=== PATIENT | male | born 1950 | race Caucasian/White ===

== ENCOUNTER 2016-07-19 10:27 | Emergency (ER) | payer BC, MEDICARE ==
[~2016-07-19] VITALS: Ht 170.2 cm; Wt 113.4 kg
[~2016-07-19 10:27] MED LIST: /AMLO25TA PO; /HYDR10TAB PO; /MESA40TAB PO; /MOXI40TA PO; /TAMS4CA PO; ACET-654 PO; ALB2.5NEB INH; ALBU0.084 IN; ALBU0.084 NEB; ALBUPOW9 INH; ASMA220A IN; ASMA220A INH; ASPI81CH PO; BISAC5TA PO; CARV25TA PO; CEFT500T PO; CIPR500T89 PO; COLA50CA3 PO; COMBAER6 INH; COMBIN INH; COZA100T2 PO; DICY10CA2 PO; DICY20TA11 PO; ERGO4000 PO; ERGO5000 PO; FERR325T3 PO; FISH100049 PO; FLEC100T2 PO; FLEC50TA PO; FLUNPOW INH; FURO40TA2 PO; HYDRPOW75 PO; INSUH10VL SC; INSULANT SC; INSULIN GL SC; IPRA2IN INH; IPRASOL12 NEB; KLOR1TAB73 PO; LASI40TA PO; LISI5TAB PO; LORA5SOL2 PO; MESAPOW PO; METF1000 PO; MOMETASONE FUROATE INH; NIFE15CA PO; OMEP20CA3 PO; POTA10IN2 PO; POTA10TA PO; PRED10TA PO; SIMV10TA2 PO; SIMV80TA PO; SPIR25TA2 PO; TERB1CRE TOP; TYLE325T5 PO; TYLE650T30 PO; VENTAER INH; VICT18IN SC; VITA10002 PO; VITA500C24 PO; VITA500T53 PO; VITAD1000T PO; WARF10TA15 PO; ZITH250T PO; [UNRECOGNIZED DRUG - CODE]; insulin glargine SC; miralax PO; vitamin b12 PO
[2016-07-19] MEDS ORDERED: PROM50TA2 PO (10:44)
[2016-07-19] MEDS ORDERED: BENT10CA PO (10:44)
[2016-07-19] MEDS ORDERED: LOSA50TA20 PO (10:44)
[2016-07-19] MEDS ORDERED: VITA50003 PO (10:44)
[2016-07-19] MEDS ORDERED: INSULADS INJ (10:44)
[2016-07-19] MEDS ORDERED: FUROSEMIDE 40 MG/4 ML VIAL (J1940) IV ONE (11:15)
[2016-07-19] MEDS ORDERED: ASPIRIN 81 MG CHEW TABLET PO ONE (11:15)
[2016-07-19] MEDS: NITROGLYCERIN 0.4 MG SUBL TABLET SL PRN ×3 (11:16→11:29)
[2016-07-19 11:21] VITALS: BP 121/58
[2016-07-19 11:28] LABS: INR 1.04
[2016-07-19 11:31] LABS: BASO % 0.2 % (0.0-1.0); EOS # 0.1 K/mm3 (0.0-0.50); EOS % 1.5 % (0.0-3.0); LARGE UNSTAINED CELL # 0.1 K/mm3 (0.0-0.4); LARGE UNSTAINED CELL % 1.8 % (0.0-4.0); LYMPH # 1.5 K/mm3 (1.5-4.5); LYMPH % 21.8 % (24.0-44.0); MEAN CORPUSCULAR HEMOGLOBIN 31.5 pg (27.0-33.0); MEAN CORPUSCULAR HGB CONC 34.2 g/dl (32.0-36.5); MEAN CORPUSCULAR VOLUME 92.1 fl (80.0-96.0); MONO # 0.4 K/mm3 (0.0-0.8); MONO % 6.1 % (0.0-5.0); NEUTROPHILS # 4.9 K/mm3 (1.8-7.7); NEUTROPHILS % 68.7 % (36.0-66.0); PLATELET COUNT, AUTOMATED 186 k/mm3 (150-450); RED CELL DISTRIBUTION WIDTH 12.1 % (11.5-14.5); WHITE BLOOD COUNT 7.1 K/mm3 (4.0-10.0)
[2016-07-19 11:33] LABS: ANION GAP 5 MEQ/L (8-16); BLOOD UREA NITROGEN 19 MG/DL (7-18); CALCIUM LEVEL 8.6 MG/DL (8.8-10.2); CARBON DIOXIDE LEVEL 34 MEQ/L (21-32); CHLORIDE LEVEL 102 MEQ/L (98-107); CREATININE FOR GFR 1.22 MG/DL (0.70-1.30); GLOMERULAR FILTRATION RATE > 60.0 (>49); GLUCOSE, FASTING 51 MG/DL (80-110); POTASSIUM SERUM 3.2 MEQ/L (3.5-5.1); SODIUM LEVEL 141 MEQ/L (136-145)
--- NOTE | 2016-07-19 11:54 | REP ---
PORTABLE CHEST: AP portable view of the chest is performed and compared to prior study of 09/06/2015. There is cardiomegaly. There is pulmonary venous hypertension. There is no acute infiltrate. There is elevation of the right hemidiaphragm. IMPRESSION: Cardiomegaly. No evidence of acute infiltrate. Signed by Amauri Wadsworth MD 07/19/2016 04:21 P
[2016-07-19] MEDS ORDERED: ACETAMINOPHEN 325 MG TAB PO ONE (12:15)
[2016-07-19] MEDS ORDERED: POTASSIUM CHLORIDE 10 MEQ SR TABLET PO ONE (12:15)
[2016-07-19] MEDS: HEPARIN DRIP 25,000 UNITS in APPROPRIATE DILUENT 1 EA IV SCH ×2 (14:19→14:35)
[2016-07-19] MEDS ORDERED: CLOPIDOGREL 75 MG TAB PO STA (14:21)
[2016-07-19] MEDS ORDERED: HEPARIN SOD (PORCINE) 5000 UNITS/ML VIAL IV ONE (14:30)
[2016-07-19] MEDS ORDERED: DEXTROSE 50% 50 ML VIAL IV STA (15:23)
[2016-07-19 15:58] VITALS: BP 166/80
--- NOTE | 2016-07-20 08:55 | ECGEPIP ---
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
--- NOTE | 2016-07-20 08:56 | ECGEPIP ---
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
--- NOTE | 2016-07-20 09:31 | ECGEPIP ---
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
== END 2016-07-19 16:01 | disposition short-term general hospital (02) ==
LOC: M ED 12:27
DX: I20.0 Unstable angina (principal); R94.31 Abnormal electrocardiogram [ECG] [EKG]; M79.89 Other specified soft tissue disorders; R06.02 Shortness of breath; R51 Headache; I50.9 Heart failure, unspecified; E11.9 Type 2 diabetes mellitus without complications; I11.0 Hypertensive heart disease with heart failure; E78.5 Hyperlipidemia, unspecified; Z82.49 Family history of ischemic heart disease and other diseases of the circulatory system; Z88.0 Allergy status to penicillin; Z79.899 Other long term (current) drug therapy; Z79.82 Long term (current) use of aspirin; Z79.4 Long term (current) use of insulin
CPT/HCPCS: 71010; 80048; 82550; 82553; 83880; 85025; 85610; 85730; 93005; 93041; 94760; 96374; 96375; 99285; J1940

== ENCOUNTER → 2016-07-26 | Outpatient (CLI) | payer BC ==
[~2016-07-26] MED LIST changes: +BENT10CA PO; +INSULADS INJ; +LOSA50TA20 PO; +PROM50TA2 PO; +VITA50003 PO
--- NOTE | 2016-07-26 12:08 | REP ---
Clinical: Trauma. Crush injury. Technique: AP, lateral, bilateral oblique views left hand . Findings: The osseous structures and joint spaces are intact and normal. There is no evidence for acute fracture or dislocation. Surrounding soft tissues are unremarkable. No subcutaneous emphysema or radiodense foreign body. Impression: No acute fracture or dislocation.
== END ==
LOC: M CLY 11:38
PROVIDERS: ATTEND Family Medicine
DX: M65.312 Trigger thumb, left thumb (principal)

== ENCOUNTER 2016-09-24 11:03 | Emergency (ER) | payer BC ==
[~2016-09-24] VITALS: Ht 170.2 cm; Wt 102.3 kg
[~2016-09-24 11:03] MED LIST changes: +METF10004 PO; -PROM50TA2 PO; +PROM50TA4 PO; +VITA1CAP40 PO; -VITA50003 PO
[2016-09-24] MEDS ORDERED: MELO15TA4 PO (11:18)
[2016-09-24] MEDS ORDERED: COMBAER6 INH (11:18)
[2016-09-24] MEDS ORDERED: AMLO10TA2 PO (11:18)
[2016-09-24 11:22] LABS: BASO % 0.5 % (0.0-1.0); EOS # 0.1 K/mm3 (0.0-0.50); EOS % 1.8 % (0.0-3.0); LARGE UNSTAINED CELL # 0.2 K/mm3 (0.0-0.4); LARGE UNSTAINED CELL % 2.6 % (0.0-4.0); LYMPH # 1.8 K/mm3 (1.5-4.5); LYMPH % 27.1 % (24.0-44.0); MEAN CORPUSCULAR HEMOGLOBIN 31.2 pg (27.0-33.0); MEAN CORPUSCULAR HGB CONC 34.7 g/dl (32.0-36.5); MONO # 0.5 K/mm3 (0.0-0.8); PLATELET COUNT, AUTOMATED 152 k/mm3 (150-450); RED CELL DISTRIBUTION WIDTH 12.7 % (11.5-14.5); WHITE BLOOD COUNT 6.6 K/mm3 (4.0-10.0)
[2016-09-24 11:47] LABS: ALBUMIN 3.7 GM/DL (3.2-5.2); ALBUMIN/GLOBULIN RATIO 0.93 (1.00-1.93); ALKALINE PHOSPHATASE 64 U/L (45-117); ALT/SGPT 21 U/L (12-78); ANION GAP 5 MEQ/L (8-16); AST/SGOT 15 U/L (15-37); BILIRUBIN,DIRECT 0.2 MG/DL (0.0-0.2); BILIRUBIN,TOTAL 0.4 MG/DL (0.2-1.0); BLOOD UREA NITROGEN 20 MG/DL (7-18); CALCIUM LEVEL 7.8 MG/DL (8.8-10.2); CARBON DIOXIDE LEVEL 36 MEQ/L (21-32); CHLORIDE LEVEL 100 MEQ/L (98-107); CREATININE FOR GFR 1.62 MG/DL (0.70-1.30); GLOMERULAR FILTRATION RATE 45.3 (>49); GLUCOSE, FASTING 110 MG/DL (80-110); POTASSIUM SERUM 3.5 MEQ/L (3.5-5.1); SODIUM LEVEL 141 MEQ/L (136-145); TOTAL PROTEIN 7.7 GM/DL (6.4-8.2)
--- NOTE | 2016-09-24 12:08 | REP ---
PORTABLE CHEST X-RAY: Single view. HISTORY: Chest pain. Comparison chest x-ray July 19, 2016. FINDINGS: The lungs are symmetrically aerated and free of infiltrate. Pulmonary vasculature is not increased. EKG electrodes are seen. There is slight blunting of the right lateral pleural angle unchanged from the prior study consistent with some pleural scarring. IMPRESSION: No active disease. Signed by Juan Marshall MD 09/24/2016 04:23 P
[2016-09-24] MEDS ORDERED: NITROGLYCERIN 0.4 MG SUBL TABLET SL PRN (12:30)
[2016-09-24] MEDS ORDERED: ASPIRIN 81 MG CHEW TABLET PO ONE (12:30)
[2016-09-24 12:40] VITALS: BP 134/59
[2016-09-24] MEDS ORDERED: ISOVUE-370 76% 100ML VIAL (Q9967) As Ordered ONE (13:45)
--- NOTE | 2016-09-24 14:45 | REP ---
CT PULMONARY ANGIOGRAM: With IV contrast. HISTORY: Chest pain shortness of breath. COMPARISON STUDIES: August 13, 2015. CONTRAST DOSE: 75 mL of Isovue [address] TECHNIQUE: Helical scanning is acquired and overlapping 1.5 mm and contiguous 3 mm axial images are reformatted. In addition, a 3D work station is deployed to generate thick slab maximum intensity projection images in sagittal and coronal imaging projections. CT PULMONARY ANGIOGRAPHIC FINDINGS: There is good opacification of the pulmonary arterial tree. There is no CT evidence of pulmonary embolism. Maximal intensity projection images show no vessel cutoff or filling defect to suggest a pulmonary thrombus. The thoracic aorta enhances homogeneously and is normal in caliber and course. No aneurysm or dissection seen. There is mild vascular calcification including left coronary artery calcification. There is calcific pleural plaquing on the right diaphragm. The patient is status post right lower lobectomy. No pleural or pericardial effusion is seen. The right hemidiaphragm is somewhat elevated. No infiltrate is seen in the lung jaime. No hilar or mediastinal mass or adenopathy is observed. The adrenal glands are normal. The left hepatic lobe is hypertrophied in the right lobe has been surgically resected. Spleen is unremarkable. There is mild bilateral gynecomastia. No bony destructive lesion is seen. IMPRESSION: 1. No CT evidence of pulmonary embolism. 2. Status post right lower lobectomy and right hepatic resection. No active cardiopulmonary disease seen. Signed by Juan Marshall MD 09/24/2016 04:24 P
[2016-09-24 18:17] VITALS: BP 146/72
--- NOTE | 2016-09-24 19:04 | ECGEPIP ---
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
--- NOTE | 2016-09-24 19:07 | ECGEPIP ---
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
== END 2016-09-24 18:28 | disposition home or self-care (01) ==
LOC: M ED 11:03
DX: R07.9 Chest pain, unspecified (principal); I48.91 Unspecified atrial fibrillation; I11.0 Hypertensive heart disease with heart failure; E78.5 Hyperlipidemia, unspecified; J44.9 Chronic obstructive pulmonary disease, unspecified; L65.9 Nonscarring hair loss, unspecified; K51.90 Ulcerative colitis, unspecified, without complications; K52.9 Noninfective gastroenteritis and colitis, unspecified; Z90.49 Acquired absence of other specified parts of digestive tract; Z90.89 Acquired absence of other organs; Z90.2 Acquired absence of lung [part of]; Z77.098 Contact with and (suspected) exposure to other hazardous, chiefly nonmedicinal, chemicals; Z87.891 Personal history of nicotine dependence; Z82.49 Family history of ischemic heart disease and other diseases of the circulatory system; Z79.82 Long term (current) use of aspirin; Z79.899 Other long term (current) drug therapy; Z88.0 Allergy status to penicillin; Z88.8 Allergy status to other drugs, medicaments and biological substances
CPT/HCPCS: 36415; 71010; 71275; 80048; 80076; 82550; 82553; 83690; 83880; 84443; 85025; 85730; 93005; 93041; 94760; 99285; Q9967

== ENCOUNTER → 2016-10-09 | Outpatient (REF) | payer BC ==
[~2016-10-09] MED LIST changes: +AMLO10TA2 PO; +MELO15TA4 PO
[2016-10-09 17:44] LABS: ANION GAP 9 MEQ/L (8-16); BLOOD UREA NITROGEN 12 MG/DL (7-18); CALCIUM LEVEL 7.8 MG/DL (8.8-10.2); CARBON DIOXIDE LEVEL 31 MEQ/L (21-32); CHLORIDE LEVEL 103 MEQ/L (98-107); CREATININE FOR GFR 1.01 MG/DL (0.70-1.30); GLOMERULAR FILTRATION RATE > 60.0 (>49); GLUCOSE, FASTING 67 MG/DL (80-110); POTASSIUM SERUM 3.8 MEQ/L (3.5-5.1); SODIUM LEVEL 143 MEQ/L (136-145)
== END ==
LOC: M SFHCCLAY 12:08
PROVIDERS: ATTEND Family Medicine
DX: I50.30 Unspecified diastolic (congestive) heart failure (principal)

== ENCOUNTER 2016-10-22 15:23 | Emergency (ER) | payer BC ==
[~2016-10-22] VITALS: Ht 170.2 cm; Wt 107.1 kg
--- NOTE | 2016-10-22 15:56 | REP ---
Portable chest x-ray: Single view. History: Chest pain. Comparison: Chest x-ray September 24, 2016. Findings: The lungs are symmetrically aerated and clear. Right hemidiaphragm remains slightly elevated. Mild cardiomegaly is observed, unchanged from the prior study. Pulmonary vasculature is not increased. There is no evidence of pleural effusion, infiltrate, or edema. Impression: Mild cardiomegaly, unchanged from comparison study September 24, 2016. Otherwise no acute disease. Signed by Juan Marshall MD 10/22/2016 04:09 P
[2016-10-22 16:44] LABS: INR 1.08
[2016-10-22 16:45] LABS: BASO % 0.3 % (0.0-1.0); EOS # 0.1 K/mm3 (0.0-0.50); EOS % 1.3 % (0.0-3.0); LARGE UNSTAINED CELL # 0.2 K/mm3 (0.0-0.4); LARGE UNSTAINED CELL % 1.8 % (0.0-4.0); LYMPH # 1.8 K/mm3 (1.5-4.5); LYMPH % 18.3 % (24.0-44.0); MEAN CORPUSCULAR HEMOGLOBIN 31.1 pg (27.0-33.0); MEAN CORPUSCULAR HGB CONC 34.9 g/dl (32.0-36.5); MEAN CORPUSCULAR VOLUME 89.1 fl (80.0-96.0); MONO # 0.7 K/mm3 (0.0-0.8); MONO % 7.7 % (0.0-5.0); NEUTROPHILS # 6.2 K/mm3 (1.8-7.7); NEUTROPHILS % 70.7 % (36.0-66.0); PLATELET COUNT, AUTOMATED 178 k/mm3 (150-450); RED CELL DISTRIBUTION WIDTH 13.2 % (11.5-14.5); WHITE BLOOD COUNT 8.8 K/mm3 (4.0-10.0)
[2016-10-22 17:00] LABS: ALBUMIN 3.5 GM/DL (3.2-5.2); ALBUMIN/GLOBULIN RATIO 0.97 (1.00-1.93); ALKALINE PHOSPHATASE 64 U/L (45-117); ALT/SGPT 18 U/L (12-78); ANION GAP 7 MEQ/L (8-16); AST/SGOT 19 U/L (15-37); BILIRUBIN,DIRECT 0.2 MG/DL (0.0-0.2); BILIRUBIN,TOTAL 0.6 MG/DL (0.2-1.0); BLOOD UREA NITROGEN 27 MG/DL (7-18); CALCIUM LEVEL 7.3 MG/DL (8.8-10.2); CARBON DIOXIDE LEVEL 34 MEQ/L (21-32); CHLORIDE LEVEL 99 MEQ/L (98-107); CREATININE FOR GFR 1.84 MG/DL (0.70-1.30); FREE T4 1.19 NG/DL (0.76-1.46); GLOMERULAR FILTRATION RATE 39.1 (>49); GLUCOSE, FASTING 50 MG/DL (80-110); POTASSIUM SERUM 3.2 MEQ/L (3.5-5.1); SODIUM LEVEL 140 MEQ/L (136-145); TOTAL PROTEIN 7.1 GM/DL (6.4-8.2)
[2016-10-22] MEDS ORDERED: POTASSIUM CHLORIDE 10 MEQ SR TABLET PO ONE (18:00)
[2016-10-22] MEDS ORDERED: NS 500 ML IV ONE (18:00)
--- NOTE | 2016-10-22 20:35 | ECGEPIP ---
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
[2016-10-22 21:06] VITALS: BP 122/65
== END 2016-10-22 21:33 | disposition home or self-care (01) ==
LOC: M ED 15:23
DX: E86.9 Volume depletion, unspecified (principal); E87.6 Hypokalemia; E11.649 Type 2 diabetes mellitus with hypoglycemia without coma; I25.10 Atherosclerotic heart disease of native coronary artery without angina pectoris; I11.0 Hypertensive heart disease with heart failure; I48.91 Unspecified atrial fibrillation; G47.33 Obstructive sleep apnea (adult) (pediatric); Z88.0 Allergy status to penicillin; Z79.82 Long term (current) use of aspirin; Z79.4 Long term (current) use of insulin; Z79.899 Other long term (current) drug therapy; Z79.84 Long term (current) use of oral hypoglycemic drugs

== ENCOUNTER → 2016-10-26 | Outpatient (REF) | payer BC ==
[2016-10-26 11:52] LABS: CALCIUM LEVEL 6.8 MG/DL (8.8-10.2); CREATININE FOR GFR 1.55 MG/DL (0.70-1.30); GLOMERULAR FILTRATION RATE 47.7 (>49); POTASSIUM SERUM 2.8 MEQ/L (3.5-5.1)
== END ==
LOC: M SFHCCLAY 08:40
PROVIDERS: ATTEND Family Medicine
DX: I50.30 Unspecified diastolic (congestive) heart failure (principal)

== ENCOUNTER → 2016-10-29 | Outpatient (REF) | payer BC ==
[2016-10-29 11:25] LABS: ALBUMIN 3.6 GM/DL (3.2-5.2); BILIRUBIN,TOTAL 0.5 MG/DL (0.2-1.0); CALCIUM LEVEL 7.1 MG/DL (8.8-10.2); CREATININE FOR GFR 1.8 MG/DL (0.70-1.30); GLOMERULAR FILTRATION RATE 40.1 (>49); POTASSIUM SERUM 3.1 MEQ/L (3.5-5.1); TOTAL PROTEIN 7.2 GM/DL (6.4-8.2)
== END ==
LOC: M SFHCCLAY 07:26
PROVIDERS: ATTEND Family Medicine
DX: E11.8 Type 2 diabetes mellitus with unspecified complications (principal); E87.6 Hypokalemia

== ENCOUNTER 2016-11-13 10:15 | Emergency (ER) | payer BC, MEDICARE ==
[~2016-11-13] VITALS: Ht 167.6 cm; Wt 104.6 kg
[2016-11-13 11:19] LABS: BASO % 0.2 % (0.0-1.0); EOS # 0.1 K/mm3 (0.0-0.50); LARGE UNSTAINED CELL # 0.1 K/mm3 (0.0-0.4); LARGE UNSTAINED CELL % 1.8 % (0.0-4.0); LYMPH # 1.5 K/mm3 (1.5-4.5); LYMPH % 21.2 % (24.0-44.0); MEAN CORPUSCULAR HEMOGLOBIN 32.1 pg (27.0-33.0); MEAN CORPUSCULAR VOLUME 87.3 fl (80.0-96.0); MONO # 0.4 K/mm3 (0.0-0.8); MONO % 6.2 % (0.0-5.0); NEUTROPHILS # 4.8 K/mm3 (1.8-7.7); NEUTROPHILS % 69.6 % (36.0-66.0); PLATELET COUNT, AUTOMATED 175 k/mm3 (150-450); RED CELL DISTRIBUTION WIDTH 12.7 % (11.5-14.5); WHITE BLOOD COUNT 6.9 K/mm3 (4.0-10.0)
[2016-11-13 11:31] LABS: MEAN CORPUSCULAR HGB CONC 36.2 g/dl (32.0-36.5)
[2016-11-13 11:40] LABS: INR 1.05
--- NOTE | 2016-11-13 11:41 | REP ---
Chest one-view HISTORY: Chest pain Comparison: 10/22/2016 There is elevation of the right hemidiaphragm. The lungs are clear. The cardiac silhouette is enlarged. Left The pulmonary vasculature is normal in appearance. Impression: No acute disease. Signed by Benjamin Fitch MD 11/13/2016 11:32 A
[2016-11-13 11:43] LABS: ALBUMIN 3.6 GM/DL (3.2-5.2); ALBUMIN/GLOBULIN RATIO 0.97 (1.00-1.93); ALKALINE PHOSPHATASE 65 U/L (45-117); ALT/SGPT 21 U/L (12-78); ANION GAP 10 MEQ/L (8-16); AST/SGOT 10 U/L (15-37); BILIRUBIN,DIRECT 0.2 MG/DL (0.0-0.2); BILIRUBIN,TOTAL 0.5 MG/DL (0.2-1.0); BLOOD UREA NITROGEN 18 MG/DL (7-18); CARBON DIOXIDE LEVEL 36 MEQ/L (21-32); CHLORIDE LEVEL 97 MEQ/L (98-107); CREATININE FOR GFR 1.68 MG/DL (0.70-1.30); GLOMERULAR FILTRATION RATE 43.5 (>49); GLUCOSE, FASTING 139 MG/DL (80-110); POTASSIUM SERUM 3.2 MEQ/L (3.5-5.1); SODIUM LEVEL 143 MEQ/L (136-145); TOTAL PROTEIN 7.3 GM/DL (6.4-8.2)
--- NOTE | 2016-11-13 12:42 | REP ---
CT Head without contrast HISTORY: Altered mental status COMPARISON: 09/06/2015 Areas of decreased attenuation are present in the periventricular and subcortical white matter. This represents small-vessel ischemic disease. There is no intraparenchymal hemorrhage, acute infarct, mass or midline shift. The ventricular system and cortical sulci are dilated consistent with mild volume loss. There is no extra cerebral collection. There is no fracture. The visualized sinuses are clear. IMPRESSION: 1. Small vessel ischemic disease. 2. Mild volume loss. Signed by Benjamin Fitch MD 11/13/2016 12:33 P
[2016-11-13] MEDS ORDERED: NS 500 ML IV ONE (13:45)
--- NOTE | 2016-11-13 13:53 | REP ---
Duplex extremity venous ultrasound: Bilateral lower extremity narinder History: The lower extremity swelling. Chest pain. Findings: The deep veins are anechoic and fully compressible from the groin to the popliteal fossa in the right and left lower extremity. Color flow imaging is homogeneous. Spectral Doppler interrogation demonstrates intact respiratory variation in flow and normal manual augmentation of flow. There is no evidence of deep vein thrombosis. Impression: Negative bilateral lower extremity duplex venous ultrasound. No evidence of deep vein thrombosis. Signed by Juan Marshall MD 11/13/2016 01:44 P
[2016-11-13 15:08] LABS: PHOSPHORUS LEVEL 4.5 MG/DL (2.5-4.9)
[2016-11-13] MEDS ORDERED: MAG SULF 1GM/100ML (MAG RUN) 1 GM in APPROPRIATE DILUENT 1 EA IV ONE (16:30)
--- NOTE | 2016-11-13 19:50 | REPUSA ---
MRI of the brain. Clinical history: dizziness, headaches. Technique: Multiecho multiplanar MRI images of the brain were obtained without administration of cont rast. Diffusion weighted images with ADC mapping was also obtained. Findings: The ventricles and sulci are symmetric but prominent in size bilaterally. The brain parenchyma demons trates T2 hyperintensity in the subcortical and periventricular white matter bilaterally. There is no midline shift, mass effect, or extra-axial fluid collection. The midline intracranial structures do not demonstrate any gross abnormalities. The cervical cranial junction is intact. The orbits are unre markable. The visualized paranasal sinuses and mastoid air cells are clear. The osseous structures an d superficial soft tissues are unremarkable. The vascular structures demonstrate appropriate flow voi ds. Impression: No evidence of acute hemorrhage or infarct. Moderate age-related atrophy and chronic smal l vessel ischemic changes.
--- NOTE | 2016-11-13 19:50 | REPUSA ---
MRI of the brain clinical history: headaches. Technique: [id number] MRA images of the brain were obtained without administration of contrast. 3 -D MIP images were also obtained. Findings: The vascular structures extending from the distal carotid and vertebrobasilar arterial syst ems, through the ewiiaapaayp of [place], demonstrate normal caliber and contour. There is no evidence of an eurysm, stenosis, or thrombosis. Impression: Unremarkable MRA examination of the brain.
[2016-11-13 20:52] VITALS: BP 155/73
--- NOTE | 2016-11-13 21:17 | ECGEPIP ---
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
== END 2016-11-13 20:53 | disposition home or self-care (01) ==
LOC: M ED 10:15
DX: E83.51 Hypocalcemia (principal); E83.42 Hypomagnesemia; E87.6 Hypokalemia; N18.9 Chronic kidney disease, unspecified; R94.31 Abnormal electrocardiogram [ECG] [EKG]; E11.21 Type 2 diabetes mellitus with diabetic nephropathy; E11.22 Type 2 diabetes mellitus with diabetic chronic kidney disease; I11.9 Hypertensive heart disease without heart failure; E78.5 Hyperlipidemia, unspecified; G47.30 Sleep apnea, unspecified; H54.41 Blindness, right eye, normal vision left eye; Z87.891 Personal history of nicotine dependence
CPT/HCPCS: 36415; 70450; 70544; 70551; 71010; 80048; 80076; 82306; 82330; 82550; 82553; 83690; 83735; 83880; 83970; 84100; 84443; 85025; 85610; 93005; 93041; 93970; 94760; 96365; 99285; J3475

== ENCOUNTER → 2016-11-25 | Outpatient (CLI) | payer BC, MEDICARE ==
--- NOTE | 2016-11-27 17:01 | SLEEPCENT ---
DATE OF PROCEDURE: 11/25/2016 ORDERED BY: Lorraine Garrido Nocturnal polysomnography was performed for re-titration of pressure therapy in this patient with a history of obstructive sleep apnea syndrome. For testing, a ResMed Quattro full face mask of small size was used, 8 cm of water pressure was initially applied to the circuit and the lights were extinguished. 7 hours and 13 minutes of data were reviewed. There were 307 minutes of sleep identified. Sleep latency was normal at 7 minutes. Rapid eye movement (REM) latency was mildly delayed at 115 minutes. Sleep architecture showed some fragmentation and some poor progression. Overall sleep efficiency was fairly good at 72%. There were 3 REM periods appreciated. The patient's EKG showed a sinus rhythm with an average heart rate of 50 beats per minute. EEG showed reasonably normal waveforms for awake and sleep. Persistent respiratory events prompted an increase in continuous positive airway pressure (CPAP) pressure. Best sleep was seen on a CPAP pressure of +9 with which the patient slept through REM without respiratory event or oxygen desaturation. There was some scattered limb activity but no trains of events. Limb movement arousal index was at the upper limits of normal at 5.7. IMPRESSION: Obstructive sleep apnea syndrome (G47.33). RECOMMENDATION: Nightly use of pressure therapy 9 cm of water. Copy To: Dr. Davis
== END ==
LOC: M SLEEP 19:45
PROVIDERS: ATTEND Nurse Practitioner Adult Health
DX: G47.33 Obstructive sleep apnea (adult) (pediatric) (principal)

== ENCOUNTER 2017-07-01 23:05 | Emergency (ER) | payer BC ==
[2017-07-02] MEDS: SIMETHICONE 80 MG CHEW TAB PO (00:15)
[2017-07-02] MEDS: NS 500 ML IV (00:25)
[2017-07-02 00:48] LABS: BASO % 0.2 % (0.0-1.0); EOS # 0.2 10^3/uL (0.0-0.50); EOS % 1.6 % (0.0-3.0); HEMATOCRIT 36.5 % (42.0-52.0); HEMOGLOBIN 13.2 g/dl (13.5-17.5); IMMATURE GRANULOCYTE % 0.3 % (0-3.0); LYMPH # 2.7 10^3/uL (1.5-4.5); LYMPH % 27.6 % (24.0-44.0); MEAN CORPUSCULAR HEMOGLOBIN 32.2 pg (27.0-33.0); MEAN CORPUSCULAR HGB CONC 36.2 g/dl (32.0-36.5); MONO # 0.9 10^3/uL (0.0-0.8); MONO % 9.4 % (0.0-5.0); NEUTROPHILS % 60.9 % (36.0-66.0); PLATELET COUNT, AUTOMATED 218 10^3/uL (150-450); WHITE BLOOD COUNT 9.9 10^3/uL (4.0-10.0)
[2017-07-02 01:17] LABS: ALBUMIN 3.8 GM/DL (3.2-5.2); ALBUMIN/GLOBULIN RATIO 1.03 (1.00-1.93); ALKALINE PHOSPHATASE 82 U/L (45-117); ALT/SGPT 29 U/L (12-78); ANION GAP 4 MEQ/L (8-16); AST/SGOT 22 U/L (7-37); BILIRUBIN,DIRECT 0.1 MG/DL (0.0-0.2); BILIRUBIN,TOTAL 0.5 MG/DL (0.2-1.0); BLOOD UREA NITROGEN 28 MG/DL (7-18); CALCIUM LEVEL 8.6 MG/DL (8.8-10.2); CARBON DIOXIDE LEVEL 33 MEQ/L (21-32); CHLORIDE LEVEL 102 MEQ/L (98-107); CREATININE FOR GFR 2.02 MG/DL (0.70-1.30); GLOMERULAR FILTRATION RATE 35.1 (>49); GLUCOSE, FASTING 154 MG/DL (70-100); POTASSIUM SERUM 3.8 MEQ/L (3.5-5.1); SODIUM LEVEL 139 MEQ/L (136-145); TOTAL PROTEIN 7.5 GM/DL (6.4-8.2)
== END 2017-07-02 03:20 | disposition home or self-care (01) ==
LOC: M ED 23:05
DX: K52.9 Noninfective gastroenteritis and colitis, unspecified (principal); E11.9 Type 2 diabetes mellitus without complications; I11.0 Hypertensive heart disease with heart failure; I50.9 Heart failure, unspecified; I48.91 Unspecified atrial fibrillation; J44.9 Chronic obstructive pulmonary disease, unspecified; N28.9 Disorder of kidney and ureter, unspecified; Z88.0 Allergy status to penicillin; Z88.8 Allergy status to other drugs, medicaments and biological substances; Z79.82 Long term (current) use of aspirin; Z79.899 Other long term (current) drug therapy; Z79.4 Long term (current) use of insulin
CPT/HCPCS: 93005

== ENCOUNTER 2017-07-12 11:44 | Inpatient (IN) | payer MEDICARE, BC ==
[2017-07-12 11:30] LABS: BEDSIDE GLUCOSE 104 MG/DL (80-115)
[2017-07-12 11:34] LABS: BASO % 0.3 % (0.0-1.0); EOS # 0.1 10^3/uL (0.0-0.50); EOS % 1.5 % (0.0-3.0); HEMATOCRIT 38.7 % (42.0-52.0); IMMATURE GRANULOCYTE % 0.3 % (0-3.0); LYMPH # 1.8 10^3/uL (1.5-4.5); MEAN CORPUSCULAR HEMOGLOBIN 32.5 pg (27.0-33.0); MEAN CORPUSCULAR HGB CONC 36.2 g/dl (32.0-36.5); MEAN CORPUSCULAR VOLUME 89.8 fl (80.0-96.0); MONO # 0.8 10^3/uL (0.0-0.8); MONO % 10.5 % (0.0-5.0); NEUTROPHILS # 4.8 10^3/uL (1.8-7.7); NEUTROPHILS % 63.4 % (36.0-66.0); PLATELET COUNT, AUTOMATED 180 10^3/uL (150-450); RED BLOOD COUNT 4.31 10^6/uL (4.30-6.10); RED CELL DISTRIBUTION WIDTH 12.8 % (11.5-14.5); WHITE BLOOD COUNT 7.5 10^3/uL (4.0-10.0)
[2017-07-12 11:44] LABS: INR 1.05; PROTHROMBIN TIME 13.8 SECONDS (12.4-14.5)
[2017-07-12 11:45] LABS: PARTIAL THROMBOPLASTIN TIME 38.7 SECONDS (26.8-37.9)
[2017-07-12] MEDS: NS 1,000 ML IV ×2 (11:47→13:34)
[2017-07-12 11:56] LABS: ANION GAP 3 MEQ/L (8-16); BLOOD UREA NITROGEN 23 MG/DL (7-18); CALCIUM LEVEL 9.2 MG/DL (8.8-10.2); CARBON DIOXIDE LEVEL 35 MEQ/L (21-32); CHLORIDE LEVEL 105 MEQ/L (98-107); CK-MB VALUE MASS 1.1 NG/ML (<3.6); CPK CREATINE PHOSPHOKINASE 94 U/L (39-308); CREATININE FOR GFR 1.82 MG/DL (0.70-1.30); GLOMERULAR FILTRATION RATE 39.6 (>49); GLUCOSE, FASTING 88 MG/DL (70-100); MAGNESIUM LEVEL 2.2 MG/DL (1.8-2.4); MB/CK RELATIVE INDEX 1.17 (< OR =4); POTASSIUM SERUM 3.8 MEQ/L (3.5-5.1); SODIUM LEVEL 143 MEQ/L (136-145); TROPONIN I < 0.02 NG/ML (< 0.10)
[2017-07-12 12:08] LABS: LACTIC ACID SEPSIS PROTOCOL 1.2 MMOL/L (0.4-2.0)
[2017-07-12] MEDS ORDERED: GLUCAGON FOR INJ 1 MG VIAL (J1610) SC (15:00)
[2017-07-12] MEDS ORDERED: GLUCOSE 4 GM CHEW TABLET PO (15:00)
[2017-07-12] MEDS ORDERED: DEXTROSE 50% 50 ML SYRINGE IV (15:00)
[2017-07-12] MEDS: HumaLOG INSULIN (NovoLOG) PER UNIT SC ×2 (17:30→20:47)
[2017-07-12 17:44] LABS: BEDSIDE GLUCOSE 70 MG/DL (80-115)
[2017-07-12 19:42] LABS: CK-MB VALUE MASS 1.5 NG/ML (<3.6); CPK CREATINE PHOSPHOKINASE 91 U/L (39-308); MB/CK RELATIVE INDEX 1.64 (< OR =4); TROPONIN I < 0.02 NG/ML (< 0.10)
[2017-07-12 20:53] LABS: BEDSIDE GLUCOSE 144 MG/DL (80-115)
[2017-07-12] MEDS: CARVedilol 12.5 MG TAB PO (21:38)
[2017-07-12] MEDS: METAMUCIL (PSYLLIUM) PACKET PO (21:38)
[2017-07-12] MEDS: DICYCLOMINE 10 MG CAP PO (21:38)
[2017-07-12] MEDS: OMEPRAZOLE 20 MG CAP PO (21:38)
[2017-07-12] MEDS: HEPARIN SOD (PORCINE) 5000 UNITS/ML VIAL SQ (21:38)
[2017-07-12] MEDS: LEVEMIR (INSULIN DETEMIR) 1 UNITS/0.01ML SC (21:39)
[2017-07-13 04:03] LABS: HEMATOCRIT 33.4 % (42.0-52.0); MEAN CORPUSCULAR HEMOGLOBIN 32.1 pg (27.0-33.0); MEAN CORPUSCULAR HGB CONC 35.9 g/dl (32.0-36.5); MEAN CORPUSCULAR VOLUME 89.3 fl (80.0-96.0); PLATELET COUNT, AUTOMATED 157 10^3/uL (150-450); RED BLOOD COUNT 3.74 10^6/uL (4.30-6.10); RED CELL DISTRIBUTION WIDTH 12.5 % (11.5-14.5); WHITE BLOOD COUNT 8.5 10^3/uL (4.0-10.0)
[2017-07-13 04:22] LABS: ANION GAP 6 MEQ/L (8-16); BLOOD UREA NITROGEN 19 MG/DL (7-18); CALCIUM LEVEL 8.1 MG/DL (8.8-10.2); CARBON DIOXIDE LEVEL 29 MEQ/L (21-32); CHLORIDE LEVEL 108 MEQ/L (98-107); CHOLESTEROL LEVEL 122 MG/DL (<200); CHOLESTEROL RISK RATIO 4.518 (<5); CK-MB VALUE MASS < 1.0 NG/ML (<3.6); CPK CREATINE PHOSPHOKINASE 76 U/L (39-308); GLOMERULAR FILTRATION RATE 58.4 (>49); GLUCOSE, FASTING 131 MG/DL (70-100); HDL CHOLESTEROL 27 MG/DL (>40); LDL CHOLESTEROL 35.2 MG/DL (<100); MAGNESIUM LEVEL 1.8 MG/DL (1.8-2.4); MB/CK RELATIVE INDEX 1.31 (< OR =4); NON-HDL-C 95 MG/DL; POTASSIUM SERUM 3.3 MEQ/L (3.5-5.1); SODIUM LEVEL 143 MEQ/L (136-145); TRIGLYCERIDES LEVEL 299 MG/DL (<150); TROPONIN I < 0.02 NG/ML (< 0.10)
[2017-07-13] MEDS: NS 1,000 ML IV (05:40)
[2017-07-13 06:04] LABS: KETONE, URINE AUTO RFX NEGATIVE (NEGATIVE); LEUKOCYTE ESTERASE UR AUTO RFX NEGATIVE (NEGATIVE); MUCUS, URINE RFX SMALL (NEGATIVE); NITRITE, URINE AUTO RFX NEGATIVE (NEGATIVE); RBC, URINE AUTO RFX 1 /HPF (0-3); SPECIFIC GRAVITY UR AUTO RFX 1.016 (1.002-1.035); SQUAM EPITHELIAL CELL UR AURFX 0 /HPF (0-6); WBC, URINE AUTO RFX 0 /HPF (0-3)
[2017-07-13] MEDS: METAMUCIL (PSYLLIUM) PACKET PO ×2 (08:02→20:36)
[2017-07-13] MEDS: HEPARIN SOD (PORCINE) 5000 UNITS/ML VIAL SQ ×2 (08:03→20:37)
[2017-07-13] MEDS: HumaLOG INSULIN (NovoLOG) PER UNIT SC ×4 (08:03→20:38)
[2017-07-13] MEDS: DICYCLOMINE 10 MG CAP PO ×2 (08:04→20:37)
[2017-07-13] MEDS: CARVedilol 12.5 MG TAB PO ×2 (08:04→20:37)
[2017-07-13] MEDS: amLODIPine 5 MG TAB PO (08:04)
[2017-07-13] MEDS: LOSARTAN 50 MG TAB PO (08:04)
[2017-07-13] MEDS: ATORVASTATIN 20 MG TAB PO (08:05)
[2017-07-13] MEDS: ASPIRIN 81 MG ENTERIC TAB PO (08:05)
[2017-07-13] MEDS: OMEPRAZOLE 20 MG CAP PO ×2 (08:05→20:37)
[2017-07-13] MEDS: MULTIVITAMINS/MINERALS THERAP 1 TAB PO (08:05)
[2017-07-13 10:25] LABS: CPK CREATINE PHOSPHOKINASE 89 U/L (39-308); TROPONIN I < 0.02 NG/ML (< 0.10)
[2017-07-13 10:26] LABS: CK-MB VALUE MASS < 1.0 NG/ML (<3.6); MB/CK RELATIVE INDEX 1.12 (< OR =4)
[2017-07-13 11:33] LABS: BEDSIDE GLUCOSE 262 MG/DL (80-115)
[2017-07-13] MEDS: POTASSIUM CHLORIDE 10 MEQ SR TABLET PO (12:08)
[2017-07-13] MEDS ORDERED: SLF 3 ML SYR IV (15:45)
[2017-07-13 16:56] LABS: BEDSIDE GLUCOSE 212 MG/DL (80-115)
[2017-07-13 20:31] LABS: BEDSIDE GLUCOSE 293 MG/DL (80-115)
[2017-07-13] MEDS: SLF 3 ML SYR IV (20:38)
[2017-07-13] MEDS: LEVEMIR (INSULIN DETEMIR) 1 UNITS/0.01ML SC (20:38)
[2017-07-14 04:49] LABS: HEMATOCRIT 32.2 % (42.0-52.0); HEMOGLOBIN 11.8 g/dl (13.5-17.5); MEAN CORPUSCULAR HEMOGLOBIN 32.4 pg (27.0-33.0); MEAN CORPUSCULAR HGB CONC 36.6 g/dl (32.0-36.5); MEAN CORPUSCULAR VOLUME 88.5 fl (80.0-96.0); PLATELET COUNT, AUTOMATED 138 10^3/uL (150-450); RED BLOOD COUNT 3.64 10^6/uL (4.30-6.10); RED CELL DISTRIBUTION WIDTH 12.3 % (11.5-14.5); WHITE BLOOD COUNT 6.2 10^3/uL (4.0-10.0)
[2017-07-14 05:05] LABS: ANION GAP 6 MEQ/L (8-16); BLOOD UREA NITROGEN 15 MG/DL (7-18); CALCIUM LEVEL 8.2 MG/DL (8.8-10.2); CARBON DIOXIDE LEVEL 28 MEQ/L (21-32); CHLORIDE LEVEL 109 MEQ/L (98-107); GLOMERULAR FILTRATION RATE > 60.0 (>49); GLUCOSE, FASTING 176 MG/DL (70-100); POTASSIUM SERUM 3.9 MEQ/L (3.5-5.1); SODIUM LEVEL 143 MEQ/L (136-145)
[2017-07-14] MEDS: SLF 3 ML SYR IV (06:00)
[2017-07-14] MEDS: METAMUCIL (PSYLLIUM) PACKET PO (07:54)
[2017-07-14] MEDS: HumaLOG INSULIN (NovoLOG) PER UNIT SC ×2 (07:55→11:37)
[2017-07-14] MEDS: LOSARTAN 50 MG TAB PO (07:55)
[2017-07-14] MEDS: ASPIRIN 81 MG ENTERIC TAB PO (07:56)
[2017-07-14] MEDS: ATORVASTATIN 20 MG TAB PO (07:56)
[2017-07-14] MEDS: DICYCLOMINE 10 MG CAP PO (07:56)
[2017-07-14] MEDS: CARVedilol 12.5 MG TAB PO (07:56)
[2017-07-14] MEDS: OMEPRAZOLE 20 MG CAP PO (07:57)
[2017-07-14] MEDS: MULTIVITAMINS/MINERALS THERAP 1 TAB PO (07:57)
[2017-07-14] MEDS: HEPARIN SOD (PORCINE) 5000 UNITS/ML VIAL SQ (07:57)
[2017-07-14 11:52] LABS: BEDSIDE GLUCOSE 239 MG/DL (80-115)
== END 2017-07-14 13:41 | disposition home or self-care (01) | DRG 312 ==
LOC: M ED 11:44 → M ED INP 14:58 → M PCU 16:43
PROVIDERS: Hospitalist
DX: I95.1 Orthostatic hypotension (principal); I13.0 Hypertensive heart and chronic kidney disease with heart failure and stage 1 through stage 4 chronic kidney disease, or unspecified chronic kidney disease; K51.90 Ulcerative colitis, unspecified, without complications; N17.9 Acute kidney failure, unspecified; I50.32 Chronic diastolic (congestive) heart failure; N52.9 Male erectile dysfunction, unspecified; E11.22 Type 2 diabetes mellitus with diabetic chronic kidney disease; J44.9 Chronic obstructive pulmonary disease, unspecified; E78.5 Hyperlipidemia, unspecified; K21.9 Gastro-esophageal reflux disease without esophagitis; E87.6 Hypokalemia; N18.3 Chronic kidney disease, stage 3 (moderate); G47.33 Obstructive sleep apnea (adult) (pediatric); E11.43 Type 2 diabetes mellitus with diabetic autonomic (poly)neuropathy; Z87.891 Personal history of nicotine dependence; I48.0 Paroxysmal atrial fibrillation; Z79.82 Long term (current) use of aspirin; Z79.4 Long term (current) use of insulin; Z79.899 Other long term (current) drug therapy; Z88.0 Allergy status to penicillin; Z88.8 Allergy status to other drugs, medicaments and biological substances

== ENCOUNTER → 2017-07-24 | Outpatient (REF) | payer BC ==
[2017-07-24 16:53] LABS: HEMATOCRIT 37.2 % (42.0-52.0); HEMOGLOBIN 13.4 g/dl (13.5-17.5); MEAN CORPUSCULAR HEMOGLOBIN 32.4 pg (27.0-33.0); MEAN CORPUSCULAR VOLUME 90.1 fl (80.0-96.0); PLATELET COUNT, AUTOMATED 179 10^3/uL (150-450); RED BLOOD COUNT 4.13 10^6/uL (4.30-6.10); RED CELL DISTRIBUTION WIDTH 12.8 % (11.5-14.5); WHITE BLOOD COUNT 7.9 10^3/uL (4.0-10.0)
[2017-07-24 17:18] LABS: ANION GAP 7 MEQ/L (8-16); BLOOD UREA NITROGEN 13 MG/DL (7-18); CALCIUM LEVEL 8.2 MG/DL (8.8-10.2); CARBON DIOXIDE LEVEL 31 MEQ/L (21-32); CHLORIDE LEVEL 106 MEQ/L (98-107); CREATININE FOR GFR 1.31 MG/DL (0.70-1.30); GLOMERULAR FILTRATION RATE 57.8 (>49); GLUCOSE, FASTING 153 MG/DL (70-100); NT-PRO BNP 127 PG/ML (<125); POTASSIUM SERUM 3.5 MEQ/L (3.5-5.1); SODIUM LEVEL 144 MEQ/L (136-145)
[2017-07-24 17:43] LABS: ESTIMATED AVERAGE GLUCOSE 194 MG/DL (60-110); HEMOGLOBIN A1c 8.4 %
== END ==
LOC: M SFHCCLAY 11:20
DX: I50.30 Unspecified diastolic (congestive) heart failure (principal); I11.0 Hypertensive heart disease with heart failure
CPT/HCPCS: 83036

== ENCOUNTER 2018-05-27 20:44 | Inpatient (IN) | payer OTHER, MEDICARE, BC ==
[~2018-05-27] VITALS: Ht 170.2 cm; Wt 106.0 kg
[~2018-05-27 20:44] MED LIST changes: -AMLO10TA2 PO; +AMLO10TA5 PO; +AMLO5TAB6 PO; +ASPI81TA85 PO; +ATOR80TA59 PO; +CALC600T60 PO; +CALCTAB60 PO; +CARV12.5 PO; -INSULADS INJ; +INSULADS SC; +LOSA100T50 PO; -LOSA50TA20 PO; +LOSA50TA88 PO; +MELO15TA28 PO; -MELO15TA4 PO; +META1POW PO; +METF-839 PO; +MULTLIQ7 PO; -SIMV80TA PO; +SIMV80TA13 PO; +SPIR-10 PO; -VITA1CAP40 PO; +VITA50005 PO; +VITMTA PO
[2018-05-27] MEDS ORDERED: predniSONE 10 MG TAB PO SCH (21:00)
[2018-05-27] MEDS ORDERED: HumuLIN R (REGULAR) INSULIN (NovoLIN R) **100U/ML** PER UNIT IV STA (21:05)
[2018-05-27] MEDS ORDERED: APAP325T4 PO (21:24)
[2018-05-27] MEDS ORDERED: VENTAER INH (21:26)
[2018-05-27] MEDS ORDERED: PRED10PA2 PO (21:26)
[2018-05-27] MEDS ORDERED: ZITHTAB PO (21:26)
[2018-05-27] MEDS ORDERED: FLUTISP NARES (21:26)
[2018-05-27] MEDS ORDERED: BENZ200C70 PO (21:26)
[2018-05-27] MEDS ORDERED: NS 1,000 ML IV ONE (21:30)
[2018-05-27] MEDS: IPRATROPIUM 0.5MG/ALBUTEROL 2.5MG INH SOL UD 3ML (DUONEB)(J7620) NEB PRN ×2 (21:32→22:02)
[2018-05-27 21:38] LABS: HEMOGLOBIN A1c 8.2 %
[2018-05-27 21:55] LABS: ABG BASE EXCESS -6.6 (-2.0-2.0); ABG HCO3 19.1 MEQ/L (22.0-26.0); ABG O2 SATURATION 96.2 % (95.0-99.0); ABG PARTIAL PRESSURE CO2 38.6 mmHg (35.0-45.0); ABG PARTIAL PRESSURE O2 88.6 mmHg (75.0-100.0); ABG STANDARD HCO3 19.1 MEQ/L (22.0-26.0); ABG TOTAL CO2 20.3 MEQ/L (23.0-31.0); ABG pH (ARTERIAL) 7.312 UNITS (7.350-7.450)
[2018-05-27 22:13] LABS: ALBUMIN 3.4 GM/DL (3.2-5.2); BILIRUBIN,DIRECT 0.1 MG/DL (0.0-0.2); BILIRUBIN,TOTAL 0.4 MG/DL (0.2-1.0); CALCIUM LEVEL 7.8 MG/DL (8.8-10.2); CREATININE FOR GFR 2.83 MG/DL (0.70-1.30); GLOMERULAR FILTRATION RATE 23.7 (>49); POTASSIUM SERUM 4.4 MEQ/L (3.5-5.1)
[2018-05-27 22:31] LABS: BASO % 0.1 % (0.0-1.0); HEMATOCRIT 36.8 % (42.0-52.0); HEMOGLOBIN 12.6 g/dl (13.5-17.5); LYMPH % 13.9 % (24.0-44.0); MEAN CORPUSCULAR HEMOGLOBIN 31.9 pg (27.0-33.0); MEAN CORPUSCULAR HGB CONC 34.2 g/dl (32.0-36.5); MEAN CORPUSCULAR VOLUME 93.2 fl (80.0-96.0); MONO # 0.7 10^3/uL (0.0-0.8); MONO % 10.7 % (0.0-5.0); NEUTROPHILS # 5.1 10^3/uL (1.8-7.7); NEUTROPHILS % 74.9 % (36.0-66.0); PLATELET COUNT, AUTOMATED 174 10^3/uL (150-450); RED BLOOD COUNT 3.95 10^6/uL (4.30-6.10); WHITE BLOOD COUNT 6.8 10^3/uL (4.0-10.0)
[2018-05-27] MEDS ORDERED: HumaLOG INSULIN (NovoLOG) PER UNIT SC STA (23:59)
[2018-05-28] MEDS ORDERED: CALCTAB6 PO (00:43)
[2018-05-28] MEDS ORDERED: VENTAER INH (00:43)
[2018-05-28] MEDS ORDERED: AZIT-10 PO (00:43)
[2018-05-28] MEDS ORDERED: OMEP40CA2 PO (00:43)
[2018-05-28] MEDS ORDERED: FURO40TA2 PO (00:43)
[2018-05-28] MEDS ORDERED: TYLE325T5 PO (00:43)
[2018-05-28] MEDS ORDERED: MAXZTA PO (00:43)
[2018-05-28] MEDS ORDERED: BENZ200C70 PO (00:43)
[2018-05-28] MEDS ORDERED: PRED10TA2 PO (00:43)
[2018-05-28] MEDS ORDERED: META28.32 PO (00:43)
[2018-05-28] MEDS ORDERED: CARV12.5 PO (00:43)
[2018-05-28] MEDS ORDERED: NS 1,000 ML IV SCH (01:03)
[2018-05-28] MEDS ORDERED: ACETAMINOPHEN TAB 650MG DOSE (2X325MG) PO PRN (01:15)
[2018-05-28] MEDS ORDERED: MORPHINE 4 MG/ML 1ML VIAL/SYRINGE (J2270) IV PRN (01:15)
[2018-05-28] MEDS ORDERED: ONDANSETRON 4 MG TAB (S0181) PO PRN (01:15)
[2018-05-28 06:18] LABS: BASO % 0.2 % (0.0-1.0); HEMATOCRIT 33.6 % (42.0-52.0); HEMOGLOBIN 11.5 g/dl (13.5-17.5); LYMPH # 1.8 10^3/uL (1.5-4.5); LYMPH % 27.6 % (24.0-44.0); MEAN CORPUSCULAR HEMOGLOBIN 31.7 pg (27.0-33.0); MEAN CORPUSCULAR HGB CONC 34.2 g/dl (32.0-36.5); MEAN CORPUSCULAR VOLUME 92.6 fl (80.0-96.0); MONO % 16.4 % (0.0-5.0); NEUTROPHILS # 3.5 10^3/uL (1.8-7.7); NEUTROPHILS % 55.5 % (36.0-66.0); PLATELET COUNT, AUTOMATED 135 10^3/uL (150-450); RED BLOOD COUNT 3.63 10^6/uL (4.30-6.10); WHITE BLOOD COUNT 6.3 10^3/uL (4.0-10.0)
[2018-05-28] MEDS: BENZONATATE 100 MG CAP PO SCH ×4 (06:29→22:34)
[2018-05-28] MEDS ORDERED: GLUCOSE 4 GM CHEW TABLET PO PRN (06:30)
[2018-05-28] MEDS ORDERED: GLUCAGON FOR INJ 1 MG VIAL (J1610) SC PRN (06:30)
[2018-05-28] MEDS ORDERED: DEXTROSE 50% 50 ML SYRINGE IV PRN (06:30)
[2018-05-28] MEDS: CARVedilol 12.5 MG TAB PO SCH ×3 (06:33→22:35)
[2018-05-28] MEDS: OMEPRAZOLE 20 MG CAP PO SCH ×3 (06:33→22:34)
--- NOTE | 2018-05-28 06:33 | HPEPDOC ---
[facility] Medical History & Physical Date of Admission May 28, 2018 History and Physical CHIEF COMPLAINT: dyspnea and hyperglyemia >600 at home HPI: 67yoM who reports dyspnea for the past 3 days. He went to the [place] yesterday and was given zpack and steroid, but hasn't felt much better and noticed that his f/s was >600 so he came to the ed. Associated symptoms include chest tightness, wheezes and cough. He denied fever, chills, headache, di zziness, weakness , dysuria , hematuria , nausea or vomiting ROS - all 14 points ROS negative except for what's stated in HPI PAST MEDICAL HISTORY ALOPECIA E.D. IDDM H/O AGENT ORANGE EXPOSURE COPD HYPERTENSION/HHD/H/O CHF. No prior Echo on chart. HLD ULCERATIVE COLITIS GERD H/O A-FIB HISTORY OF OCCULT GI BLOOD LOSS, RESULTING IN STOPPING ANTICOAGULATION FOR AFIB RELATED STROKE PROPHYLAXIS CKD 3 Baseline appears to be 1.5-1.8. LUISITO. 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 Kids:2 Tobacco use: quit 1996 ETOH: denies Advanced directives: none FAMHX: Mother: CAD Father: CAD/DM Siblings: 5Alive, well. 3 CAD/DM/Breast CA Children: 2 Dtr Alive, well Physical Exam GEN: NAD , obese HEENT: normocephalic, atraumatic, PERRLA, EOMI, externbal ears appears normal, neck supple, no pharyngeal erythema CVS : normal S1, S2 no murmur, rubs or gallops , PMI nondisplaced RESP: no rals, rhonchi, crackles. wheezes- b/l mild scattered, some restriction in air movement ABD - +BS, soft, NT, ND , no cva tenderness MSK no joint swelling, FROM, no muscle tenderness Neuro no focal deficit, AOAX3 Lymphatics- no lymphedema, no lymphadenopathy in cervical and supraclavicular chains Psych- normal mood and affect, good judgement and insight LABORATORY DATA: See below. IMAGING: reviewed MICROBIOLOGY: Please see below. ASSESSMENT and Plan COPD exacerbation -duoneb q4h prn -methylprednisolone 40mg q8h -Patient may need inhaled steroid Hyperglycemia - exacerbated by steroid use - hold home 70/30 - start levemir 15 units qhs and lispro 5 units TIDAC - ISS -hypoglycemic protocol -f/u hba1c c/w other home meds for his chronic conditions dvt ppx full code, from home no svc Vital Signs Vital Signs Date Time Temp Pulse Resp B/P (MAP) Pulse Ox O2 Delivery O2 Flow Rate FiO2 05/28/18 02:44 85 18 96 Room Air 05/28/18 02:01 146/67 (93) 05/27/18 22:59 99.2 Laboratory Data Labs 24H Laboratory Tests 2 05/27/18 21:10: Blood Gas Bicarbonate Standard 19.1L, Arterial Blood pH 7.312L, Arterial Blood Partial Pressure CO2 38.6, Arterial Blood Partial Pressure O2 88.6, Arterial Blood Total CO2 20.3L, Arterial Blood HCO3 19.1L, Arterial Blood Base Excess - 6.6L, Arterial Blood Oxygen Saturation 96.2 05/27/18 21:11: Immature Granulocyte % (Auto) 0.4, White Blood Count 6.8, Red Blood Count 3.95L, Hemoglobin 12.6L, Hematocrit 36.8L, Mean Corpuscular Volume 93.2, Mean Corpuscular Hemoglobin 31.9, Mean Corpuscular Hemoglobin Concent 34.2, Red Cell Distribution Width 12.2, Platelet Count 174, Neutrophils (%) (Auto) 74.9H, Lymphocytes (%) (Auto) 13.9L, Monocytes (%) (Auto) 10.7H, Eosinophils (%) (Auto) 0.0, Basophils (%) (Auto) 0.1, Neutrophils # (Auto) 5.1, Lymphocytes # (Auto) 1.0L, Monocytes # (Auto) 0.7, Eosinophils # (Auto) 0.0, Basophils # (Auto) 0.0, Nucleated Red Blood Cells % (auto) 0.0, Urine Color STRAW, Urine Appearance CLEAR, Urine pH 5.0, Urine Specific [place] 1.022, Urine Protein NEGATIVE, Urine Glucose (UA) 3+H, Urine Ketones NEGATIVE, Urine Blood 1+H, Urine Nitrite NEGATIVE, Urine Bilirubin NEGATIVE, Urine Urobilinogen 0.2, Urine Leukocyte Esterase NEGATIVE, Urine WBC (Auto) 0, Urine RBC (Auto) 0, Urine Hyaline Casts (Auto) 0, Urine Bacteria (Auto) NEGATIVE, Urine Squamous Epithelial Cells 0, Urine Sperm (Auto) , Anion Gap 8, Glomerular Filtration Rate 23.7L, Estimated Mean Plasma Glucose 189H, Hemoglobin A1c 8.2, Calcium Level 7.8L, Aspartate Amino Transf (AST/SGOT) 29, Alanine Aminotransferase (ALT/SGPT) 32, Alkaline Phosphatase 103, Total Bilirubin 0.4, Direct Bilirubin 0.1, Total Protein 7.0, Albumin 3.4, Albumin/Globulin Ratio 0.94L 05/27/18 22:35: Bedside Glucose (Misc Panel) 514*H 05/27/18 23:46: Bedside Glucose (Misc Panel) 487H 05/28/18 01:31: Bedside Glucose (Misc Panel) 372H CBC/BMP Laboratory Tests 05/27/18 21:11 Red Blood Count 3.95 L, Mean Corpuscular Volume 93.2, Mean Corpuscular Hem oglobin 31.9, Mean Corpuscular Hemoglobin Concent 34.2, Red Cell Distribution Width 12.2, Neutrophils (%) (Auto) 74.9 H, Lymphocytes (%) (Auto) 13.9 L, Monocytes (%) (Auto) 10.7 H, Eosinophils (%) (Auto) 0.0, Basophils (%) (Auto) 0.1, Neutrophils # (Auto) 5.1, Lymphocytes # (Auto) 1.0 L, Monocytes # (Auto) 0.7, Eosinophils # (Auto) 0.0, Basophils # (Auto) 0.0 Microbiology Microbiology 05/27/18 Respiratory Virus Panel (PCR) (FELY) - Final, Complete Influenza A H1-2009 Home Medications Scheduled Aspirin (Aspir-81) 81 Mg Tab, 81 MG PO DAILY Atorvastatin Calcium (Atorvastatin Calcium) 80 Mg Tab, 40 MG PO DAILY Azithromycin (Azithromycin) 250 Mg Tab, 250 MG PO ASDIRECTED LAST DOSE WAS DAY 2 Benzonatate (Benzonatate) 200 Mg Cap, 200 MG PO TID Calcium/Vitamin D (Calcium 600-D 600-400 mg-Unit) 1 Tab Tab, 1 TAB PO BID Carvedilol (Carvedilol) 12.5 Mg Tab, 12.5 MG PO BID Furosemide (Furosemide) 40 Mg Tab, 40 MG PO DAILY Insulin Aspart (Novolog) 100 U/Ml Inj, 6 UNITS SC DAILY WITH BREAKFAST Insulin Glargine (Lantus) 100 Unit/Ml Inj, 70 UNIT SC QHS Losartan Potassium (Losartan Potassium) 100 Mg Tab, 100 MG PO DAILY Metformin Hydrochloride (Metformin Hydrochloride) 500 Mg Tab, 500 MG PO TID BREAKFAST, DINNER AND BEDTIME Multivitamins *[facility] STOCKED* (Thera M Plus *[facility] STOCKED*) 1 Tab Tab, 1 TAB PO DAILY Omeprazole (Omeprazole) 40 Mg Cap, 40 MG PO BID Prednisone (Prednisone) 10 Mg Tab, 10 MG PO TAPER 40MG FOR 2 DAYS, 30MG FOR 2 DAYS, 20MG FOR 2 DAYS AND 10MG FOR 2 DAYS: LAST DOSE WAS FIRST DAY OF 40MG Psyllium (Metamucil Smooth Texture) 28.3 % Pow, 1 PKT PO BID Triamterene/Hctz (Triamterene/Hydrochloroth 75-50 mg) 1 Ea Tab, 1 EA PO DAILY Scheduled PRN Acetaminophen (Tylenol) 325 Mg Tab, 650 MG PO Q4H PRN for PAIN / FEVER Albuterol Sulfate (Ventolin Hfa) 108 Mcg/Act Aer, 2 PUFFS INH Q4H PRN for SHORTNESS OF BREATH Allergies Coded Allergies: Clavulanic Acid (Verified Adverse Reaction, Mild, LOOSE STOOLS, 07/12/17) Penicillins (Verified Adverse Reaction, Mild, LOOSE STOOLS, 07/12/17) Penicillins Cross Reactors (Verified Adverse Reaction, Mild, LOOSE STOOLS, 07/12/17) JAGRUTI LEYVA MD May 28, 2018 04:29
[2018-05-28] MEDS: methylPREDNISolone INJ 40 MG/1 ML VIAL (J2920) IV SCH ×3 (06:42→22:33)
[2018-05-28] MEDS: HEPARIN SOD (PORCINE) 5000 UNITS/ML VIAL SC SCH ×3 (06:42→22:33)
[2018-05-28 06:43] LABS: CALCIUM LEVEL 7.8 MG/DL (8.8-10.2); CREATININE FOR GFR 2.06 MG/DL (0.70-1.30); GLOMERULAR FILTRATION RATE 34.3 (>49); MAGNESIUM LEVEL 1.6 MG/DL (1.8-2.4); POTASSIUM SERUM 4.2 MEQ/L (3.5-5.1)
[2018-05-28] MEDS ORDERED: HumaLOG INSULIN (NovoLOG) PER UNIT SC SCH (07:30)
[2018-05-28] MEDS: IPRATROPIUM 0.5MG/ALBUTEROL 2.5MG INH SOL UD 3ML (DUONEB)(J7620) NEB SCH ×5 (07:55→23:22)
[2018-05-28] MEDS: HumaLOG INSULIN (NovoLOG) PER UNIT SC SCH ×7 (08:30→21:00)
[2018-05-28] MEDS: LOSARTAN 50 MG TAB PO SCH (08:32)
[2018-05-28] MEDS: ASPIRIN 81 MG ENTERIC TAB PO SCH (08:32)
[2018-05-28] MEDS: SENOKOT S TAB PO SCH ×2 (08:33→22:34)
[2018-05-28] MEDS: FUROSEMIDE 40 MG TAB PO SCH (08:33)
[2018-05-28] MEDS: ATORVASTATIN 20 MG TAB PO SCH (08:33)
[2018-05-28] MEDS: AZITHROMYCIN 250 MG TAB PO SCH (08:34)
[2018-05-28] MEDS: MULTIVITAMINS/MINERALS THERAP 1 TAB PO SCH (08:34)
--- NOTE | 2018-05-28 09:00 | REP ---
Chest one-view HISTORY: Diabetic ketoacidosis Comparison: 07/12/2017 There is elevation of the right hemidiaphragm. The lungs are clear. There is blunting of the right costophrenic angle due to pleural thickening. The heart is normal in size. The pulmonary vasculature is normal in appearance. Impression: No acute disease. Electronically Signed by Benjamin Fitch MD 05/28/2018 08:51 A
[2018-05-28] MEDS: MAXZIDE 75/50 TABLET PO SCH (09:09)
[2018-05-28 10:04] LABS: HEMOGLOBIN A1c 8.7 %
[2018-05-28 15:58] VITALS: BP 148/71
[2018-05-28] MEDS: OSELTAMIVIR PHOSPHATE 30MG CAPSULE PO SCH ×2 (16:15→22:34)
[2018-05-28 17:50] VITALS: BP 141/86
[2018-05-28] MEDS ORDERED: OSELTAMIVIR PHOSPHATE 75 MG CAP (TAMIFLU) PO ONE (18:00)
[2018-05-28] MEDS ORDERED: LEVEMIR (INSULIN DETEMIR) 1 UNITS/0.01ML SC SCH ×2 (21:00)
--- NOTE | 2018-05-28 21:20 | ECGEPIP ---
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
[2018-05-28 22:00] VITALS: BP 173/79
--- NOTE | 2018-05-29 01:07 | IPNPDOC ---
Subjective Date Seen The patient was seen on 05/28/18. Subjective Chief Complaint/HPI Patient seen in the ED. Complains that his bed is uncomfortable and he wants to go home. He is maintaining his O2 sats on room air. He admits a cough, which he states is tolerable as long as he is upright and at rest. He remains hyperglycemic. He tested positive for influenza A. Constitutional: Reports: Malaise, Weakness; Denies: Fever Skin: Denies: Rash Pulmonary: Reports: Cough; Denies: Dyspnea Cardiovascular: Denies: Chest Pain Gastrointestinal: Denies: Nausea, Vomiting, Diarrhea, Constipation Musculoskeletal: Reports: Joint Pain Neurological: Denies: Confusion Psych: Reports: Mood Normal Objective Physical Examination General Exam: Positive: Alert, Cooperative Eye Exam: Positive: Conjunctiva & lids normal ENT Exam: Positive: Mucous membr. moist/pink, Tympanic Membranes Normal Chest Exam: Positive: Wheezing Heart Exam: Positive: Rate Normal Abdomen Exam: Positive: Normal bowel sounds, Soft; Negative: Tenderness Extremity Exam: Negative: Edema Skin Exam: Positive: Nl turgor and temperature; Negative: Rash Neuro Exam: Positive: Normal Speech, Normal Tone Psych Exam: Positive: Mental status NL, Mood NL Assessment /Plan Problems (1) Influenza A Status: Acute Problem Text: Started on Tamiflu. (2) COPD exacerbation Problem Text: Exacerbation appears mild, patient is oxygenating well on room air. Started on azithromycin at [place] ED; azithromycin, Solumedrol, and Duonebs for acute exacerbation. Likely can taper steroids tomorrow. (3) Diabetes mellitus with hyperglycemia Problem Text: Likely steroids contribute. Now on Levemir and sliding scale insulin. Will need to adjust insulin as acute illness and steroid dosing improve. (4) Acute kidney injury superimposed on chronic kidney disease Status: Acute Problem Text: Improving. Plan/VTE VTE Prophylaxis Ordered?: Yes VS, I&O, 24H, Fishbone Vital Signs/I&O Vital Signs Date Time Temp Pulse Resp B/P (MAP) Pulse Ox O2 Delivery O2 Flow Rate FiO2 05/28/18 22:35 81 173/79 05/28/18 22:00 98.1 20 94 05/28/18 15:01 Room Air I&O- Last 24 Hours up to 6 AM 05/29/18 06:00 Intake Total 400 ml Output Total 0 ml Balance 400 ml Laboratory Data 24H LABS Laboratory Tests 2 05/28/18 01:31: Bedside Glucose (Misc Panel) 372H 05/28/18 06:01: Estimated Mean Plasma Glucose 203H, Hemoglobin A1c 8.7 05/28/18 06:05: Immature Granulocyte % (Auto) 0.3, White Blood Count 6.3, Red Blood Count 3.63L, Hemoglobin 11.5L, Hematocrit 33.6L, Mean Corpuscular Volume 92.6, Mean Corpuscular Hemoglobin 31.7, Mean Corpuscular Hemoglobin Concent 34.2, Red Cell Distribution Width 12.1, Platelet Count 135L, Neutrophils (%) (Auto) 55.5, Lymphocytes (%) (Auto) 27.6, Monocytes (%) (Auto) 16.4H, Eosinophils (%) (Auto) 0.0, Basophils (%) (Auto) 0.2, Neutrophils # (Auto) 3.5, Lymphocytes # (Auto) 1.8, Monocytes # (Auto) 1.0H, Eosinophils # (Auto) 0.0, Basophils # (Auto) 0.0, Nucleated Red Blood Cells % (auto) 0.0, Anion Gap 5L, Glomerular Filtration Rate 34.3L, Blood Urea Nitrogen 30H, Creatinine 2.06H, Sodium Level 139, Potassium Level 4.2, Chloride Level 107, Carbon Dioxide Level 27, Calcium Level 7.8L, Magnesium Level 1.6L 05/28/18 08:01: Bedside Glucose (Misc Panel) 234H 05/28/18 11:55: Bedside Glucose (Misc Panel) 342H CBC/BMP Laboratory Tests 05/28/18 06:05 Red Blood Count 3.63 L, Mean Corpuscular Volume 92.6, Mean Corpuscular Hemoglobin 31.7, Mean Corpuscular Hemoglobin Concent 34.2, Red Cell Distribution Width 12.1, Neutrophils (%) (Auto) 55.5, Lymphocytes (%) (Auto) 27.6, Monocytes (%) (Auto) 16.4 H, Eosinophils (%) (Auto) 0.0, Basophils (%) (Auto) 0.2, Neutrophils # (Auto) 3.5, Lymphocytes # (Auto) 1.8, Monocytes # (Auto) 1.0 H, Eosinophils # (Auto) 0.0, Basophils # (Auto) 0.0, Calcium Level 7.8 L Microbiology Microbiology 05/27/18 Respiratory Virus Panel (PCR) ([facility]) - Final, Complete Influenza A H1-2009 RUFINO BELTRE DO May 29, 2018 01:07
[2018-05-29] MEDS: IPRATROPIUM 0.5MG/ALBUTEROL 2.5MG INH SOL UD 3ML (DUONEB)(J7620) NEB SCH ×5 (03:14→20:32)
[2018-05-29] MEDS: HEPARIN SOD (PORCINE) 5000 UNITS/ML VIAL SC SCH ×3 (05:19→21:16)
[2018-05-29] MEDS: methylPREDNISolone INJ 40 MG/1 ML VIAL (J2920) IV SCH (05:19)
[2018-05-29 06:00] VITALS: BP 139/71
[2018-05-29 06:23] LABS: BASO % 0.1 % (0.0-1.0); HEMATOCRIT 37.1 % (42.0-52.0); HEMOGLOBIN 13.4 g/dl (13.5-17.5); LYMPH # 1.3 10^3/uL (1.5-4.5); LYMPH % 12.5 % (24.0-44.0); MEAN CORPUSCULAR HEMOGLOBIN 31.8 pg (27.0-33.0); MEAN CORPUSCULAR HGB CONC 36.1 g/dl (32.0-36.5); MEAN CORPUSCULAR VOLUME 88.1 fl (80.0-96.0); MONO # 0.5 10^3/uL (0.0-0.8); MONO % 4.3 % (0.0-5.0); NEUTROPHILS # 8.8 10^3/uL (1.8-7.7); NEUTROPHILS % 82.7 % (36.0-66.0); PLATELET COUNT, AUTOMATED 201 10^3/uL (150-450); RED BLOOD COUNT 4.21 10^6/uL (4.30-6.10); WHITE BLOOD COUNT 10.6 10^3/uL (4.0-10.0)
[2018-05-29 06:48] LABS: CALCIUM LEVEL 8.8 MG/DL (8.8-10.2); CREATININE FOR GFR 2.16 MG/DL (0.70-1.30); GLOMERULAR FILTRATION RATE 32.4 (>49); MAGNESIUM LEVEL 1.6 MG/DL (1.8-2.4); POTASSIUM SERUM 4.5 MEQ/L (3.5-5.1)
[2018-05-29] MEDS: HumaLOG INSULIN (NovoLOG) PER UNIT SC SCH ×5 (07:30→21:18)
[2018-05-29] MEDS: SENOKOT S TAB PO SCH ×2 (08:16→21:17)
[2018-05-29] MEDS: LOSARTAN 50 MG TAB PO SCH (08:17)
[2018-05-29] MEDS: OSELTAMIVIR PHOSPHATE 30MG CAPSULE PO SCH ×2 (08:17→21:16)
[2018-05-29] MEDS: MULTIVITAMINS/MINERALS THERAP 1 TAB PO SCH (08:17)
[2018-05-29] MEDS: BENZONATATE 100 MG CAP PO SCH ×3 (08:17→21:17)
[2018-05-29] MEDS: ATORVASTATIN 20 MG TAB PO SCH (08:18)
[2018-05-29] MEDS: FUROSEMIDE 40 MG TAB PO SCH (08:18)
[2018-05-29] MEDS: CARVedilol 12.5 MG TAB PO SCH ×2 (08:18→21:17)
[2018-05-29] MEDS: ASPIRIN 81 MG ENTERIC TAB PO SCH (08:23)
[2018-05-29] MEDS: AZITHROMYCIN 250 MG TAB PO SCH (08:23)
[2018-05-29] MEDS: OMEPRAZOLE 20 MG CAP PO SCH ×2 (08:23→21:17)
[2018-05-29] MEDS ORDERED: OSELTAMIVIR PHOSPHATE 75 MG CAP (TAMIFLU) PO SCH (09:00)
[2018-05-29] MEDS: MAXZIDE 75/50 TABLET PO SCH (10:06)
--- NOTE | 2018-05-29 10:11 | IPNPDOC ---
Subjective Date Seen The patient was seen on 05/29/18. Subjective Chief Complaint/HPI Patient is a 67 year old male with a history of COPD, IDDM, CHF, HTN [facility] and was found to have a COPD ex acerbation caused by influenza A. He was given azithromycin and steroids and sent home. He came to [facility] ED because his blood glucose was >600. He was found to have an GAURI thought to be superimposed on CKD. Events since last encounter Patient states that he feels well and is ready to go home as long as his "kidneys are ok". He states that his breathing, shortness of breath, and coughing are all improving. He is saturating well on room air. He admits to some coughing fits overnight, but overall feels much better. General: Denies: Chills Constitutional: Denies: Chills, Fever, Night Sweats Pulmonary: Reports: Dyspnea (States his breathing is 80% back to baseline), Cough (Coughing more than usual, some fits over night) Cardiovascular: Reports: Orthopnea (has at baseline, possibly worse over past few days), Edema (No more than at baseline); Denies: Chest Pain Gastrointestinal: Reports: Abdominal Pain (With coughing); Denies: Nausea, Vomiting Musculoskeletal: Reports: Back Pain (With coughing) Psych: Reports: Mood Normal Objective Physical Examination General Exam: Positive: Alert, Cooperative, No Acute Distress Eye Exam: Positive: Conjunctiva & lids normal ENT Exam: Positive: Mucous membr. moist/pink Chest Exam: Positive: Clear to auscultation Heart Exam: Positive: Rate Normal, Normal S1, Normal S2; Negative: Murmurs Abdomen Exam: Positive: Normal bowel sounds, Soft; Negative: Tenderness Extremity Exam: Positive: Edema (Mild pitting edema in lower extremities; no more than at baseline) Skin Exam: Positive: Nl turgor and temperature; Negative: Rash Neuro Exam: Positive: Normal Speech, Normal Tone Psych Exam: Positive: Mental status NL, Mood NL Assessment /Plan Problems (1) Acute kidney injury superimposed on chronic kidney disease Status: Acute Response to Treatment: Improving Problem Text: 05/29- Patient's creatinine did not improve since yesterday (2.06 to 2.16). Since his kidney injury is likely prerenal with a BUN/Creatinine ratio of 19, dehydration seems a likely cause considering his blood glucose was >600 and patient was taking lasix, losartan and triamterene/HCTZ. Plan to hold diuretics today with gentle hydration 1L LR at 10ml/hr to help kidneys recover. Will monitor for worsening of CHF. Will get renal ultrasound to rule out other etiologies of renal failure. (2) Influenza A Status: Acute Response to Treatment: Improving Problem Text: Started on Tamiflu on 05/28; day 2/ (3) COPD exacerbation Status: Acute Response to Treatment: Improving Problem Text: Exacerbation appears mild, patient is oxygenating well on room air; lungs are clear; states he feels 80% back to baseline. Started on azithromycin at [place] ED, Solumedrol, and Duonebs for acute exacerbation. Will begin to taper steroids today from 40 mg methylprednisolone q8hrs to 20 mg prednisone PO BID. (4) Diabetes mellitus with hyperglycemia Problem Text: Steroids decreased to 20mg prednisone PO BID. Increasing basal levemir to 40 units. Will need to adjust insulin as acute illness and steroid dosing improve. Plan/VTE VTE Prophylaxis Ordered?: Yes VS, I&O, 24H, [facility] Vital Signs/I&O Vital Signs Date Time Temp Pulse Resp B/P (MAP) Pulse Ox O2 Delivery O2 Flow Rate FiO2 05/29/18 08:18 78 151/77 05/29/18 06:00 98.3 18 95 05/28/18 15:01 Room Air I&O- Last 24 Hours up to 6 AM 05/29/18 06:00 Intake Total 700 ml Output Total 1800 ml Balance -1100 ml Laboratory Data 24H LABS Laboratory Tests 2 05/28/18 11:55: Bedside Glucose (Misc Panel) 342H 05/28/18 17:44: Bedside Glucose (Misc Panel) 414H 05/28/18 20:36: Bedside Glucose (Misc Panel) 449H 05/29/18 05:29: Bedside Glucose (Misc Panel) 373H 05/29/18 05:58: Immature Granulocyte % (Auto) 0.4, White Blood Count 10.6H, Red Blood Count 4.21L, Hemoglobin 13.4L, Hematocrit 37.1L, Mean Corpuscular Volume 88.1, Mean Corpuscular Hemoglobin 31.8, Mean Corpuscular Hemoglobin Concent 36.1, Red Cell Distribution Width 11.8, Platelet Count 201, Neutrophils (%) (Auto) 82.7H, Lymph ocytes (%) (Auto) 12.5L, Monocytes (%) (Auto) 4.3, Eosinophils (%) (Auto) 0.0, Basophils (%) (Auto) 0.1, Neutrophils # (Auto) 8.8H, Lymphocytes # (Auto) 1.3L, Monocytes # (Auto) 0.5, Eosinophils # (Auto) 0.0, Basophils # (Auto) 0.0, Nucleated Red Blood Cells % (auto) 0.0, Anion Gap 11, Glomerular Filtration Rate 32.4L, Blood Urea Nitrogen 43H, Creatinine 2.16H, Sodium Level 135L, Potassium Level 4.5, Chloride Level 100, Carbon Dioxide Level 24, Calcium Level 8.8, Magnesium Level 1.6L CBC/BMP Laboratory Tests 05/29/18 05:58 Red Blood Count 4.21 L, Mean Corpuscular Volume 88.1, Mean Corpuscular Hemoglobin 31.8, Mean Corpuscular Hemoglobin Concent 36.1, Red Cell Distribution Width 11.8, Neutrophils (%) (Auto) 82.7 H, Lymphocytes (%) (Auto) 12.5 L, Monocytes (%) (Auto) 4.3, Eosinophils (%) (Auto) 0.0, Basophils (%) (Auto) 0.1, Neutrophils # (Auto) 8.8 H, Lymphocytes # (Auto) 1.3 L, Monocytes # (Auto) 0.5, Eosinophils # (Auto) 0.0, Basophils # (Auto) 0.0, Calcium Level 8.8 Microbiology Microbiology 05/27/18 Respiratory Virus Panel (PCR) ([facility]) - Final, Complete Influenza A H1-2008,[facility] May 29, 2018 10:11
[2018-05-29 14:00] VITALS: BP 146/81
[2018-05-29] MEDS: LR 1,000 ML IV SCH (16:44)
[2018-05-29] MEDS ORDERED: LEVEMIR (INSULIN DETEMIR) 1 UNITS/0.01ML SC ONE (17:30)
--- NOTE | 2018-05-29 19:29 | ECHO ---
DATE OF PROCEDURE: 05/29/2018 REFERRING PHYSICIAN: Kylie Wang NP INDICATION: Dyspnea. Height: 170 cm Weight: 106 kg DIMENSIONS: IVS 1.3 LV 4.6 LVPW 1.3 LA 4.1 Aorta 3.5 IVC 1.7 mitral E wave velocity 76, A-wave 101 E prime septal 5.7, E prime lateral 4.7. FINDINGS: Study is of difficult technical quality corresponding to patient's body habitus. The patient is in sinus rhythm. Left ventricle is of normal size. Mild left ventricular hypertrophy is present. Overall probably normal LV systolic function based on limited visualization. I certainly cannot rule out subtle wall motion abnormalities. Right ventricle appears grossly normal but it was poorly seen. Left atrium is at least mildly enlarged. Right atrium was poorly visualized but appears relatively small. Aortic valve was poorly seen. It is sclerotic but mobility of leaflet seems preserved. There are also degenerative abnormalities of mitral valve with mitral annular calcifications. Tricuspid valve appears normal. Pulmonic valve was not visualized. Pericardial fat pad but no effusion is noted. Inferior vena cava is normal size. Aortic root is normal. Aortic arch and abdominal aorta was poorly seen. Doppler interrogation of aortic valve reveals no stenosis or insufficiency. There are also functionally competent mitral valve and tricuspid valve. Mitral inflow pattern and tissue Doppler imaging of mitral annulus reveal grade 1 diastolic dysfunction. CONCLUSIONS: 1. Study is of limited technical quality. 2. Normal LV size with mild LVH and grossly preserved LV systolic function, grade 1 diastolic dysfunction. 3. No hemodynamically significant valvular disease. 4. Likely normal central venous pressure. 5. Unable to estimate pulmonary artery pressure but no signs to suggest pulmonary hypertension. COMMENT: Subacute bacterial endocarditis (SBE) prophylaxis is not recommended. Overall study most consistent with hypertensive heart disease. MTDD
[2018-05-29] MEDS ORDERED: methylPREDNISolone INJ 40 MG/1 ML VIAL (J2920) IV SCH (21:00)
[2018-05-29] MEDS ORDERED: LEVEMIR (INSULIN DETEMIR) 1 UNITS/0.01ML SC SCH (21:00)
[2018-05-29] MEDS: predniSONE 20 MG TAB PO SCH (21:16)
[2018-05-29 22:00] VITALS: BP 135/64
[2018-05-30] MEDS: IPRATROPIUM 0.5MG/ALBUTEROL 2.5MG INH SOL UD 3ML (DUONEB)(J7620) NEB SCH ×7 (04:00→23:34)
[2018-05-30] MEDS: HEPARIN SOD (PORCINE) 5000 UNITS/ML VIAL SC SCH ×3 (05:07→20:50)
[2018-05-30 06:00] VITALS: BP 146/80
[2018-05-30 06:12] LABS: BASO % 0.1 % (0.0-1.0); HEMATOCRIT 35.7 % (42.0-52.0); HEMOGLOBIN 12.4 g/dl (13.5-17.5); LYMPH # 1.4 10^3/uL (1.5-4.5); MEAN CORPUSCULAR HEMOGLOBIN 30.9 pg (27.0-33.0); MEAN CORPUSCULAR HGB CONC 34.7 g/dl (32.0-36.5); MONO # 0.7 10^3/uL (0.0-0.8); MONO % 5.2 % (0.0-5.0); NEUTROPHILS # 10.8 10^3/uL (1.8-7.7); NEUTROPHILS % 83.2 % (36.0-66.0); PLATELET COUNT, AUTOMATED 197 10^3/uL (150-450); RED BLOOD COUNT 4.01 10^6/uL (4.30-6.10); WHITE BLOOD COUNT 12.9 10^3/uL (4.0-10.0)
[2018-05-30 06:29] LABS: CALCIUM LEVEL 8.5 MG/DL (8.8-10.2); CREATININE FOR GFR 2.3 MG/DL (0.70-1.30); GLOMERULAR FILTRATION RATE 30.2 (>49); MAGNESIUM LEVEL 1.7 MG/DL (1.8-2.4); POTASSIUM SERUM 4.6 MEQ/L (3.5-5.1)
--- NOTE | 2018-05-30 08:15 | IPNPDOC ---
Subjective Date Seen The patient was seen on 05/30/18. Subjective Chief Complaint/HPI Patient is a 67 year old male with a history of COPD, IDDM, CHF, HTN [facility] and was found to have a COPD ex acerbation caused by influenza A. He was given azithromycin and steroids and sent home. He came to [facility] ED because his blood glucose was >600. He was found to have an GAURI thought to be superimposed on CKD. Events since last encounter Patient evaluated this morning sitting up in a chair. He states that he feels well. He gets out of breath when he walks the halls, but this is similar to his baseline level of functioning. His kidney function increased slightly from yesterday, but the changes made yesterday are likely to be reflected in tomorrow's labs. Currently on day for 4 azithromycin and day 3 of tamiflu General: Denies: Chills Constitutional: Denies: Chills, Fever Pulmonary: Reports: Dyspnea (About the same as yesterday) Cardiovascular: Reports: Orthopnea (has orthopnea at baseline), Edema (No more than at baseline); Denies: Chest Pain Psych: Reports: Mood Normal Objective Physical Examination General Exam: Positive: Alert, Cooperative, No Acute Distress Eye Exam: Positive: Conjunctiva & lids normal ENT Exam: Positive: Mucous membr. moist/pink Chest Exam: Positive: Clear to auscultation Heart Exam: Positive: Rate Normal, Normal S1, Normal S2; Negative: Murmurs Abdomen Exam: Positive: Normal bowel sounds, Soft; Negative: Tenderness Extremity Exam: Positive: Edema (Mild pitting edema in lower extremities; no more than at baseline) Skin Exam: Positive: Nl turgor and temperature; Negative: Rash Neuro Exam: Positive: Normal Speech, Normal Tone Psych Exam: Positive: Mental status NL, Mood NL Assessment /Plan Problems (1) Acute kidney injury superimposed on chronic kidney disease Status: Acute Response to Treatment: Improving Problem Text: 05/30 - Patient's creatinine increased from yesterday 2.16 to 2.30. This likely reflects the fact that he was still receiving diuretics yester day. Continue to hold diuretics today and continue with gentle hydration (increasing his rate from 50 to 75ml/hr as he seems to still be running net negatives). Will continue to monitor kidney function and monitor for signs of CHF. Results of renal ultrasound non-contributory. (2) Influenza A Status: Acute Response to Treatment: Improving Problem Text: 05/30 - Started on Tamiflu on 05/28; day 05/13. On azithromycin day 4 for possible bacterial superimposed infection. (3) COPD exacerbation Status: Acute Response to Treatment: Improving Problem Text: 05/30 - Exacerbation appears mild, patient is oxygenating well on room air; lungs are clear; states he feels 80% back to baseline. Currently on Duonebs for acute exacerbation. Will likely taper steroids to 30 mg prednisone PO daily sometime over the weekend. (4) Diabetes mellitus with hyperglycemia Problem Text: 05/30 - He remains on steroids for his COPD exacerbation. Increasing basal Levemir to 63 units from 40 units (required 46 units if SSI in the last 24h). Will need to adjust insulin as acute illness and steroid dosing improve. Plan/VTE VTE Prophylaxis Ordered?: Yes VS, I&O, 24H, Fishbone Vital Signs/I&O Vital Signs Date Time Temp Pulse Resp B/P (MAP) Pulse Ox O2 Delivery O2 Flow Rate FiO2 05/30/18 06:00 98.5 63 18 146/80 (102) 93 05/28/18 15:01 Room Air I&O- Last 24 Hours up to 6 AM 05/30/18 06:00 Intake Total 760 ml Output Total 2925 ml Balance -2165 ml Laboratory Data 24H LABS Laboratory Tests 2 05/29/18 11:49: Bedside Glucose (Misc Panel) 515*H 05/29/18 12:01: Bedside Glucose Confirm (Misc) 530*H 05/29/18 16:45: Bedside Glucose (Misc Panel) 509*H 05/29/18 17:14: Bedside Glucose Confirm (Misc) 481*H 05/30/18 05:43: Immature Granulocyte % (Auto) 0.5, White Blood Count 12.9H, Red Blood Count 4.01L, Hemoglobin 12.4L, Hematocrit 35.7L, Mean Corpuscular Volume 89.0, Mean Corpuscular Hemoglobin 30.9, Mean Corpuscular Hemoglobin Concent 34.7, Red Cell Distribution Width 11.9, Platelet Count 197, Neutrophils (%) (Auto) 83.2H, Lymphocytes (%) (Auto) 11.0L, Monocytes (%) (Auto) 5.2H, Eosinophils (%) (Auto) 0.0, Basophils (%) (Auto) 0.1, Neutrophils # (Auto) 10.8H, Lymphocytes # (Auto) 1.4L, Monocytes # (Auto) 0.7, Eosinophils # (Auto) 0.0, Basophils # (Auto) 0.0, Nucleated Red Blood Cells % (auto) 0.0, Anion Gap 9, Glomerular Filtration Rate 30.2L, Blood Urea Nitrogen 53H, Creatinine 2.30H, Sodium Level 134L, Potassium Level 4.6, Chloride Level 99, Carbon Dioxide Level 26, Calcium Level 8.5L, Magnesium Level 1.7L CBC/BMP Laboratory Tests 05/30/18 05:43 Red Blood Count 4.01 L, Mean Corpuscular Volume 89.0, Mean Corpuscular Hemoglobin 30.9, Mean Corpuscular Hemoglobin Concent 34.7, Red Cell Distribution Width 11.9, Neutrophils (%) (Auto) 83.2 H, Lymphocytes (%) (Auto) 11.0 L, Monocytes (%) (Auto) 5.2 H, Eosinophils (%) (Auto) 0.0, Basophils (%) (Auto) 0.1, Neutrophils # (Auto) 10.8 H, Lymphocytes # (Auto) 1.4 L, Monocytes # (Auto) 0.7, Eosinophils # (Auto) 0.0, Basophils # (Auto) 0.0, Calcium Level 8.5 L Microbiology Microbiology 05/27/18 Respiratory Virus Panel (PCR) ([facility]) - Final, Complete Influenza A H1-2009 GME ATTESTATION ATTENDING NOTE Family Medicine Attending Note: I was present on site to supervise SINDI Nur III. We discussed the history and exam. I confirmed the lui elements during my [id number] encounter with the patient. We conferred on the assessment and p hawa; I agree with the note as documented. Mr. Gibbons seems to be making slow improvement with his respiratory function. He is not making a lot of improvement yet with his steroid-induced hyperglycemia. We've again increase his basal insulin. We have also increased his fluid rate slightly to try to get his renal function going the right way. I assume once he no longer has significant diuretic effect from hyperglycemia this will improve as well. (pediatric allergist) HOMA POWER-III May 30, 2018 7:39 am Brannon Mena MD May 30, 2018 7:01 pm
[2018-05-30] MEDS: ATORVASTATIN 20 MG TAB PO SCH (08:31)
[2018-05-30] MEDS: predniSONE 20 MG TAB PO SCH ×2 (08:31→20:51)
[2018-05-30] MEDS: BENZONATATE 100 MG CAP PO SCH ×3 (08:32→20:50)
[2018-05-30] MEDS: ASPIRIN 81 MG ENTERIC TAB PO SCH (08:32)
[2018-05-30] MEDS: OSELTAMIVIR PHOSPHATE 30MG CAPSULE PO SCH ×2 (08:32→20:51)
[2018-05-30] MEDS: MULTIVITAMINS/MINERALS THERAP 1 TAB PO SCH (08:32)
[2018-05-30] MEDS: AZITHROMYCIN 250 MG TAB PO SCH (08:32)
[2018-05-30] MEDS: OMEPRAZOLE 20 MG CAP PO SCH ×2 (08:32→20:50)
[2018-05-30] MEDS: SENOKOT S TAB PO SCH ×2 (08:32→20:51)
[2018-05-30] MEDS: CARVedilol 12.5 MG TAB PO SCH ×2 (08:34→20:51)
[2018-05-30] MEDS: HumaLOG INSULIN (NovoLOG) PER UNIT SC SCH ×4 (08:35→20:52)
--- NOTE | 2018-05-30 09:55 | REP ---
RENAL AND BLADDER ULTRASOUND: Real-time sonographic evaluation of the kidneys performed. The kidneys are normal in size and echotexture, right kidney measuring 10.1 x 4.8 x 5.9 cm and left kidney 11.8 x 4.3 x 5.3 cm. There is no hydronephrosis. There is a cyst in the mid right kidney 1 cm in diameter. No definite renal stones are seen with vascular calcifications noted in both kidneys. Prostate measures 4.1 x 4.1 x 3.8 cm. Total volume 33.4 mL. Urinary bladder is mildly distended with no definite mass or calculus. IMPRESSION: No hydronephrosis. Small right renal cyst. Urinary bladder unremarkable. Mildly enlarged prostate. Electronically Signed by Amauri Wadsworth MD 05/30/2018 07:50 P
[2018-05-30] MEDS: LR 1,000 ML IV SCH (12:24)
[2018-05-30 14:00] VITALS: BP 138/82
[2018-05-30] MEDS ORDERED: MAG SULF 1GM/100ML (MAG RUN) 1 GM in APPROPRIATE DILUENT 1 EA IV ONE ×2 (15:00→20:00)
[2018-05-30] MEDS ORDERED: LEVEMIR (INSULIN DETEMIR) 1 UNITS/0.01ML SC SCH (21:00)
[2018-05-30 22:00] VITALS: BP 153/65
[2018-05-31] MEDS: LR 1,000 ML IV SCH ×2 (02:43→17:34)
[2018-05-31] MEDS: IPRATROPIUM 0.5MG/ALBUTEROL 2.5MG INH SOL UD 3ML (DUONEB)(J7620) NEB SCH ×5 (02:47→20:00)
[2018-05-31] MEDS: HEPARIN SOD (PORCINE) 5000 UNITS/ML VIAL SC SCH ×3 (05:53→21:42)
[2018-05-31 06:00] VITALS: BP 142/70
[2018-05-31 06:09] LABS: BASO % 0.1 % (0.0-1.0); HEMATOCRIT 36.5 % (42.0-52.0); HEMOGLOBIN 12.7 g/dl (13.5-17.5); LYMPH # 1.5 10^3/uL (1.5-4.5); MEAN CORPUSCULAR HEMOGLOBIN 31.1 pg (27.0-33.0); MEAN CORPUSCULAR HGB CONC 34.8 g/dl (32.0-36.5); MEAN CORPUSCULAR VOLUME 89.5 fl (80.0-96.0); MONO # 0.6 10^3/uL (0.0-0.8); MONO % 6.6 % (0.0-5.0); NEUTROPHILS # 7.6 10^3/uL (1.8-7.7); NEUTROPHILS % 77.7 % (36.0-66.0); PLATELET COUNT, AUTOMATED 199 10^3/uL (150-450); RED BLOOD COUNT 4.08 10^6/uL (4.30-6.10); WHITE BLOOD COUNT 9.7 10^3/uL (4.0-10.0)
[2018-05-31 06:32] LABS: CALCIUM LEVEL 8.7 MG/DL (8.8-10.2); CREATININE FOR GFR 1.97 MG/DL (0.70-1.30); GLOMERULAR FILTRATION RATE 36.1 (>49); MAGNESIUM LEVEL 2.2 MG/DL (1.8-2.4); POTASSIUM SERUM 4.4 MEQ/L (3.5-5.1)
[2018-05-31] MEDS: MULTIVITAMINS/MINERALS THERAP 1 TAB PO SCH (07:45)
[2018-05-31] MEDS: SENOKOT S TAB PO SCH ×2 (07:46→21:41)
[2018-05-31] MEDS: OMEPRAZOLE 20 MG CAP PO SCH ×2 (07:46→21:41)
[2018-05-31] MEDS: OSELTAMIVIR PHOSPHATE 30MG CAPSULE PO SCH ×2 (07:46→21:41)
[2018-05-31] MEDS: AZITHROMYCIN 250 MG TAB PO SCH (07:46)
[2018-05-31] MEDS: BENZONATATE 100 MG CAP PO SCH ×3 (07:46→21:41)
[2018-05-31] MEDS: predniSONE 20 MG TAB PO SCH (07:47)
[2018-05-31] MEDS: ATORVASTATIN 20 MG TAB PO SCH (07:47)
[2018-05-31] MEDS: ASPIRIN 81 MG ENTERIC TAB PO SCH (07:47)
[2018-05-31] MEDS: CARVedilol 12.5 MG TAB PO SCH ×2 (07:49→21:43)
[2018-05-31] MEDS: HumaLOG INSULIN (NovoLOG) PER UNIT SC SCH ×4 (07:50→21:42)
[2018-05-31 14:00] VITALS: BP 174/79
--- NOTE | 2018-05-31 14:39 | IPNPDOC ---
Subjective Date Seen The patient was seen on 05/31/18. Subjective Chief Complaint/HPI No acute events overnight. Patient states he is feeling well and denies any chest pain, dyspnea, swelling in his legs, cough. Objective Physical Examination General Exam: Positive: Alert, Cooperative, No Acute Distress Eye Exam: Positive: Conjunctiva & lids normal ENT Exam: Positive: Mucous membr. moist/pink Chest Exam: Positive: Clear to auscultation Heart Exam: Positive: Rate Normal, Normal S1, Normal S2; Negative: Murmurs Abdomen Exam: Positive: Normal bowel sounds, Soft; Negative: Tenderness Extremity Exam: Positive: Edema (Mild pitting edema in lower extremities; no more than at baseline) Skin Exam: Positive: Nl turgor and temperature; Negative: Rash Neuro Exam: Positive: Normal Speech, Normal Tone Psych Exam: Positive: Mental status NL, Mood NL Assessment /Plan Problems (1) Acute kidney injury superimposed on chronic kidney disease Status: Acute Response to Treatment: Improving Problem Text: 05/30patient's creatinine finally starting to improve and trend back towards baseline. Creatinine today of 1.97. We will continue his lactated Ringer's for now at the current rate, if he begins to show signs of volume overload okay to discontinue. 05/30 - Patient's creatinine increased from yesterday 2.16 to 2.30. This likely reflects the fact that he was still receiving diuretics yesterday. Continue to hold diuretics today and continue with gentle hydration (increasing his rate from 50 to 75ml/hr as he seems to still be running net negatives). Will continue to monitor kidney function and monitor for signs of CHF. Results of renal ultrasound non-contributory. (2) Influenza A Status: Acute Response to Treatment: Improving Problem Text: 05/31Tamiflu day 4/5. On azithromycin day 5 for possible superimposed bacterial section. 05/30 - Started on Tamiflu on 05/28; day 3/. On azithromycin day 4 for possible bacterial superimposed infection. (3) COPD exacerbation Status: Acute Response to Treatment: Improving Problem Text: 05/31patient has Arty had 20 mg of steroids today. We will not g chip him more. Will likely take him off steroids tomorrow. 05/30 - Exacerbation appears mild, patient is oxygenating well on room air; lungs are clear; states he feels 80% back to baseline. Currently on Duonebs for acute exacerbation. Will likely taper steroids to 30 mg prednisone PO daily sometime over the weekend. (4) Diabetes mellitus with hyperglycemia Problem Text: 05/31tapering steroids. His glucose remains elevated, increasing Levemir to 70 units 05/30 - He remains on steroids for his COPD exacerbation. Increasing basal Levemir to 63 units from 40 units (required 46 units if SSI in the last 24h). Will need to adjust insulin as acute illness and steroid dosing improve. Plan/VTE VTE Prophylaxis Ordered?: Yes VS, I&O, 24H, Fishbone Vital Signs/I&O Vital Signs Date Time Temp Pulse Resp B/P (MAP) Pulse Ox O2 Delivery O2 Flow Rate FiO2 05/31/18 07:49 81 144/70 05/31/18 06:00 97.3 17 93 05/28/18 15:01 Room Air I&O- Last 24 Hours up to 6 AM 05/31/18 06:00 Intake Total 2265 ml Output Total 1875 ml Balance 390 ml Laboratory Data 24H LABS Laboratory Tests 2 05/30/18 16:47: Bedside Glucose (Misc Panel) 376H 05/30/18 20:09: Bedside Glucose (Misc Panel) 440H 05/31/18 05:45: Immature Granulocyte % (Auto) 0.6, White Blood Count 9.7, Red Blood Count 4.08L, Hemoglobin 12.7L, Hematocrit 36.5L, Mean Corpuscular Volume 89.5, Mean Corpuscular Hemoglobin 31.1, Mean Corpuscular Hemoglobin Concent 34.8, Red Cell Distribution Width 11.8, Platelet Count 199, Neutrophils (%) (Auto) 77.7H, Lymphocytes (%) (Auto) 15.0L, Monocytes (%) (Auto) 6.6H, Eosinophils (%) (Auto) 0.0, Basophils (%) (Auto) 0.1, Neutrophils # (Auto) 7.6, Lymphocytes # (Auto) 1.5, Monocytes # (Auto) 0.6, Eosinophils # (Auto) 0.0, Basophils # (Auto) 0.0, Nucleated Red Blood Cells % (auto) 0.0, Anion Gap 8, Glomerular Filtration Rate 36.1L, Blood Urea Nitrogen 51H, Creatinine 1.97H, Sodium Level 136, Potassium Le audi 4.4, Chloride Level 100, Carbon Dioxide Level 28, Calcium Level 8.7L, Magnesium Level 2.2 CBC/BMP Laboratory Tests 05/31/18 05:45 Red Blood Count 4.08 L, Mean Corpuscular Volume 89.5, Mean Corpuscular Hemoglobin 31.1, Mean Corpuscular Hemoglobin Concent 34.8, Red Cell Distribution Width 11.8, Neutrophils (%) (Auto) 77.7 H, Lymphocytes (%) (Auto) 15.0 L, Monocytes (%) (Auto) 6.6 H, Eosinophils (%) (Auto) 0.0, Basophils (%) (Auto) 0.1, Neutrophils # (Auto) 7.6, Lymphocytes # (Auto) 1.5, Monocytes # (Auto) 0.6, Eosinophils # (Auto) 0.0, Basophils # (Auto) 0.0, Calcium Level 8.7 L Microbiology Microbiology 05/27/18 Respiratory Virus Panel (PCR) ([facility]) - Final, Complete Influenza A H1-2009 GME ATTESTATION GME ATTESTATION My faculty preceptor for this patient encounter was physically present during the encounter and was fully available. All aspects of the patient interview, examination, medical decision making process, and medical care plan development were reviewed and approved by the faculty preceptor. The faculty preceptor is aware and concurs with the plan as stated in the body of this note and will attest to such by his/her cosignature. DARWIN HARDIN DO May 31, 2018 14:39
[2018-05-31] MEDS ORDERED: LEVEMIR (INSULIN DETEMIR) 1 UNITS/0.01ML SC SCH (21:00)
[2018-05-31 22:00] VITALS: BP 140/66
[2018-06-01] MEDS: IPRATROPIUM 0.5MG/ALBUTEROL 2.5MG INH SOL UD 3ML (DUONEB)(J7620) NEB SCH ×3 (02:40→07:17)
[2018-06-01] MEDS: LR 1,000 ML IV SCH (05:06)
[2018-06-01] MEDS: HEPARIN SOD (PORCINE) 5000 UNITS/ML VIAL SC SCH (05:07)
[2018-06-01 06:00] VITALS: BP 156/81
[2018-06-01 06:14] LABS: BASO % 0.1 % (0.0-1.0); EOS % 0.2 % (0.0-3.0); HEMATOCRIT 32.9 % (42.0-52.0); HEMOGLOBIN 11.7 g/dl (13.5-17.5); LYMPH # 2.6 10^3/uL (1.5-4.5); LYMPH % 29.7 % (24.0-44.0); MEAN CORPUSCULAR HEMOGLOBIN 31.3 pg (27.0-33.0); MEAN CORPUSCULAR HGB CONC 35.6 g/dl (32.0-36.5); MONO # 0.7 10^3/uL (0.0-0.8); MONO % 8.3 % (0.0-5.0); NEUTROPHILS # 5.4 10^3/uL (1.8-7.7); NEUTROPHILS % 60.9 % (36.0-66.0); PLATELET COUNT, AUTOMATED 165 10^3/uL (150-450); RED BLOOD COUNT 3.74 10^6/uL (4.30-6.10); WHITE BLOOD COUNT 8.8 10^3/uL (4.0-10.0)
[2018-06-01 06:45] LABS: CALCIUM LEVEL 8.3 MG/DL (8.8-10.2); CREATININE FOR GFR 1.69 MG/DL (0.70-1.30); MAGNESIUM LEVEL 1.9 MG/DL (1.8-2.4); POTASSIUM SERUM 3.5 MEQ/L (3.5-5.1)
[2018-06-01] MEDS: ATORVASTATIN 20 MG TAB PO SCH (07:33)
[2018-06-01] MEDS: OSELTAMIVIR PHOSPHATE 30MG CAPSULE PO SCH (07:33)
[2018-06-01] MEDS: BENZONATATE 100 MG CAP PO SCH (07:33)
[2018-06-01] MEDS: SENOKOT S TAB PO SCH (07:33)
[2018-06-01] MEDS: OMEPRAZOLE 20 MG CAP PO SCH (07:33)
[2018-06-01 07:34] VITALS: BP 160/82
[2018-06-01] MEDS: CARVedilol 12.5 MG TAB PO SCH (07:34)
[2018-06-01] MEDS: MULTIVITAMINS/MINERALS THERAP 1 TAB PO SCH (07:34)
[2018-06-01] MEDS: ASPIRIN 81 MG ENTERIC TAB PO SCH (07:35)
[2018-06-01] MEDS: HumaLOG INSULIN (NovoLOG) PER UNIT SC SCH (07:35)
[2018-06-01] MEDS ORDERED: predniSONE 20 MG TAB PO SCH (09:00)
[2018-06-01] MEDS ORDERED: OSEL30CA PO (09:40)
--- NOTE | 2018-06-02 10:17 | DSES ---
DATE OF ADMISSION: 05/28/2018 DATE OF DISCHARGE: 06/01/2018 REASON FOR ADMISSION: The patient admitted from emergency department after presenting with dyspnea and hyperglycemia. He had been seen [facility] before presentation and given a Z-[place]coe and steroids. His blood sugar was over 600 at home. He was thirsty. He had chest wheezing and tightness and cough. He was found to be positive for influenza A started on renal function adjusted dose of Tamiflu 30 mg twice a day his initial creatinine was 2.83 representing acute kidney injury. He was felt to have COPD exacerbation complicating at the new diagnosis of asthma. On admission steroid doses were continued but Levemir dose that he uses routinely for diabetes control was reduced which resulted in prolonged hyperglycemia and gradually the insulin dose was titrated to improve control. Echocardiogram was performed during his hospital stay because of wheezing I think to rule out new valve dysfunction or new low EF congestive failure. It showed normal LV size and mild LVH with grossly preserved left ventricular systolic function and grade 1 diastolic dysfunction some degenerative abnormalities of mitral valve was seen with mitral annular calcifications aortic valve was poorly seen. The pulmonary valve was not seen. Aortic root and arch of the aorta appear to be normal. Gradually the patient's symptoms improved. Blood sugar became under gradually improving control from 440-349 and on the morning of discharge still not perfect but getting closer with a fasting of 255. Renal function gradually improved progressively from 2.83 to 2.06 after some hydration and then bounced up to 2.3 and how three days in a row shows steady improvement from 1.97 to 1.69. Anticipate that his kidney function will improve to his baseline which is 1.2-1.3. At the time of discharge meds that may limit renal function or compromise it acutely have been held and drugs contraindicated the setting of renal dysfunction have also been held specifically metformin has been held losartan has been held, hydrochlorothiazide triamterene and Lasix are being held at the time of discharge. He will be instructed that it he develops interval pedal edema between the discharge date and his followup appointment that he may resume his furosemide only. He will resume his usual insulin doses, which include insulin glargine 70 units subcu daily, insulin aspart NovoLog 6 units in the morning at breakfast time. He will continue omeprazole 40 mg twice a day Metamucil twice a day as needed, carvedilol 12.5 mg twice a day for hypertension, calcium and vitamin D 600 - 400 one by mouth twice a day, benzonatate for cough control 200 mg three times a day as needed, atorvastatin 40 mg daily at bedtime, aspirin 81 mg daily, acetaminophen 650 every 4 hours as needed pain and fever and albuterol 2 puffs every 4 hours as needed wheezing or cough. Stopped at discharge are prednisone and he has completed sufficient dosing with the azithromycin at this point it will not be continued further Lasix being held losartan and metformin also held and along with triamterene hydrochlorothiazide until seen for followup appointment activity will be as tolerated. Continue 2 liters fluid restriction at this point think it is reasonable to reinstate some restriction as I suspect that his hyperglycemia induced diuresis that created the acute kidney injury should be largely resolved at this point. DISCHARGE DIAGNOSIS: 1. Influenza. 2. Acute kidney injury secondary to osmotic diuresis in conjunction with chronic congestive heart failure treatment. 3. Chronic diastolic failure. 4. Diabetes mellitus type 2. 5. Obesity.
== END 2018-06-01 11:31 | disposition home or self-care (01) | DRG 191 ==
LOC: M ED 20:44 → M ED INP 05-28 01:03 → M MSPAV 05-28 15:44
PROVIDERS: ADMIT Internal Medicine; ATTEND Family Medicine
DX: J44.1 Chronic obstructive pulmonary disease with (acute) exacerbation (principal); I13.0 Hypertensive heart and chronic kidney disease with heart failure and stage 1 through stage 4 chronic kidney disease, or unspecified chronic kidney disease; N17.9 Acute kidney failure, unspecified; I50.32 Chronic diastolic (congestive) heart failure; E11.65 Type 2 diabetes mellitus with hyperglycemia; L65.9 Nonscarring hair loss, unspecified; N52.9 Male erectile dysfunction, unspecified; E78.5 Hyperlipidemia, unspecified; J10.1 Influenza due to other identified influenza virus with other respiratory manifestations; K21.9 Gastro-esophageal reflux disease without esophagitis; N18.3 Chronic kidney disease, stage 3 (moderate); E66.9 Obesity, unspecified; E11.42 Type 2 diabetes mellitus with diabetic polyneuropathy; G47.33 Obstructive sleep apnea (adult) (pediatric); Z79.82 Long term (current) use of aspirin; Z79.4 Long term (current) use of insulin; Z79.899 Other long term (current) drug therapy; Z79.52 Long term (current) use of systemic steroids; Z88.0 Allergy status to penicillin; Z88.8 Allergy status to other drugs, medicaments and biological substances; Z68.36 Body mass index [BMI] 36.0-36.9, adult

== ENCOUNTER 2018-06-02 11:23 | Emergency (ER) | payer OTHER, BC ==
[~2018-06-02] VITALS: Ht 170.2 cm; Wt 104.5 kg
[~2018-06-02 11:23] MED LIST changes: -/AMLO25TA PO; -/HYDR10TAB PO; -/MOXI40TA PO; -/TAMS4CA PO; +APAP325T4 PO; +AVEL1TAB2 PO; +AZIT-10 PO; +BENZ200C70 PO; +CALCTAB6 PO; +FLEC50HA PO; -FLEC50TA PO; +FLOM0.4C39 PO; +FLUTISP NARES; +HYDR-3677 PO; +MAXZTA PO; +META28.32 PO; +NORV2TAB PO; +OMEP40CA2 PO; +OSEL30CA PO; +PRED-351 PO; +PRED10PA2 PO; -PRED10TA PO; +PRED10TA2 PO; +ZITHTAB PO
[2018-06-02] MEDS ORDERED: NS 1,000 ML IV ONE (12:15)
[2018-06-02] MEDS ORDERED: CARVedilol 12.5 MG TAB PO ONE (12:15)
[2018-06-02] MEDS ORDERED: ASPIRIN 81 MG CHEW TABLET PO ONE (12:15)
[2018-06-02] MEDS ORDERED: ONDANSETRON 4MG/2ML VIAL (J2405) IV ONE (12:30)
[2018-06-02] MEDS: METOPROLOL 5 MG/5 ML VIAL IV SCH ×3 (12:31→12:48)
[2018-06-02 12:35] LABS: BASO % 0.2 % (0.0-1.0); EOS # 0.1 10^3/uL (0.0-0.50); EOS % 0.7 % (0.0-3.0); HEMATOCRIT 37.1 % (42.0-52.0); HEMOGLOBIN 13.1 g/dl (13.5-17.5); LYMPH # 2.6 10^3/uL (1.5-4.5); LYMPH % 22.9 % (24.0-44.0); MEAN CORPUSCULAR HEMOGLOBIN 31.9 pg (27.0-33.0); MEAN CORPUSCULAR HGB CONC 35.3 g/dl (32.0-36.5); MEAN CORPUSCULAR VOLUME 90.3 fl (80.0-96.0); MONO # 0.8 10^3/uL (0.0-0.8); MONO % 7.2 % (0.0-5.0); NEUTROPHILS # 7.6 10^3/uL (1.8-7.7); NEUTROPHILS % 68.1 % (36.0-66.0); PLATELET COUNT, AUTOMATED 199 10^3/uL (150-450); RED BLOOD COUNT 4.11 10^6/uL (4.30-6.10); WHITE BLOOD COUNT 11.2 10^3/uL (4.0-10.0)
[2018-06-02 12:39] LABS: PROTHROMBIN TIME 13.3 SECONDS (12.1-14.4)
--- NOTE | 2018-06-02 12:39 | REP ---
L CHEST X-RAY: Single view. HISTORY: Chest pain. COMPARISON STUDY: May 27, 2018. FINDINGS: EKG monitoring electrodes overlie the chest. Right hemidiaphragm is somewhat elevated. Pulmonary vasculature is not increased. Heart is not enlarged. No infiltrate is seen. IMPRESSION: Somewhat elevated right hemidiaphragm again noted. Otherwise no acute disease. Electronically Signed by Juan Marshall MD 06/02/2018 02:26 P
[2018-06-02 12:45] LABS: BLOOD UREA NITROGEN 32 MG/DL (7-18); CALCIUM LEVEL 8.7 MG/DL (8.8-10.2); CARBON DIOXIDE LEVEL 32 MEQ/L (21-32); CHLORIDE LEVEL 104 MEQ/L (98-107); CPK CREATINE PHOSPHOKINASE 89 U/L (39-308); CREATININE FOR GFR 1.75 MG/DL (0.70-1.30); GLOMERULAR FILTRATION RATE 41.3 (>49); GLUCOSE, FASTING 162 MG/DL (70-100); MB/CK RELATIVE INDEX 2.02 (< OR =4); POTASSIUM SERUM 3.2 MEQ/L (3.5-5.1); SODIUM LEVEL 140 MEQ/L (136-145); TROPONIN I < 0.02 NG/ML (< 0.10)
[2018-06-02] MEDS ORDERED: METOPROLOL 5 MG/5 ML VIAL IV STA (13:34)
[2018-06-02 13:46] VITALS: BP 112/65
[2018-06-02 15:15] VITALS: BP 130/71
--- NOTE | 2018-06-02 21:13 | ECGEPIP ---
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
== END 2018-06-02 15:27 | disposition home or self-care (01) ==
LOC: M ED 11:23
DX: I48.91 Unspecified atrial fibrillation (principal); J09.X2 Influenza due to identified novel influenza A virus with other respiratory manifestations; R11.2 Nausea with vomiting, unspecified; R06.02 Shortness of breath; I10 Essential (primary) hypertension; E78.5 Hyperlipidemia, unspecified; E11.9 Type 2 diabetes mellitus without complications; J44.9 Chronic obstructive pulmonary disease, unspecified; Z86.73 Personal history of transient ischemic attack (TIA), and cerebral infarction without residual deficits; G47.30 Sleep apnea, unspecified; Z87.891 Personal history of nicotine dependence; Z88.0 Allergy status to penicillin; Z79.899 Other long term (current) drug therapy; Z79.4 Long term (current) use of insulin; Z79.82 Long term (current) use of aspirin
CPT/HCPCS: 71045; 80048; 82550; 82553; 84484; 85025; 85610; 93005; 93041; 94760; 96361; 96374; 96375; 96376; 99285; J2405

== ENCOUNTER → 2018-06-06 | Outpatient (CLI) | payer BC, MEDICARE, OTHER ==
[~2018-06-06] MED LIST changes: +/AMLO25TA PO; +/HYDR10TAB PO; +/MOXI40TA PO; +/TAMS4CA PO; -AVEL1TAB2 PO; -FLEC50HA PO; +FLEC50TA PO; -FLOM0.4C39 PO; -HYDR-3677 PO; -NORV2TAB PO; -PRED-351 PO; +PRED10TA PO
[2018-06-06 16:49] LABS: CALCIUM LEVEL 8.1 MG/DL (8.8-10.2); CREATININE FOR GFR 1.62 MG/DL (0.70-1.30); GLOMERULAR FILTRATION RATE 45.2 (>49); POTASSIUM SERUM 4.6 MEQ/L (3.5-5.1)
== END ==
LOC: M LAB 15:59
PROVIDERS: ATTEND Family Medicine
DX: I10 Essential (primary) hypertension (principal); E11.8 Type 2 diabetes mellitus with unspecified complications

== ENCOUNTER 2018-09-18 02:26 | Emergency (ER) | payer BC ==
[~2018-09-18] VITALS: Ht 167.6 cm; Wt 109.1 kg
[~2018-09-18 02:26] MED LIST changes: -/AMLO25TA PO; -/HYDR10TAB PO; -/MOXI40TA PO; -/TAMS4CA PO; +AVEL1TAB2 PO; +FLEC50HA PO; -FLEC50TA PO; +FLOM0.4C39 PO; +HYDR-3677 PO; +NORV2TAB PO; +PRED-351 PO; -PRED10TA PO
[2018-09-18] MEDS ORDERED: METOPROLOL TART 25 MG TABLET PO ONE (03:00)
[2018-09-18 03:02] LABS: BASO # 0.1 10^3/uL (0.0-0.2); BASO % 0.3 % (0.0-1.0); EOS # 0.2 10^3/uL (0.0-0.50); EOS % 0.9 % (0.0-3.0); HEMATOCRIT 40.5 % (42.0-52.0); HEMOGLOBIN 14.2 g/dl (13.5-17.5); LYMPH # 3.7 10^3/uL (1.5-4.5); LYMPH % 23.5 % (24.0-44.0); MEAN CORPUSCULAR HEMOGLOBIN 31.7 pg (27.0-33.0); MEAN CORPUSCULAR HGB CONC 35.1 g/dl (32.0-36.5); MEAN CORPUSCULAR VOLUME 90.4 fl (80.0-96.0); MONO # 1.3 10^3/uL (0.0-0.8); MONO % 8.2 % (0.0-5.0); NEUTROPHILS # 10.5 10^3/uL (1.8-7.7); NEUTROPHILS % 66.2 % (36.0-66.0); PLATELET COUNT, AUTOMATED 244 10^3/uL (150-450); RED BLOOD COUNT 4.48 10^6/uL (4.30-6.10); WHITE BLOOD COUNT 15.9 10^3/uL (4.0-10.0)
[2018-09-18 03:06] LABS: INR 1.16; PROTHROMBIN TIME 14.5 SECONDS (11.8-14.0)
[2018-09-18] MEDS: METOPROLOL 5 MG/5 ML VIAL IV SCH ×2 (03:08→03:25)
[2018-09-18 03:25] VITALS: BP 108/72
[2018-09-18 03:29] LABS: ALBUMIN 3.5 GM/DL (3.2-5.2); ALT/SGPT 32 U/L (12-78); BILIRUBIN,TOTAL 0.4 MG/DL (0.2-1.0); BLOOD UREA NITROGEN 37 MG/DL (7-18); CALCIUM LEVEL 9.2 MG/DL (8.8-10.2); CARBON DIOXIDE LEVEL 25 MEQ/L (21-32); CHLORIDE LEVEL 103 MEQ/L (98-107); CK-MB VALUE MASS 2.5 NG/ML (<3.6); CPK CREATINE PHOSPHOKINASE 89 U/L (39-308); CREATININE FOR GFR 1.96 MG/DL (0.70-1.30); GLOMERULAR FILTRATION RATE 36.2 (>42); GLUCOSE, FASTING 199 MG/DL (70-100); LIPASE 401 U/L (73-393); MB/CK RELATIVE INDEX 2.81 (< OR =4); POTASSIUM SERUM 3.5 MEQ/L (3.5-5.1); SODIUM LEVEL 138 MEQ/L (136-145); TOTAL PROTEIN 7.4 GM/DL (6.4-8.2); TROPONIN I < 0.02 NG/ML (< 0.10)
[2018-09-18] MEDS ORDERED: WARF-23 PO (03:37)
[2018-09-18] MEDS ORDERED: PRED10PA2 PO (03:37)
[2018-09-18] MEDS ORDERED: TRIA75TA PO (03:37)
[2018-09-18] MEDS ORDERED: DIGOXIN INJ 0.5 MG/2 ML AMP (J1160) IV ONE (04:00)
[2018-09-18] MEDS ORDERED: DIGO0.12 PO (05:53)
[2018-09-18 06:15] VITALS: BP 133/68
--- NOTE | 2018-09-18 07:49 | ECGEPIP ---
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
== END 2018-09-18 06:30 | disposition home or self-care (01) ==
LOC: M ED 02:26
DX: I48.0 Paroxysmal atrial fibrillation (principal); I45.4 Nonspecific intraventricular block; R94.31 Abnormal electrocardiogram [ECG] [EKG]; I35.9 Nonrheumatic aortic valve disorder, unspecified; E78.5 Hyperlipidemia, unspecified; I10 Essential (primary) hypertension; J44.9 Chronic obstructive pulmonary disease, unspecified; Z86.73 Personal history of transient ischemic attack (TIA), and cerebral infarction without residual deficits; K21.9 Gastro-esophageal reflux disease without esophagitis; G47.30 Sleep apnea, unspecified; K51.90 Ulcerative colitis, unspecified, without complications; Z79.82 Long term (current) use of aspirin; Z79.4 Long term (current) use of insulin; Z79.01 Long term (current) use of anticoagulants; Z79.899 Other long term (current) drug therapy
CPT/HCPCS: 71045; 80053; 82550; 82553; 83690; 84484; 85025; 85610; 93005; 93041; 94760; 96374; 96375; 99285; J1160

== ENCOUNTER 2019-03-31 21:42 | Emergency (ER) | payer OTHER, BC ==
[~2019-03-31] VITALS: Ht 167.6 cm; Wt 107.8 kg
[~2019-03-31 21:42] MED LIST changes: +DIGO0.123 PO; -OMEP40CA2 PO; +OMEP40CA97 PO; +TRIA75TA PO; +WARF-23 PO
[2019-03-31 22:38] LABS: BASO % 0.2 % (0.0-1.0); EOS # 0.1 10^3/uL (0.0-0.5); EOS % 1.3 % (0.0-3.0); HEMATOCRIT 33.2 % (42.0-52.0); HEMOGLOBIN 10.8 g/dl (13.5-17.5); LYMPH # 1.7 10^3/uL (1.5-5.0); LYMPH % 19.7 % (24.0-44.0); MEAN CORPUSCULAR HEMOGLOBIN 30.4 pg (27.0-33.0); MEAN CORPUSCULAR HGB CONC 32.5 g/dl (32.0-36.5); MEAN CORPUSCULAR VOLUME 93.5 fl (80.0-96.0); MONO # 0.7 10^3/uL (0.0-0.8); MONO % 8.3 % (0.0-5.0); PLATELET COUNT, AUTOMATED 172 10^3/uL (150-450); RED BLOOD COUNT 3.55 10^6/uL (4.30-6.10); WHITE BLOOD COUNT 8.6 10^3/uL (4.0-10.0)
[2019-03-31 22:51] LABS: INR 2.08; PROTHROMBIN TIME 23.2 SECONDS (11.8-14.0)
[2019-03-31 22:52] LABS: PARTIAL THROMBOPLASTIN TIME 50.2 SECONDS (25.0-38.4)
[2019-03-31 22:56] LABS: ALBUMIN 3.6 GM/DL (3.2-5.2); BILIRUBIN,DIRECT 0.2 MG/DL (0.0-0.2); BILIRUBIN,TOTAL 0.5 MG/DL (0.2-1.0); CALCIUM LEVEL 8.5 MG/DL (8.8-10.2); CREATININE FOR GFR 1.68 MG/DL (0.70-1.30); GLOMERULAR FILTRATION RATE 43.2 (>42); POTASSIUM SERUM 3.3 MEQ/L (3.5-5.1); TOTAL PROTEIN 7.1 GM/DL (6.4-8.2)
[2019-03-31] MEDS ORDERED: DEXTROSE 50% 50 ML SYRINGE IV STA (23:00)
[2019-04-01 00:56] VITALS: BP 158/71
== END 2019-04-01 01:00 | disposition home or self-care (01) ==
LOC: M ED 21:42
DX: E11.649 Type 2 diabetes mellitus with hypoglycemia without coma (principal); I10 Essential (primary) hypertension; N28.9 Disorder of kidney and ureter, unspecified; I48.91 Unspecified atrial fibrillation; E78.5 Hyperlipidemia, unspecified; G62.9 Polyneuropathy, unspecified; Z79.899 Other long term (current) drug therapy; Z79.82 Long term (current) use of aspirin; Z79.4 Long term (current) use of insulin; Z79.01 Long term (current) use of anticoagulants

== ENCOUNTER 2019-06-07 10:16 | Emergency (ER) | payer OTHER, BC ==
[~2019-06-07] VITALS: Ht 167.6 cm; Wt 101.9 kg
[2019-06-07] MEDS ORDERED: ELIQ5TAB PO (10:58)
[2019-06-07 11:47] LABS: BASO % 0.2 % (0.0-1.0); EOS # 0.1 10^3/uL (0.0-0.5); EOS % 1.5 % (0.0-3.0); HEMATOCRIT 37.1 % (42.0-52.0); HEMOGLOBIN 12.9 g/dl (13.5-17.5); LYMPH # 1.8 10^3/uL (1.5-5.0); LYMPH % 19.1 % (24.0-44.0); MEAN CORPUSCULAR HEMOGLOBIN 32.4 pg (27.0-33.0); MEAN CORPUSCULAR HGB CONC 34.8 g/dl (32.0-36.5); MEAN CORPUSCULAR VOLUME 93.2 fl (80.0-96.0); MONO # 0.9 10^3/uL (0.0-0.8); MONO % 9.3 % (0.0-5.0); NEUTROPHILS # 6.7 10^3/uL (1.5-8.5); NEUTROPHILS % 69.6 % (36.0-66.0); PLATELET COUNT, AUTOMATED 215 10^3/uL (150-450); RED BLOOD COUNT 3.98 10^6/uL (4.30-6.10); WHITE BLOOD COUNT 9.7 10^3/uL (4.0-10.0)
[2019-06-07] MEDS ORDERED: NS 500 ML IV ONE (12:00)
[2019-06-07] MEDS ORDERED: ISOVUE-370 76% 100ML VIAL (Q9967) As Ordered ONE (12:02)
[2019-06-07 12:03] LABS: INR 1.58; PROTHROMBIN TIME 18.6 SECONDS (11.8-14.0)
[2019-06-07 12:04] LABS: PARTIAL THROMBOPLASTIN TIME 47.1 SECONDS (25.0-38.4)
[2019-06-07 12:13] LABS: ALBUMIN 3.6 GM/DL (3.2-5.2); ALT/SGPT 18 U/L (12-78); BILIRUBIN,DIRECT 0.2 MG/DL (0.0-0.2); BILIRUBIN,TOTAL 0.8 MG/DL (0.2-1.0); CK-MB VALUE MASS 1.8 NG/ML (<3.6); CPK CREATINE PHOSPHOKINASE 104 U/L (39-308); LIPASE 127 U/L (73-393); MB/CK RELATIVE INDEX 1.73 (< OR =4); TROPONIN I < 0.02 NG/ML (< 0.10)
--- NOTE | 2019-06-07 12:33 | REP ---
Clinical: Acute abdominal pain with nausea, vomiting and diarrhea. Technique: Axial contrast enhanced images from the lung bases to the pubic symphysis using 100 ml Isovue 370 intravenous contrast material with coronal and sagittal re-formations. Comparison: Findings: Mildly prominent fluid filled small and large bowel suggests infectious/inflammatory enterocolitis. Normal appendix identified in the right lower quadrant. No bowel obstruction or perforation. No free air or ascites/drainable collection. Liver, spleen, pancreas, bilateral adrenal glands and kidneys are normal. Evidence of prior cholecystectomy. Pelvis demonstrates normal bladder and age appropriate prostate/seminal vesicles. No ascites. No free air. No significant adenopathy. Abdominal aorta without aneurysm or dissection. Musculoskeletal structures intact without acute osseous abnormality. Lung bases demonstrate chronic interstitial changes. Impression: 1. Mildly prominent fluid filled small and large bowel consistent with infectious/inflammatory enterocolitis. No bowel obstruction or perforation. No free fluid or drainable collection. Electronically Signed by Abe Gurrola MD 06/07/2019 12:23 P
[2019-06-07] MEDS ORDERED: ONDA4TAB6 PO (13:41)
[2019-06-07] MEDS ORDERED: AUGM875T28 PO (13:41)
[2019-06-07 14:09] VITALS: BP 143/71
--- NOTE | 2019-06-07 16:14 | ECGEPIP ---
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
== END 2019-06-07 14:56 | disposition home or self-care (01) ==
LOC: M ED 10:16
DX: K52.9 Noninfective gastroenteritis and colitis, unspecified (principal); E11.9 Type 2 diabetes mellitus without complications; I10 Essential (primary) hypertension; J44.9 Chronic obstructive pulmonary disease, unspecified; I48.91 Unspecified atrial fibrillation; Z79.899 Other long term (current) drug therapy; Z79.4 Long term (current) use of insulin; Z79.01 Long term (current) use of anticoagulants
CPT/HCPCS: 36415; 74177; 80047; 80076; 82550; 82553; 83690; 84484; 85025; 85610; 85730; 87507; 93005; 99284; Q9967

== ENCOUNTER 2020-02-16 10:43 | Emergency (ER) | payer MEDICARE, OTHER ==
[~2020-02-16] VITALS: Ht 167.6 cm; Wt 101.9 kg
[~2020-02-16 10:43] MED LIST changes: -AMLO10TA5 PO; +AMLO1TAB24 PO; +AMLO1TAB25 PO; -AMLO5TAB6 PO; -ASPI81TA85 PO; +ASPI81TA86 PO; +AUGM875T28 PO; +CALC600T63 PO; -CALCTAB6 PO; +ELIQ5TAB PO; +ONDA4TAB6 PO
[2020-02-16] MEDS ORDERED: dexameTHASONE 20MG/5ML VIAL (J1100 PER 1MG) IV ONE (11:30)
[2020-02-16 11:36] LABS: VENOUS BASE EXCESS -2.8 (-2.0-2.0); VENOUS HCO3 25.1 MEQ/L (23.0-27.0); VENOUS O2 SATURATION 63.6 % (60.0-80.0); VENOUS PARTIAL PRESSURE CO2 56.2 mmHg (38.0-50.0); VENOUS PARTIAL PRESSURE O2 35.4 mmHg (30.0-50.0); VENOUS PH 7.267 UNITS (7.330-7.430); VENOUS STANDARD HCO3 21.3 MEQ/L; VENOUS TOTAL CO2 26.8 MEQ/L (24.0-28.0)
[2020-02-16 11:40] LABS: EOS % 0.2 % (0.0-3.0); HEMATOCRIT 40.1 % (42.0-52.0); LYMPH # 1.2 10^3/uL (1.5-5.0); LYMPH % 13.3 % (24.0-44.0); MEAN CORPUSCULAR HEMOGLOBIN 34.1 pg (27.0-33.0); MEAN CORPUSCULAR HGB CONC 34.9 g/dl (32.0-36.5); MEAN CORPUSCULAR VOLUME 97.8 fl (80.0-96.0); MONO # 0.5 10^3/uL (0.0-0.8); MONO % 5.2 % (0.0-5.0); NEUTROPHILS # 7.2 10^3/uL (1.5-8.5); PLATELET COUNT, AUTOMATED 156 10^3/uL (150-450); WHITE BLOOD COUNT 8.9 10^3/uL (4.0-10.0)
--- NOTE | 2020-02-16 11:49 | REP ---
INDICATION: DYSPNEA/COUGH. COMPARISON: Portable chest dated 06/02/2018. TECHNIQUE: Single AP view performed portably with the patient upright. FINDINGS: The lung jaime are clear. Cardiac size is normal. The frankie, mediastinum and skeletal structures are unremarkable. There is chronic mild elevation of the right hemidiaphragm, unchanged. IMPRESSION: Essentially negative portable chest <Electronically signed by Amauri Bro > 02/16/20 114
[2020-02-16 11:51] LABS: INR 1.36; PROTHROMBIN TIME 17.1 SECONDS (12.5-14.3)
[2020-02-16 12:18] LABS: ALBUMIN 3.8 GM/DL (3.2-5.2); ALT/SGPT 32 U/L (12-78); BILIRUBIN,DIRECT 0.3 MG/DL (0.0-0.2); BILIRUBIN,TOTAL 1.1 MG/DL (0.2-1.0); BLOOD UREA NITROGEN 11 MG/DL (7-18); CALCIUM LEVEL 8.1 MG/DL (8.8-10.2); CARBON DIOXIDE LEVEL 28 MEQ/L (21-32); CHLORIDE LEVEL 107 MEQ/L (98-107); CK-MB VALUE MASS 1.6 NG/ML (<3.6); CPK CREATINE PHOSPHOKINASE 98 U/L (39-308); CREATININE FOR GFR 1.46 MG/DL (0.70-1.30); ETHYL ALCOHOL (ETHANOL) 0.004 % (0.000-0.010); GLOMERULAR FILTRATION RATE 50.7 (>42); GLUCOSE, FASTING 162 MG/DL (70-100); MB/CK RELATIVE INDEX 1.63 (< OR =4); NT-PRO BNP 437 PG/ML (<125); POTASSIUM SERUM 3.4 MEQ/L (3.5-5.1); SODIUM LEVEL 142 MEQ/L (136-145); THYROID STIMULATING HORMONE 0.893 uIU/ML (0.358-3.740); THYROXINE (T4) 6.3 UG/DL (4.5-12.0); TOTAL PROTEIN 6.5 GM/DL (6.4-8.2); TROPONIN I < 0.02 NG/ML (< 0.10)
--- NOTE | 2020-02-16 13:48 | REP ---
INDICATION: shortness of breath. COMPARISON: Chest CT with IV contrast dated 09/24/2016. Plain film portable chest earlier today. TECHNIQUE: Chest CT without IV contrast FINDINGS: There are no acute infiltrates or pleural effusions. There is chronic pleuroparenchymal scarring in the right lower lobe, unchanged from the comparison CT. There are no masses or nodules. There is no mediastinal or axillary a half lymph node enlargement. In the absence of IV contrast study is insensitive for hilar lymph node enlargement. Thoracic aorta is unremarkable. Cardiac size is normal. There is no pericardial effusion. The visualized upper abdomen is unremarkable except for focal calcific pleural plaque along the dome of the right hemidiaphragm posteriorly. This is unchanged from the prior study. IMPRESSION: There are no acute cardiopulmonary findings. There is chronic pleuroparenchymal scarring in the right lower lobe, unchanged. Chronic calcific pleural plaque of the right hemidiaphragm posteriorly, unchanged. <Electronically signed by Amauri Bro > 02/16/20 0002
[2020-02-16 15:29] LABS: AMPHETAMINES LEVEL URINE NEGATIVE (NEGATIVE); BARBITURATES URINE NEGATIVE (NEGATIVE); BENZODIAZEPINES URINE NEGATIVE (NEGATIVE); CANNABINOIDS URINE NEGATIVE (NEGATIVE); COCAINE METABOLITE URINE NEGATIVE (NEGATIVE); METHADONE URINE NEGATIVE (NEGATIVE); OPIATES URINE NEGATIVE (NEGATIVE); PHENCYCLIDINE URINE NEGATIVE (NEGATIVE)
[2020-02-16 16:47] LABS: ABG pH (ARTERIAL) 7.384 UNITS (7.350-7.450)
[2020-02-16 16:48] LABS: ABG BASE EXCESS 0.4 (-2.0-2.0); ABG HCO3 25.8 MEQ/L (22.0-26.0); ABG O2 SATURATION 94.9 % (95.0-99.0); ABG PARTIAL PRESSURE CO2 44.2 mmHg (35.0-45.0); ABG PARTIAL PRESSURE O2 73.8 mmHg (75.0-100.0); ABG STANDARD HCO3 24.8 MEQ/L (22.0-26.0); ABG TOTAL CO2 27.2 MEQ/L (23.0-31.0)
[2020-02-16] MEDS ORDERED: GLUCOSE 4GM CHEW TABLET PO PRN (17:30)
[2020-02-16] MEDS ORDERED: DEXTROSE 50% 50 ML SYRINGE IV PRN (17:30)
[2020-02-16] MEDS ORDERED: GLUCAGON INJ 1MG VIAL SC PRN (17:30)
[2020-02-16] MEDS ORDERED: HumaLOG INSULIN (NovoLOG) PER UNIT SC SCH ×2 (17:30→21:00)
[2020-02-16] MEDS ORDERED: TRUL0.5I SC (17:31)
[2020-02-16] MEDS ORDERED: INSUHUMDS SC (17:31)
[2020-02-16] MEDS ORDERED: FURO40TA2 PO (17:31)
[2020-02-16] MEDS ORDERED: GABA-1171 PO (17:31)
[2020-02-16] MEDS ORDERED: FERR324T2 PO (17:31)
[2020-02-16] MEDS ORDERED: REFR0.5D8 OD (17:31)
[2020-02-16] MEDS ORDERED: LANTINJ4 SC (17:31)
[2020-02-16] MEDS ORDERED: COMBAER6 INH (17:31)
[2020-02-16] MEDS ORDERED: CARV25TA PO (17:31)
[2020-02-16] MEDS ORDERED: TEMO0.0517 TOP (17:31)
[2020-02-16] MEDS ORDERED: ETAN50PE SC (17:31)
[2020-02-16] MEDS ORDERED: ALLO10TA PO (17:31)
[2020-02-16] MEDS ORDERED: VOLT1GEL15 TOP (17:31)
[2020-02-16] MEDS ORDERED: FOLI1TAB11 PO (17:31)
[2020-02-16] MEDS ORDERED: OMEP-221 PO (17:32)
[2020-02-16] MEDS ORDERED: LOSA100T50 PO (17:32)
[2020-02-16] MEDS ORDERED: POTA10TA16 PO (17:32)
[2020-02-16] MEDS ORDERED: METH2.5T48 PO (17:32)
[2020-02-16] MEDS ORDERED: POLYVINYL ALCOHOL OPHTH SOLN 15 ML(LIQUITEARS) OU PRN (18:00)
[2020-02-16] MEDS ORDERED: ALBUTEROL SULFATE 2.5 MG/0.5 ML INH NEB SOLN NEB PRN (18:00)
[2020-02-16] MEDS ORDERED: ONDANSETRON 4MG/2ML VIAL IV PRN (18:00)
[2020-02-16] MEDS ORDERED: methylPREDNISolone 125MG 2ML VIAL IV SCH (18:00)
[2020-02-16] MEDS ORDERED: ACETAMINOPHEN TAB 650MG DOSE (2X325MG) PO PRN (18:00)
[2020-02-16] MEDS ORDERED: hydrALAZINE 20MG/ML 1ML VIAL (J0360 PER 20MG) IV ONE (18:15)
--- NOTE | 2020-02-16 18:36 | HPEPDOC ---
[facility] Medical History & Physical Date of Admission Feb 16, 2020 Date of Service: Feb 16, 2020 Attending Physician: YURY ROSS MD History and Physical CHIEF COMPLAINT: congestion, cough, post tussive emesis HISTORY OF PRESENT ILLNESS: 69 yo M with a history of HFpEF, chronic AFib on eliquis, HTN, HLD, COPD, prior smoker, LUISITO, morbid obesity, IDDM, CKD3 who presented to the ED reporting ongoing nasal congestion, cough with numerous episodes of post tussive emesis and YOUNGER without jeremie fevers, chills, chest pain, palpitations, sick contacts, hematemesis, recent travel, noted weight loss. In the ED, he was hypertensive to SBPs 190s, otherwise noted to not be moving air well with no jeremie wheezing or crackles. He was given 10mg of dexamethasone and albuterol mdi with some improvement. Most notable was foggy mentation with inability to name the correct president, in a gentleman who is usually completely independent at baseline, with an otherwise nonfocal initial neuro exam per ED. Initial workup was notable VBG that was 7.26/56, and ABG after dexamethasone and albuterol that was 7.38/44. WBC was 8.9, Hgb 14, platelets 156, Na 142, K 3.4, bicarb 28, Cr 1.46 (at recent baseline), LFTs wnl, lactate 1.5, TSH and free T4 wnl, proBNP 437 while UA showed 3+ proteinuria and 2+ glucosuria and was otherwise bland. He had a respiratory panel that was negative, including for covid-19, a CXR that showed no cardiopulmonary pathology and CT chest without contrast that showed no acute cardiopulmonary findings, chronic pleuroparenchymal scarring in the right lower lobe that was unchanged from prior and chronic calcific pleural plaque of the right hemidiaphragm posteriorly was also unchanged. He is now being admitted to medicine for a COPD exacerbation as well as encephalopathy of unclear etiology likely metabolic, with ongoing investigation. ROS - all 14 points ROS negative except for what's stated in HPI PAST MEDICAL HISTORY ALOPECIA IDDM H/O AGENT ORANGE EXPOSURE COPD HYPERTENSION HFpEF HLD ULCERATIVE COLITIS GERD CHRONIC A-FIB CKD 3, baseline Cr 1.5-1.8. 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 Kids:2 Tobacco use: quit 1996 ETOH: denies FAMILY HISTORY: Mother: , had CAD Father: , had CAD and DM Physical Exam GEN: NAD , obese HEENT: normocephalic, atraumatic, PERRLA, EOMI, MMM, neck supple, clear posterior oropharynx without erythema or exudates CVS : Currently RRR, normal S1, S2 no murmur, rubs or gallops RESP: Poor air movement, no crackles, wheezing or rhonchi ABD: Normoactive bowel sounds in all 4 quadrants, soft, NT, ND , no CVA tenderness bilaterally MSK: no joint swelling, FROM Neuro: CN2-12 grossly intact, 5/5 strength throughout, Psych: LABORATORY DATA: as summarized above IMAGING: reviewed, summarized above ASSESSMENT: 69 yo M with a history of HFpEF, chronic AFib on eliquis, HTN, HLD, COPD, prior smoker, LUISITO, morbid obesity, IDDM, CKD3 who presented to the ED reporting ongoing nasal congestion, cough with numerous episodes of post tussive emesis and YOUNGER now admitted for COPD exacerbation without evidence of ongoing PNA or typical viral infections. COPD exacerbation -duoneb q6h scheduled -methylprednisolone 80mg q8h -albuterol q4h prn for SOB -tessalon perls -zofran PRN for nausea Encephalopathy: -bland UA -Nonfocal exam otherwise -mild hypercarbia at presentation -monitor for now -CT head IDDM - continue home long acting 40u daily - SSI AC/HS -hypoglycemia protocol -FSBG AC/HS HTN with ongoing hypertensive urgency i/s/o not having taken his meds today: -continue home coreg and losartan -will give IV hydral once for hypertensive urgency Chronic Afib: -continue home coreg and eliquis HLD: -continue home lipitor Ulcerative colitis: -hold home meds, took them today and taken weekly, both the methotrexate and etanercept dvt ppx: eliquis dispo: PCU for hypertensive urgency, likely to de-escalate to med/surg in the morning. Expect to be hospitalized for greater than 48hrs, so inpatient status. Code status: full code Vital Signs Vital Signs Date Time Temp Pulse Resp B/P (MAP) Pulse Ox O2 Delivery O2 Flow Rate FiO2 02/16/20 17:15 182/84 (116) 02/16/20 17:02 72 02/16/20 13:16 98 02/16/20 11:56 Room Air 02/16/20 11:13 98.7 02/16/20 10:44 18 Laboratory Data Labs 24H Laboratory Tests 2 02/16/20 11:03: Bedside Glucose (Misc Panel) 151H 02/16/20 11:05: Lactic Acid Level 1.5 02/16/20 11:22: Immature Granulocyte % (Auto) 0.3, Neutrophils (%) (Auto) 81.0H, Lymphocytes (%) (Auto) 13.3L, Monocytes (%) (Auto) 5.2H, Eosinophils (%) (Auto) 0.2, Basophils (%) (Auto) 0.0, Neutrophils # (Auto) 7.2, Lymphocytes # (Auto) 1.2L, Monocytes # (Auto) 0.5, Eosinophils # (Auto) 0.0, Basophils # (Auto) 0.0, Nucleated Red Blood Cells % (auto) 0.0, Prothrombin Time 17.1H, Prothromb Time International Ratio 1.36, Blood Gas Bicarbonate Standard 21.3, Venous Blood pH 7.267L, Venous Blood Partial Pressure CO2 56.2H, Venous Blood Partial Pressure O2 35.4, Venous Blood Total Carbon Dioxide 26.8, Venous Blood HCO3 25.1, Venous Blood Oxygen Saturation 63.6, Venous Blood Base Excess -2.8L, Anion Gap 7L, Glomerular Filtration Rate 50.7, Calcium Level 8.1L, Total Bilirubin 1.1H, Direct Bilirubin 0.3H, Aspartate Amino Transf (AST/SGOT) 19, Alanine Aminotransferase (ALT/SGPT) 32, Alkaline Phosphatase 82, Total Creatine Kinase 98, Creatine Kinase MB 1.6, Creatine Kinase MB Relative Index 1.63, Troponin I < 0.02, IM-Lwz-V-Type Natriuretic Peptide 437H, Total Protein 6.5, Albumin 3.8, Albumin/Globulin Ratio 1.4, Thyroid Stimulating Hormone (TSH) 0.893, Thyroxine (T4) 6.3, Ethyl Alcohol Level 0.004 02/16/20 14:52: Urine Color YELLOW, Urine Appearance CLEAR, Urine pH 6.0, Urine Specific [place] 1.023, Urine Protein 3+H, Urine Glucose (UA) 2+H, Urine Ketones TRACEH, Urine Blood 1+H, Urine Nitrite NEGATIVE, Urine Bilirubin NEGATIVE, Urine Urobilinogen 2.0H, Urine Leukocyte Esterase NEGATIVE, Urine WBC (Auto) 1, Urine RBC (Auto) 10H, Urine Hyaline Casts (Auto) 0, Urine Bacteria (Auto) NEGATIVE, Urine Squamous Epithelial Cells 0, Urine Mucus (Auto) SMALL, Urine Sperm (Auto) , Urine Opiates Screen NEGATIVE, Urine Methadone Screen NEGATIVE, Urine Barbiturates Screen NEGATIVE, Urine Phencyclidine Screen NEGATIVE, Urine Amphetamines Screen NEGATIVE, Urine Benzodiazepines Screen NEGATIVE, Urine Cocaine Metabolite Screen NEGATIVE, Urine Cannabinoids Screen NEGATIVE 02/16/20 16:36: Blood Gas Bicarbonate Standard 24.8, Arterial Blood pH 7.384, Arterial Blood Partial Pressure CO2 44.2, Arterial Blood Partial Pressure O2 73.8L, Arterial Blood Total CO2 27.2, Arterial Blood HCO3 25.8, Arterial Blood Base Excess 0.4, Arterial Blood Oxygen Saturation 94.9L CBC/BMP Laboratory Tests 02/16/20 11:22 Microbiology Microbiology 02/16/20 Blood Culture, Received Pending 02/16/20 Blood Culture, Received Pending 02/16/20 Respiratory Virus Panel (PCR) (FELY) - Final, Complete Home Medications Scheduled Allopurinol (Allopurinol) 100 Mg Tablet, 100 MG PO DAILY Apixaban (Eliquis) 5 Mg Tablet, 5 MG PO BID Atorvastatin Calcium (Atorvastatin Calcium) 80 Mg Tab, 80 MG PO DAILY Calcium Carbonate/Vitamin D3 (Calcium 600-Vit D3 400 Tablet) 1 Tab Tab, 1 TAB PO Q2D Carvedilol (Carvedilol) 25 Mg Tablet, 25 MG PO BID Dulaglutide (Trulicity) 1.5 Mg/0.5 Ml Pen.injctr, 1.5 MG SC QWEEK TUESDAYS Etanercept (Enbrel Sureclick) 50 Mg/1 Ml Pen.injctr, 50 MG SC QWEEK TUESDAYS Ferrous Sulfate (Ferrous Sulfate) 324 Mg Tablet.dr, 324 MG PO BID Folic Acid (Folic Acid) 1 Mg Tablet, 1 MG PO DAILY Furosemide (Furosemide) 40 Mg Tablet, 40 MG PO DAILY Gabapentin (Gabapentin) 100 Mg Capsule, 100 MG PO BID Insulin Glargine,Hum.rec.anlog (Lantus Solostar) 100 Unit/1 Ml Insuln.pen, 40 UNITS SC DAILY Insulin Human Lispro (Humalog) 100 Unit/1 Ml Vial, 1 DOSE SC AC PER SLIDING SCALE Ipratropium/Albuterol Sulfate (Combivent Respimat 20-100 Mcg) 4 Gm Mist.inhal, 1 PUFF INH BID Losartan Potassium (Losartan Potassium) 100 Mg Tablet, 100 MG PO DAILY Methotrexate Sodium (Methotrexate) 2.5 Mg Tablet, 12.5 MG PO QWEEK TU Omeprazole (Omeprazole) 40 Mg Capsule.dr, 40 MG PO BID Potassium Chloride (Potassium Chloride) 10 Meq Tab.er.prt, 20 MEQ PO BID Scheduled PRN Carboxymethylcellulose Sodium (Refresh Tears) 15 Ml Drops, 1 DROP OD QID PRN for DRY EYES Allergies Coded Allergies: No Known Allergies (Unverified , 03/31/19) A-FIB/CHADSVASC A-FIB History Current/History of A-Fib/PAF?: Yes Current PO Anticoag Therapy: Yes Age/Risk Factor Scoring CHADSVASC: CHADSVASC Response (Comments) Value Age Risk Factor Age 65-74 years old 1 Gender Risk Factor Male 0 Hx of CHF Yes 1 Hx of HTN Yes 1 Hx of Stroke/TIA/or VTE No 0 Hx of Diabetes Yes 1 Hx of Vascular Disease Yes 1 Total 5 Treatment Treatment ordered: Apixaban YURY ROSS MD Feb 16, 2020 17:53
--- NOTE | 2020-02-16 19:43 | REPVR ---
PROCEDURE INFORMATION: Exam: CT Head Without Contrast Exam date and time: 02/16/2020 7:30 PM Age: 69 years old Clinical indication: Altered mental status/memory loss; Additional info: AMS TECHNIQUE: Imaging protocol: Computed tomography of the head without contrast. Radiation optimization: All CT scans at this facility use at least one of these dose optimization techniques: automated exposure control; mA and/or kV adjustment per patient size (includes targeted exams where dose is matched to clinical indication); or iterative reconstruction. Other technique: STROKE PROTOCOL was implemented. COMPARISON: CT Head without contrast 07/12/2017 10:59 AM FINDINGS: Large left frontal intra-axial hemorrhage is present measuring 5.5 by 4.0 by 5.5 cm with adjacent edema. There is effacement of the frontal horn left lateral ventricle and there is extension into the ventricle with intraventricular hemorrhage in both lateral ventricles. Minimal anterior left falx component measuring 3 mm No midline shift at this point. Basilar cisterns are patent. Focal mass effect from the hemorrhage is seen in the left frontal lobe, with remainder of sulci being of normal size. No evidence of an infarct. No calvarial fracture or destructive process. Imaged paranasal sinuses, mastoid air cells, globes and orbits are unremarkable. IMPRESSION: Large left frontal intra-axial hemorrhage roughly 63 cc volume with extension into the lateral ventricles but no ventricular obstruction or midline shift. This is probably a hypertensive hemorrhage, with an associated 3 mm anterior left parafalcine subdural component. ASSESSMENT: ASPECTS ([place] Stroke Program Early CT Score) is 10 Electronically signed by: Shyam Ellis On 02/16/2020 19:43:36 PM
[2020-02-16] MEDS ORDERED: COMBIVENT RESPIMAT 100-20MCG INHALER 4GM INH SCH (20:00)
[2020-02-16] MEDS ORDERED: IPRATROPIUM 0.5MG/ALBUTEROL 2.5MG INH SOL UD 3ML (DUONEB) NEB SCH (20:00)
[2020-02-16] MEDS ORDERED: CARVedilol 12.5 MG TAB PO SCH (21:00)
[2020-02-16] MEDS ORDERED: OMEPRAZOLE 20 MG CAP PO SCH (21:00)
[2020-02-16] MEDS ORDERED: BENZONATATE 100 MG CAP PO SCH (21:00)
[2020-02-16] MEDS ORDERED: LABETALOL 100MG/20ML VIAL IV SCH (21:00)
[2020-02-16] MEDS ORDERED: APIXABAN 5 MG TAB (ELIQUIS) PO SCH (21:00)
[2020-02-16] MEDS ORDERED: GABAPENTIN 100 MG CAP PO SCH (21:00)
[2020-02-16] MEDS ORDERED: POTASSIUM CHLORIDE 10 MEQ SR TABLET PO SCH (21:00)
[2020-02-16] MEDS ORDERED: FERROUS SULFATE 325MG TAB PO SCH (21:00)
[2020-02-16] MEDS ORDERED: PROTHROMBIN COMPLEX CONCEN IV ONE ×5 (21:15→21:30)
[2020-02-16 22:10] VITALS: BP 192/81
[2020-02-16 22:38] VITALS: BP 185/81
--- NOTE | 2020-02-17 05:16 | DS.PDOC ---
Discharge Summary General Date of Admission 02/16/20 Date of Discharge 02/16/20 Attending Physician: YURY ROSS MD Discharge Summary PROCEDURES PERFORMED DURING STAY: [None]. ADMITTING DIAGNOSES: 1. COPD exacerbation 2. Metabolic encephalopathy 3. IDDM 4. Hypertensive urgency 5. Chronic AF 6. HLD 7. Ulcerative colitis DISCHARGE DIAGNOSES: 1. Acute hemorrhagic stroke COMPLICATIONS/CHIEF COMPLAINT: Copd Exacerbation/Metabolic Encephalppathy. HISTORY OF PRESENT ILLNESS: 69 yo M with a history of HFpEF, chronic AFib on eliquis, HTN, HLD, COPD, prior smoker, LUISITO, morbid obesity, IDDM, CKD3 who presented to the ED reporting ongoing nasal congestion, cough with numerous episodes of post tussive emesis and YOUNGER without jeremie fevers, chills, chest pain, palpitations, sick contacts, hematemesis, recent travel, noted weight loss. In the ED, he was hypertensive to SBPs 190s, otherwise noted to not be moving air well with no jeremie wheezing or crackles. He was given 10mg of dexamethasone and albuterol mdi with some improvement. Most notable was foggy mentation with inability to name the correct president, in a gentleman who is usually completely independent at baseline, with an otherwise nonfocal initial neuro exam per ED. Initial workup was notable VBG that was 7.26/56, and ABG after dexamethasone and albuterol that was 7.38/44. WBC was 8.9, Hgb 14, platelets 156, Na 142, K 3.4, bicarb 28, Cr 1.46 (at recent baseline), LFTs wnl, lactate 1.5, TSH and free T4 wnl, proBNP 437 while UA showed 3+ proteinuria and 2+ glucosuria and was otherwise bland. He had a respiratory panel that was negative, including for covid-19, a CXR that showed no cardiopulmonary pathology and CT chest without contrast that showed no acute cardiopulmonary findings, chronic pleuroparenchymal scarring in the right lower lobe that was unchanged from prior and chronic calcific pleural plaque of the right hemidiaphragm posteriorly was also unchanged. He is now being admitted to medicine for a COPD exacerbation as well as encephalopathy of unclear etiology likely metabolic, wit h ongoing investigation. HOSPITAL COURSE: The patient underwent CT head as part of his workup for m etabolic encephalopathy which found a large left frontal intra-axial hemorrhage roughly 63 mL in volume with extension into the lateral ventricles but no ventricular obstruction or midline shift, most likely a hypertensive hemorrhage with an associated 3 mm anterior left parafalcine subdural component. The patient was subsequently given Kcentra for reversal of his Eliquis and accepted for transfer at [facility]. He was transported in stable condition. DISCHARGE MEDICATIONS: Please see below. ALLERGIES: Please see below. PHYSICAL EXAMINATION ON DISCHARGE: VITAL SIGNS: see below GENERAL: alert and oriented, in no apparent distress, actively vomiting HEENT: PERRL, EOMI, Oral mucous membranes are moist without lesions. NECK: The patient has no noted JVD. No adenopathy is appreciated. No thyromegaly CHEST/LUNGS: Lungs are clear bilaterally without rhonchi, rales, or wheezes. There is no subcutaneous air appreciated. There is no tenderness to the chest wall. HEART: Regular rate and rhythm. No murmurs, rubs, or gallops are appreciated. Distal pulses are 2+. No carotid bruits appreciated. ABDOMEN: Soft, nontender, and nondistended. Bowel sounds are positive. No organomegaly is appreciated. No masses are appreciated. There are no peritoneal signs. There is no [place] sign. EXTREMITIES: No peripheral edema. There is no focal long bone tenderness or deformity. SKIN: The patients skin is warm and dry, without rashes or lesions. PSYCHIATRIC: AAO x 3, normal mood/affect NEUROLOGIC: The patient was aphasic, and had right upper and right lower extremity weakness, strength 3/5 in both extremities. No other obvious focal deficits. LABORATORY DATA: Please see below. IMAGING: CXR: FINDINGS: The lung jaime are clear. Cardiac size is normal. The frankie, mediastinum and skeletal structures are unremarkable. There is chronic mild elevation of the right hemidiaphragm, unchanged. IMPRESSION: Essentially negative portable chest CHEST CT: FINDINGS: There are no acute infiltrates or pleural effusions. There is chronic pleuroparenchymal scarring in the right lower lobe, unchanged from the comparison CT. There are no masses or nodules. There is no mediastinal or axillary a half ly mph node enlargement. In the absence of IV contrast study is insensitive for hilar lymph node enlargement. Thoracic aorta is unremarkable. Cardiac size is normal. There is no pericardial effusion. The visualized upper abdomen is unremarkable except for focal calcific pleural plaque along the dome of the right hemidiaphragm posteriorly. This is unchanged from the prior study. IMPRESSION: There are no acute cardiopulmonary findings. There is chronic pleuroparenchymal scarring in the right lower lobe, unchanged. Chronic calcific pleural plaque of the right hemidiaphragm posteriorly, unchanged. CT HEAD: FINDINGS: Large left frontal intra-axial hemorrhage is present measuring 5.5 by 4.0 by 5.5 cm with adjacent edema. There is effacement of the frontal horn left lateral ventricle and there is extension into the ventricle with intraventricular hemorrhage in both lateral ventricles. Minimal anterior left falx component measuring 3 mm No midline shift at this point. Basilar cisterns are patent. Focal mass effect from the hemorrhage is seen in the left frontal lobe, with remainder of sulci being of normal size. No evidence of an infarct. No calvarial fracture or destructive process. Imaged paranasal sinuses, mastoid air cells, globes and orbits are unremarkable. IMPRESSION: Large left frontal intra-axial hemorrhage roughly 63 cc volume with extension into the lateral ventricles but no ventricular obstruction or midline shift. This is probably a hypertensive hemorrhage, with an associated 3 mm anterior left parafalcine subdural component. PROGNOSIS: fair ACTIVITY: [As tolerated]. DIET: regular DISCHARGE PLAN: transfer to [facility] DISPOSITION: . DISCHARGE INSTRUCTIONS: none ITEMS TO FOLLOWUP ON ON OUTPATIENT: none DISCHARGE CONDITION: [Stable]. TIME SPENT ON DISCHARGE: Greater than 45 minutes. Vital Signs/I&Os Vital Signs Date Time Temp Pulse Resp B/P (MAP) Pulse Ox O2 Delivery O2 Flow Rate FiO2 02/16/20 22:38 185/81 (115) 02/16/20 22:35 97.7 02/16/20 22:32 88 97 02/16/20 22:31 20 Room Air I&O- Last 24 Hours up to 6 AM 02/17/20 06:00 Intake Total 100 ml Balance 100 ml Laboratory Data Labs 24H Laboratory Tests 2 02/16/20 11:03: Bedside Glucose (Misc Panel) 151H 02/16/20 11:05: Lactic Acid Level 1.5 02/16/20 11:22: Immature Granulocyte % (Auto) 0.3, Neutrophils (%) (Auto) 81.0H, Lymphocytes (%) (Auto) 13.3L, Monocytes (%) (Auto) 5.2H, Eosinophils (%) (Auto) 0.2, Basophils (%) (Auto) 0.0, Neutrophils # (Auto) 7.2, Lymphocytes # (Auto) 1.2L, Monocytes # (Auto) 0.5, Eosinophils # (Auto) 0.0, Basophils # (Auto) 0.0, Nucleated Red Blood Cells % (auto) 0.0, Prothrombin Time 17.1H, Prothromb Time International Ratio 1.36, Blood Gas Bicarbonate Standard 21.3, Venous Blood pH 7.267L, Venous Blood Partial Pressure CO2 56.2H, Venous Blood Partial Pressure O2 35.4, Venous Blood Total Carbon Dioxide 26.8, Venous Blood HCO3 25.1, Venous Blood Oxygen Saturation 63.6, Venous Blood Base Excess -2.8L, Anion Gap 7L, Glomerular Filtration Rate 50.7, Calcium Level 8.1L, Total Bilirubin 1.1H, Direct Bilirubin 0.3H, Aspartate Amino Transf (AST/SGOT) 19, Alanine Aminotransferase (ALT/SGPT) 32, Alkaline Phosphatase 82, Total Creatine Kinase 98, Creatine Kinase MB 1.6, Creatine Kinase MB Relative Index 1.63, Troponin I < 0.02, LH-Hzs-J-Type Natriuretic Peptide 437H, Total Protein 6.5, Albumin 3.8, Albumin/Globulin Ratio 1.4, Thyroid Stimulating Hormone (TSH) 0.893, Thyroxine (T4) 6.3, Ethyl Alcohol Level 0.004 02/16/20 14:52: Urine Color YELLOW, Urine Appearance CLEAR, Urine pH 6.0, Urine Specific [place] 1.023, Urine Protein 3+H, Urine Glucose (UA) 2+H, Urine Ketones TRACEH, Urine Blood 1+H, Urine Nitrite NEGATIVE, Urine Bilirubin NEGATIVE, Urine Urobilinogen 2.0H, Urine Leukocyte Esterase NEGATIVE, Urine WBC (Auto) 1, Urine RBC (Auto) 10H, Urine Hyaline Casts (Auto) 0, Urine Bacteria (Auto) NEGATIVE, Urine Squamous Epithelial Cells 0, Urine Mucus (Auto) SMALL, Urine Sperm (Auto) , Urine Opiates Screen NEGATIVE, Urine Methadone Screen NEGATIVE, Urine Barbiturates Screen NEGATIVE, Urine Phencyclidine Screen NEGATIVE, Urine Amphetamines Screen NEGATIVE, Urine Benzodiazepines Screen NEGATIVE, Urine Cocaine Metabolite Screen NEGATIVE, Urine Cannabinoids Screen NEGATIVE 02/16/20 16:36: Blood Gas Bicarbonate Standard 24.8, Arterial Blood pH 7.384, Arterial Blood Partial Pressure CO2 44.2, Arterial Blood Partial Pressure O2 73.8L, Arterial Blood Total CO2 27.2, Arterial Blood HCO3 25.8, Arterial Blood Base Excess 0.4, Arterial Blood Oxygen Saturation 94.9L 02/16/20 18:12: Bedside Glucose (Misc Panel) 188H 02/16/20 19:27: Ammonia 16 CBC/BMP Laboratory Tests 02/16/20 11:22 FSBS Laboratory Tests Test 02/16/20 11:03 02/16/20 18:12 Range/Units Bedside Glucose (Misc Panel) 151 188 83-110 MG/DL Microbiology Microbiology 02/16/20 Blood Culture, Received Pending 02/16/20 Blood Culture, Received Pending 02/16/20 Respiratory Virus Panel (PCR) (FELY) - Final, Complete Discharge Medications Scheduled Allopurinol (Allopurinol) 100 Mg Tablet, 100 MG PO DAILY, (Reported) Apixaban (Eliquis) 5 Mg Tablet, 5 MG PO BID, (Reported) Atorvastatin Calcium (Atorvastatin Calcium) 80 Mg Tab, 80 MG PO DAILY, (Reported) Calcium Carbonate/Vitamin D3 (Calcium 600-Vit D3 400 Tablet) 1 Tab Tab, 1 TAB PO Q2D, (Reported) Carvedilol (Carvedilol) 25 Mg Tablet, 25 MG PO BID, (Reported) Dulaglutide (Trulicity) 1.5 Mg/0.5 Ml Pen.injctr, 1.5 MG SC QWEEK, (Reported) TUESDAYS Etanercept (Enbrel Sureclick) 50 Mg/1 Ml Pen.injctr, 50 MG SC QWEEK, (Reported) TUESDAYS Ferrous Sulfate (Ferrous Sulfate) 324 Mg Tablet.dr, 324 MG PO BID, (Reported) Folic Acid (Folic Acid) 1 Mg Tablet, 1 MG PO DAILY, (Reported) Furosemide (Furosemide) 40 Mg Tablet, 40 MG PO DAILY, (Reported) Gabapentin (Gabapentin) 100 Mg Capsule, 100 MG PO BID, (Reported) Insulin Glargine,Hum.rec.anlog (Lantus Solostar) 100 Unit/1 Ml Insuln.pen, 40 UNITS SC DAILY, (Reported) Insulin Human Lispro (Humalog) 100 Unit/1 Ml Vial, 1 DOSE SC AC, (Reported) PER SLIDING SCALE Ipratropium/Albuterol Sulfate (Combivent Respimat 20-100 Mcg) 4 Gm Mist.inhal, 1 PUFF INH BID, (Reported) Losartan Potassium (Losartan Potassium) 100 Mg Tablet, 100 MG PO DAILY, (Reported) Methotrexate Sodium (Methotrexate) 2.5 Mg Tablet, 12.5 MG PO QWEEK, (Reported) TUESDAYS Omeprazole (Omeprazole) 40 Mg Capsule.dr, 40 MG PO BID, (Reported) Potassium Chloride (Potassium Chloride) 10 Meq Tab.er.prt, 20 MEQ PO BID, (Reported) Scheduled PRN Carboxymethylcellulose Sodium (Refresh Tears) 15 Ml Drops, 1 DROP OD QID PRN for DRY EYES, (Reported) Allergies Coded Allergies: No Known Allergies (Unverified , 03/31/19) GME ATTESTATION ATTENDING NOTE Family Medicine Attending Note: I was present on site to supervise Yuki Underwood DO (PGY-3). We discussed the history and exam. I confirmed the lui elements during my [id number] encounter with the patient. We conferred on the assessment and plan; I agree with the note as documented. The discovery of the area hemorrhage within Mr. Gibbons brain was somewhat unexpected, however, it did necessitate rapid transfer to tertiary care center for definitive care. (e marketing specialist) YUKI UNDERWOOD MD Feb 17, 2020 05:16 Brannon Mena MD Feb 18, 2020 04:24
--- NOTE | 2020-02-17 08:27 | ECGEPIP ---
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
[2020-02-17] MEDS ORDERED: allopurinoL 100 MG TAB PO SCH (09:00)
[2020-02-17] MEDS ORDERED: ATORVASTATIN 20 MG TAB PO SCH (09:00)
[2020-02-17] MEDS ORDERED: LEVEMIR (INSULIN DETEMIR) 1 UNITS/0.01ML SC SCH (09:00)
[2020-02-17] MEDS ORDERED: FOLIC ACID 1 MG TAB PO SCH (09:00)
[2020-02-17] MEDS ORDERED: LOSARTAN 50MG TABLET PO SCH (09:00)
[2020-02-17] MEDS ORDERED: FUROSEMIDE 40 MG TAB PO SCH (09:00)
[2020-02-18] MEDS ORDERED: CALCIUM/VITAMIN D 500 MG TAB PO SCH (09:00)
== END 2020-02-16 22:58 | disposition short-term general hospital (02) ==
LOC: M ED 10:43 → M ED INP 17:19 → UNDOADMIN 17:19 → M ED 22:58
DX: I61.9 Nontraumatic intracerebral hemorrhage, unspecified (principal); G93.41 Metabolic encephalopathy; I12.9 Hypertensive chronic kidney disease with stage 1 through stage 4 chronic kidney disease, or unspecified chronic kidney disease; I50.9 Heart failure, unspecified; J44.9 Chronic obstructive pulmonary disease, unspecified; N18.30 Chronic kidney disease, stage 3 unspecified; G47.33 Obstructive sleep apnea (adult) (pediatric); G62.9 Polyneuropathy, unspecified; I48.91 Unspecified atrial fibrillation; E78.5 Hyperlipidemia, unspecified; K51.919 Ulcerative colitis, unspecified with unspecified complications; E66.8 Other obesity; Z99.89 Dependence on other enabling machines and devices; Z79.899 Other long term (current) drug therapy; Z79.4 Long term (current) use of insulin; Z79.01 Long term (current) use of anticoagulants; Z87.891 Personal history of nicotine dependence
CPT/HCPCS: 36415; 36600; 70450; 71045; 71250; 80048; 80076; 80307; 81001; 82140; 82550; 82553; 82803; 83605; 83880; 84436; 84443; 84484; 85025; 85610; 87040; 87486; 87581; 87633; 87798; 93005; 93041; 96374; 96375; 99285; C9132; G0480; J0360; J1100; J2930

== ENCOUNTER → 2020-05-10 | Outpatient (CLI) | payer BC, MEDICARE ==
[~2020-05-10] MED LIST changes: +ALLO10TA PO; +ETAN50PE SC; +FERR324T2 PO; +FOLI1TAB11 PO; +GABA-1171 PO; +INSUHUMDS SC; +LANTINJ4 SC; +METH2.5T48 PO; +OMEP-221 PO; +POTA10TA16 PO; +REFR0.5D8 OD; +TEMO0.0517 TOP; +TRUL0.5I SC; +VOLT1GEL15 TOP
--- NOTE | 2020-05-10 09:28 | REP ---
INDICATION: LEFT SIDED INTRACEREBRAL HEMMORHAGE COMPARISON: 02/16/2020 TECHNIQUE: Axial noncontrast images from the skull base to the thoracic inlet with coronal reformations. This CT examination was performed using the following dose reduction techniques: Automated exposure control, adjustment of mA and/or kv according to the patient's size, and use of iterative reconstruction technique. FINDINGS: Atrophy with periventricular leukomalacia and microvascular ischemic changes are appreciated. Previous left frontal lobe hemorrhagic infarction has resolved leaving behind moderate area of chronic encephalomalacia. The ventricles and sulci are relatively symmetric. Wadsworth-white differentiation is maintained. There is no evidence for acute intracranial hemorrhage, mass/mass effect, pathology or infarction. No extra-axial fluid collection. Calvarium is intact. Paranasal sinuses and mastoid air cells are clear. IMPRESSION: 1. Previous left frontal lobe hemorrhagic infarction has resolved. 2. Chronic atrophy and microvascular ischemic changes. 3. No evidence for acute intracranial hemorrhage, infarction or mass/mass effect noted. <Electronically signed by Abe Gurrola > 05/10/20 [id number]
== END ==
LOC: M RAD 08:41
DX: I61.2 Nontraumatic intracerebral hemorrhage in hemisphere, unspecified (principal)

== ENCOUNTER 2020-05-17 13:38 | Emergency (ER) | payer BC ==
[~2020-05-17] VITALS: Ht 167.6 cm; Wt 101.9 kg
[2020-05-17] MEDS ORDERED: NS 1,000 ML IV SCH (13:48)
[2020-05-17] MEDS ORDERED: LIDOCAINE 2% 5ML JELLY UROJET TOP ONE (13:50)
[2020-05-17 14:26] LABS: ABG BASE EXCESS 1.9 (-2.0-2.0); ABG HCO3 26.6 MEQ/L (22.0-26.0); ABG O2 SATURATION 96.7 % (95.0-99.0); ABG PARTIAL PRESSURE CO2 41.8 mmHg (35.0-45.0); ABG PARTIAL PRESSURE O2 87.4 mmHg (75.0-100.0); ABG STANDARD HCO3 26.2 MEQ/L (22.0-26.0); ABG TOTAL CO2 27.8 MEQ/L (23.0-31.0); ABG pH (ARTERIAL) 7.421 UNITS (7.350-7.450)
[2020-05-17 14:52] LABS: BASO % 0.2 % (0.0-1.0); EOS # 0.1 10^3/uL (0.0-0.5); EOS % 1.1 % (0.0-3.0); HEMATOCRIT 35.9 % (42.0-52.0); HEMOGLOBIN 11.9 g/dl (13.5-17.5); LYMPH % 36.4 % (24.0-44.0); MEAN CORPUSCULAR HEMOGLOBIN 32.2 pg (27.0-33.0); MEAN CORPUSCULAR HGB CONC 33.1 g/dl (32.0-36.5); MONO # 0.8 10^3/uL (0.0-0.8); MONO % 13.9 % (2.0-8.0); NEUTROPHILS # 2.6 10^3/uL (1.5-8.5); PLATELET COUNT, AUTOMATED 113 10^3/uL (150-450); WHITE BLOOD COUNT 5.5 10^3/uL (4.0-10.0)
--- NOTE | 2020-05-17 14:56 | REP ---
INDICATION: Altered Mental Status COMPARISON: 02/16/2020 TECHNIQUE: Portable AP view of the chest FINDINGS: The mediastinum and cardiac silhouette are stable and within normal limits for portable technique. The lung jaime are clear without acute consolidation, effusion, or pneumothorax. Skeletal structures are intact. IMPRESSION: No acute cardiopulmonary process appreciated. <Electronically signed by Abe Gurrola > 05/17/20 [id number]
[2020-05-17 15:20] LABS: ACETAMINOPHEN LEVEL < 2.0 UG/ML (10.0-30.0); ALBUMIN 2.9 GM/DL (3.2-5.2); ALT/SGPT 10 U/L (12-78); BILIRUBIN,DIRECT 0.1 MG/DL (0.0-0.2); BILIRUBIN,TOTAL 0.3 MG/DL (0.2-1.0); BLOOD UREA NITROGEN 10 MG/DL (7-18); CALCIUM LEVEL 8.5 MG/DL (8.8-10.2); CARBON DIOXIDE LEVEL 32 MEQ/L (21-32); CHLORIDE LEVEL 105 MEQ/L (98-107); CK-MB VALUE MASS 1.4 NG/ML (<3.6); CPK CREATINE PHOSPHOKINASE 43 U/L (39-308); CREATININE FOR GFR 1.11 MG/DL (0.70-1.30); ETHYL ALCOHOL (ETHANOL) < 0.003 % (0.000-0.010); GLOMERULAR FILTRATION RATE > 60.0 (>42); GLUCOSE, FASTING 174 MG/DL (70-100); MB/CK RELATIVE INDEX 3.26 (< OR =4); POTASSIUM SERUM 3.8 MEQ/L (3.5-5.1); SALICYLATE LEVEL < 1.7 MG/DL (5.0-30.0); SODIUM LEVEL 141 MEQ/L (136-145); TOTAL PROTEIN 6.3 GM/DL (6.4-8.2); TROPONIN I < 0.02 NG/ML (< 0.10)
[2020-05-17 15:39] LABS: RSV AMPLIFICATION NEGATIVE (NEGATIVE)
[2020-05-17] MEDS ORDERED: CIPROFLOXACIN 500MG TABLET PO ONE (15:45)
--- NOTE | 2020-05-17 16:10 | REP ---
INDICATION: Altered Mental Status COMPARISON: 05/10/2020 TECHNIQUE: Axial noncontrast images from the skull base to the thoracic inlet with coronal reformations. This CT examination was performed using the following dose reduction techniques: Automated exposure control, adjustment of mA and/or kv according to the patient's size, and use of iterative reconstruction technique. FINDINGS: Age-related atrophy and microvascular ischemic changes are appreciated along with encephalomalacia in the left frontal lobe consistent with prior infarction. The ventricles and sulci are symmetric. Wadsworth-white differentiation is maintained. There is no evidence for acute intracranial hemorrhage, mass/mass effect, pathology or infarction. No extra-axial fluid collection. Calvarium is intact. Paranasal sinuses and mastoid air cells are clear. IMPRESSION: Age related atrophy and microvascular ischemic changes. Old left frontal lobe infarction. No acute intracranial hemorrhage, infarction, or mass/mass effect. <Electronically signed by Abe Gurrola > 05/17/20 [id number]
[2020-05-17] MEDS ORDERED: CEFD300CAP PO (16:25)
[2020-05-17 17:00] VITALS: BP 155/69
--- NOTE | 2020-05-18 00:31 | ECGEPIP ---
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
== END 2020-05-17 17:43 | disposition home or self-care (01) ==
LOC: EDBD 13:38 → M ED 13:38
DX: R41.82 Altered mental status, unspecified (principal); N39.0 Urinary tract infection, site not specified; E11.9 Type 2 diabetes mellitus without complications; I10 Essential (primary) hypertension; B19.20 Unspecified viral hepatitis C without hepatic coma; Z99.89 Dependence on other enabling machines and devices; Z79.899 Other long term (current) drug therapy; Z79.82 Long term (current) use of aspirin; Z79.4 Long term (current) use of insulin; Z79.01 Long term (current) use of anticoagulants; Z87.891 Personal history of nicotine dependence

== ENCOUNTER 2020-06-08 09:14 | Observation (INO) | payer BC, OTHER ==
[~2020-06-08] VITALS: Ht 167.6 cm; Wt 127.3 kg
[~2020-06-08 09:14] MED LIST changes: +CEFD300CAP PO
--- NOTE | 2020-06-08 10:00 | REP ---
INDICATION: fall on eliquis COMPARISON: 05/17/2020 TECHNIQUE: Axial noncontrast images from the skull base to the thoracic inlet with coronal reformations. This CT examination was performed using the following dose reduction techniques: Automated exposure control, adjustment of mA and/or kv according to the patient's size, and use of iterative reconstruction technique. FINDINGS: Age-related atrophy with periventricular leukomalacia and microvascular ischemic changes are appreciated. Old left frontal lobe infarction noted. The ventricles and sulci are symmetric. Wadsworth-white differentiation is maintained. There is no evidence for acute intracranial hemorrhage, mass/mass effect, pathology or infarction. No extra-axial fluid collection. Calvarium is intact. Paranasal sinuses and mastoid air cells are clear. IMPRESSION: Age related atrophy and microvascular ischemic changes. Old left frontal lobe infarction. No acute intracranial hemorrhage, infarction, or mass/mass effect. <Electronically signed by Abe Gurrola > 06/08/20 [id number]
--- NOTE | 2020-06-08 10:02 | REP ---
INDICATION: fall on eliquis COMPARISON: None. TECHNIQUE: Axial noncontrast images from the skull base to the thoracic inlet with coronal and sagittal re-formations This CT examination was performed using the following dose reduction techniques: Automated exposure control, adjustment of mA and/or kv according to the patient's size, and use of iterative reconstruction technique. FINDINGS: Normal alignment is maintained. Generalized age-related degenerative changes noted including endplate sclerosis/heterogeneity, disc space narrowing, osteophytosis and facet hypertrophy. No obvious acute fracture/compression injury or subluxation noted. Paravertebral soft tissues are normal. IMPRESSION: Moderate to advanced multilevel degenerative spondylosis. No acute fracture/compression injury or subluxation. <Electronically signed by Abe Gurrola > 06/08/20 [id number]
[2020-06-08 10:08] LABS: BASO % 0.1 % (0.0-1.0); EOS # 0.1 10^3/uL (0.0-0.5); EOS % 1.4 % (0.0-3.0); HEMATOCRIT 36.7 % (42.0-52.0); HEMOGLOBIN 12.5 g/dl (13.5-17.5); LYMPH # 1.8 10^3/uL (1.5-5.0); LYMPH % 25.4 % (24.0-44.0); MEAN CORPUSCULAR HEMOGLOBIN 33.2 pg (27.0-33.0); MEAN CORPUSCULAR HGB CONC 34.1 g/dl (32.0-36.5); MEAN CORPUSCULAR VOLUME 97.3 fl (80.0-96.0); MONO # 0.6 10^3/uL (0.0-0.8); MONO % 8.6 % (2.0-8.0); NEUTROPHILS # 4.6 10^3/uL (1.5-8.5); NEUTROPHILS % 64.2 % (36.0-66.0); PLATELET COUNT, AUTOMATED 124 10^3/uL (150-450); RED BLOOD COUNT 3.77 10^6/uL (4.30-6.10); WHITE BLOOD COUNT 7.2 10^3/uL (4.0-10.0)
[2020-06-08 10:18] LABS: INR 1.34; PROTHROMBIN TIME 16.8 SECONDS (12.5-14.3)
[2020-06-08 10:19] LABS: PARTIAL THROMBOPLASTIN TIME 50.8 SECONDS (24.2-38.5)
--- NOTE | 2020-06-08 10:38 | REP ---
INDICATION: fall. COMPARISON: None. TECHNIQUE: AP view pelvis, AP and frogleg views right hip. FINDINGS: There is no evidence of acute fracture, dislocation or intrinsic bone disease. There are mild vascular calcifications in the pelvis. The hip joints are unremarkable. IMPRESSION: No evidence of acute fracture or dislocation. <Electronically signed by Amauri Wadsworth > 06/08/20 [id number]
[2020-06-08 11:43] LABS: ALBUMIN 3.1 GM/DL (3.2-5.2); ALT/SGPT 10 U/L (12-78); BILIRUBIN,DIRECT 0.3 MG/DL (0.0-0.2); BILIRUBIN,TOTAL 0.7 MG/DL (0.2-1.0); CK-MB VALUE MASS 1.1 NG/ML (<3.6); CPK CREATINE PHOSPHOKINASE 46 U/L (39-308); MB/CK RELATIVE INDEX 2.39 (< OR =4); TOTAL PROTEIN 6.5 GM/DL (6.4-8.2); TROPONIN I < 0.02 NG/ML (< 0.10)
[2020-06-08] MEDS ORDERED: SEMA1PEN2 SQ (13:05)
[2020-06-08] MEDS ORDERED: FLUO20CA22 PO (13:05)
[2020-06-08] MEDS ORDERED: PANT40TA29 PO (13:05)
[2020-06-08] MEDS ORDERED: MELA5CAP2 PO (13:05)
[2020-06-08] MEDS ORDERED: VALP250S PO (13:05)
[2020-06-08] MEDS ORDERED: MIRA3350 PO (13:05)
[2020-06-08] MEDS ORDERED: TOUJ1.2I SC (13:05)
[2020-06-08] MEDS ORDERED: AMLO1TAB24 PO (13:05)
[2020-06-08] MEDS ORDERED: SENN-122 PO (13:05)
[2020-06-08 13:33] LABS: VALPROIC ACID (DEPAKOTE) 83.4 UG/ML (50.0-100.0)
[2020-06-08 13:58] LABS: AMPHETAMINES LEVEL URINE NEGATIVE (NEGATIVE); BARBITURATES URINE NEGATIVE (NEGATIVE); BENZODIAZEPINES URINE NEGATIVE (NEGATIVE); CANNABINOIDS URINE NEGATIVE (NEGATIVE); COCAINE METABOLITE URINE NEGATIVE (NEGATIVE); METHADONE URINE NEGATIVE (NEGATIVE); OPIATES URINE NEGATIVE (NEGATIVE); PHENCYCLIDINE URINE NEGATIVE (NEGATIVE)
[2020-06-08] MEDS ORDERED: OMEP-221 PO (14:46)
[2020-06-08] MEDS ORDERED: POTA20PW PO (14:46)
[2020-06-08] MEDS ORDERED: CARV12.5 PO (14:46)
[2020-06-08] MEDS ORDERED: METF500T13 PO (14:46)
[2020-06-08] MEDS ORDERED: CALC600T18 PO (14:46)
[2020-06-08] MEDS ORDERED: OZEM2INJ2 SC (14:46)
[2020-06-08] MEDS ORDERED: POTA20TA6 PO (14:56)
[2020-06-08] MEDS ORDERED: NOVOINJ3 SC (14:58)
[2020-06-08 15:18] LABS: ERYTHROCYTE SEDIMENTATION RATE 16 mm/hr (0-20)
--- NOTE | 2020-06-08 15:37 | REP ---
INDICATION: ams r/o pneumonia. COMPARISON: PA and lateral chest dated 08/24/2015, portable chest dated 05/17/[address] dated 09/24/2016. TECHNIQUE: Upright PA and lateral chest. FINDINGS: There is chronic elevation of the right hemidiaphragm accompanied by chronic effacement of the right costophrenic angle. This may represent chronic right pleural adhesion or small right pleural effusion, however, it is unchanged in appearance. The lung jaime are clear. Cardiac size normal. The frankie, mediastinum, and skeletal structures are unremarkable. IMPRESSION: Chronic elevation of the right hemidiaphragm with chronic effacement of the right costophrenic angle as discussed above. Otherwise, negative PA and lateral chest. <Electronically signed by Amauri Bro > 06/08/20 1536
--- NOTE | 2020-06-08 16:35 | HPE ---
HISTORY AND PHYSICAL DATE OF ADMISSION: 06/08/2020 CHIEF COMPLAINT: Fall, altered mental status. HISTORY OF PRESENTING ILLNESS: This is a 69-year-old male with a history of chronic atrial fibrillation on Eliquis, heart failure with preserved systolic function, hypertension, COPD, LUISITO noncompliant with CPAP, hyperlipidemia, prior smoker, chronic kidney disease stage 3, obesity, diabetes. He presented to the emergency room with a fall two days ago at 2:00 a.m. while he was at home walking from the bedroom to the bathroom without a walker. According to the , the patient slipped and fell in the bathroom, hit his head. She heard the noise and went into the bathroom and found him on his back and said that he hit his head. The patient had no tonic-clonic or post-ictal confusion and had been doing well the past few days, working with physical therapy at home. He has had no fever, chills, nausea, vomiting, shortness of breath, diarrhea, abdominal pain, bright red blood per rectum, melena, black tarry stools, nasal congestion, sore throat, dysuria, urgency, frequency, flank pain, polyphagia, or polydipsia. The noted some weight loss, although she cannot weigh because he is unable to stand up on a scale. The said that last Saturday for about 24 hours, he could not keep anything down, but on , he was able to eat and drink without any difficulty. He otherwise is not compliant with his CPAP, cannot tolerate it. This morning, the was much more concerned because he appeared to be more confused than normal. He has baseline expressive and receptive aphasia and some times will make sense and other times, it is worse than normal. According to the , while he was sitting on a chair yesterday, he got up and she asked him where he was going, and he said I am going to go to the store across the road. The said that this was not appropriate and she was concerned, along with generalized weakness, thereby prompting her to have him come to the emergency room for further evaluation. In the emergency room, the patient's vital signs were stable. Blood pressure was 149 systolic. Temperature was normal at 97. Respiratory rate and pulse were okay, 97% on room air. The patient's CBC, metabolic panel, liver function test, and coronavirus 19 were negative. Glucose was normal at 166. Creatinine was normal at 1.1. CT of the head was unchanged with old left frontal lobe infarct; no acute intracranial hemorrhage or infarct or mass or mass effect; age related atrophy; microvascular ischemic changes. The Hospitalist was called to admit the patient for observation regarding weakness and altered mental status. PAST MEDICAL HISTORY: 1. Chronic atrial fibrillation. 2. Congestive heart failure with preserved ejection fraction. 3. Hypertension. 4. Hyperlipidemia. 5. Chronic obstructive pulmonary disease. 6. Prior smoker. 7. Obstructive sleep apnea, noncompliant with CPAP. 8. Morbid obesity. 9. Insulin-dependent diabetes mellitus. 10. Chronic kidney disease. 11. Stage 3 chronic obstructive pulmonary disease. 12. Agent [place] exposure. 13. Ulcerative colitis. 14. Hyperlipidemia. 15. Reflux. 16. Right eye blindness. 17. Peripheral neuropathy. 18. Left frontal lobe hemorrhagic infarct. PAST SURGICAL HISTORY: 1. Cholecystectomy. 2. Abdominal trauma, 1968. 3. Resection of the lung. 4. Partial excision of the liver. 5. Splenectomy. 6. Hernia repair. 7. Left ankle repair. 8. Left heart catheterization 2001, no stents. ALLERGIES: No known drug allergies. SOCIAL HISTORY: Prior smoker, smoked a pack a day from age 14, quit in 1996. He has two children. 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. The patient is . He is a full code with trial of intubation. The patient's health care proxy is his . No alcohol use. No recreational drug use. Lives in [facility]. FAMILY HISTORY: Mother and father are . Both had coronary artery disease. Father had type 2 diabetes. REVIEW OF SYSTEMS: Could not be fully obtained since the patient has expressive and receptive aphasia. History and review of systems have been obtained from the patient's . PHYSICAL EXAMINATION: VITAL SIGNS: Temperature 97.4, pulse 66, respiratory rate 18, blood pressure 149/66, 97% on room air. GENERAL: The patient is awake, alert, oriented to his name. He is able to state his name, Nacho Gibbons, and state Gnosticist. He is unable to say what the date is and thinks it is fall. HEENT: The patient's face is symmetric. The tongue is midline with no uvular deviation. Pupils are equally round and reactive to light and accommodation. He was able to perform extraocular muscle testing and was appropriate. No nystagmus, horizontal, or vertical. NECK: No JVD, no thyromegaly. No cervical lymphadenopathy. LUNGS: Clear to auscultation. No wheezing, rales, or rhonchi. Air entry is equal bilaterally. HEART: S1, S2. Regular rate and rhythm. ABDOMEN: Soft, nontender, nondistended. Positive bowel sounds. No CVA tenderness. EXTREMITIES: No pitting edema. The patient has multiple excoriations on the bilateral upper and lower extremities. NEUROLOGICAL: Neurologically, the patient has expressive and receptive aphasia, difficult to fully examine, as the patient can follow some commands. The face is symmetric. Tongue is midline. He is able to do extraocular muscles, unable to complete the full neurologic exam due to a history of expressive and receptive aphasia. DATA: 1. Laboratory data: White count 7.2, hemoglobin 12, hematocrit 36, platelet count 124, previous platelet count was 113. Sodium 141, potassium 3.4, chloride 101, bicarb 29, BUN 11, creatinine 1.1, glucose 166. Arterial blood gas: PH 7.4, CO2 44, bicarbonate 28, O2 80, 96% O2. Respiratory panel is negative. Urine toxicology screen is also negative. Urinalysis is also negative. 2. Imaging study: CT of the head shows age-related atrophy and microvascular ischemic changes, old left frontal lobe infarct, no acute intracranial hemorrhage, infarct, or mass effect. CT of the cervical spine shows [id number] multilevel degenerative spondylosis; no acute fracture, compression injury, or subluxation. Hip x-ray shows no evidence of acute fracture or dislocation. Chest x-ray is pending. ASSESSMENT AND PLAN: This is a 69-year-old with old left hemorrhagic CVA, chronic A-fib, heart failure with preserved systolic function, hypertension, hyperlipidemia, COPD, and prior smoker. IMPRESSION: 1. Generalized weakness status post fall. The patient has no overt acute medical issues causing the severe weakness. CT of the head was negative for any acute infarct, edema, mass effect, or bleeding. CBC, metabolic panel, liver function test, and arterial blood gas are all within normal limits. No signs of infection on the urinalysis. Awaiting chest x-ray, but no complaints of fever, chills, or cough at home, or shortness of breath. ARU will be consulted. Repeat MRI of the brain. 2. Acute encephalopathy. Due to prior history of hemorrhagic CVA and recent fall, will obtain a MRI of the brain, as well as an electroencephalogram to rule out all possible etiologies. No infection on the UA. Chest x-ray is still pending. No empiric antibiotics. Liver function tests, renal function, CBC are all within normal limits. 3. Chronic atrial fibrillation. Resume on all home medications including anticoagulants. 4. History of COPD. The patient has clear lungs and has no acute exacerbation. Resume as needed inhalers. 5. Chronic kidney disease, stage 3, at baseline creatinine. 6. Insulin-dependent diabetes mellitus. Continue on consistent carbohydrate diet. The patient's glucose was 166 on arrival and unlikely to have been a cause for the patient's altered mental status. 7. Hyperlipidemia. Continue home medications. 8. Ulcerative colitis. No acute issues. 9. Gastroesophageal reflux disease. Continue on PPI. 10. LUISITO, not compliant with CPAP. Nocturnal pulse oximetry. If he desaturates, supplemental oxygen while sleeping. 11. Hypertension. Continue on home medications, currently controlled. 12. History of Agent [place] exposure, follows at the [facility], usually outpatient followup. 13. Congestive heart failure with preserved ejection fraction, currently compensated. 14. H/o hemorrhagic cva. ARU consult. repeat CT head unchanged. DVT prophylaxis. The patient is on anticoagulation currently. Code status. Full code. MTDD
[2020-06-08] MEDS ORDERED: SENOKOT S TAB PO PRN (17:50)
[2020-06-08] MEDS ORDERED: MIRALAX *UNIT DOSE* 17GM PACKET PO PRN (17:50)
[2020-06-08 19:15] VITALS: BP 163/84
--- NOTE | 2020-06-08 19:52 | REPVR ---
PROCEDURE INFORMATION: Exam: MR Head Without Contrast Exam date and time: 06/08/2020 6:56 PM Age: 69 years old Clinical indication: Altered mental status/memory loss; Confusion or disorientation; Patient HX: HX hemorrhage, recent fall; Additional info: AMS TECHNIQUE: Imaging protocol: MR of the head without contrast. COMPARISON: CT Head without contrast 06/08/2020 9:46 AM FINDINGS: Limitations: Motion artifact significantly degrades anatomic detail on this study. Brain: Images sets are limited to DWI, ADC map, and sagittal T1. Restricted diffusion is noted in the left frontal lobe, corresponding to hypodensity on the concurrent head CT. This is not have the typical appearance for encephalomalacia. Characterization of the lesion is limited on the current study, which does not include a full complement of diagnostic sequences. Cerebral ventricles: No ventriculomegaly. IMPRESSION: Restricted diffusion noted in the left frontal lobe, which is not the typical appearance for post infarctive or posttraumatic encephalomalacia. Recommend full MRI characterization with a and without gadolinium. Current study consists of limited sequences. An underlying mass is not excluded. Electronically signed by: rTina Do On 06/08/2020 19:52:24 PM
[2020-06-08] MEDS ORDERED: RAMELTEON 8 MG TAB (ROZEREM) PO PRN (20:10)
[2020-06-08] MEDS ORDERED: GLUCOSE 4GM CHEW TABLET PO PRN (20:15)
[2020-06-08] MEDS ORDERED: GLUCAGON INJ 1MG VIAL SC PRN (20:15)
[2020-06-08] MEDS ORDERED: DEXTROSE 50% 50 ML SYRINGE IV PRN (20:15)
[2020-06-08] MEDS: CARVedilol 12.5 MG TAB PO SCH (20:34)
[2020-06-08] MEDS: APIXABAN 5 MG TAB (ELIQUIS) PO SCH (20:34)
--- NOTE | 2020-06-08 20:34 | ECGEPIP ---
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
[2020-06-08] MEDS: VALPROIC ACID 250MG CAP PO SCH (20:41)
[2020-06-08] MEDS ORDERED: HumaLOG INSULIN (NovoLOG) PER UNIT SC SCH (21:00)
[2020-06-08] MEDS ORDERED: ATORVASTATIN 20 MG TAB PO SCH (21:00)
[2020-06-09 06:00] VITALS: BP 163/82
[2020-06-09] MEDS: HumaLOG INSULIN (NovoLOG) PER UNIT SC SCH ×2 (07:30→12:04)
[2020-06-09 08:34] LABS: BASO % 0.3 % (0.0-1.0); EOS # 0.1 10^3/uL (0.0-0.5); EOS % 1.4 % (0.0-3.0); HEMATOCRIT 32.6 % (42.0-52.0); HEMOGLOBIN 11.1 g/dl (13.5-17.5); LYMPH # 2.4 10^3/uL (1.5-5.0); LYMPH % 37.7 % (24.0-44.0); MEAN CORPUSCULAR HEMOGLOBIN 32.6 pg (27.0-33.0); MEAN CORPUSCULAR VOLUME 95.9 fl (80.0-96.0); MONO # 0.6 10^3/uL (0.0-0.8); MONO % 8.7 % (2.0-8.0); NEUTROPHILS # 3.3 10^3/uL (1.5-8.5); NEUTROPHILS % 51.6 % (36.0-66.0); PLATELET COUNT, AUTOMATED 113 10^3/uL (150-450); WHITE BLOOD COUNT 6.4 10^3/uL (4.0-10.0)
[2020-06-09] MEDS ORDERED: amLODIPine 5 MG TAB PO SCH (09:00)
[2020-06-09] MEDS ORDERED: POTASSIUM CHLORIDE 10 MEQ SR TABLET PO SCH (09:00)
[2020-06-09] MEDS ORDERED: allopurinoL 100 MG TAB PO SCH (09:00)
[2020-06-09] MEDS ORDERED: PANTOPRAZOLE 40MG TAB (PROTONIX) PO SCH (09:00)
[2020-06-09] MEDS ORDERED: FLUoxetine 20 MG CAP PO SCH (09:00)
[2020-06-09 09:09] LABS: ALBUMIN 2.8 GM/DL (3.2-5.2); ALT/SGPT 9 U/L (12-78); BILIRUBIN,TOTAL 0.9 MG/DL (0.2-1.0); BLOOD UREA NITROGEN 12 MG/DL (7-18); CALCIUM LEVEL 8.3 MG/DL (8.8-10.2); CARBON DIOXIDE LEVEL 33 MEQ/L (21-32); CHLORIDE LEVEL 107 MEQ/L (98-107); GLOMERULAR FILTRATION RATE > 60.0 (>42); GLUCOSE, FASTING 113 MG/DL (70-100); POTASSIUM SERUM 2.8 MEQ/L (3.5-5.1); SODIUM LEVEL 143 MEQ/L (136-145); TOTAL PROTEIN 5.8 GM/DL (6.4-8.2)
--- NOTE | 2020-06-09 10:24 | IPN ---
PROGRESS NOTE DATE: 06/09/2020 Overnight, per nursing, patient has been increasingly confused, no focal neurological deficits, however CT of the head was negative, MRI of the brain was inconclusive with recommendations for MRI with contrast but patient could not tolerate due to altered mental status. PHYSICAL EXAMINATION: Temperature 98.6, pulse 68, respiratory rate 18, blood pressure 163/82, 98% on room air. Generally: Patient is awake, alert, oriented to himself and place, able to state his full name, Nacho Gibbons, where he is, [facility], he is confused and disoriented with date. Patient is following commands. He is able to do extraocular muscle testing which is normal. He has no pallor, icterus, jaundice, or respiratory distress. Face is symmetric. The tongue is midline. No uvular deviation. HEENT: Pupils equally round and reactive. No jugular venous distension (JVD), thyromegaly, or stridor. No use of respiratory accessory muscles. Moist mucous membranes. Lungs are clear to auscultation. No wheezing, rales, or rhonchi. Heart: S1, S2, sinus rhythm. Abdomen is obese, soft, nontender, nondistended. Extremities: No cyanosis or clubbing. Skin is warm, dry, well-perfused. Neurologically: Awake, alert, oriented to person and place only. He has mild receptive and expressive aphasia. He has resting tremor on the right hand. Uvula and tongue are midline. Extraocular muscles are intact. Unable to perform [id number]-yg-[id number] testing. No pronator drift. Motor function is 5/5 times four extremities. No sensory disturbance. Gait was not tested. LABORATORY DATA: White count 6.4, hemoglobin 11, hematocrit 32, platelet count 113, previous platelet count 124, sodium is 143, potassium 2.8, chloride 107, bicarbonate 33, BUN 12, creatinine 0.9, glucose of 113, ammonia of 20, prolactin is 3.5. Respiratory panel is negative. MRI of the brain 06/08/2020: Restricted diffusion in the left frontal lobe. Not typical appearance. Supposed infarct and posttraumatic encephalomalacia. Study consists of limited sequences. Recommend MRI with and without gadolinium. ASSESSMENT AND PLAN: This is a 69-year-old male with history of hemorrhagic CVA, chronic atrial fibrillation on anticoagulation, chronic obstructive pulmonary disease (COPD), obstructive sleep apnea (LUISITO) not compliant with continuous positive airway pressure (CPAP) which he does not tolerate, congestive heart failure (CHF) with preserved systolic function, hypertension, hyperlipidemia, prior smoker, chronic kidney disease (CKD) stage III, diabetes, obesity, Agent [place] exposure, ulcerative colitis, hyperlipidemia, reflux, right eye blindness, peripheral neuropathy with left frontal lobe hemorrhagic infarct, presented after a fall 2 days prior to hospital presentation, now with significant weakness and debility. IMPRESSION: 1. Weakness status post fall. CT head was negative for acute infarct, mass, edema, or bleeding. Lab work is normal. No acute infectious process to explain sudden decompensation. Arterial blood gas (ABG) was satisfactory with no hypercarbia. 2. Acute encephalopathy in the setting of chronic CVA. Obtaining an EEG today. No acute infectious process. No empiric antibiotics. Prolactin level was normal. Neurology followup as outpatient. 3. Chronic atrial fibrillation. Resumed on all home medications including anticoagulants. 4. History of chronic obstructive pulmonary disease (COPD), compensated. 5. Chronic kidney disease (CKD) stage III at baseline. 6. Type 2 diabetes. On consistent carbohydrate diet. Glucose was 166 on arrival and unlikely to be the reason for patient's altered mental status. 7. Hyperlipidemia. Continue on home medications. 8. Obstructive sleep apnea (LUISITO). Not compliant with continuous positive airway pressure (CPAP). Oxygen if needed. 9. Ulcerative colitis. No acute complaints. 10. Reflux, on proton pump inhibitor (PPI). 11. History of Agent [place] exposure complicating care. 12. Congestive heart failure with preserved systolic function. Appears to be compensated and euvolemic. 13. Obesity, body mass index (BMI) of 45.3, complicating care. DISPOSITION: Patient has no acute medical issues to explain his worsening confusion. This may be a sequelae of multiinfarct dementia, however no findings on the MRI but it was not completely done. Acute rehabilitation unit (ARU) will evaluate the patient. He is currently unable to be discharged due to three person assistance needed with all ambulation. [facility]
[2020-06-09] MEDS: VALPROIC ACID 250MG CAP PO SCH (10:33)
[2020-06-09 10:35] VITALS: BP 163/82
[2020-06-09] MEDS: CARVedilol 12.5 MG TAB PO SCH (10:36)
[2020-06-09] MEDS: APIXABAN 5 MG TAB (ELIQUIS) PO SCH (10:36)
[2020-06-09] MEDS: POTASSIUM CHLORIDE 10 MEQ SR TABLET PO SCH ×2 (12:04→13:43)
--- NOTE | 2020-06-09 14:02 | DS.PDOC ---
Discharge Summary General Date of Admission Jun 08, 2020 at 09:15 Date of Discharge 06/09/20 DISCHARGED TO ARU Discharge Summary DISCHARGE DIAGNOSES: MULTI-INFARCT DEMENTIA H/O CVA CHRONIC ATRIAL FIBRILLATION MECHANICAL FALL AT HOME COPD LUISITO NOT COMPLIANT W CPAP CKD3 HTN DM DYSLIPIDEMIA HOSPITAL COURSE: This is a 69-year-old male with history of hemorrhagic CVA, chronic atrial fibrillation on anticoagulation, chronic obstructive pulmonary disease (COPD), obstructive sleep apnea (LUISITO) not compliant with continuous positive airway pressure (CPAP) which he does not tolerate, congestive heart failure (CHF) with preserved systolic function, hypertension, hyperlipidemia, prior smoker, chronic kidney disease (CKD) stage III, diabetes, obesity, Agent [place] exposure, ulcerative colitis, hyperlipidemia, reflux, right eye blindness, peripheral neuropathy with left frontal lobe hemorrhagic infarct, presented after a fall 2 days prior to hospital presentation, now with significant weakness and debility. 1. Gait instability s/p mechanical fall at home. CT head was negative for acute infarct, mass, edema, or bleeding. Lab work is normal. No acute infectious process to explain sudden decompensation. Arterial blood gas (ABG) was satisfactory with no hypercarbia. 2. Multiinfarct dementia with worsening memory, concentration, and gait instabilty. MRI brain indeterminate . ct head unchanged. ARU rehab. EEG report pending. No acute infectious process. No empiric antibiotics. Prolactin level was normal. Neurology followup as outpatient. 3. Chronic atrial fibrillation. Resumed on all home medications including anticoagulants. 4. History of chronic obstructive pulmonary disease (COPD), compensated. 5. Chronic kidney disease (CKD) stage III at baseline. 6. Type 2 diabetes. On consistent carbohydrate diet. Glucose was 166 on arrival and unlikely to be the reason for patient's altered mental status. 7. Hyperlipidemia. Continue on home medications. 8. Obstructive sleep apnea (LUISITO). Not compliant with continuous positive airway pressure (CPAP). Oxygen if needed. 9. Ulcerative colitis. No acute complaints. 10. Reflux, on proton pump inhibitor (PPI). 11. History of Agent [place] exposure complicating care. 12. Congestive heart failure with preserved systolic function. Appears to be compensated and euvolemic. 13. Obesity, body mass index (BMI) of 45.3, complicating care. DISCHARGE MEDICATIONS: Please see below. ALLERGIES: Please see below. PHYSICAL EXAMINATION ON DISCHARGE: Temperature 98.6, pulse 68, respiratory rate 18, blood pressure 163/82, 98% on room air. Generally: Patient is awake, alert, oriented to himself and place, able to state his full name, Nacho Gibbons, where he is, [facility], he is confused and disoriented with date. Patient is following commands. He is able to do extraocular muscle testing which is normal. He has no pallor, icterus, jaundice, or respiratory distress. Face is symmetric. The tongue is midline. No uvular deviation. HEENT: Pupils equally round and reactive. No jugular venous distension (JVD), thyromegaly, or stridor. No use of respiratory accessory muscles. Moist mucous membranes. Lungs are clear to auscultation. No wheezing, rales, or rhonchi. Heart: S1, S2, sinus rhythm. Abdomen is obese, soft, nontender, nondistended. Extremities: No cyanosis or clubbing. Skin is warm, dry, well-perfused. Neurologically: Awake, alert, oriented to person and place only. He has mild receptive and expressive aphasia. He has resting tremor on the right hand. Uvula and tongue are midline. Extraocular muscles are intact. Unable to perform [id number]-[id number] testing. No pronator drift. Motor function is 5/5 times four extremities. No sensory disturbance. Gait was not tested. LABORATORY DATA: White count 6.4, hemoglobin 11, hematocrit 32, platelet count 113, previous platelet count 124, sodium is 143, potassium 2.8, chloride 107, bicarbonate 33, BUN 12, creatinine 0.9, glucose of 113, ammonia of 20, prolactin is 3.5. Respiratory panel is negative. MRI of the brain 06/08/2020: Restricted diffusion in the left frontal lobe. Not typical appearance. Supposed infarct and posttraumatic encephalomalacia. Study consists of limited sequences. Recommend MRI with and without gadolinium. ACTIVITY: ASSISTED AMBULATION ONLY, WALKER DIET:2 GRAM SODIUM DISCHARGE CONDITION: Stable TIME SPENT ON DISCHARGE: 30 minutes. Vital Signs/I&Os Vital Signs Date Time Temp Pulse Resp B/P (MAP) Pulse Ox O2 Delivery O2 Flow Rate FiO2 06/09/20 10:35 68 163/82 06/09/20 06:00 98.6 18 98 Room Air I&O- Last 24 Hours up to 6 AM 06/09/20 06:00 Intake Total 300 ml Output Total 0 ml Balance 300 ml Laboratory Data Labs 24H Laboratory Tests 2 06/08/20 14:58: C-Reactive Protein, Quantitative 0.88H 06/08/20 14:59: Ammonia 19 06/08/20 15:00: Procalcitonin 0.08, Prolactin 3.5 06/08/20 21:06: Bedside Glucose (Misc Panel) 147H 06/09/20 06:49: Bedside Glucose (Misc Panel) 103 06/09/20 08:05: Immature Granulocyte % (Auto) 0.3, Neutrophils (%) (Auto) 51.6, Lymphocytes (%) (Auto) 37.7, Monocytes (%) (Auto) 8.7H, Eosinophils (%) (Auto) 1.4, Basophils (%) (Auto) 0.3, Neutrophils # (Auto) 3.3, Lymphocytes # (Auto) 2.4, Monocytes # (Auto) 0.6, Eosinophils # (Auto) 0.1, Basophils # (Auto) 0.0, Nucleated Red Blood Cells % (auto) 0.0, Anion Gap 3L, Glomerular Filtration Rate > 60.0, Calcium Level 8.3L, Total Bilirubin 0.9, Aspartate Amino Transf (AST/SGOT) 7, Alanine Aminotransferase (ALT/SGPT) 9L, Alkaline Phosphatase 75, Ammonia 20, Total Protein 5.8L, Albumin 2.8L, Albumin/Globulin Ratio 0.9, Procalcitonin 0.07 06/09/20 11:51: Bedside Glucose (Misc Panel) 216H CBC/BMP Laboratory Tests 06/09/20 08:05 FSBS Laboratory Tests Test 06/08/20 21:06 06/09/20 06:49 06/09/20 11:51 Range/Units Bedside Glucose (Misc Panel) 147 103 216 83-110 MG/DL Microbiology Microbiology 06/08/20 Respiratory Virus Panel (PCR) (FELY) - Final, Complete Discharge Medications Scheduled Allopurinol (Allopurinol) 100 Mg Tablet, 100 MG PO DAILY, (Reported) Amlodipine Besylate (Amlodipine Besylate) 5 Mg Tablet, 5 MG PO DAILY, (Reported) Apixaban (Eliquis) 5 Mg Tablet, 5 MG PO BID, (Reported) Atorvastatin Calcium (Atorvastatin Calcium) 80 Mg Tab, 80 MG PO QHS, (Reported) Carvedilol (Carvedilol) 12.5 Mg Tablet, 12.5 MG PO BID, (Reported) Fluoxetine Hcl (Fluoxetine HCl) 20 Mg Capsule, 20 MG PO DAILY, (Reported) Insulin Aspart (Novolog Flexpen) 100 Unit/1 Ml Insuln.pen, 1 DOSE SC AC, (Re ported) PER SLIDING SCALE Insulin Glargine,Hum.rec.anlog (Toujeo Solostar) 300 Unit/1 Ml Insuln.pen, 20 UNIT SC QPM, (Reported) Pantoprazole Sodium (Pantoprazole Sodium) 40 Mg Tablet.dr, 40 MG PO DAILY, (Reported) Potassium Chloride (Potassium Chloride) 20 Meq Tab.er.prt, 20 MEQ PO DAILY, (Reported) Semaglutide (Ozempic) 1 Mg/0.75 Ml Pen.injctr, 0.5 MG SC 1XWK, (Reported) Valproic Acid (As Sodium Salt) (Valproic Acid) 250 Mg/5 Ml Solution, 15 ML PO BID, (Reported) Scheduled PRN Melatonin (Melatonin) 5 Mg Capsule, 5 MG PO QPM PRN for SLEEP, (Reported) Polyethylene Glycol 3350 (Miralax) 119 Gm Powder, 17 GRAM PO DAILY PRN for CONSTIPATION, (Reported) MIX IN 8 OUNCES OF WATER OR JUICE Sennosides/Docusate Sodium (Senna-S 8.6-50 mg Tablet) 8.6 Mg-50 Mg Tablet, 1 EACH PO BIDP PRN for CONSTIPATION, (Reported) Allergies Coded Allergies: No Known Allergies (Unverified , 03/31/19) AUSTIN WILLS MD Jun 09, 2020 14:02
== END 2020-06-09 14:48 ==
LOC: EDBD 09:14 → M ED 09:14 → M ED INP 09:15 → ENRESERV 16:11 → M MS5PR 19:10
PROVIDERS: ADMIT General Practice; ATTEND General Practice
DX: I69.320 Aphasia following cerebral infarction (principal); F01.50 Vascular dementia, unspecified severity, without behavioral disturbance, psychotic disturbance, mood disturbance, and anxiety; I48.20 Chronic atrial fibrillation, unspecified; R29.6 Repeated falls; J44.9 Chronic obstructive pulmonary disease, unspecified; G47.33 Obstructive sleep apnea (adult) (pediatric); Z91.19 Patient's noncompliance with other medical treatment and regimen; N18.30 Chronic kidney disease, stage 3 unspecified; I13.10 Hypertensive heart and chronic kidney disease without heart failure, with stage 1 through stage 4 chronic kidney disease, or unspecified chronic kidney disease; E11.22 Type 2 diabetes mellitus with diabetic chronic kidney disease; E78.5 Hyperlipidemia, unspecified; I50.9 Heart failure, unspecified; K21.9 Gastro-esophageal reflux disease without esophagitis; K51.90 Ulcerative colitis, unspecified, without complications; E11.40 Type 2 diabetes mellitus with diabetic neuropathy, unspecified; R26.81 Unsteadiness on feet; Z77.29 Contact with and (suspected) exposure to other hazardous substances; E66.9 Obesity, unspecified; Z68.42 Body mass index [BMI] 45.0-49.9, adult; G93.40 Encephalopathy, unspecified; Z99.89 Dependence on other enabling machines and devices; Z79.899 Other long term (current) drug therapy; Z79.01 Long term (current) use of anticoagulants; Z79.4 Long term (current) use of insulin; Z87.891 Personal history of nicotine dependence

== ENCOUNTER 2020-06-09 13:31 | Inpatient (IN) | payer BC, OTHER, MEDICARE ==
[~2020-06-09] VITALS: Ht 167.6 cm; Wt 82.2 kg
[~2020-06-09 13:31] MED LIST changes: +CALC600T18 PO; +FLUO20CA22 PO; +MELA5CAP2 PO; +METF500T13 PO; +MIRA3350 PO; +NOVOINJ3 SC; +OZEM2INJ2 SC; +PANT40TA29 PO; +POTA20PW PO; +POTA20TA6 PO; +SEMA1PEN2 SQ; +SENN-122 PO; +TOUJ1.2I SC; +VALP250S PO
[2020-06-09 15:15] VITALS: BP 115/61
[2020-06-09] MEDS ORDERED: BISACODYL 10 MG SUPP PR PRN (16:40)
[2020-06-09] MEDS ORDERED: MIRALAX *UNIT DOSE* 17GM PACKET PO PRN (16:40)
[2020-06-09] MEDS ORDERED: GLUCAGON INJ 1MG VIAL SC PRN (16:40)
[2020-06-09] MEDS ORDERED: DEXTROSE 50% 50 ML SYRINGE IV PRN (16:40)
[2020-06-09] MEDS ORDERED: GLUCOSE 4GM CHEW TABLET PO PRN (16:40)
[2020-06-09] MEDS ORDERED: QUEtiapine FUMARATE 12.5 MG HALF-TAB PO PRN (16:40)
[2020-06-09] MEDS: HumaLOG INSULIN (NovoLOG) PER UNIT SC SCH ×2 (18:13→21:00)
[2020-06-09] MEDS: IPRATROPIUM 0.5MG/ALBUTEROL 2.5MG INH SOL UD 3ML (DUONEB) NEB SCH (20:03)
[2020-06-09] MEDS: DOCUSATE SODIUM 100MG CAPSULE PO SCH (21:00)
[2020-06-09] MEDS: SENNA 8.6 MG TAB (SENOKOT) PO SCH (21:00)
[2020-06-09] MEDS: VALPROIC ACID 250MG CAP PO SCH (21:14)
[2020-06-09] MEDS: ATORVASTATIN 20 MG TAB PO SCH (21:15)
[2020-06-09] MEDS: APIXABAN 5 MG TAB (ELIQUIS) PO SCH (21:15)
[2020-06-09 21:17] VITALS: BP 122/70
[2020-06-09] MEDS: REMEDY PHYTOPLEX Z-GUARD PASTE 113GM TUBE (FROM STOREROOM PRODUCT) TOP SCH (21:20)
[2020-06-09] MEDS: CARVedilol 12.5 MG TAB PO SCH (21:20)
[2020-06-10 05:25] VITALS: BP 132/68
[2020-06-10] MEDS: IPRATROPIUM 0.5MG/ALBUTEROL 2.5MG INH SOL UD 3ML (DUONEB) NEB SCH ×3 (07:25→20:13)
[2020-06-10 07:36] LABS: BASO % 0.3 % (0.0-1.0); EOS # 0.1 10^3/uL (0.0-0.5); EOS % 1.6 % (0.0-3.0); HEMATOCRIT 36.4 % (42.0-52.0); HEMOGLOBIN 12.1 g/dl (13.5-17.5); LYMPH # 2.3 10^3/uL (1.5-5.0); LYMPH % 36.5 % (24.0-44.0); MEAN CORPUSCULAR HEMOGLOBIN 32.5 pg (27.0-33.0); MEAN CORPUSCULAR HGB CONC 33.2 g/dl (32.0-36.5); MEAN CORPUSCULAR VOLUME 97.8 fl (80.0-96.0); MONO # 0.5 10^3/uL (0.0-0.8); MONO % 7.4 % (2.0-8.0); NEUTROPHILS # 3.4 10^3/uL (1.5-8.5); NEUTROPHILS % 53.9 % (36.0-66.0); PLATELET COUNT, AUTOMATED 114 10^3/uL (150-450); RED BLOOD COUNT 3.72 10^6/uL (4.30-6.10); WHITE BLOOD COUNT 6.3 10^3/uL (4.0-10.0)
[2020-06-10 08:05] LABS: ALBUMIN 2.8 GM/DL (3.2-5.2); ALT/SGPT 9 U/L (12-78); BILIRUBIN,TOTAL 0.7 MG/DL (0.2-1.0); BLOOD UREA NITROGEN 13 MG/DL (7-18); CALCIUM LEVEL 8.4 MG/DL (8.8-10.2); CARBON DIOXIDE LEVEL 30 MEQ/L (21-32); CHLORIDE LEVEL 107 MEQ/L (98-107); CREATININE FOR GFR 0.99 MG/DL (0.70-1.30); GLOMERULAR FILTRATION RATE > 60.0 (>42); GLUCOSE, FASTING 148 MG/DL (70-100); POTASSIUM SERUM 3.5 MEQ/L (3.5-5.1); SODIUM LEVEL 142 MEQ/L (136-145); TOTAL PROTEIN 5.9 GM/DL (6.4-8.2)
--- NOTE | 2020-06-10 08:47 | HPEPDOC ---
General Dentist Note DATE OF ADMISSION: 06-09-20 DATE OF SERVICE: 06-10-20 TIME OF ADMISSION: Please refer to physician's admission order. 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 MRI brain was done, showing, Restricted diffusion noted in the left frontal lobe, which is not the typical appearance for post infarctive or posttraumatic encephalomalacia. Recommend full MRI characterization with a and without gadolinium. Current study consists of limited sequences. An underlying mass is not excluded. His potassium was 2.8 which may have contributed to his weakness and altered mental status for which he received supplementation. In addition he was found to be anemic with significant mobility impairments and difficulty with ADLs, deemed medically appropriate for discharge to ARU. REVIEW OF SYSTEMS: The following is a completed review of systems and has been reviewed. Review of systems otherwise unremarkable. PAIN: Patient self reports no pain EYES: No recent vision changes EARS, NOSE, & THROAT: No throat pain, or dysphagia, or rhinorrhea CARDIOVASCULAR: Denies chest pain or palpitations PULMONARY: Denies shortness of breath GASTROINTESTINAL: Denies constipation/diarrhea GENITOURINARY: denies dysuria MUSCULOSKELETAL: denies pain NEUROLOGICAL: +aphasia and apraxia HEMATOLOGICAL: denies easy bruising SKIN: denies rash PSYCHIATRIC: +confused All other review of systems found to be negative. PAST MEDICAL HISTORY: as per HPI PAST SURGICAL HISTORY: Cholecystectomy, lung resection, partial liver excision, splenectomy, hernia repair, left ankle repair, cardiac cath ALLERGIES: Please see below. MEDICATIONS: Please see below. FAMILY HISTORY: Cardiac, DM SOCIAL HISTORY: Former smoker, no etoh/illicit drugs DIET: consistent carb PHYSICAL EXAMINATION: VITAL SIGNS: Please see below. GENERAL: Pleasant and cooperative. No acute distress. HEENT: PERRL. Extraocular movements intact. Clear conjunctiva CARDIOVASCULAR: Regular rate and rhythm. No murmurs, rubs, or gallops LUNGS: Clear to auscultation bilaterally. No wheezes. No rhonchi ABDOMEN: Soft, nontender, nondistended. Positive bowel sounds. Normal active bowel sounds NEUROLOGICAL: Alert and oriented to self Cranial nerves II through XII grossly intact. Sensation grossly intact +apraxic, +aphasic EXTREMITIES: 5\5 strength bilateral upper extremities. 5\5 strength right lower extremity. 5/5 strength in left lower extremity. SKIN: no sacral ulcers LABORATORY DATA: Please see below. IMAGING: Imaging documentation personally reviewed by record. FUNCTIONAL STATUS: Premorbid: Modified Independent with all activities of daily life as well as mobility On Admission:Min-Max assist for functional transfers, ambulation, dressing, Total assist toileting. GOALS: Contact guard-supervision for ambulation household distances, dressing, toileting, bathing ASSESSMENT:69-year-old M with past medical history of CKD, afib who presents status post fall, found to have old left frontal stroke with dementia PLAN: 1. Rehab- PT/OT advance gait and mobility, strengthen/stretch/maintain ROM all 4limbs -FRIED CAKE MAKER for cog and swallow eval 2. Neuro- hx of old left frontal infarct with worsening cognition and weakness, possible dx multi-infarct dementia- c/u ASA statin for secondary stroke prevention, also on eliquis -dementia- patient presenting with apraxia likely due to old frontal infarct, will monitor for Parkinson's features as had episode of freezing during therapy session - c/u on antidepressant for possible pseudodementia -seizure disorder vs ppx in setting of old hemorrhagic stroke-c/u Depakote -seroquel ordered prn agitation 3. CArdiac- Afib c/u coreg and eliquis -chronic diastolic CHF- daily weights, fluid restrict -HTN- c/u amlodipine 4. Resp- monitor for infection, Duonebs, hx of COPD and LUISITO not compliant with CPAP 5. Endo- hx of DM c/u insulin coverage 6. renal- hx of CKD monitor for GAURI 7. GI ppx- protonix 8. DVT ppx- on eliquis 9. Pain- tylenol prn 10. Dispo- tbd POST ADMISSION PHYSICIAN EVALUATION: Medical and functional status: Description of medical status, medical assessment: As above. Rehabilitation diagnosis and current and prior cold morbid medical conditions as above. Risk of complications and plans to mitigate them as above. Description of functional status current status is as above. Prior status as above. Status compared to preadmission: There are no clinically significant differences between the patient's current status and the information described on the preadmission screening document. Treatment plan anticipated: Treatment plan is as described above. Required disciplines including physical therapy, occupational therapy, others as noted above. Intensity of services: 3 hours a day, 6 days a week. Special considerations: There are no specific special or safety considerations that would likely preclude immediate implementation of an intensive rehabilitation program or subsequently influence the plan of care. ATTESTATION: Considering all the information above, it is my best judgment that this patient requires intensive rehabilitation therapy as described above and an inpatient hospital environment due to the complexity of nursing, medical, and rehabilitation needs required by the patient. Furthermore, this patient can reasonably be expected to participate in an benefit from an inpatient rehabilitation stay with an interdisciplinary team approach to the delivery of rehabilitation care under the direction and supervision of rehabilitation physician. PROGNOSIS: good. ESTIMATED LENGTH OF STAY:18-21 days. PROJECTED DISCHARGE DESTINATION: Home with family support and any durable medical equipment required to increase functional safety and mobility. TIME SPENT COUNSELING AND COORDINATING INITIAL CARE: Greater than 70 minutes. Vital Signs Vital Sign - Last 24 Hours 06/09/20 06/09/20 06/09/20 06/10/20 15:15 21:17 21:20 05:25 Temp 96.6 97.5 97.7 Pulse 69 75 75 78 Resp 18 18 17 B/P (MAP) 115/61 (79) 122/70 (87) 122/70 132/68 (89) Pulse Ox 98 96 96 O2 Delivery Room Air Room Air Room Air Laboratory Data CBC/BMP Laboratory Tests 06/10/20 07:13 Labs 24H Laboratory Tests 2 06/09/20 16:48: Bedside Glucose (Misc Panel) 153H 06/09/20 21:26: Bedside Glucose (Misc Panel) 180H 06/10/20 07:00: Bedside Glucose (Misc Panel) 138H 06/10/20 07:13: Immature Granulocyte % (Auto) 0.3, Neutrophils (%) (Auto) 53.9, Lymphocytes (%) (Auto) 36.5, Monocytes (%) (Auto) 7.4, Eosinophils (%) (Auto) 1.6, Basophils (%) (Auto) 0.3, Neutrophils # (Auto) 3.4, Lymphocytes # (Auto) 2.3, Monocytes # (Auto) 0.5, Eosinophils # (Auto) 0.1, Basophils # (Auto) 0.0, Nucleated Red Blood Cells % (auto) 0.0, Anion Gap 5L, Glomerular Filtration Rate > 60.0, Calcium Level 8.4L, Total Bilirubin 0.7, Aspartate Amino Transf (AST/SGOT) 5L, Alanine Aminotransferase (ALT/SGPT) 9L, Alkaline Phosphatase 81, Total Protein 5.9L, Albumin 2.8L, Albumin/Globulin Ratio 0.9 FSBS Laboratory Tests Test 06/09/20 16:48 06/09/20 21:26 06/10/20 07:00 Range/Units Bedside Glucose (Misc Panel) 153 180 138 83-110 MG/DL Home Medications Scheduled Allopurinol (Allopurinol) 100 Mg Tablet, 100 MG PO DAILY, (Reported) Amlodipine Besylate (Amlodipine Besylate) 5 Mg Tablet, 5 MG PO DAILY, (Reported) Apixaban (Eliquis) 5 Mg Tablet, 5 MG PO BID, (Reported) Atorvastatin Calcium (Atorvastatin Calcium) 80 Mg Tab, 80 MG PO QHS, (Reported) Carvedilol (Carvedilol) 12.5 Mg Tablet, 12.5 MG PO BID, (Reported) Fluoxetine Hcl (Fluoxetine HCl) 20 Mg Capsule, 20 MG PO DAILY, (Reported) Insulin Aspart (Novolog Flexpen) 100 Unit/1 Ml Insuln.pen, 1 DOSE SC AC, (Repor homar) PER SLIDING SCALE Insulin Glargine,Hum.rec.anlog (Toujeo Solostar) 300 Unit/1 Ml Insuln.pen, 20 UNIT SC QPM, (Reported) Pantoprazole Sodium (Pantoprazole Sodium) 40 Mg Tablet.dr, 40 MG PO DAILY, (Reported) Potassium Chloride (Potassium Chloride) 20 Meq Tab.er.prt, 20 MEQ PO DAILY, (Reported) Semaglutide (Ozempic) 1 Mg/0.75 Ml Pen.injctr, 0.5 MG SC 1XWK, (Reported) Valproic Acid (As Sodium Salt) (Valproic Acid) 250 Mg/5 Ml Solution, 15 ML PO BID, (Reported) Scheduled PRN Melatonin (Melatonin) 5 Mg Capsule, 5 MG PO QPM PRN for SLEEP, (Reported) Polyethylene Glycol 3350 (Miralax) 119 Gm Powder, 17 GRAM PO DAILY PRN for CONSTIPATION, (Reported) MIX IN 8 OUNCES OF WATER OR JUICE Sennosides/Docusate Sodium (Senna-S 8.6-50 mg Tablet) 8.6 Mg-50 Mg Tablet, 1 EACH PO BIDP PRN for CONSTIPATION, (Reported) Allergies Coded Allergies: No Known Allergies (Unverified , 03/31/19) A-FIB/CHADSVASC A-FIB History Current/History of A-Fib/PAF?: Yes Current PO Anticoag Therapy: Yes LINDA FORD MD Jun 10, 2020 08:47
[2020-06-10] MEDS: DOCUSATE SODIUM 100MG CAPSULE PO SCH ×2 (09:00→20:40)
[2020-06-10] MEDS: HumaLOG INSULIN (NovoLOG) PER UNIT SC SCH ×4 (09:07→20:34)
[2020-06-10] MEDS: PANTOPRAZOLE 40MG TAB (PROTONIX) PO SCH (09:08)
[2020-06-10] MEDS: allopurinoL 100 MG TAB PO SCH (09:08)
[2020-06-10] MEDS: FLUoxetine 20 MG CAP PO SCH (09:08)
[2020-06-10] MEDS: POTASSIUM CHLORIDE 10 MEQ SR TABLET PO SCH (09:08)
[2020-06-10] MEDS: APIXABAN 5 MG TAB (ELIQUIS) PO SCH ×2 (09:09→20:33)
[2020-06-10] MEDS: VALPROIC ACID 250MG CAP PO SCH ×2 (09:09→20:32)
[2020-06-10] MEDS: amLODIPine 5 MG TAB PO SCH (09:10)
[2020-06-10] MEDS: CARVedilol 12.5 MG TAB PO SCH ×2 (09:10→20:40)
[2020-06-10] MEDS: REMEDY PHYTOPLEX Z-GUARD PASTE 113GM TUBE (FROM STOREROOM PRODUCT) TOP SCH ×3 (09:11→20:34)
--- NOTE | 2020-06-10 10:48 | CR.PDOC ---
General Date of Consultation: Jun 10, 2020 Referring Provider: LINDA FORD MD Consultation Hospitalist consultation note has been dictated, and if needed urgently, Please call [employer] at [phone] for stat supervisor [employer]. Job number [id number] Vital Signs/I&O Vital Signs Date Time Temp Pulse Resp B/P (MAP) Pulse Ox O2 Delivery O2 Flow Rate FiO2 06/10/20 09:10 87 113/65 06/10/20 05:25 97.7 17 96 Room Air I&O- Last 24 Hours up to 6 AM 06/10/20 06:00 Intake Total 540 ml Output Total 450 ml Balance 90 ml Laboratory Data Labs 24H Laboratory Tests 2 06/09/20 16:48: Bedside Glucose (Misc Panel) 153H 06/09/20 21:26: Bedside Glucose (Misc Panel) 180H 06/10/20 07:00: Bedside Glucose (Misc Panel) 138H 06/10/20 07:13: Immature Granulocyte % (Auto) 0.3, Neutrophils (%) (Auto) 53.9, Lymphocytes (%) (Auto) 36.5, Monocytes (%) (Auto) 7.4, Eosinophils (%) (Auto) 1.6, Basophils (%) (Auto) 0.3, Neutrophils # (Auto) 3.4, Lymphocytes # (Auto) 2.3, Monocytes # (Auto) 0.5, Eosinophils # (Auto) 0.1, Basophils # (Auto) 0.0, Nucleated Red Blood Cells % (auto) 0.0, Anion Gap 5L, Glomerular Filtration Rate > 60.0, Calcium Level 8.4L, Total Bilirubin 0.7, Aspartate Amino Transf (AST/SGOT) 5L, Alanine Aminotransferase (ALT/SGPT) 9L, Alkaline Phosphatase 81, Total Protein 5.9L, Albumin 2.8L, Albumin/Globulin Ratio 0.9 CBC/BMP Laboratory Tests 06/10/20 07:13 Allergies Coded Allergies: No Known Allergies (Unverified , 03/31/19) Home Medications Scheduled Allopurinol (Allopurinol) 100 Mg Tablet, 100 MG PO DAILY, (Reported) Amlodipine Besylate (Amlodipine Besylate) 5 Mg Tablet, 5 MG PO DAILY, (Reported) Apixaban (Eliquis) 5 Mg Tablet, 5 MG PO BID, (Reported) Atorvastatin Calcium (Atorvastatin Calcium) 80 Mg Tab, 80 MG PO QHS, (Reported) Carvedilol (Carvedilol) 12.5 Mg Tablet, 12.5 MG PO BID, (Reported) Fluoxetine Hcl (Fluoxetine HCl) 20 Mg Capsule, 20 MG PO DAILY, (Reported) Insulin Aspart (Novolog Flexpen) 100 Unit/1 Ml Insuln.pen, 1 DOSE SC AC, (Reported) PER SLIDING SCALE Insulin Glargine,Hum.rec.anlog (Toujeo Solostar) 300 Unit/1 Ml Insuln.pen, 20 UNIT SC QPM, (Reported) Pantoprazole Sodium (Pantoprazole Sodium) 40 Mg Tablet.dr, 40 MG PO DAILY, (Reported) Potassium Chloride (Potassium Chloride) 20 Meq Tab.er.prt, 20 MEQ PO DAILY, (Reported) Semaglutide (Ozempic) 1 Mg/0.75 Ml Pen.injctr, 0.5 MG SC 1XWK, (Reported) Valproic Acid (As Sodium Salt) (Valproic Acid) 250 Mg/5 Ml Solution, 15 ML PO BID, (Reported) Scheduled PRN Melatonin (Melatonin) 5 Mg Capsule, 5 MG PO QPM PRN for SLEEP, (Reported) Polyethylene Glycol 3350 (Miralax) 119 Gm Powder, 17 GRAM PO DAILY PRN for CONSTIPATION, (Reported) MIX IN 8 OUNCES OF WATER OR JUICE Sennosides/Docusate Sodium (Senna-S 8.6-50 mg Tablet) 8.6 Mg-50 Mg Tablet, 1 EACH PO BIDP PRN for CONSTIPATION, (Reported) AUSTIN WILLS MD Jun 10, 2020 10:38
--- NOTE | 2020-06-10 11:49 | CR ---
CONSULTATION DATE: 06/10/2020 REASON FOR CONSULTATION: Management of chronic medical problems. REFERRING PHYSICIAN: Colette Berry M.D. HISTORY OF PRESENT ILLNESS: This is a 69-year-old male with history chronic atrial fibrillation on Eliquis, congestive heart failure with preserved systolic function, hypertension, COPD, LUISITO noncompliant with CPAP, hyperlipidemia, prior smoker, chronic kidney disease stage 3, obesity, diabetes, left frontal intracranial hemorrhage with ventricular extension secondary to amyloid angiopathy admitted to [facility] neurosurgical services and has chronic apraxia and aphasia. Presented to the emergency room on 06/08/2020 with a fall at home while going to the bathroom with gait instability and altered mental status according to the patient's . In the ER, CT of the head was unremarkable with no acute intracranial hemorrhage, mass effect, or edema. MRI of the brain was inconclusive. CBC, metabolic panel, liver function tests, ammonia, and arterial blood gas were all unremarkable. The patient had no infectious etiology for the new mental status changes. His glucose on arrival was 166. Prolactin level was normal with no signs of tonic-clonic activity per the patient's at home when she saw him after the fall. The patient was diagnosed with multi-infarct dementia with gait instability, recurrent falls at home, usually needs one person assistance, but required three person assist while on the medical surgical floor. He was then discharged to the acute rehab unit for rehab services. No other acute symptoms since hospital discharge from the medical floor. He currently denies any chest pain, pressure, tightness, lightheadedness, shortness of breath, palpitations. He denies any fever, chills, changes in weight, appetite, vision, nausea, vomiting, diarrhea, abdominal pain, bright red blood per rectum, melena, black tarry stools, dysuria, urgency, frequency, polyphagia, or polydipsia. He has chronic weakness, gait instability, and has chronic aphasia unchanged from baseline, and apraxia. PAST MEDICAL HISTORY: 1. Chronic AFib. 2. Congestive heart failure with preserved systolic function. 3. Hypertension. 4. COPD. 5. LUISITO noncompliant with CPAP. 6. Hyperlipidemia. 7. Prior smoker. 8. Chronic kidney disease stage 3. 9. Obesity. 10. Diabetes. 11. Amyloid angiopathy with left frontal intracranial hemorrhage with ventricular extension. PAST SURGICAL HISTORY: 1. Cholecystectomy. 2. Abdominal trauma. 3. Resection of the lung. 4. Partial excision of the liver. 5. Splenectomy. 6. Hernia repair. 7. Left ankle repair. 8. Left heart cath. ALLERGIES: No known drug allergies. SOCIAL HISTORY: Prior smoker pack a day since the age of 14 and quit in 1996. Has three children. 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 . Full code with trial of intubation. Health care proxy is his . Lives in [place]. No recreational drug use. At baseline now, he requires at least one person assistance and a walker. Lives at home with his . FAMILY HISTORY: Mother and father are . Both had coronary artery disease. Father also had diabetes. REVIEW OF SYSTEMS: Per HPI; 12-point system otherwise negative. PHYSICAL EXAMINATION: Temperature 97.7, pulse 87, respiratory rate 17, blood pressure 113/65, 96% on room air. The patient is awake, alert, and oriented to himself and place. He is able to state his full name, [facility] and [facility], but he is disoriented to date unable to provide a day. He is in no respiratory distress. Face is symmetric. Tongue is midline. Uvula is midline. He has a resting tremor on the right hand. Extraocular muscles are intact. He is unable to perform [id number] testing. No pronator drift. Motor function is currently 4/5 with gait not being tested due to instability. LABORATORY/IMAGING DATA: Microbiology and imaging studies reviewed from previous admission. HOSPITAL MEDICATIONS: 1. Protonix. 2. Allopurinol. 3. Norvasc. 4. Prozac. 5. Potassium. 6. Colace. 7. Senna. 8. Eliquis. 9. Lipitor. 10. Coreg. 11. Insulin sliding scale. 12. Depakote. 13. DuoNeb. 14. Bisacodyl. 15. MiraLAX. 16. Tylenol. 17. Seroquel. 18. Hypoglycemic protocol. 19. Rozerem as needed. ASSESSMENT AND PLAN: This is a 69-year-old male admitted to the medical service from 06/08 to 06/09 due to fall and altered mental status diagnosed with chronic multi-infarct dementia with gait abnormality with negative findings on MRI and CT of the brain, as well as normal liver function tests, CBC, metabolic panel, and no infectious etiology. He was subsequently transferred to the acute rehab unit for rehab services. Current issues: 1. History of left frontal intracranial hemorrhage with ventricular extension. Blood pressure is well maintained. This was thought to be due to amyloid angiopathy. The patient continues to have worsening cognition, as well as gait instability currently being managed in the acute rehab unit. He did get evaluated for aspiration while on the medical floor. Speech therapist recommended thin liquids and solid diet with 2 gram sodium. The patient's blood pressure is well maintained and not to exceed more than 160 mmHg. The patient is on prophylactic Depakote. 2. Hypertension, controlled. 3. Congestive heart failure, compensated. The patient has preserved systolic function. May resume on home medications with holding parameters for systolic pressure less than 120. 4. Chronic obstructive pulmonary disease (COPD). No acute exacerbation. Resumed on as needed nebulizers. 5. Obstructive sleep apnea not compliant with CPAP. No signs of nocturnal desaturations. 6. Hyperlipidemia, chronic. Resumed on home medications. 7. Chronic kidney disease stage 3. Avoid nephrotoxins. Renally dose all medications. 8. Type 2 diabetes. Insulin sliding scale and hypoglycemic protocol. 9. Deep vein thrombosis (DVT) prophylaxis with compression stockings. MTDD
[2020-06-10 14:00] VITALS: BP 142/73
[2020-06-10 20:10] VITALS: BP 159/88
[2020-06-10] MEDS: QUEtiapine FUMARATE 12.5 MG HALF-TAB PO SCH (20:32)
[2020-06-10] MEDS: SENNA 8.6 MG TAB (SENOKOT) PO SCH (20:33)
[2020-06-10] MEDS: ATORVASTATIN 20 MG TAB PO SCH (20:33)
[2020-06-11 06:06] VITALS: BP 130/69
[2020-06-11] MEDS: IPRATROPIUM 0.5MG/ALBUTEROL 2.5MG INH SOL UD 3ML (DUONEB) NEB SCH ×3 (07:31→20:03)
[2020-06-11] MEDS: DOCUSATE SODIUM 100MG CAPSULE PO SCH ×2 (09:00→21:00)
[2020-06-11] MEDS: PANTOPRAZOLE 40MG TAB (PROTONIX) PO SCH (09:14)
[2020-06-11] MEDS: HumaLOG INSULIN (NovoLOG) PER UNIT SC SCH ×4 (09:14→21:00)
[2020-06-11] MEDS: APIXABAN 5 MG TAB (ELIQUIS) PO SCH ×2 (09:15→21:26)
[2020-06-11] MEDS: QUEtiapine FUMARATE 12.5 MG HALF-TAB PO SCH ×2 (09:15→21:25)
[2020-06-11] MEDS: FLUoxetine 20 MG CAP PO SCH (09:15)
[2020-06-11] MEDS: amLODIPine 5 MG TAB PO SCH (09:15)
[2020-06-11] MEDS: allopurinoL 100 MG TAB PO SCH (09:15)
[2020-06-11] MEDS: POTASSIUM CHLORIDE 10 MEQ SR TABLET PO SCH (09:15)
[2020-06-11] MEDS: VALPROIC ACID 250MG CAP PO SCH ×2 (09:16→21:26)
[2020-06-11] MEDS: CARVedilol 12.5 MG TAB PO SCH ×2 (09:16→21:25)
[2020-06-11] MEDS: REMEDY PHYTOPLEX Z-GUARD PASTE 113GM TUBE (FROM STOREROOM PRODUCT) TOP SCH ×3 (09:16→21:33)
[2020-06-11 14:00] VITALS: BP 130/65
[2020-06-11 20:06] VITALS: BP 138/76
[2020-06-11] MEDS: SENNA 8.6 MG TAB (SENOKOT) PO SCH (21:00)
[2020-06-11] MEDS: ATORVASTATIN 20 MG TAB PO SCH (21:25)
[2020-06-11] MEDS: RAMELTEON 8 MG TAB (ROZEREM) PO PRN (21:26)
[2020-06-11] MEDS: ACETAMINOPHEN TAB 650MG DOSE (2X325MG) PO PRN (21:28)
[2020-06-12 04:27] VITALS: BP 142/78
[2020-06-12] MEDS: IPRATROPIUM 0.5MG/ALBUTEROL 2.5MG INH SOL UD 3ML (DUONEB) NEB SCH ×3 (07:26→19:45)
[2020-06-12] MEDS: DOCUSATE SODIUM 100MG CAPSULE PO SCH ×2 (09:00→20:35)
[2020-06-12] MEDS: CARVedilol 12.5 MG TAB PO SCH ×2 (09:17→20:36)
[2020-06-12] MEDS: allopurinoL 100 MG TAB PO SCH (09:17)
[2020-06-12] MEDS: amLODIPine 5 MG TAB PO SCH (09:17)
[2020-06-12] MEDS: PANTOPRAZOLE 40MG TAB (PROTONIX) PO SCH (09:17)
[2020-06-12] MEDS: VALPROIC ACID 250MG CAP PO SCH ×2 (09:17→20:37)
[2020-06-12] MEDS: APIXABAN 5 MG TAB (ELIQUIS) PO SCH ×2 (09:17→20:36)
[2020-06-12] MEDS: QUEtiapine FUMARATE 12.5 MG HALF-TAB PO SCH ×2 (09:17→20:35)
[2020-06-12] MEDS: FLUoxetine 20 MG CAP PO SCH (09:17)
[2020-06-12] MEDS: REMEDY PHYTOPLEX Z-GUARD PASTE 113GM TUBE (FROM STOREROOM PRODUCT) TOP SCH ×3 (09:18→20:37)
[2020-06-12] MEDS: POTASSIUM CHLORIDE 10 MEQ SR TABLET PO SCH (09:18)
[2020-06-12] MEDS: HumaLOG INSULIN (NovoLOG) PER UNIT SC SCH ×4 (09:18→20:37)
[2020-06-12 14:00] VITALS: BP 177/95
[2020-06-12 20:00] VITALS: BP 137/65
[2020-06-12] MEDS: SENNA 8.6 MG TAB (SENOKOT) PO SCH (20:35)
[2020-06-12] MEDS: ATORVASTATIN 20 MG TAB PO SCH (20:36)
[2020-06-13 05:50] VITALS: BP 152/78
[2020-06-13] MEDS: IPRATROPIUM 0.5MG/ALBUTEROL 2.5MG INH SOL UD 3ML (DUONEB) NEB SCH ×3 (07:04→19:47)
[2020-06-13] MEDS: HumaLOG INSULIN (NovoLOG) PER UNIT SC SCH ×4 (07:34→20:11)
[2020-06-13] MEDS: APIXABAN 5 MG TAB (ELIQUIS) PO SCH ×2 (07:34→20:05)
[2020-06-13] MEDS: PANTOPRAZOLE 40MG TAB (PROTONIX) PO SCH (07:34)
[2020-06-13] MEDS: allopurinoL 100 MG TAB PO SCH (07:35)
[2020-06-13] MEDS: POTASSIUM CHLORIDE 10 MEQ SR TABLET PO SCH (07:35)
[2020-06-13] MEDS: VALPROIC ACID 250MG CAP PO SCH ×2 (07:35→20:07)
[2020-06-13] MEDS: FLUoxetine 20 MG CAP PO SCH (07:35)
[2020-06-13] MEDS: QUEtiapine FUMARATE 12.5 MG HALF-TAB PO SCH ×2 (07:36→20:05)
[2020-06-13] MEDS: CARVedilol 12.5 MG TAB PO SCH ×2 (07:36→20:06)
[2020-06-13] MEDS: DOCUSATE SODIUM 100MG CAPSULE PO SCH ×2 (07:36→20:08)
[2020-06-13] MEDS: amLODIPine 5 MG TAB PO SCH (07:36)
[2020-06-13] MEDS: REMEDY PHYTOPLEX Z-GUARD PASTE 113GM TUBE (FROM STOREROOM PRODUCT) TOP SCH ×3 (07:37→20:05)
[2020-06-13 07:52] LABS: BASO % 0.2 % (0.0-1.0); EOS # 0.1 10^3/uL (0.0-0.5); EOS % 2.6 % (0.0-3.0); HEMATOCRIT 34.2 % (42.0-52.0); HEMOGLOBIN 11.4 g/dl (13.5-17.5); LYMPH # 2.4 10^3/uL (1.5-5.0); LYMPH % 48.3 % (24.0-44.0); MEAN CORPUSCULAR HEMOGLOBIN 32.4 pg (27.0-33.0); MEAN CORPUSCULAR HGB CONC 33.3 g/dl (32.0-36.5); MEAN CORPUSCULAR VOLUME 97.2 fl (80.0-96.0); MONO # 0.4 10^3/uL (0.0-0.8); MONO % 8.5 % (2.0-8.0); NEUTROPHILS % 40.2 % (36.0-66.0); PLATELET COUNT, AUTOMATED 103 10^3/uL (150-450); RED BLOOD COUNT 3.52 10^6/uL (4.30-6.10); WHITE BLOOD COUNT 5.1 10^3/uL (4.0-10.0)
[2020-06-13 08:11] LABS: BLOOD UREA NITROGEN 22 MG/DL (7-18); CALCIUM LEVEL 8.2 MG/DL (8.8-10.2); CARBON DIOXIDE LEVEL 29 MEQ/L (21-32); CHLORIDE LEVEL 107 MEQ/L (98-107); CREATININE FOR GFR 1.01 MG/DL (0.70-1.30); GLOMERULAR FILTRATION RATE > 60.0 (>42); GLUCOSE, FASTING 118 MG/DL (70-100); POTASSIUM SERUM 3.6 MEQ/L (3.5-5.1); SODIUM LEVEL 143 MEQ/L (136-145)
[2020-06-13 14:00] VITALS: BP 109/64
[2020-06-13 20:00] VITALS: BP 148/90
[2020-06-13] MEDS: RAMELTEON 8 MG TAB (ROZEREM) PO PRN (20:05)
[2020-06-13] MEDS: ATORVASTATIN 20 MG TAB PO SCH (20:07)
[2020-06-13] MEDS: ACETAMINOPHEN TAB 650MG DOSE (2X325MG) PO PRN (20:07)
[2020-06-13] MEDS: SENNA 8.6 MG TAB (SENOKOT) PO SCH (20:08)
[2020-06-14 05:26] VITALS: BP 162/86
[2020-06-14] MEDS: PANTOPRAZOLE 40MG TAB (PROTONIX) PO SCH (07:34)
[2020-06-14] MEDS: HumaLOG INSULIN (NovoLOG) PER UNIT SC SCH ×2 (07:34→12:00)
[2020-06-14 07:35] VITALS: BP 162/86
[2020-06-14] MEDS: VALPROIC ACID 250MG CAP PO SCH (07:35)
[2020-06-14] MEDS: FLUoxetine 20 MG CAP PO SCH (07:35)
[2020-06-14] MEDS: QUEtiapine FUMARATE 12.5 MG HALF-TAB PO SCH (07:35)
[2020-06-14] MEDS: allopurinoL 100 MG TAB PO SCH (07:35)
[2020-06-14] MEDS: DOCUSATE SODIUM 100MG CAPSULE PO SCH (07:35)
[2020-06-14] MEDS: CARVedilol 12.5 MG TAB PO SCH (07:35)
[2020-06-14] MEDS: APIXABAN 5 MG TAB (ELIQUIS) PO SCH (07:36)
[2020-06-14] MEDS: amLODIPine 5 MG TAB PO SCH (07:36)
[2020-06-14] MEDS: REMEDY PHYTOPLEX Z-GUARD PASTE 113GM TUBE (FROM STOREROOM PRODUCT) TOP SCH (07:36)
[2020-06-14] MEDS: POTASSIUM CHLORIDE 10 MEQ SR TABLET PO SCH (07:36)
[2020-06-14] MEDS: IPRATROPIUM 0.5MG/ALBUTEROL 2.5MG INH SOL UD 3ML (DUONEB) NEB SCH ×2 (08:00→14:00)
--- NOTE | 2020-06-14 08:12 | IPNPDOC ---
PM&R Progress Note DATE OF SERVICE: Jun 14, 2020 Architectural Drafting Instructor Progress Note Subjective: Patient reporting he feels tired and is agreeable to go down to get an MRI today. REVIEW OF SYSTEMS: The following is a completed review of systems and has been reviewed. Review of systems otherwise unremarkable. PAIN: Patient self reports no pain EYES: No recent vision changes EARS, NOSE, & THROAT: No throat pain, or dysphagia, or rhinorrhea CARDIOVASCULAR: Denies chest pain or palpitations PULMONARY: Denies shortness of breath GASTROINTESTINAL: Denies constipation/diarrhea GENITOURINARY: denies dysuria MUSCULOSKELETAL: denies pain NEUROLOGICAL: +aphasia and apraxia HEMATOLOGICAL: denies easy bruising SKIN: denies rash PSYCHIATRIC: +confused All other review of systems found to be negative. PHYSICAL EXAMINATION: VITAL SIGNS: Please see below. GENERAL: Pleasant and cooperative. No acute distress. HEENT: PERRL. Extraocular movements intact. Clear conjunctiva CARDIOVASCULAR: Regular rate and rhythm. No murmurs, rubs, or gallops LUNGS: Clear to auscultation bilaterally. No wheezes. No rhonchi ABDOMEN: Soft, nontender, nondistended. Positive bowel sounds. Normal active bowel sounds NEUROLOGICAL: Alert and oriented to self Cranial nerves II through XII grossly intact. Sensation grossly intact +apraxic, +aphasic EXTREMITIES: 5\5 strength bilateral upper extremities. 5\5 strength right lower extremity. 5/5 strength in left lower extremity. SKIN: no sacral ulcers ASSESSMENT:69-year-old M with past medical history of CKD, afib who presents status post fall, found to have old left frontal stroke with dementia PLAN: 1. Rehab- PT/OT advance gait and mobility, strengthen/stretch/maintain ROM all 4limbs- per therapy patient much more lethargic today and having difficulty initiating any movement -VETERINARY MEDICINE SCIENTIST for cog and swallow eval 2. Neuro- hx of old left frontal infarct with worsening cognition and weakness, possible dx multi-infarct dementia- c/u ASA statin for secondary stroke prevention, also on eliquis -dementia- patient presenting with apraxia likely due to old frontal infarct- MRI with and without gadolinium ordered today to better evaluate left frontal lesion seen on MRI 3-31 - c/u on antidepressant for possible pseudodementia -seizure disorder vs ppx in setting of old hemorrhagic stroke-c/u Depakote -seroquel changing to standing BID for agitation 3. CArdiac- Afib c/u coreg and eliquis -chronic diastolic CHF- daily weights, fluid restrict -HTN- c/u amlodipine 4. Resp- monitor for infection, Duonebs, hx of COPD and LUISITO not compliant with CPAP 5. Endo- hx of DM c/u insulin coverage 6. renal- hx of CKD monitor for GAURI 7. GI ppx- protonix 8. DVT ppx- on eliquis 9. Pain- tylenol prn 10. Dispo- tbd Allergies Coded Allergies: No Known Allergies (Unverified , 03/31/19) Vital Signs Vital Signs Date Time Temp Pulse Resp B/P (MAP) Pulse Ox O2 Delivery O2 Flow Rate FiO2 06/14/20 07:35 79 162/86 06/14/20 05:26 97.2 19 96 Room Air Laboratory Data Labs 24H Laboratory Tests 2 06/13/20 11:43: Bedside Glucose (Misc Panel) 189H 06/13/20 16:47: Bedside Glucose (Misc Panel) 146H 06/13/20 20:01: Bedside Glucose (Misc Panel) 142H 06/14/20 05:06: Bedside Glucose (Misc Panel) 107 Current Medications Current Medications Current Medications Medications (Trade) Dose Ordered Sig/Cinthia Route PRN Reason Start Time Stop Time Status Last Admin Dose Admin Acetaminophen (Tylenol Tab) 650 mg Q4HP PRN PO fever/MILD PAIN (PS 1-4) 06/09/20 16:40 06/13/20 20:07 Albuterol/ Ipratropium (Duoneb (Ipr 0.5mg/Alb 2.5mg)) 3 ml RTID NEB 06/09/20 20:00 06/13/20 19:47 Allopurinol (Zyloprim) 100 mg DAILY PO 06/10/20 09:00 06/14/20 07:35 Amlodipine Besylate (Norvasc) 5 mg DAILY PO 06/10/20 09:00 06/14/20 07:36 Apixaban (Eliquis) 5 mg BID PO 06/09/20 21:00 06/14/20 07:36 Atorvastatin Calcium (Lipitor) 80 mg QHS PO 06/09/20 21:00 06/13/20 20:07 Bisacodyl (Dulcolax Suppository) 10 mg DAILYPRN PRN [place] CONSTIPATION 06/09/20 16:40 Carvedilol (COReg) 12.5 mg BID PO 06/09/20 21:00 06/14/20 07:35 Dextrose (Dextrose 50%) 25 ml ASDIRECTED PRN IV SEE LABEL COMMENTS 06/09/20 16:40 Docusate Sodium (Colace) 100 mg BID PO 06/09/20 21:00 06/14/20 07:35 Fluoxetine HCl (PROzac) 20 mg DAILY PO 06/10/20 09:00 06/14/20 07:35 Glucagon (Glucagon) 1 mg ASDIRECTED PRN SC SEE LABEL COMMENTS 06/09/20 16:40 Glucose (Glucose) 16 GM ASDIRECTED PRN PO SEE LABEL COMMENTS 06/09/20 16:40 Insulin Human Lispro (HumaLOG INSULIN) SEE PROTOCOL TABLE AC SC 06/09/20 17:30 06/14/20 07:34 Insulin Human Lispro (HumaLOG INSULIN) SEE PROTOCOL TABLE QHS SC 06/09/20 21:00 Pantoprazole Sodium (Protonix) 40 mg DAILY PO 06/10/20 09:00 06/14/20 07:34 Polyethylene Glycol (Miralax) 1 pkt DAILY PRN PO CONSTIPATION 06/09/20 16:40 06/13/20 07:38 Potassium Chloride (Micro-K Extencaps) 20 meq DAILY PO 06/10/20 09:00 06/14/20 07:36 Quetiapine Fumarate (SEROquel) 12.5 mg BID PO 06/10/20 21:00 06/14/20 07:35 Quetiapine Fumarate (SEROquel) 12.5 mg BID PRN PO agitation 06/09/20 16:40 06/10/20 15:21 DC 06/10/20 13:42 Ramelteon (Rozerem) 8 mg QHS PRN PO INSOMNIA 06/09/20 16:40 06/13/20 20:05 Senna (Senokot) 1 tab QHS PO 06/09/20 21:00 06/12/20 20:35 Valproic Acid (Depakene) 750 mg BID PO 06/09/20 21:00 06/14/20 07:35 LINDA FORD MD Jun 14, 2020 08:12
[2020-06-14] MEDS ORDERED: diazePAM 2 MG TAB PO ONE (10:25)
--- NOTE | 2020-06-14 13:47 | REP ---
INDICATION: r/o mass. COMPARISON: MR brain 06/08/2020 12:[address] 06/08/2020 9:46 a.m.. MRI brain 07/12/2017. TECHNIQUE: Axial T1-T2 and diffusion-weighted images obtained. Pre and postcontrast multiplanar T1 weighted images obtained. FINDINGS: As noted previously, there is a focus of highly restricted diffusion in the left frontal lobe appears to extend to the anterior horn of the left lateral ventricle. The size and appearance is not significantly changed from the comparison study of 06/08/2020. Following contrast, no abnormal enhancement. The size of this abnormal restricted diffusion is approximately 37 mm AP by 17 mm transverse and 24 mm craniocaudad. The ventricular system appears dilated relative to the comparison study of 07/12/2017. Transverse 3rd ventricle measures approximately 14 mm, had measured approximately 10.5 mm. IMPRESSION: Mass lesion with restricted diffusion in the left frontal lobe is most consistent with a hematoma that developed on 06/08/2020 as a consequence of a fall while the patient was on Eliquis. The initial head CT of 06/08/2020 is without evidence of a hematoma, but with evidence of a prior left frontal infarct. The MR brain which followed about 3 hours later demonstrates a mass lesion in the vicinity of the previously documented infarct. Hematoma is known to restrict diffusion as it evolves. The hematoma appears to extend to the anterior horn of the left lateral ventricle. There appears to be developing hydrocephalus. A follow-up head CT would be expected to show evolving hematoma in the left frontal lobe. <Electronically signed by Kal Hammer > 06/14/20 [id number]
[2020-06-14 14:00] VITALS: BP 125/80
[2020-06-14] MEDS ORDERED: PROTHROMBIN COMPLEX CONCEN IV ONE (15:00)
[2020-06-14] MEDS ORDERED: FLUID PLACE HOLDER IV ONE (15:00)
[2020-06-14] MEDS ORDERED: VALP1CAP2 PO (15:54)
[2020-06-14] MEDS ORDERED: RAME8TAB2 PO (15:54)
[2020-06-14] MEDS ORDERED: ATOR1TAB21 PO (15:54)
[2020-06-14] MEDS ORDERED: FLUO20CA22 PO (15:54)
[2020-06-14] MEDS ORDERED: AMLO1TAB24 PO (15:54)
[2020-06-14] MEDS ORDERED: IPRA0.00 NEB (15:54)
[2020-06-14] MEDS ORDERED: KLOR10TA76 PO (15:54)
[2020-06-14] MEDS ORDERED: CARV12.5 PO (15:54)
[2020-06-14] MEDS ORDERED: ALLO10TA PO (15:54)
[2020-06-14] MEDS ORDERED: INSUHUMDS SC ×2 (15:54)
[2020-06-14] MEDS ORDERED: PANT40TA29 PO (15:54)
[2020-06-14] MEDS ORDERED: QUET25TA3 PO (15:54)
[2020-06-14 16:25] VITALS: BP 130/66
--- NOTE | 2020-06-15 09:35 | EEG ---
ELECTROENCEPHALOGRAM DATE: 06/09/2020 DIAGNOSIS: Altered mental status. EEG# [id number] REFERRING PHYSICIAN: Maren Barlow MD HISTORY: Patient is a 69-year-old man with history of stroke who fell. He hit his head. This EEG was done to rule out epileptic potential. He is currently taking Eliquis, atorvastatin, carvedilol. Prozac, Depakote, etc. TECHNICAL DESCRIPTION: This digital EEG was recorded by 21-scalp, ear, and two EKG electrodes and was reviewed in bipolar and referential montages following reformatting in 10-20 international electrode placement system. INTERPRETATION: Patient was noted to be in awake and drowsy states during this EEG. Resting and awake background rhythm consisted of 6-7 Hz alpha activity measuring 15-40 microvolts in amplitude, which was symmetric bilaterally. Stage 1 and 2 sleep were reviewed and were symmetric bilaterally. Hyperventilation and photic stimulation were not performed. The patient had altered mental status and hard to follow commands. No focal, lateralizing, or epileptiform abnormalities were seen. No relevant clinical activity was noted. EKG revealed irregular heartbeat. CONCLUSION: This EEG in awake, drowsy states, stage 1 and 2 sleep is abnormal due to presence of generalized snoring and disorganization of background such as consistent with nonspecific diffuse cerebral dysfunction, such as seen in encephalopathy due to multiple potential causes. No epileptiform abnormalities were seen. Clinical correlation is recommended.
[2020-06-17 23:08] VITALS: BP 170/72
--- NOTE | 2020-07-06 08:28 | PMRDS ---
NAME: ROSA PORTILLO [facility] WT ID#: [id number] JOB: [id number] PAULO: 06/14/2020 ACCT: [id number] DOCTOR: LINDA FORD MD PMR DISCHARGE SUMMARY DATE OF ADMISSION: 06/09/2020 DATE OF DISCHARGE: 06/14/2020 CHIEF COMPLAINT/DISCHARGE DIAGNOSIS: Left frontal lobe hematoma. HISTORY OF PRESENT ILLNESS: This is a 69-year-old male with a past medical history of atrial fibrillation on Eliquis, chronic diastolic CHF, COPD, ulcerative colitis, right eye blindness, agent orange exposure, LUISITO, not on CPAP, hyperlipidemia, CKD Stage III, diabetes, who fell at home with worsening confusion and presented to [facility] where CT of head did not show acute intracranial pathology but did show "old left frontal lobe infarction." MRI of brain was done showing "restricted diffusion noted in the left frontal lobe, not typical appearance of post infarct or posttraumatic encephalomalacia. Recommend full MRI characterization with and without Gadolinium, current study is limited, ___. An underlying mass is not excluded. His potassium was 2.8 which may have contributed to his weakness and altered mental status for which he received supplementation. In addition, he was found to be anemic with significant mobility and ADL impairments with difficulty with ADLs nd deemed medically appropriate for discharge to ARU. PAST MEDICAL HISTORY: As per HPI. HOSPITAL COURSE: Patient was admitted for a comprehensive PT/OT, speech language and pathology program. He received 24 hour nursing supervision and weekly team meetings were held to discuss his progress. Patient after a few days of therapy was noted to have a dramatic functional decline. MRI was ordered with and without Gadolinium which did show new hematoma in addition to the possible hydrocephalus. His Eliquis was discontinued and he was emergently transferred to [facility] for neuro ICU monitoring. DISCHARGE MEDICATIONS: As per instructions. FUNCTIONAL HISTORY: On discharge the patient was dependent for all mobility and ADLs. Thank you for this referral.
== END 2020-06-14 16:35 | disposition short-term general hospital (02) | DRG 58 ==
LOC: M PM&R 14:50
PROVIDERS: ADMIT Physical Medicine & Rehabilitation; ATTEND Physical Medicine & Rehabilitation
DX: I69.320 Aphasia following cerebral infarction (principal); G91.9 Hydrocephalus, unspecified; K51.90 Ulcerative colitis, unspecified, without complications; I13.0 Hypertensive heart and chronic kidney disease with heart failure and stage 1 through stage 4 chronic kidney disease, or unspecified chronic kidney disease; I50.32 Chronic diastolic (congestive) heart failure; I48.91 Unspecified atrial fibrillation; J44.9 Chronic obstructive pulmonary disease, unspecified; I48.20 Chronic atrial fibrillation, unspecified; E11.22 Type 2 diabetes mellitus with diabetic chronic kidney disease; S06.350A Traumatic hemorrhage of left cerebrum without loss of consciousness, initial encounter; I69.390 Apraxia following cerebral infarction; N18.30 Chronic kidney disease, stage 3 unspecified; F01.50 Vascular dementia, unspecified severity, without behavioral disturbance, psychotic disturbance, mood disturbance, and anxiety; G47.33 Obstructive sleep apnea (adult) (pediatric); E66.9 Obesity, unspecified; E78.5 Hyperlipidemia, unspecified; R29.6 Repeated falls; H54.61 Unqualified visual loss, right eye, normal vision left eye; Z74.09 Other reduced mobility; Z66 Do not resuscitate; Z74.1 Need for assistance with personal care; Z79.01 Long term (current) use of anticoagulants; Z79.899 Other long term (current) drug therapy; Z79.4 Long term (current) use of insulin; Z90.49 Acquired absence of other specified parts of digestive tract; Z90.2 Acquired absence of lung [part of]; Z91.19 Patient's noncompliance with other medical treatment and regimen; W18.30XA Fall on same level, unspecified, initial encounter; Y92.009 Unspecified place in unspecified non-institutional (private) residence as the place of occurrence of the external cause; Y99.8 Other external cause status; Y93.89 Activity, other specified; Z68.29 Body mass index [BMI] 29.0-29.9, adult

== ENCOUNTER 2020-06-17 10:29 | Inpatient (IN) | payer MEDICARE, BC, OTHER ==
[~2020-06-17] VITALS: Ht 167.6 cm; Wt 85.5 kg
[~2020-06-17 10:29] MED LIST changes: +ATOR1TAB21 PO; +IPRA0.00 NEB; +KLOR10TA76 PO; +QUET25TA3 PO; +RAME8TAB2 PO; +VALP1CAP2 PO
[2020-06-17] MEDS ORDERED: GLUCAGON INJ 1MG VIAL SC PRN (12:50)
[2020-06-17] MEDS ORDERED: GLUCOSE 4GM CHEW TABLET PO PRN (12:50)
[2020-06-17] MEDS ORDERED: LORazepam 0.5 MG TAB PO PRN (12:50)
[2020-06-17] MEDS ORDERED: ACETAMINOPHEN TAB 650MG DOSE (2X325MG) PO PRN (12:50)
[2020-06-17] MEDS ORDERED: DEXTROSE 50% 50 ML SYRINGE IV PRN (12:50)
[2020-06-17] MEDS ORDERED: BISACODYL 10 MG SUPP PR PRN (12:50)
[2020-06-17] MEDS ORDERED: LORazepam 2 MG/ML VIAL IM PRN (13:30)
--- NOTE | 2020-06-17 13:33 | HPEPDOC ---
Retail Branch Manager Note DATE OF ADMISSION: 06-17-20 DATE OF SERVICE: 06-17-20 TIME OF ADMISSION: Please refer to physician's admission order. SOURCE OF ADMISSION INFORMATION: [facility] record and patient CHIEF COMPLAINT: left frontal intracranial hemorrhage HISTORY OF PRESENT ILLNESS: 69M pmh afib on eliquis, chronic diastolic CHF, COPD, ulcerative colitis, right eye blindness, agent orange exposure, LUISITO not on CPAP, HLD, CKD3, DM who fell at home with worsening confusion and presented to [facility] where CTH did not show acute intracranial pathology, but did show, Old left frontal lobe infarction. MRI brain was done, showing, Restricted diffusion noted in the left frontal lobe, which is not the typical appearance for post infarctive or posttraumatic encephalomalacia. Recommend full MRI characterization with a and without gadolinium. Current study consists of limited sequences. An underlying mass is not excluded. He was continued on his home Eliquis dosing and on 06-14-20 had worsening confusion and decline in function, MRI with contrast was ordered showing new left frontal hematoma with hydrocephalus for which he was urgently transferred to [facility] neuro-ICU where his Eliquis was held, EEG did not show seizure activity, and follow-up MRI on 06-15-20 showed, "There is a resolving left frontal subacute hemorrhage with surrounding edema and encephalomalacia and mass effect on the anterior body of the left lateral ventricle. The ventricles are disproportionately enlarged. The sulci are within normal limits. There is no midline shift." He was diagnosed with cerebral amyloid angiopathy, had no further decline in his function, and was deemed medically appropriate for discharge back to ARU on 06-17-20. REVIEW OF SYSTEMS: The following is a completed review of systems and has been reviewed. Review of systems otherwise unremarkable. PAIN: Patient self reports no pain EYES: No recent vision changes EARS, NOSE, & THROAT: No throat pain, or dysphagia, or rhinorrhea CARDIOVASCULAR: Denies chest pain or palpitations PULMONARY: Denies shortness of breath GASTROINTESTINAL: Denies constipation/diarrhea GENITOURINARY: denies dysuria MUSCULOSKELETAL: generalized weakness NEUROLOGICAL: +aphasia and apraxia HEMATOLOGICAL: denies easy bruising SKIN: denies rash PSYCHIATRIC: +confused All other review of systems found to be negative. PAST MEDICAL HISTORY: as per HPI PAST SURGICAL HISTORY: Cholecystectomy, lung resection, partial liver excision, splenectomy, hernia repair, left ankle repair, cardiac cath ALLERGIES: Please see below. MEDICATIONS: Please see below. FAMILY HISTORY: Cardiac, DM SOCIAL HISTORY: Former smoker, no etoh/illicit drugs DIET: mechanical soft PHYSICAL EXAMINATION: VITAL SIGNS: Please see below. GENERAL: No acute distress. HEENT: PERRL. Extraocular movements intact. Clear conjunctiva CARDIOVASCULAR: Regular rate and rhythm. No murmurs, rubs, or gallops LUNGS: Clear to auscultation bilaterally. No wheezes. No rhonchi ABDOMEN: Soft, nontender, nondistended. Positive bowel sounds. Normal active bowel sounds NEUROLOGICAL: Alert and oriented to self Cranial nerves II through XII grossly intact. Sensation grossly intact +apraxic, +aphasic EXTREMITIES: 5\\5 strength bilateral upper extremities. 5\\5 strength right lower extremity. 5/5 strength in left lower extremity. SKIN: no sacral ulcers LABORATORY DATA: Please see below. IMAGING: Imaging documentation personally reviewed by record. FUNCTIONAL STATUS: Premorbid: Modified Independent with all activities of daily life as well as mobility On Admission: Mod-Max assist for functional transfers, ambulation, dressing, Total assist toileting. GOALS: Contact guard-supervision for ambulation household distances, dressing, toileting, bathing ASSESSMENT:69-year-old M with past medical history of CKD, afib, left frontal stroke admitted to ARU and discharged to [facility]ICU for left frontal hemat hailey on 06-14-20 admitted back to ARU for continued management PLAN: 1. 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 Neuro- cerebral amyloid angiopathy with hemorrhagic left frontal lobe- c/u statin -dementia- patient presenting with apraxia likely due to frontal infarct - c/u on antidepressant for possible pseudodementia -seizure prophylaxis c/u Depakote -seroquel 12.5 mg BID -Ativan prn agitation/seizure 3. CArdiac- Afib c/u coreg and eliquis -chronic diastolic CHF- daily weights, fluid restrict -HTN- c/u amlodipine 4. Resp- monitor for infection, Duonebs, hx of COPD and LUISITO not compliant with CPAP 5. Endo- hx of DM c/u insulin coverage 6. renal- hx of CKD monitor for GAURI 7. GI ppx- protonix 8. DVT ppx- teds 9. Pain- tylenol prn 10. Hypokalemia- c/u potassium supplements and monitor 11. Dispo- tbd POST ADMISSION PHYSICIAN EVALUATION: Medical and functional status: Description of medical status, medical assessm ent: As above. Rehabilitation diagnosis and current and prior cold morbid medical conditions as above. Risk of complications and plans to mitigate them as above. Description of functional status current status is as above. Prior status as above. Status compared to preadmission: There are no clinically significant differences between the patient's current status and the information described on the preadmission screening document. Treatment plan anticipated: Treatment plan is as described above. Required disciplines including physical therapy, occupational therapy, others as noted above. Intensity of services: 3 hours a day, 6 days a week. Special considerations: There are no specific special or safety considerations that would likely preclude immediate implementation of an intensive r ehabilitation program or subsequently influence the plan of care. ATTESTATION: Considering all the information above, it is my best judgment that this patient requires intensive rehabilitation therapy as described above and an inpatient hospital environment due to the complexity of nursing, medical, and rehabilitation needs required by the patient. Furthermore, this patient can re asonably be expected to participate in an benefit from an inpatient rehabilitation stay with an interdisciplinary team approach to the delivery of rehabilitation care under the direction and supervision of rehabilitation physician. PROGNOSIS: fait ESTIMATED LENGTH OF STAY: 18-21 days. PROJECTED DISCHARGE DESTINATION: Home with family support and any durable medical equipment required to increase functional safety and mobility. TIME SPENT COUNSELING AND COORDINATING INITIAL CARE: Greater than 70 minutes. Vital Signs Vital Signs Date Time Temp Pulse Resp B/P (MAP) Pulse Ox O2 Delivery O2 Flow Rate FiO2 06/17/20 14:00 96.5 62 18 185/95 (125) 93 Room Air Home Medications Scheduled Allopurinol (Allopurinol) 100 Mg Tablet, 100 MG PO DAILY, (Reported) Amlodipine Besylate (Amlodipine Besylate) 5 Mg Tablet, 5 MG PO DAILY, (Reported) Atorvastatin Calcium (Atorvastatin Calcium) 80 Mg Tab, 80 MG PO QHS, (Reported) Carvedilol (Carvedilol) 12.5 Mg Tablet, 12.5 MG PO BID, (Reported) Docusate Sodium (Colace) 100 Mg Capsule, 100 MG PO BID, (Reported) STARTED AT [facility] Fluoxetine Hcl (Fluoxetine HCl) 20 Mg Capsule, 20 MG PO DAILY, (Reported) Insulin Aspart (Novolog Flexpen) 100 Unit/1 Ml Insuln.pen, 1 DOSE SC AC, (Reported) PER SLIDING SCALE Ipratropium/Albuterol Sulfate (Iprat-Albut 0.5-3(2.5) mg/3 ml) 3 Ml Ampul.neb, 3 ML INH TID, (Reported) Pantoprazole Sodium (Pantoprazole Sodium) 40 Mg Tablet.dr, 40 MG PO DAILY, (Reported) Potassium Chloride (Potassium Chloride) 20 Meq Tab.er.prt, 20 MEQ PO DAILY, (Reported) Valproic Acid (As Sodium Salt) (Valproic Acid) 250 Mg/5 Ml Solution, 15 ML PO BID, (Reported) Scheduled PRN Polyethylene Glycol 3350 (Miralax) 119 Gm Powder, 17 GRAM PO DAILY PRN for CONSTIPATION, (Reported) MIX IN 8 OUNCES OF WATER OR JUICE Quetiapine Fumarate (Seroquel) 25 Mg Tablet, 12.5 MG PO BID PRN for AGITATION, (Reported) Ramelteon (Rozerem) 8 Mg Tablet, 8 MG PO QHS PRN for SLEEP, (Reported) Allergies Coded Allergies: No Known Allergies (Unverified , 03/31/19) A-FIB/CHADSVASC A-FIB History Current/History of A-Fib/PAF?: Yes Current PO Anticoag Therapy: No LINDA FORD MD Jun 17, 2020 13:33
[2020-06-17] MEDS ORDERED: COLA100C5 PO (13:42)
[2020-06-17] MEDS ORDERED: ROZE8TAB16 PO (13:42)
[2020-06-17] MEDS ORDERED: IPRA0.00 INH (13:42)
[2020-06-17] MEDS ORDERED: SERO1TAB3 PO (13:42)
[2020-06-17 14:00] VITALS: BP 185/95
[2020-06-17] MEDS: IPRATROPIUM 0.5MG/ALBUTEROL 2.5MG INH SOL UD 3ML (DUONEB) NEB SCH ×2 (15:15→20:29)
[2020-06-17] MEDS: REMEDY PHYTOPLEX Z-GUARD PASTE 113GM TUBE (FROM STOREROOM PRODUCT) TOP SCH ×2 (16:00→23:04)
[2020-06-17] MEDS: HumaLOG INSULIN (NovoLOG) PER UNIT SC SCH ×2 (17:30→23:02)
[2020-06-17 20:00] VITALS: BP 180/80
[2020-06-17] MEDS: QUEtiapine FUMARATE 12.5 MG HALF-TAB PO SCH (23:01)
[2020-06-17] MEDS: VALPROIC ACID 250MG CAP PO SCH ×2 (23:01→23:44)
[2020-06-17] MEDS: ATORVASTATIN 20 MG TAB PO SCH (23:01)
[2020-06-17] MEDS: DOCUSATE SODIUM 100MG CAPSULE PO SCH (23:02)
[2020-06-17] MEDS: SENNA 8.6 MG TAB (SENOKOT) PO SCH (23:03)
[2020-06-17] MEDS: CARVedilol 12.5 MG TAB PO SCH (23:04)
[2020-06-17 23:17] VITALS: BP 170/72
[2020-06-18 01:26] VITALS: BP 162/80
--- NOTE | 2020-06-18 03:25 | REPVR ---
PROCEDURE INFORMATION: Exam: CT Head Without Contrast Exam date and time: 06/18/2020 1:49 AM Age: 69 years old Clinical indication: Injury or trauma; Fall; Concussion/head injury; Additional info: Unwitnessed fall in PT w/ recent hematoma TECHNIQUE: Imaging protocol: Computed tomography of the head without contrast. Radiation optimization: All CT scans at this facility use at least one of these dose optimization techniques: automated exposure control; mA and/or kV adjustment per patient size (includes targeted exams where dose is matched to clinical indication); or iterative reconstruction. COMPARISON: 1. CT Head without contrast 06/08/2020 9:46 AM 2. WI MRI-Brain W/O FOLL BY WITH 06/14/2020 12:26:55 PM 3. MRI-Brain without Contrast 06/08/2020 6:53:[address] Head without contrast 05/17/2020 3:58:[address] Head without contrast 02/16/2020 7:20:32 PM FINDINGS: Brain: The size of the intra-axial hemorrhage in the left frontal lobe seen in the CT head on 02/16/2020 has significantly decreased in size, and there is encephalomalacia in the region of the previously noted hemorrhage in the left frontal lobe lined by few residual blood products, and this appearance is stable compared to the prior CT head on 06/08/2020. No new hemorrhage is noted. There is no mass effect, midline shift, or herniation. Cerebral ventricles: The ventricles are moderately to severely dilated in proportion to the sulci, which is compatible with moderate to severe generalized cerebral volume loss that is similar in appearance compared to the prior CT heads on 06/08/2020 and 05/17/2020. Bones/joints: The skull is intact. No suspicious osteolytic or osteoblastic lesion. Paranasal sinuses: There is mild mucosal thickening in the right maxillary sinus. No air-fluid levels are noted in the sinuses. Mastoid air cells: Clear. Auditory system: There are soft tissues opacities in the external auditory canals, which likely represent cerumen. The middle ear spaces are clear. Orbital cavity: The globes and orbits are intact and normal in appearance. Vasculature: There are atherosclerotic calcifications of the intracranial portion of the internal carotid arteries. Soft tissues: Unremarkable. No soft tissue fluid collection. IMPRESSION: Significant decrease in the size of the intra-axial hemorrhage in the left frontal lobe seen in the CT head on 02/16/2020, and there is encephalomalacia in the region of the previously noted hemorrhage in the left frontal lobe lined by few residual blood products, and this appearance is stable compared to the prior CT head on 06/08/2020. No new hemorrhage, mass effect, midline shift, or herniation. Electronically signed by: Dereck Carcamo On 06/18/2020 03:25:48 AM
[2020-06-18 05:15] VITALS: BP 178/76
[2020-06-18 06:38] LABS: BASO % 0.2 % (0.0-1.0); EOS # 0.1 10^3/uL (0.0-0.5); EOS % 1.9 % (0.0-3.0); HEMATOCRIT 33.3 % (42.0-52.0); HEMOGLOBIN 11.2 g/dl (13.5-17.5); LYMPH # 2.2 10^3/uL (1.5-5.0); LYMPH % 38.1 % (24.0-44.0); MEAN CORPUSCULAR HEMOGLOBIN 32.6 pg (27.0-33.0); MEAN CORPUSCULAR HGB CONC 33.6 g/dl (32.0-36.5); MEAN CORPUSCULAR VOLUME 96.8 fl (80.0-96.0); MONO # 0.9 10^3/uL (0.0-0.8); MONO % 14.5 % (2.0-8.0); NEUTROPHILS # 2.7 10^3/uL (1.5-8.5); PLATELET COUNT, AUTOMATED 100 10^3/uL (150-450); RED BLOOD COUNT 3.44 10^6/uL (4.30-6.10); WHITE BLOOD COUNT 5.9 10^3/uL (4.0-10.0)
[2020-06-18 07:03] LABS: ALBUMIN 2.4 GM/DL (3.2-5.2); ALT/SGPT 7 U/L (12-78); BILIRUBIN,TOTAL 0.5 MG/DL (0.2-1.0); BLOOD UREA NITROGEN 15 MG/DL (7-18); CALCIUM LEVEL 8.4 MG/DL (8.8-10.2); CARBON DIOXIDE LEVEL 31 MEQ/L (21-32); CHLORIDE LEVEL 109 MEQ/L (98-107); CREATININE FOR GFR 0.96 MG/DL (0.70-1.30); GLOMERULAR FILTRATION RATE > 60.0 (>42); GLUCOSE, FASTING 161 MG/DL (70-100); POTASSIUM SERUM 3.2 MEQ/L (3.5-5.1); SODIUM LEVEL 142 MEQ/L (136-145); TOTAL PROTEIN 5.8 GM/DL (6.4-8.2)
[2020-06-18] MEDS: IPRATROPIUM 0.5MG/ALBUTEROL 2.5MG INH SOL UD 3ML (DUONEB) NEB SCH ×3 (07:21→19:52)
[2020-06-18] MEDS: HumaLOG INSULIN (NovoLOG) PER UNIT SC SCH ×4 (07:30→22:11)
[2020-06-18] MEDS ORDERED: SPIRONOLACTONE 25 MG TAB PO SCH (09:00)
[2020-06-18] MEDS ORDERED: POTASSIUM CHLORIDE 10 MEQ SR TABLET PO SCH (09:00)
[2020-06-18] MEDS ORDERED: ATORVASTATIN 20 MG TAB PO SCH (09:00)
[2020-06-18 09:44] VITALS: BP 123/64
[2020-06-18] MEDS: FLUoxetine 20 MG CAP PO SCH (09:45)
[2020-06-18] MEDS: DOCUSATE SODIUM 100MG CAPSULE PO SCH ×2 (09:45→22:11)
[2020-06-18] MEDS: allopurinoL 100 MG TAB PO SCH (09:46)
[2020-06-18] MEDS: PANTOPRAZOLE 40MG TAB (PROTONIX) PO SCH (09:46)
[2020-06-18] MEDS: amLODIPine 5 MG TAB PO SCH (09:46)
[2020-06-18] MEDS: QUEtiapine FUMARATE 12.5 MG HALF-TAB PO SCH ×2 (09:46→22:10)
[2020-06-18] MEDS: CARVedilol 12.5 MG TAB PO SCH ×2 (09:46→22:10)
[2020-06-18] MEDS: DIVALPROEX SPRINKLE 125 MG CAP PO SCH ×2 (09:46→22:13)
[2020-06-18] MEDS: REMEDY PHYTOPLEX Z-GUARD PASTE 113GM TUBE (FROM STOREROOM PRODUCT) TOP SCH ×3 (09:47→22:12)
[2020-06-18 14:00] VITALS: BP 152/73
[2020-06-18] MEDS ORDERED: POTASSIUM CHLORIDE 10 MEQ SR TABLET PO ONE (14:45)
[2020-06-18 20:00] VITALS: BP 153/72
[2020-06-18] MEDS: ATORVASTATIN 20 MG TAB PO SCH (22:11)
[2020-06-18] MEDS: SENNA 8.6 MG TAB (SENOKOT) PO SCH (22:11)
[2020-06-19 05:15] VITALS: BP 140/60
[2020-06-19] MEDS: IPRATROPIUM 0.5MG/ALBUTEROL 2.5MG INH SOL UD 3ML (DUONEB) NEB SCH ×3 (07:35→20:00)
[2020-06-19 07:52] LABS: BLOOD UREA NITROGEN 18 MG/DL (7-18); CALCIUM LEVEL 8.7 MG/DL (8.8-10.2); CARBON DIOXIDE LEVEL 31 MEQ/L (21-32); CHLORIDE LEVEL 108 MEQ/L (98-107); CREATININE FOR GFR 0.95 MG/DL (0.70-1.30); GLOMERULAR FILTRATION RATE > 60.0 (>42); GLUCOSE, FASTING 143 MG/DL (70-100); POTASSIUM SERUM 3.6 MEQ/L (3.5-5.1); SODIUM LEVEL 144 MEQ/L (136-145)
[2020-06-19] MEDS: QUEtiapine FUMARATE 12.5 MG HALF-TAB PO SCH ×2 (09:29→21:22)
[2020-06-19] MEDS: PANTOPRAZOLE 40MG TAB (PROTONIX) PO SCH (09:30)
[2020-06-19] MEDS: FLUoxetine 20 MG CAP PO SCH (09:30)
[2020-06-19] MEDS: POTASSIUM CHLORIDE 10 MEQ SR TABLET PO SCH (09:30)
[2020-06-19] MEDS: DIVALPROEX SPRINKLE 125 MG CAP PO SCH ×2 (09:30→21:24)
[2020-06-19] MEDS: allopurinoL 100 MG TAB PO SCH (09:30)
[2020-06-19] MEDS: amLODIPine 5 MG TAB PO SCH (09:30)
[2020-06-19] MEDS: CARVedilol 12.5 MG TAB PO SCH ×2 (09:30→21:22)
[2020-06-19] MEDS: DOCUSATE SODIUM 100MG CAPSULE PO SCH ×2 (09:30→21:00)
[2020-06-19] MEDS: HumaLOG INSULIN (NovoLOG) PER UNIT SC SCH ×4 (09:31→21:00)
[2020-06-19] MEDS: REMEDY PHYTOPLEX Z-GUARD PASTE 113GM TUBE (FROM STOREROOM PRODUCT) TOP SCH ×3 (09:31→21:21)
[2020-06-19 14:00] VITALS: BP 130/68
[2020-06-19 20:10] VITALS: BP 142/63
[2020-06-19] MEDS ORDERED: RAMELTEON 8 MG TAB (ROZEREM) PO PRN (20:15)
[2020-06-19] MEDS: SENNA 8.6 MG TAB (SENOKOT) PO SCH (21:00)
[2020-06-19] MEDS: ATORVASTATIN 20 MG TAB PO SCH (21:23)
[2020-06-20 05:58] VITALS: BP 143/75
[2020-06-20] MEDS: IPRATROPIUM 0.5MG/ALBUTEROL 2.5MG INH SOL UD 3ML (DUONEB) NEB SCH ×3 (07:22→20:37)
[2020-06-20] MEDS ORDERED: QUEtiapine FUMARATE 12.5 MG HALF-TAB PO PRN ×2 (09:00→13:45)
[2020-06-20] MEDS: PANTOPRAZOLE 40MG TAB (PROTONIX) PO SCH (09:03)
[2020-06-20] MEDS: CARVedilol 12.5 MG TAB PO SCH ×2 (09:03→20:41)
[2020-06-20] MEDS: FLUoxetine 20 MG CAP PO SCH (09:03)
[2020-06-20] MEDS: amLODIPine 5 MG TAB PO SCH (09:03)
[2020-06-20] MEDS: DIVALPROEX SPRINKLE 125 MG CAP PO SCH ×2 (09:04→20:39)
[2020-06-20] MEDS: DOCUSATE SODIUM 100MG CAPSULE PO SCH ×2 (09:04→20:40)
[2020-06-20] MEDS: allopurinoL 100 MG TAB PO SCH (09:04)
[2020-06-20] MEDS: POTASSIUM CHLORIDE 10 MEQ SR TABLET PO SCH (09:04)
[2020-06-20] MEDS: REMEDY PHYTOPLEX Z-GUARD PASTE 113GM TUBE (FROM STOREROOM PRODUCT) TOP SCH ×3 (09:05→20:45)
[2020-06-20] MEDS: HumaLOG INSULIN (NovoLOG) PER UNIT SC SCH ×4 (09:05→21:00)
[2020-06-20 12:53] LABS: BASO % 0.2 % (0.0-1.0); EOS # 0.1 10^3/uL (0.0-0.5); EOS % 2.6 % (0.0-3.0); HEMATOCRIT 36.3 % (42.0-52.0); HEMOGLOBIN 11.9 g/dl (13.5-17.5); LYMPH # 2.2 10^3/uL (1.5-5.0); LYMPH % 39.3 % (24.0-44.0); MEAN CORPUSCULAR HEMOGLOBIN 32.7 pg (27.0-33.0); MEAN CORPUSCULAR HGB CONC 32.8 g/dl (32.0-36.5); MEAN CORPUSCULAR VOLUME 99.7 fl (80.0-96.0); MONO # 0.6 10^3/uL (0.0-0.8); MONO % 10.9 % (2.0-8.0); NEUTROPHILS # 2.6 10^3/uL (1.5-8.5); NEUTROPHILS % 46.6 % (36.0-66.0); PLATELET COUNT, AUTOMATED 128 10^3/uL (150-450); RED BLOOD COUNT 3.64 10^6/uL (4.30-6.10); WHITE BLOOD COUNT 5.5 10^3/uL (4.0-10.0)
[2020-06-20 13:11] LABS: BLOOD UREA NITROGEN 20 MG/DL (7-18); CALCIUM LEVEL 8.9 MG/DL (8.8-10.2); CARBON DIOXIDE LEVEL 31 MEQ/L (21-32); CHLORIDE LEVEL 107 MEQ/L (98-107); CREATININE FOR GFR 1.13 MG/DL (0.70-1.30); GLOMERULAR FILTRATION RATE > 60.0 (>42); GLUCOSE, FASTING 208 MG/DL (70-100); POTASSIUM SERUM 4.1 MEQ/L (3.5-5.1); SODIUM LEVEL 142 MEQ/L (136-145)
--- NOTE | 2020-06-20 13:45 | IPNPDOC ---
PM&R Progress Note DATE OF SERVICE: Jun 20, 2020 Brake Tester Progress Note Subjective: Patient seen in his room, stating he did not want to be transferred from chair to bed, appeared agitated and was assisted back to bed for safety. REVIEW OF SYSTEMS: The following is a completed review of systems and has been reviewed. Review of systems otherwise unremarkable. PAIN: Patient self reports no pain EYES: No recent vision changes EARS, NOSE, & THROAT: No throat pain, or dysphagia, or rhinorrhea CARDIOVASCULAR: Denies chest pain or palpitations PULMONARY: Denies shortness of breath GASTROINTESTINAL: Denies constipation/diarrhea GENITOURINARY: denies dysuria MUSCULOSKELETAL: generalized weakness NEUROLOGICAL: +aphasia and apraxia HEMATOLOGICAL: denies easy bruising SKIN: denies rash PSYCHIATRIC: +confused All other review of systems found to be negative. PHYSICAL EXAMINATION: VITAL SIGNS: Please see below. GENERAL: No acute distress. HEENT: PERRL. Extraocular movements intact. Clear conjunctiva CARDIOVASCULAR: Regular rate and rhythm. No murmurs, rubs, or gallops LUNGS: Clear to auscultation bilaterally. No wheezes. No rhonchi ABDOMEN: Soft, nontender, nondistended. Positive bowel sounds. Normal active bowel sounds NEUROLOGICAL: Alert and oriented to self Cranial nerves II through XII grossly intact. Sensation grossly intact +apraxic, +aphasic EXTREMITIES: 5\5 strength bilateral upper extremities. 5\5 strength right lower extremity. 5/5 strength in left lower extremity. SKIN: no sacral ulcers ASSESSMENT:69-year-old M with past medical history of CKD, afib, left frontal stroke admitted to ARU and discharged to [facility] Neuro[facility]ICU for left frontal hematoma on 06-14-20 admitted back to ARU for continued management PLAN: 1. Rehab- PT/OT advance gait and mobility, strengthen/stretch/maintain ROM all 4limbs-patient having difficulty initiating movements -MERCHANDISER RETAIL REPRESENTATIVE for cog and swallow eval 2. Neuro- cerebral amyloid angiopathy with hemorrhagic left frontal lobe- c/u statin -dementia- patient presenting with apraxia likely due to frontal infarct - c/u on antidepressant for possible pseudodementia -seizure prophylaxis c/u Depakote -seroquel 12.5 mg BID -Ativan prn agitation/seizure -patient had unwitnessed fall 06-18-20, CTH negative, no new deficits noted on exam 3. CArdiac- Afib c/u coreg and eliquis -chronic diastolic CHF- daily weights, fluid restrict -HTN- c/u amlodipine 4. Resp- monitor for infection, Duonebs, hx of COPD and LUISITO not compliant with CPAP 5. Endo- hx of DM c/u insulin coverage 6. renal- hx of CKD monitor for GAURI 7. GI ppx- protonix 8. DVT ppx- teds 9. Pain- tylenol prn 10. Hypokalemia- c/u potassium supplements and monitor 11. Dispo- tbd Allergies Coded Allergies: No Known Allergies (Unverified , 03/31/19) Vital Signs Vital Signs Date Time Temp Pulse Resp B/P (MAP) Pulse Ox O2 Delivery O2 Flow Rate FiO2 06/20/20 09:03 69 145/75 06/20/20 05:58 97.5 18 96 Room Air Laboratory Data CBC/BMP Laboratory Tests 06/20/20 12:06 Labs 24H Laboratory Tests 2 06/19/20 16:29: Bedside Glucose (Misc Panel) 147H 06/19/20 20:31: Bedside Glucose (Misc Panel) 130H 06/20/20 06:37: Bedside Glucose (Misc Panel) 131H 06/20/20 11:56: Bedside Glucose (Misc Panel) 260H 06/20/20 12:06: Immature Granulocyte % (Auto) 0.4, Neutrophils (%) (Auto) 46.6, Lymphocytes (%) (Auto) 39.3, Monocytes (%) (Auto) 10.9H, Eosinophils (%) (Auto) 2.6, Basophils (%) (Auto) 0.2, Neutrophils # (Auto) 2.6, Lymphocytes # (Auto) 2.2, Monocytes # (Auto) 0.6, Eosinophils # (Auto) 0.1, Basophils # (Auto) 0.0, Nucleated Red Blood Cells % (auto) 0.0, Anion Gap 4L, Glomerular Filtration Rate > 60.0, Calcium Level 8.9 Current Medications Current Medications Current Medications Medications (Trade) Dose Ordered Sig/Cinthia Route PRN Reason Start Time Stop Time Status Last Admin Dose Admin Acetaminophen (Tylenol Tab) 650 mg Q4HP PRN PO fever/MILD PAIN (PS 1-4) 06/17/20 12:50 Albuterol/ Ipratropium (Duoneb (Ipr 0.5mg/Alb 2.5mg)) 3 ml RTID NEB 06/17/20 14:00 06/20/20 13:21 Allopurinol (Zyloprim) 100 mg DAILY PO 06/18/20 09:00 06/20/20 09:04 Amlodipine Besylate (Norvasc) 5 mg DAILY PO 06/18/20 09:00 06/20/20 09:03 Atorvastatin Calcium (Lipitor) 80 mg DAILY PO 06/18/20 09:00 06/17/20 14:57 DC Atorvastatin Calcium (Lipitor) 80 mg QHS PO 06/17/20 21:00 06/19/20 21:23 Bisacodyl (Dulcolax Suppository) 10 mg DAILYPRN PRN NE CONSTIPATION 06/17/20 12:50 Carvedilol (COReg) 12.5 mg BID PO 06/17/20 21:00 06/20/20 09:03 Dextrose (Dextrose 50%) 25 ml ASDIRECTED PRN IV SEE LABEL COMMENTS 06/17/20 12:50 Divalproex Sodium (Depakote Sprinkles) 750 mg BID PO 06/18/20 09:00 06/20/20 09:04 Docusate Sodium (Colace) 100 mg BID PO 06/17/20 21:00 06/20/20 09:04 Fluoxetine HCl (PROzac) 20 mg DAILY PO 06/18/20 09:00 06/20/20 09:03 Glucagon (Glucagon) 1 mg ASDIRECTED PRN SC SEE LABEL COMMENTS 06/17/20 12:50 Glucose (Glucose) 16 GM ASDIRECTED PRN PO SEE LABEL COMMENTS 06/17/20 12:50 Home Med (Med Rec Complete!) ASDIRECTED XX 06/17/20 13:45 06/17/20 14:29 DC Insulin Human Lispro (HumaLOG INSULIN) SEE PROTOCOL TABLE AC SC 06/17/20 17:30 06/20/20 12:51 Insulin Human Lispro (HumaLOG INSULIN) SEE PROTOCOL TABLE QHS SC 06/17/20 21:00 Lorazepam (Ativan) 0.5 mg Q6HP PRN PO agitation 06/17/20 12:50 06/17/20 13:28 DC Lorazepam (Ativan) 2 mg Q6HP PRN IM seizure 06/17/20 13:30 Pantoprazole Sodium (Protonix) 40 mg DAILY PO 06/18/20 09:00 06/20/20 09:03 Potassium Chloride (Micro-K Extencaps) 20 meq DAILY PO 06/18/20 09:00 06/18/20 14:43 DC 06/18/20 09:46 Potassium Chloride (Micro-K Extencaps) 40 meq DAILY PO 06/19/20 09:00 06/20/20 09:04 Quetiapine Fumarate (SEROquel) 12.5 mg BID PO 06/17/20 21:00 06/20/20 07:30 DC 06/19/20 21:22 Quetiapine Fumarate (SEROquel) 12.5 mg BID PRN PO agitation 06/20/20 09:00 Ramelteon (Rozerem) 8 mg QHS PRN PO INSOMNIA 06/19/20 20:15 06/19/20 21:22 Senna (Senokot) 1 tab QHS PO 06/17/20 21:00 Spironolactone (Aldactone) 25 mg QAM PO 06/18/20 09:00 06/17/20 13:15 DC Valproic Acid (Depakene) 750 mg BID PO 06/17/20 21:00 06/18/20 01:56 LINDA ROMANO MD Jun 20, 2020 13:45
[2020-06-20 14:00] VITALS: BP 158/75
[2020-06-20 20:10] VITALS: BP 151/84
[2020-06-20] MEDS: SENNA 8.6 MG TAB (SENOKOT) PO SCH (20:40)
[2020-06-20] MEDS: ATORVASTATIN 20 MG TAB PO SCH (20:40)
[2020-06-21 06:21] VITALS: BP 156/76
[2020-06-21] MEDS: HumaLOG INSULIN (NovoLOG) PER UNIT SC SCH ×4 (06:58→21:00)
[2020-06-21] MEDS: IPRATROPIUM 0.5MG/ALBUTEROL 2.5MG INH SOL UD 3ML (DUONEB) NEB SCH ×3 (07:32→19:47)
[2020-06-21] MEDS: DOCUSATE SODIUM 100MG CAPSULE PO SCH ×2 (09:00→12:42)
[2020-06-21] MEDS: PANTOPRAZOLE 40MG TAB (PROTONIX) PO SCH ×2 (09:00→12:43)
[2020-06-21] MEDS: REMEDY PHYTOPLEX Z-GUARD PASTE 113GM TUBE (FROM STOREROOM PRODUCT) TOP SCH ×3 (09:00→21:09)
[2020-06-21] MEDS: POTASSIUM CHLORIDE 10 MEQ SR TABLET PO SCH ×2 (09:00→12:44)
[2020-06-21] MEDS: DIVALPROEX SPRINKLE 125 MG CAP PO SCH ×2 (12:43→20:46)
[2020-06-21] MEDS: allopurinoL 100 MG TAB PO SCH (12:44)
[2020-06-21] MEDS: FLUoxetine 20 MG CAP PO SCH (12:44)
[2020-06-21] MEDS: QUEtiapine FUMARATE 12.5 MG HALF-TAB PO SCH ×2 (12:44→20:47)
[2020-06-21] MEDS: amLODIPine 5 MG TAB PO SCH (12:45)
[2020-06-21] MEDS: CARVedilol 12.5 MG TAB PO SCH ×2 (12:45→20:40)
[2020-06-21 14:00] VITALS: BP 133/78
[2020-06-21 20:00] VITALS: BP 172/76
[2020-06-21] MEDS: RAMELTEON 8 MG TAB (ROZEREM) PO SCH (20:47)
[2020-06-21] MEDS: ATORVASTATIN 20 MG TAB PO SCH (21:08)
[2020-06-22 04:27] VITALS: BP 148/68
[2020-06-22] MEDS: IPRATROPIUM 0.5MG/ALBUTEROL 2.5MG INH SOL UD 3ML (DUONEB) NEB SCH ×3 (08:10→19:31)
[2020-06-22 09:31] VITALS: BP 127/66
[2020-06-22] MEDS: POTASSIUM CHLORIDE 10 MEQ SR TABLET PO SCH (09:33)
[2020-06-22] MEDS: QUEtiapine FUMARATE 12.5 MG HALF-TAB PO SCH ×2 (09:33→20:53)
[2020-06-22] MEDS: FLUoxetine 20 MG CAP PO SCH (09:33)
[2020-06-22] MEDS: CARVedilol 12.5 MG TAB PO SCH ×2 (09:33→20:55)
[2020-06-22] MEDS: DIVALPROEX SPRINKLE 125 MG CAP PO SCH ×2 (09:33→21:07)
[2020-06-22] MEDS: amLODIPine 5 MG TAB PO SCH (09:34)
[2020-06-22] MEDS: HumaLOG INSULIN (NovoLOG) PER UNIT SC SCH ×5 (09:37→21:07)
[2020-06-22] MEDS: REMEDY PHYTOPLEX Z-GUARD PASTE 113GM TUBE (FROM STOREROOM PRODUCT) TOP SCH ×3 (09:38→20:56)
[2020-06-22 11:43] LABS: BASO % 0.2 % (0.0-1.0); EOS # 0.1 10^3/uL (0.0-0.5); HEMATOCRIT 33.9 % (42.0-52.0); HEMOGLOBIN 11.3 g/dl (13.5-17.5); LYMPH # 1.9 10^3/uL (1.5-5.0); MEAN CORPUSCULAR HEMOGLOBIN 32.4 pg (27.0-33.0); MEAN CORPUSCULAR HGB CONC 33.3 g/dl (32.0-36.5); MEAN CORPUSCULAR VOLUME 97.1 fl (80.0-96.0); MONO # 0.6 10^3/uL (0.0-0.8); MONO % 11.2 % (2.0-8.0); NEUTROPHILS # 2.4 10^3/uL (1.5-8.5); NEUTROPHILS % 48.4 % (36.0-66.0); PLATELET COUNT, AUTOMATED 124 10^3/uL (150-450); RED BLOOD COUNT 3.49 10^6/uL (4.30-6.10)
--- NOTE | 2020-06-22 12:45 | IPNPDOC ---
PM&R Progress Note DATE OF SERVICE: Jun 21, 2020 Cook Room Supervisor Progress Note Subjective: Patient seen in his room eating ice cream, has no complaints. REVIEW OF SYSTEMS: The following is a completed review of systems and has been reviewed. Review of systems otherwise unremarkable. PAIN: Patient self reports no pain EYES: No recent vision changes EARS, NOSE, & THROAT: No throat pain, or dysphagia, or rhinorrhea CARDIOVASCULAR: Denies chest pain or palpitations PULMONARY: Denies shortness of breath GASTROINTESTINAL: Denies constipation/diarrhea GENITOURINARY: denies dysuria MUSCULOSKELETAL: generalized weakness NEUROLOGICAL: +aphasia and apraxia HEMATOLOGICAL: denies easy bruising SKIN: denies rash PSYCHIATRIC: +confused All other review of systems found to be negative. PHYSICAL EXAMINATION: VITAL SIGNS: Please see below. GENERAL: No acute distress. HEENT: PERRL. Extraocular movements intact. Clear conjunctiva CARDIOVASCULAR: Regular rate and rhythm. No murmurs, rubs, or gallops LUNGS: Clear to auscultation bilaterally. No wheezes. No rhonchi ABDOMEN: Soft, nontender, nondistended. Positive bowel sounds. Normal active bowel sounds NEUROLOGICAL: Alert and oriented to self Cranial nerves II through XII grossly intact. Sensation grossly intact +apraxic, +aphasic EXTREMITIES: 5\5 strength bilateral upper extremities. 5\5 strength right lower extremity. 5/5 strength in left lower extremity. SKIN: no sacral ulcers ASSESSMENT:69-year-old M with past medical history of CKD, afib, left frontal stroke admitted to ARU and discharged to [facility] Neuro-ICU for left frontal hematoma on 06-14-20 admitted back to ARU for continued management PLAN: 1. Rehab- PT/OT advance gait and mobility, strengthen/stretch/maintain ROM all 4 limbs-patient having difficulty initiating movements -ADJUSTMENT CLERK for cog and swallow eval 2. 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 CArdiac- Afib c/u coreg -chronic diastolic CHF- daily weights, fluid restrict -HTN- c/u amlodipine 4. Resp- monitor for infection, Duonebs, hx of COPD and LUISITO not compliant with CPAP 5. Endo- hx of DM c/u insulin coverage 6. renal- hx of CKD monitor for GAURI 7. GI ppx- protonix 8. DVT ppx- teds 9. Pain- tylenol prn 10. Hypokalemia- c/u potassium supplements and monitor 11. Dispo- tbd Allergies Coded Allergies: No Known Allergies (Unverified , 03/31/19) Vital Signs Vital Signs Date Time Temp Pulse Resp B/P (MAP) Pulse Ox O2 Delivery O2 Flow Rate FiO2 06/22/20 09:34 73 127/66 06/22/20 04:27 97.6 18 98 Room Air Laboratory Data CBC/BMP Laboratory Tests 06/22/20 11:18 Labs 24H Laboratory Tests 2 06/21/20 16:44: Bedside Glucose (Misc Panel) 178H 06/21/20 21:01: Bedside Glucose (Misc Panel) 183H 06/22/20 06:16: Bedside Glucose (Misc Panel) 129H 06/22/20 11:18: Immature Granulocyte % (Auto) 0.2, Neutrophils (%) (Auto) 48.4, Lymphocytes (%) (Auto) 38.0, Monocytes (%) (Auto) 11.2H, Eosinophils (%) (Auto) 2.0, Basophils (%) (Auto) 0.2, Neutrophils # (Auto) 2.4, Lymphocytes # (Auto) 1.9, Monocytes # (Auto) 0.6, Eosinophils # (Auto) 0.1, Basophils # (Auto) 0.0, Nucleated Red Blood Cells % (auto) 0.0 06/22/20 11:29: Bedside Glucose (Misc Panel) 313H Current Medications Current Medications Current Medications Medications (Trade) Dose Ordered Sig/Cinthia Route PRN Reason Start Time Stop Time Status Last Admin Dose Admin Acetaminophen (Tylenol Tab) 650 mg Q4HP PRN PO fever/MILD PAIN (PS 1-4) 06/17/20 12:50 Albuterol/ Ipratropium (Duoneb (Ipr 0.5mg/Alb 2.5mg)) 3 ml RTID NEB 06/17/20 14:00 06/22/20 08:10 Allopurinol (Zyloprim) 100 mg DAILY PO 06/18/20 09:00 06/21/20 14:11 DC 06/21/20 12:44 Amlodipine Besylate (Norvasc) 5 mg DAILY PO 06/18/20 09:00 06/22/20 09:34 Atorvastatin Calcium (Lipitor) 80 mg DAILY PO 06/18/20 09:00 06/17/20 14:57 DC Atorvastatin Calcium (Lipitor) 80 mg QHS PO 06/17/20 21:00 06/21/20 21:08 Bisacodyl (Dulcolax Suppository) 10 mg DAILYPRN PRN [place] CONSTIPATION 06/17/20 12:50 Carvedilol (COReg) 12.5 mg BID PO 06/17/20 21:00 06/22/20 09:33 Dextrose (Dextrose 50%) 25 ml ASDIRECTED PRN IV SEE LABEL COMMENTS 06/17/20 12:50 Divalproex Sodium (Depakote Sprinkles) 750 mg BID PO 06/18/20 09:00 06/22/20 09:33 Docusate Sodium (Colace) 100 mg BID PO 06/17/20 21:00 06/21/20 14:11 DC 06/20/20 20:40 Fluoxetine HCl (PROzac) 20 mg DAILY PO 06/18/20 09:00 06/22/20 09:33 Glucagon (Glucagon) 1 mg ASDIRECTED PRN SC SEE LABEL COMMENTS 06/17/20 12:50 Glucose (Glucose) 16 GM ASDIRECTED PRN PO SEE LABEL COMMENTS 06/17/20 12:50 Home Med (Med Rec Complete!) ASDIRECTED XX 06/17/20 13:45 06/17/20 14:29 DC Insulin Human Lispro (HumaLOG INSULIN) SEE PROTOCOL TABLE AC SC 06/17/20 17:30 06/22/20 12:13 Insulin Human Lispro (HumaLOG INSULIN) SEE PROTOCOL TABLE QHS SC 06/17/20 21:00 Lorazepam (Ativan) 0.5 mg Q6HP PRN PO agitation 06/17/20 12:50 06/17/20 13:28 DC Lorazepam (Ativan) 2 mg Q6HP PRN IM seizure 06/17/20 13:30 Pantoprazole Sodium (Protonix) 40 mg DAILY PO 06/18/20 09:00 06/21/20 14:11 DC 06/20/20 09:03 Potassium Chloride (Micro-K Extencaps) 20 meq DAILY PO 06/18/20 09:00 06/18/20 14:43 DC 06/18/20 09:46 Potassium Chloride (Micro-K Extencaps) 40 meq DAILY PO 06/19/20 09:00 06/22/20 09:33 Quetiapine Fumarate (SEROquel) 12.5 mg BID PO 06/21/20 09:00 06/22/20 09:33 Quetiapine Fumarate (SEROquel) 12.5 mg BID PO 06/17/20 21:00 06/20/20 07:30 DC 06/19/20 21:22 Quetiapine Fumarate (SEROquel) 12.5 mg BID PRN PO agitation 06/20/20 09:00 06/20/20 13:45 DC Quetiapine Fumarate (SEROquel) 12.5 mg TID PRN PO agitation 06/20/20 13:45 06/21/20 10:23 DC 06/20/20 20:40 Ramelteon (Rozerem) 8 mg QHS PO 06/21/20 21:00 06/21/20 20:47 Ramelteon (Rozerem) 8 mg QHS PRN PO INSOMNIA 06/19/20 20:15 06/21/20 10:23 DC 06/19/20 21:22 Senna (Senokot) 1 tab QHS PO 06/17/20 21:00 06/21/20 14:11 DC 06/20/20 20:40 Spironolactone (Aldactone) 25 mg QAM PO 06/18/20 09:00 06/17/20 13:15 DC Valproic Acid (Depakene) 750 mg BID PO 06/17/20 21:00 06/18/20 01:56 LINDA ROMANO MD Jun 22, 2020 12:45
--- NOTE | 2020-06-22 12:52 | IPNPDOC ---
PM&R Progress Note DATE OF SERVICE: Jun 22, 2020 Machine Clipper Progress Note Subjective: Patient seen in his room, has no complaints, appearing calm. REVIEW OF SYSTEMS: The following is a completed review of systems and has been reviewed. Review of systems otherwise unremarkable. PAIN: Patient self reports no pain EYES: No recent vision changes EARS, NOSE, & THROAT: No throat pain, or dysphagia, or rhinorrhea CARDIOVASCULAR: Denies chest pain or palpitations PULMONARY: Denies shortness of breath GASTROINTESTINAL: Denies constipation/diarrhea GENITOURINARY: denies dysuria MUSCULOSKELETAL: generalized weakness NEUROLOGICAL: +aphasia and apraxia HEMATOLOGICAL: denies easy bruising SKIN: denies rash PSYCHIATRIC: +confused All other review of systems found to be negative. PHYSICAL EXAMINATION: VITAL SIGNS: Please see below. GENERAL: No acute distress. HEENT: PERRL. Extraocular movements intact. Clear conjunctiva CARDIOVASCULAR: Regular rate and rhythm. No murmurs, rubs, or gallops LUNGS: Clear to auscultation bilaterally. No wheezes. No rhonchi ABDOMEN: Soft, nontender, nondistended. Positive bowel sounds. Normal active bowel sounds NEUROLOGICAL: Alert and oriented to self Cranial nerves II through XII grossly intact. Sensation grossly intact +apraxic, +aphasic EXTREMITIES: 5\5 strength bilateral upper extremities. 5\5 strength right lower extremity. 5/5 strength in left lower extremity. SKIN: no sacral ulcers ASSESSMENT:69-year-old M with past medical history of CKD, afib, left frontal stroke admitted to ARU and discharged to [facility] Neuro-ICU for left frontal hematoma on 06-14-20 admitted back to ARU for continued management PLAN: 1. Rehab- PT/OT advance gait and mobility, strengthen/stretch/maintain ROM all 4 limbs-patient having difficulty initiating movements -DREDGE WORKER for cog and swallow eval 2. 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 CArdiac- Afib c/u coreg -chronic diastolic CHF- daily weights, fluid restrict -HTN- c/u amlodipine 4. Resp- monitor for infection, Duonebs, hx of COPD and LUISITO not compliant with CPAP 5. Endo- hx of DM c/u insulin coverage 6. renal- hx of CKD monitor for GAURI 7. GI ppx- protonix 8. DVT ppx- teds 9. Pain- tylenol prn 10. Hypokalemia- c/u potassium supplements and monitor 11. Dispo- tbd Allergies Coded Allergies: No Known Allergies (Unverified , 03/31/19) Vital Signs Vital Signs Date Time Temp Pulse Resp B/P (MAP) Pulse Ox O2 Delivery O2 Flow Rate FiO2 06/22/20 09:34 73 127/66 06/22/20 04:27 97.6 18 98 Room Air Laboratory Data CBC/BMP Laboratory Tests 06/22/20 11:18 Labs 24H Laboratory Tests 2 06/21/20 16:44: Bedside Glucose (Misc Panel) 178H 06/21/20 21:01: Bedside Glucose (Misc Panel) 183H 06/22/20 06:16: Bedside Glucose (Misc Panel) 129H 06/22/20 11:18: Immature Granulocyte % (Auto) 0.2, Neutrophils (%) (Auto) 48.4, Lymphocytes (%) (Auto) 38.0, Monocytes (%) (Auto) 11.2H, Eosinophils (%) (Auto) 2.0, Basophils (%) (Auto) 0.2, Neutrophils # (Auto) 2.4, Lymphocytes # (Auto) 1.9, Monocytes # (Auto) 0.6, Eosinophils # (Auto) 0.1, Basophils # (Auto) 0.0, Nucleated Red Blood Cells % (auto) 0.0 06/22/20 11:29: Bedside Glucose (Misc Panel) 313H Current Medications Current Medications Current Medications Medications (Trade) Dose Ordered Sig/Cinthia Route PRN Reason Start Time Stop Time Status Last Admin Dose Admin Acetaminophen (Tylenol Tab) 650 mg Q4HP PRN PO fever/MILD PAIN (PS 1-4) 06/17/20 12:50 Albuterol/ Ipratropium (Duoneb (Ipr 0.5mg/Alb 2.5mg)) 3 ml RTID NEB 06/17/20 14:00 06/22/20 08:10 Allopurinol (Zyloprim) 100 mg DAILY PO 06/18/20 09:00 06/21/20 14:11 DC 06/21/20 12:44 Amlodipine Besylate (Norvasc) 5 mg DAILY PO 06/18/20 09:00 06/22/20 09:34 Atorvastatin Calcium (Lipitor) 80 mg DAILY PO 06/18/20 09:00 06/17/20 14:57 DC Atorvastatin Calcium (Lipitor) 80 mg QHS PO 06/17/20 21:00 06/21/20 21:08 Bisacodyl (Dulcolax Suppository) 10 mg DAILYPRN PRN [place] CONSTIPATION 06/17/20 12:50 Carvedilol (COReg) 12.5 mg BID PO 06/17/20 21:00 06/22/20 09:33 Dextrose (Dextrose 50%) 25 ml ASDIRECTED PRN IV SEE LABEL COMMENTS 06/17/20 12:50 Divalproex Sodium (Depakote Sprinkles) 750 mg BID PO 06/18/20 09:00 06/22/20 09:33 Docusate Sodium (Colace) 100 mg BID PO 06/17/20 21:00 06/21/20 14:11 DC 06/20/20 20:40 Fluoxetine HCl (PROzac) 20 mg DAILY PO 06/18/20 09:00 06/22/20 09:33 Glucagon (Glucagon) 1 mg ASDIRECTED PRN SC SEE LABEL COMMENTS 06/17/20 12:50 Glucose (Glucose) 16 GM ASDIRECTED PRN PO SEE LABEL COMMENTS 06/17/20 12:50 Home Med (Med Rec Complete!) ASDIRECTED XX 06/17/20 13:45 06/17/20 14:29 DC Insulin Human Lispro (HumaLOG INSULIN) SEE PROTOCOL TABLE AC SC 06/17/20 17:30 06/22/20 12:13 Insulin Human Lispro (HumaLOG INSULIN) SEE PROTOCOL TABLE QHS SC 06/17/20 21:00 Lorazepam (Ativan) 0.5 mg Q6HP PRN PO agitation 06/17/20 12:50 06/17/20 13:28 DC Lorazepam (Ativan) 2 mg Q6HP PRN IM seizure 06/17/20 13:30 Metformin HCl (Glucophage) 500 mg DAILY@18 PO 06/22/20 18:00 Pantoprazole Sodium (Protonix) 40 mg DAILY PO 06/18/20 09:00 06/21/20 14:11 DC 06/20/20 09:03 Potassium Chloride (Micro-K Extencaps) 20 meq DAILY PO 06/18/20 09:00 06/18/20 14:43 DC 06/18/20 09:46 Potassium Chloride (Micro-K Extencaps) 40 meq DAILY PO 06/19/20 09:00 06/22/20 09:33 Quetiapine Fumarate (SEROquel) 12.5 mg BID PO 06/21/20 09:00 06/22/20 09:33 Quetiapine Fumarate (SEROquel) 12.5 mg BID PO 06/17/20 21:00 06/20/20 07:30 DC 06/19/20 21:22 Quetiapine Fumarate (SEROquel) 12.5 mg BID PRN PO agitation 06/20/20 09:00 06/20/20 13:45 DC Quetiapine Fumarate (SEROquel) 12.5 mg TID PRN PO agitation 06/20/20 13:45 06/21/20 10:23 DC 06/20/20 20:40 Ramelteon (Rozerem) 8 mg QHS PO 06/21/20 21:00 06/21/20 20:47 Ramelteon (Rozerem) 8 mg QHS PRN PO INSOMNIA 06/19/20 20:15 06/21/20 10:23 DC 06/19/20 21:22 Senna (Senokot) 1 tab QHS PO 06/17/20 21:00 06/21/20 14:11 DC 06/20/20 20:40 Spironolactone (Aldactone) 25 mg QAM PO 06/18/20 09:00 06/17/20 13:15 DC Valproic Acid (Depakene) 750 mg BID PO 06/17/20 21:00 06/18/20 01:56 LINDA ROMANO MD Jun 22, 2020 12:52
[2020-06-22 13:00] LABS: BLOOD UREA NITROGEN 16 MG/DL (7-18); CALCIUM LEVEL 8.6 MG/DL (8.8-10.2); CARBON DIOXIDE LEVEL 32 MEQ/L (21-32); CHLORIDE LEVEL 104 MEQ/L (98-107); CREATININE FOR GFR 1.09 MG/DL (0.70-1.30); GLOMERULAR FILTRATION RATE > 60.0 (>42); GLUCOSE, FASTING 313 MG/DL (70-100); POTASSIUM SERUM 3.8 MEQ/L (3.5-5.1); SODIUM LEVEL 140 MEQ/L (136-145)
[2020-06-22 14:00] VITALS: BP 131/66
[2020-06-22] MEDS: metFORMIN (GLUCOPHAGE) 500MG TAB PO SCH (17:15)
[2020-06-22 20:00] VITALS: BP 162/72
[2020-06-22] MEDS: ATORVASTATIN 20 MG TAB PO SCH (20:53)
[2020-06-22] MEDS: RAMELTEON 8 MG TAB (ROZEREM) PO SCH (20:53)
[2020-06-23 05:23] VITALS: BP 152/70
[2020-06-23] MEDS: IPRATROPIUM 0.5MG/ALBUTEROL 2.5MG INH SOL UD 3ML (DUONEB) NEB SCH ×3 (07:12→20:00)
[2020-06-23] MEDS: CARVedilol 12.5 MG TAB PO SCH ×2 (08:56→20:42)
[2020-06-23] MEDS: amLODIPine 5 MG TAB PO SCH (08:56)
[2020-06-23] MEDS: HumaLOG INSULIN (NovoLOG) PER UNIT SC SCH ×4 (08:56→20:43)
[2020-06-23] MEDS: DIVALPROEX SPRINKLE 125 MG CAP PO SCH ×2 (08:57→20:42)
[2020-06-23] MEDS: POTASSIUM CHLORIDE 10 MEQ SR TABLET PO SCH (08:57)
[2020-06-23] MEDS: QUEtiapine FUMARATE 12.5 MG HALF-TAB PO SCH ×2 (08:57→20:41)
[2020-06-23] MEDS: FLUoxetine 20 MG CAP PO SCH (08:57)
[2020-06-23] MEDS: REMEDY PHYTOPLEX Z-GUARD PASTE 113GM TUBE (FROM STOREROOM PRODUCT) TOP SCH ×3 (08:57→20:43)
--- NOTE | 2020-06-23 13:19 | IPNPDOC ---
PM&R Progress Note DATE OF SERVICE: Jun 23, 2020 Braddisher Progress Note Subjective: Patient seen in his room sleeping, but able to wake, states he has no pain, reports he is taking his medications. REVIEW OF SYSTEMS: The following is a completed review of systems and has been reviewed. Review of systems otherwise unremarkable. PAIN: Patient self reports no pain EYES: No recent vision changes EARS, NOSE, & THROAT: No throat pain, or dysphagia, or rhinorrhea CARDIOVASCULAR: Denies chest pain or palpitations PULMONARY: Denies shortness of breath GASTROINTESTINAL: Denies constipation/diarrhea GENITOURINARY: denies dysuria MUSCULOSKELETAL: generalized weakness NEUROLOGICAL: +aphasia and apraxia HEMATOLOGICAL: denies easy bruising SKIN: denies rash PSYCHIATRIC: +confused All other review of systems found to be negative. PHYSICAL EXAMINATION: VITAL SIGNS: Please see below. GENERAL: No acute distress. HEENT: PERRL. Extraocular movements intact. Clear conjunctiva CARDIOVASCULAR: Regular rate and rhythm. No murmurs, rubs, or gallops LUNGS: Clear to auscultation bilaterally. No wheezes. No rhonchi ABDOMEN: Soft, nontender, nondistended. Positive bowel sounds. Normal active bowel sounds NEUROLOGICAL: Alert and oriented to self Cranial nerves II through XII grossly intact. Sensation grossly intact +apraxic, +aphasic EXTREMITIES: 5\5 strength bilateral upper extremities. 5\5 strength right lower extremity. 5/5 strength in left lower extremity. SKIN: no sacral ulcers ASSESSMENT:69-year-old M with past medical history of CKD, afib, left frontal stroke admitted to ARU and discharged to [facility] Neuro-ICU for left frontal hematoma on 06-14-20 admitted back to ARU for continued management PLAN: 1. 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 CArdiac- Afib c/u coreg -chronic diastolic CHF- daily weights, fluid restrict -HTN- c/u amlodipine 4. Resp- monitor for infection, Duonebs, hx of COPD and LUISITO not compliant with CPAP 5. Endo- hx of DM c/u insulin coverage 6. renal- hx of CKD monitor for GAURI 7. GI ppx- protonix 8. DVT ppx- teds 9. Pain- tylenol prn 10. Hypokalemia- resolved, c/u potassium supplements and monitor 11. Dispo- tbd Allergies Coded Allergies: No Known Allergies (Unverified , 03/31/19) Vital Signs Vital Signs Date Time Temp Pulse Resp B/P (MAP) Pulse Ox O2 Delivery O2 Flow Rate FiO2 06/23/20 08:56 62 152/70 06/23/20 05:23 97.6 19 94 Room Air Laboratory Data Labs 24H Laboratory Tests 2 06/22/20 16:32: Bedside Glucose (Misc Panel) 112H 06/22/20 20:01: Bedside Glucose (Misc Panel) 210H 06/23/20 05:12: Bedside Glucose (Misc Panel) 128H 06/23/20 11:22: Bedside Glucose (Misc Panel) 237H Current Medications Current Medications Current Medications Medications (Trade) Dose Ordered Sig/Cinthia Route PRN Reason Start Time Stop Time Status Last Admin Dose Admin Acetaminophen (Tylenol Tab) 650 mg Q4HP PRN PO fever/MILD PAIN (PS 1-4) 06/17/20 12:50 Albuterol/ Ipratropium (Duoneb (Ipr 0.5mg/Alb 2.5mg)) 3 ml RTID NEB 06/17/20 14:00 06/23/20 13:05 Allopurinol (Zyloprim) 100 mg DAILY PO 06/18/20 09:00 06/21/20 14:11 DC 06/21/20 12:44 Amlodipine Besylate (Norvasc) 5 mg DAILY PO 06/18/20 09:00 06/23/20 08:56 Atorvastatin Calcium (Lipitor) 80 mg DAILY PO 06/18/20 09:00 06/17/20 14:57 DC Atorvastatin Calcium (Lipitor) 80 mg QHS PO 06/17/20 21:00 06/22/20 20:53 Bisacodyl (Dulcolax Suppository) 10 mg DAILYPRN PRN ID CONSTIPATION 06/17/20 12:50 Carvedilol (COReg) 12.5 mg BID PO 06/17/20 21:00 06/23/20 08:56 Dextrose (Dextrose 50%) 25 ml ASDIRECTED PRN IV SEE LABEL COMMENTS 06/17/20 12:50 Divalproex Sodium (Depakote Sprinkles) 750 mg BID PO 06/18/20 09:00 06/23/20 08:57 Docusate Sodium (Colace) 100 mg BID PO 06/17/20 21:00 06/21/20 14:11 DC 06/20/20 20:40 Fluoxetine HCl (PROzac) 20 mg DAILY PO 06/18/20 09:00 06/23/20 08:57 Glucagon (Glucagon) 1 mg ASDIRECTED PRN SC SEE LABEL COMMENTS 06/17/20 12:50 Glucose (Glucose) 16 GM ASDIRECTED PRN PO SEE LABEL COMMENTS 06/17/20 12:50 Home Med (Med Rec Complete!) ASDIRECTED XX 06/17/20 13:45 06/17/20 14:29 DC Insulin Human Lispro (HumaLOG INSULIN) SEE PROTOCOL TABLE AC SC 06/17/20 17:30 06/23/20 12:01 Insulin Human Lispro (HumaLOG INSULIN) SEE PROTOCOL TABLE QHS SC 06/17/20 21:00 Lorazepam (Ativan) 0.5 mg Q6HP PRN PO agitation 06/17/20 12:50 06/17/20 13:28 DC Lorazepam (Ativan) 2 mg Q6HP PRN IM seizure 06/17/20 13:30 Metformin HCl (Glucophage) 500 mg DAILY@18 PO 06/22/20 18:00 06/22/20 17:15 Pantoprazole Sodium (Protonix) 40 mg DAILY PO 06/18/20 09:00 06/21/20 14:11 DC 06/20/20 09:03 Potassium Chloride (Micro-K Extencaps) 20 meq DAILY PO 06/18/20 09:00 06/18/20 14:43 DC 06/18/20 09:46 Potassium Chloride (Micro-K Extencaps) 40 meq DAILY PO 06/19/20 09:00 06/23/20 08:57 Quetiapine Fumarate (SEROquel) 12.5 mg BID PO 06/21/20 09:00 06/23/20 08:57 Quetiapine Fumarate (SEROquel) 12.5 mg BID PO 06/17/20 21:00 06/20/20 07:30 DC 06/19/20 21:22 Quetiapine Fumarate (SEROquel) 12.5 mg BID PRN PO agitation 06/20/20 09:00 06/20/20 13:45 DC Quetiapine Fumarate (SEROquel) 12.5 mg TID PRN PO agitation 06/20/20 13:45 06/21/20 10:23 DC 06/20/20 20:40 Ramelteon (Rozerem) 8 mg QHS PO 06/21/20 21:00 06/22/20 20:53 Ramelteon (Rozerem) 8 mg QHS PRN PO INSOMNIA 06/19/20 20:15 06/21/20 10:23 DC 06/19/20 21:22 Senna (Senokot) 1 tab QHS PO 06/17/20 21:00 06/21/20 14:11 DC 06/20/20 20:40 Spironolactone (Aldactone) 25 mg QAM PO 06/18/20 09:00 06/17/20 13:15 DC Valproic Acid (Depakene) 750 mg BID PO 06/17/20 21:00 06/18/20 01:56 LINDA ROMANO MD Jun 23, 2020 13:19
[2020-06-23 14:00] VITALS: BP 155/67
[2020-06-23] MEDS: metFORMIN (GLUCOPHAGE) 500MG TAB PO SCH (17:16)
[2020-06-23 20:00] VITALS: BP 162/77
[2020-06-23] MEDS: ATORVASTATIN 20 MG TAB PO SCH (20:41)
[2020-06-23] MEDS: RAMELTEON 8 MG TAB (ROZEREM) PO SCH (20:41)
[2020-06-24 06:00] VITALS: BP 142/63
[2020-06-24] MEDS: IPRATROPIUM 0.5MG/ALBUTEROL 2.5MG INH SOL UD 3ML (DUONEB) NEB SCH ×3 (07:30→19:09)
[2020-06-24 08:14] LABS: BASO % 0.1 % (0.0-1.0); EOS # 0.1 10^3/uL (0.0-0.5); EOS % 1.8 % (0.0-3.0); HEMOGLOBIN 11.7 g/dl (13.5-17.5); LYMPH # 2.5 10^3/uL (1.5-5.0); MEAN CORPUSCULAR HEMOGLOBIN 32.5 pg (27.0-33.0); MEAN CORPUSCULAR HGB CONC 33.4 g/dl (32.0-36.5); MEAN CORPUSCULAR VOLUME 97.2 fl (80.0-96.0); MONO # 0.8 10^3/uL (0.0-0.8); NEUTROPHILS # 3.4 10^3/uL (1.5-8.5); NEUTROPHILS % 49.7 % (36.0-66.0); PLATELET COUNT, AUTOMATED 137 10^3/uL (150-450); WHITE BLOOD COUNT 6.8 10^3/uL (4.0-10.0)
[2020-06-24 08:30] VITALS: BP 144/65
[2020-06-24] MEDS: HumaLOG INSULIN (NovoLOG) PER UNIT SC SCH ×4 (08:33→20:17)
[2020-06-24] MEDS: DIVALPROEX SPRINKLE 125 MG CAP PO SCH ×2 (08:33→20:16)
[2020-06-24 08:34] LABS: BLOOD UREA NITROGEN 15 MG/DL (7-18); CALCIUM LEVEL 8.5 MG/DL (8.8-10.2); CARBON DIOXIDE LEVEL 32 MEQ/L (21-32); CHLORIDE LEVEL 106 MEQ/L (98-107); GLOMERULAR FILTRATION RATE > 60.0 (>42); GLUCOSE, FASTING 169 MG/DL (70-100); POTASSIUM SERUM 3.6 MEQ/L (3.5-5.1); SODIUM LEVEL 142 MEQ/L (136-145); VALPROIC ACID (DEPAKOTE) 91.9 UG/ML (50.0-100.0)
[2020-06-24] MEDS: amLODIPine 5 MG TAB PO SCH (08:34)
[2020-06-24] MEDS: FLUoxetine 20 MG CAP PO SCH (08:34)
[2020-06-24] MEDS: POTASSIUM CHLORIDE 10 MEQ SR TABLET PO SCH (08:34)
[2020-06-24] MEDS: CARVedilol 12.5 MG TAB PO SCH ×2 (08:34→20:17)
[2020-06-24] MEDS: REMEDY PHYTOPLEX Z-GUARD PASTE 113GM TUBE (FROM STOREROOM PRODUCT) TOP SCH ×3 (08:35→20:18)
[2020-06-24] MEDS ORDERED: QUEtiapine FUMARATE 12.5 MG HALF-TAB PO PRN (09:25)
[2020-06-24 14:00] VITALS: BP 130/80
[2020-06-24] MEDS: metFORMIN (GLUCOPHAGE) 500MG TAB PO SCH (17:42)
[2020-06-24 20:15] VITALS: BP 143/89
[2020-06-24] MEDS: QUEtiapine FUMARATE 12.5 MG HALF-TAB PO SCH (20:17)
[2020-06-24] MEDS: ATORVASTATIN 20 MG TAB PO SCH (20:17)
[2020-06-24] MEDS: RAMELTEON 8 MG TAB (ROZEREM) PO PRN (22:53)
[2020-06-25 06:27] VITALS: BP 150/88
[2020-06-25] MEDS: HumaLOG INSULIN (NovoLOG) PER UNIT SC SCH ×5 (07:30→20:08)
[2020-06-25] MEDS: IPRATROPIUM 0.5MG/ALBUTEROL 2.5MG INH SOL UD 3ML (DUONEB) NEB SCH ×3 (08:00→19:27)
[2020-06-25] MEDS: POTASSIUM CHLORIDE 10 MEQ SR TABLET PO SCH (09:00)
[2020-06-25] MEDS: amLODIPine 5 MG TAB PO SCH ×2 (09:00→09:27)
[2020-06-25] MEDS: CARVedilol 12.5 MG TAB PO SCH ×3 (09:00→20:07)
[2020-06-25] MEDS: DIVALPROEX SPRINKLE 125 MG CAP PO SCH ×2 (09:26→20:07)
[2020-06-25] MEDS: FLUoxetine 20 MG CAP PO SCH (09:26)
[2020-06-25] MEDS: REMEDY PHYTOPLEX Z-GUARD PASTE 113GM TUBE (FROM STOREROOM PRODUCT) TOP SCH ×3 (09:28→20:08)
[2020-06-25 14:00] VITALS: BP 140/69
[2020-06-25] MEDS: metFORMIN (GLUCOPHAGE) 500MG TAB PO SCH (17:31)
[2020-06-25 20:00] VITALS: BP 162/89
[2020-06-25] MEDS: QUEtiapine FUMARATE 12.5 MG HALF-TAB PO SCH (20:07)
[2020-06-25] MEDS: RAMELTEON 8 MG TAB (ROZEREM) PO PRN (20:07)
[2020-06-25] MEDS: ATORVASTATIN 20 MG TAB PO SCH (20:08)
[2020-06-26 06:00] VITALS: BP 162/70
[2020-06-26] MEDS: IPRATROPIUM 0.5MG/ALBUTEROL 2.5MG INH SOL UD 3ML (DUONEB) NEB SCH ×3 (07:23→19:10)
[2020-06-26] MEDS: HumaLOG INSULIN (NovoLOG) PER UNIT SC SCH ×4 (07:30→21:00)
[2020-06-26] MEDS: REMEDY PHYTOPLEX Z-GUARD PASTE 113GM TUBE (FROM STOREROOM PRODUCT) TOP SCH ×3 (09:00→21:17)
[2020-06-26 14:00] VITALS: BP 169/80
[2020-06-26] MEDS: DIVALPROEX SPRINKLE 125 MG CAP PO SCH ×2 (15:05→21:16)
[2020-06-26] MEDS: CARVedilol 12.5 MG TAB PO SCH ×2 (15:05→21:15)
[2020-06-26] MEDS: amLODIPine 5 MG TAB PO SCH (16:56)
[2020-06-26] MEDS: metFORMIN (GLUCOPHAGE) 500MG TAB PO SCH (16:57)
[2020-06-26] MEDS: FLUoxetine 20 MG CAP PO SCH (16:57)
[2020-06-26] MEDS: POTASSIUM CHLORIDE 10 MEQ SR TABLET PO SCH (16:57)
[2020-06-26 20:00] VITALS: BP 154/80
[2020-06-26] MEDS: QUEtiapine FUMARATE 12.5 MG HALF-TAB PO SCH (21:15)
[2020-06-26] MEDS: ATORVASTATIN 20 MG TAB PO SCH (21:15)
[2020-06-27 05:32] VITALS: BP 152/72
[2020-06-27] MEDS: HumaLOG INSULIN (NovoLOG) PER UNIT SC SCH ×4 (07:30→20:33)
[2020-06-27] MEDS: IPRATROPIUM 0.5MG/ALBUTEROL 2.5MG INH SOL UD 3ML (DUONEB) NEB SCH ×3 (07:56→21:55)
[2020-06-27 08:28] LABS: BASO % 0.3 % (0.0-1.0); EOS # 0.1 10^3/uL (0.0-0.5); EOS % 1.8 % (0.0-3.0); HEMATOCRIT 33.5 % (42.0-52.0); HEMOGLOBIN 11.5 g/dl (13.5-17.5); LYMPH # 2.8 10^3/uL (1.5-5.0); LYMPH % 40.7 % (24.0-44.0); MEAN CORPUSCULAR HEMOGLOBIN 32.8 pg (27.0-33.0); MEAN CORPUSCULAR HGB CONC 34.3 g/dl (32.0-36.5); MEAN CORPUSCULAR VOLUME 95.4 fl (80.0-96.0); MONO # 0.8 10^3/uL (0.0-0.8); NEUTROPHILS # 3.1 10^3/uL (1.5-8.5); NEUTROPHILS % 45.8 % (36.0-66.0); PLATELET COUNT, AUTOMATED 138 10^3/uL (150-450); RED BLOOD COUNT 3.51 10^6/uL (4.30-6.10); WHITE BLOOD COUNT 6.8 10^3/uL (4.0-10.0)
[2020-06-27 08:36] LABS: BLOOD UREA NITROGEN 16 MG/DL (7-18); CALCIUM LEVEL 8.6 MG/DL (8.8-10.2); CARBON DIOXIDE LEVEL 30 MEQ/L (21-32); CHLORIDE LEVEL 102 MEQ/L (98-107); CREATININE FOR GFR 0.93 MG/DL (0.70-1.30); GLOMERULAR FILTRATION RATE > 60.0 (>42); GLUCOSE, FASTING 132 MG/DL (70-100); POTASSIUM SERUM 3.3 MEQ/L (3.5-5.1); SODIUM LEVEL 139 MEQ/L (136-145); VALPROIC ACID (DEPAKOTE) 66.2 UG/ML (50.0-100.0)
[2020-06-27] MEDS: REMEDY PHYTOPLEX Z-GUARD PASTE 113GM TUBE (FROM STOREROOM PRODUCT) TOP SCH ×3 (08:56→20:34)
[2020-06-27] MEDS: amLODIPine 5 MG TAB PO SCH ×2 (09:00→18:05)
[2020-06-27] MEDS: FLUoxetine 20 MG CAP PO SCH ×2 (09:00→18:03)
[2020-06-27] MEDS: POTASSIUM CHLORIDE 10 MEQ SR TABLET PO SCH ×2 (09:00→18:04)
[2020-06-27] MEDS: CARVedilol 12.5 MG TAB PO SCH ×2 (09:00→20:33)
[2020-06-27] MEDS: DIVALPROEX SPRINKLE 125 MG CAP PO SCH ×2 (09:00→20:35)
[2020-06-27] MEDS ORDERED: POTASSIUM CHLORIDE 10 MEQ SR TABLET PO ONE (10:00)
[2020-06-27 14:00] VITALS: BP 124/66
[2020-06-27] MEDS: metFORMIN (GLUCOPHAGE) 500MG TAB PO SCH (18:03)
[2020-06-27 20:00] VITALS: BP 138/68
[2020-06-27] MEDS: QUEtiapine FUMARATE 12.5 MG HALF-TAB PO SCH (20:33)
[2020-06-27] MEDS: ATORVASTATIN 20 MG TAB PO SCH (20:33)
[2020-06-27] MEDS: RAMELTEON 8 MG TAB (ROZEREM) PO PRN (20:33)
--- NOTE | 2020-06-27 20:48 | IPNPDOC ---
PM&R Progress Note DATE OF SERVICE: Jun 27, 2020 [employer] Mechan[employer] Progress Note Subjective: Patient seen in his room attempting to pull his pants up with the help of the aid. He says he feels ok, denies any new weakness and states he will take his medication. REVIEW OF SYSTEMS: The following is a completed review of systems and has been reviewed. Review of systems otherwise unremarkable. PAIN: Patient self reports no pain EYES: No recent vision changes EARS, NOSE, & THROAT: No throat pain, or dysphagia, or rhinorrhea CARDIOVASCULAR: Denies chest pain or palpitations PULMONARY: Denies shortness of breath GASTROINTESTINAL: Denies constipation/diarrhea GENITOURINARY: denies dysuria MUSCULOSKELETAL: generalized weakness NEUROLOGICAL: +aphasia and apraxia HEMATOLOGICAL: denies easy bruising SKIN: denies rash PSYCHIATRIC: +confused All other review of systems found to be negative. PHYSICAL EXAMINATION: VITAL SIGNS: Please see below. GENERAL: No acute distress. HEENT: PERRL. Extraocular movements intact. Clear conjunctiva CARDIOVASCULAR: Regular rate and rhythm. No murmurs, rubs, or gallops LUNGS: Clear to auscultation bilaterally. No wheezes. No rhonchi ABDOMEN: Soft, nontender, nondistended. Positive bowel sounds. Normal active bowel sounds NEUROLOGICAL: Alert and oriented to self Cranial nerves II through XII grossly intact. Sensation grossly intact +apraxic, +aphasic EXTREMITIES: 5\5 strength bilateral upper extremities. 5\5 strength right lower extremity. 5/5 strength in left lower extremity. SKIN: no sacral ulcers ASSESSMENT:69-year-old M with past medical history of CKD, afib, left frontal stroke admitted to ARU and discharged to [facility] Neuro-ICU for left frontal hematoma on 06-14-20 admitted back to ARU for continued management PLAN: 1. Rehab- PT/OT advance gait and mobility, strengthen/stretch/maintain ROM all 4limbs-patient having difficulty initiating movements on command -SENIOR STRUCTURAL ENGINEER for cog and swallow eval 2. 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 CArdiac- Afib c/u coreg -chronic diastolic CHF- daily weights, fluid restrict -HTN- c/u amlodipine 4. Resp- monitor for infection, Duonebs, hx of COPD and LUISITO not compliant with CPAP 5. Endo- hx of DM c/u insulin coverage- started on metformin, hyperglycemia better controlled 6. renal- hx of CKD monitor for GAURI 7. GI ppx- protonix 8. DVT ppx- teds 9. Pain- tylenol prn 10. Hypokalemia- c/u to replete prn 11. Dispo- tbd Allergies Coded Allergies: No Known Allergies (Unverified , 03/31/19) Vital Signs Vital Signs Date Time Temp Pulse Resp B/P (MAP) Pulse Ox O2 Delivery O2 Flow Rate FiO2 06/27/20 20:33 80 138/68 06/27/20 14:00 97.4 65 98 Room Air Laboratory Data CBC/BMP Laboratory Tests 06/27/20 07:27 Labs 24H Laboratory Tests 2 06/27/20 05:17: Bedside Glucose (Misc Panel) 134H 06/27/20 07:27: Immature Granulocyte % (Auto) 0.4, Neutrophils (%) (Auto) 45.8, Lymphocytes (%) (Auto) 40.7, Monocytes (%) (Auto) 11.0H, Eosinophils (%) (Auto) 1.8, Basophils (%) (Auto) 0.3, Neutrophils # (Auto) 3.1, Lymphocytes # (Auto) 2.8, Monocytes # (Auto) 0.8, Eosinophils # (Auto) 0.1, Basophils # (Auto) 0.0, Nucleated Red Blood Cells % (auto) 0.0, Anion Gap 7L, Glomerular Filtration Rate > 60.0, Calcium Level 8.6L, Valproic Acid (Depakene) Level 66.2 06/27/20 11:24: Bedside Glucose (Misc Panel) 270H 06/27/20 16:22: Bedside Glucose (Misc Panel) 143H 06/27/20 20:02: Bedside Glucose (Misc Panel) 161H Current Medications Current Medications Current Medications Medications (Trade) Dose Ordered Sig/Cinthia Route PRN Reason Start Time Stop Time Status Last Admin Dose Admin Acetaminophen (Tylenol Tab) 650 mg Q4HP PRN PO fever/MILD PAIN (PS 1-4) 06/17/20 12:50 Albuterol/ Ipratropium (Duoneb (Ipr 0.5mg/Alb 2.5mg)) 3 ml RTID NEB 06/17/20 14:00 06/27/20 13:36 Allopurinol (Zyloprim) 100 mg DAILY PO 06/18/20 09:00 06/21/20 14:11 DC 06/21/20 12:44 Amlodipine Besylate (Norvasc) 5 mg DAILY PO 06/18/20 09:00 06/27/20 18:05 Atorvastatin Calcium (Lipitor) 80 mg DAILY PO 06/18/20 09:00 06/17/20 14:57 DC Atorvastatin Calcium (Lipitor) 80 mg QHS PO 06/17/20 21:00 06/27/20 20:33 Bisacodyl (Dulcolax Suppository) 10 mg DAILYPRN PRN CO CONSTIPATION 06/17/20 12:50 Carvedilol (COReg) 12.5 mg BID PO 06/17/20 21:00 06/27/20 20:33 Dextrose (Dextrose 50%) 25 ml ASDIRECTED PRN IV SEE LABEL COMMENTS 06/17/20 12:50 Divalproex Sodium (Depakote Sprinkles) 500 mg BID PO 06/24/20 21:00 06/27/20 20:35 Divalproex Sodium (Depakote Sprinkles) 750 mg BID PO 06/18/20 09:00 06/24/20 09:21 DC 06/24/20 08:33 Docusate Sodium (Colace) 100 mg BID PO 06/17/20 21:00 06/21/20 14:11 DC 06/20/20 20:40 Fluoxetine HCl (PROzac) 20 mg DAILY PO 06/18/20 09:00 06/27/20 18:03 Glucagon (Glucagon) 1 mg ASDIRECTED PRN SC SEE LABEL COMMENTS 06/17/20 12:50 Glucose (Glucose) 16 GM ASDIRECTED PRN PO SEE LABEL COMMENTS 06/17/20 12:50 Home Med (Med Rec Complete!) ASDIRECTED XX 06/17/20 13:45 06/17/20 14:29 DC Insulin Human Lispro (HumaLOG INSULIN) SEE PROTOCOL TABLE AC SC 06/17/20 17:30 06/27/20 18:06 Insulin Human Lispro (HumaLOG INSULIN) SEE PROTOCOL TABLE QHS SC 06/17/20 21:00 Lorazepam (Ativan) 0.5 mg Q6HP PRN PO agitation 06/17/20 12:50 06/17/20 13:28 DC Lorazepam (Ativan) 2 mg Q6HP PRN IM seizure 06/17/20 13:30 Metformin HCl (Glucophage) 500 mg DAILY@18 PO 06/22/20 18:00 06/27/20 18:03 Pantoprazole Sodium (Protonix) 40 mg DAILY PO 06/18/20 09:00 06/21/20 14:11 DC 06/20/20 09:03 Potassium Chloride (Micro-K Extencaps) 20 meq DAILY PO 06/18/20 09:00 06/18/20 14:43 DC 06/18/20 09:46 Potassium Chloride (Micro-K Extencaps) 40 meq DAILY PO 06/19/20 09:00 06/27/20 18:04 Quetiapine Fumarate (SEROquel) 12.5 mg BID PO 06/21/20 09:00 06/24/20 06:38 DC 06/23/20 20:41 Quetiapine Fumarate (SEROquel) 12.5 mg BID PO 06/17/20 21:00 06/20/20 07:30 DC 06/19/20 21:22 Quetiapine Fumarate (SEROquel) 12.5 mg BID PRN PO agitation 06/20/20 09:00 06/20/20 13:45 DC Quetiapine Fumarate (SEROquel) 12.5 mg DAILY PRN PO agitation 06/24/20 09:25 Quetiapine Fumarate (SEROquel) 12.5 mg QHS PO 06/24/20 21:00 06/27/20 20:33 Quetiapine Fumarate (SEROquel) 12.5 mg TID PRN PO agitation 06/20/20 13:45 06/21/20 10:23 DC 06/20/20 20:40 Ramelteon (Rozerem) 8 mg QHS PO 06/21/20 21:00 06/24/20 06:38 DC 06/23/20 20:41 Ramelteon (Rozerem) 8 mg QHS PRN PO INSOMNIA 06/19/20 20:15 06/21/20 10:23 DC 06/19/20 21:22 Ramelteon (Rozerem) 8 mg QHS PRN PO insomnia 06/24/20 21:00 06/27/20 20:33 Senna (Senokot) 1 tab QHS PO 06/17/20 21:00 06/21/20 14:11 DC 06/20/20 20:40 Spironolactone (Aldactone) 25 mg QAM PO 06/18/20 09:00 06/17/20 13:15 DC Valproic Acid (Depakene) 750 mg BID PO 06/17/20 21:00 06/18/20 01:56 LINDA ROMANO MD Jun 27, 2020 20:48
[2020-06-28 05:23] VITALS: BP 146/68
[2020-06-28] MEDS: IPRATROPIUM 0.5MG/ALBUTEROL 2.5MG INH SOL UD 3ML (DUONEB) NEB SCH ×3 (06:56→20:00)
[2020-06-28 07:20] LABS: BLOOD UREA NITROGEN 17 MG/DL (7-18); CARBON DIOXIDE LEVEL 31 MEQ/L (21-32); CHLORIDE LEVEL 105 MEQ/L (98-107); CREATININE FOR GFR 0.93 MG/DL (0.70-1.30); GLOMERULAR FILTRATION RATE > 60.0 (>42); GLUCOSE, FASTING 141 MG/DL (70-100); SODIUM LEVEL 141 MEQ/L (136-145)
[2020-06-28] MEDS: POTASSIUM CHLORIDE 10 MEQ SR TABLET PO SCH (08:26)
[2020-06-28] MEDS: HumaLOG INSULIN (NovoLOG) PER UNIT SC SCH ×4 (08:26→20:07)
[2020-06-28] MEDS: DIVALPROEX SPRINKLE 125 MG CAP PO SCH ×2 (08:27→20:07)
[2020-06-28] MEDS: amLODIPine 5 MG TAB PO SCH (08:28)
[2020-06-28] MEDS: CARVedilol 12.5 MG TAB PO SCH ×2 (08:28→20:07)
[2020-06-28] MEDS: FLUoxetine 20 MG CAP PO SCH (08:28)
[2020-06-28] MEDS: REMEDY PHYTOPLEX Z-GUARD PASTE 113GM TUBE (FROM STOREROOM PRODUCT) TOP SCH ×3 (08:29→20:08)
--- NOTE | 2020-06-28 12:28 | IPNPDOC ---
PM&R Progress Note DATE OF SERVICE: Jun 28, 2020 Insole Buffer Progress Note Subjective: Patient seen in his room following training with his , appearing tired. REVIEW OF SYSTEMS: The following is a completed review of systems and has been reviewed. Review of systems otherwise unremarkable. PAIN: Patient self reports no pain EYES: No recent vision changes EARS, NOSE, & THROAT: No throat pain, or dysphagia, or rhinorrhea CARDIOVASCULAR: Denies chest pain or palpitations PULMONARY: Denies shortness of breath GASTROINTESTINAL: Denies constipation/diarrhea GENITOURINARY: denies dysuria MUSCULOSKELETAL: generalized weakness NEUROLOGICAL: +aphasia and apraxia HEMATOLOGICAL: denies easy bruising SKIN: denies rash PSYCHIATRIC: +confused All other review of systems found to be negative. PHYSICAL EXAMINATION: VITAL SIGNS: Please see below. GENERAL: No acute distress. HEENT: PERRL. Extraocular movements intact. Clear conjunctiva CARDIOVASCULAR: Regular rate and rhythm. No murmurs, rubs, or gallops LUNGS: Clear to auscultation bilaterally. No wheezes. No rhonchi ABDOMEN: Soft, nontender, nondistended. Positive bowel sounds. Normal active bowel sounds NEUROLOGICAL: Alert and oriented to self Cranial nerves II through XII grossly intact. Sensation grossly intact +apraxic, +aphasic EXTREMITIES: 5\5 strength bilateral upper extremities. 5\5 strength right lower extremity. 5/5 strength in left lower extremity. SKIN: no sacral ulcers ASSESSMENT:69-year-old M with past medical history of CKD, afib, left frontal stroke admitted to ARU and discharged to [facility] Neuro-ICU for left frontal hematoma on 06-14-20 admitted back to ARU for continued management PLAN: 1. Rehab- PT/OT advance gait and mobility, strengthen/stretch/maintain ROM all 4limbs-patient having difficulty initiating movements on command -[employer]'S ELECTRONIC WARFARE OFFICER for cog and swallow eval 2. 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 CArdiac- Afib c/u coreg -chronic diastolic CHF- daily weights, fluid restrict -HTN- c/u amlodipine 4. Resp- monitor for infection, Duonebs, hx of COPD and LUISITO not compliant with CPAP 5. Endo- hx of DM c/u insulin coverage- started on metformin, hyperglycemia better controlled 6. renal- hx of CKD monitor for GAURI 7. GI ppx- protonix 8. DVT ppx- teds 9. Pain- tylenol prn 10. Hypokalemia- c/u to monitor and replete prn 11. - UA ordered as possible cause of patient's lack of initiation- results negative 12. Dispo-goal to home with , at this time he will require Stephanie, although he is able to move well enough when he initiates on his own, but not safely or consistently Allergies Coded Allergies: No Known Allergies (Unverified , 03/31/19) Vital Signs Vital Signs Date Time Temp Pulse Resp B/P (MAP) Pulse Ox O2 Delivery O2 Flow Rate FiO2 06/28/20 08:28 68 140/62 06/28/20 05:23 97.0 17 97 Room Air Laboratory Data CBC/BMP Laboratory Tests 06/28/20 06:26 Labs 24H Laboratory Tests 2 06/27/20 16:22: Bedside Glucose (Misc Panel) 143H 06/27/20 20:02: Bedside Glucose (Misc Panel) 161H 06/28/20 04:54: Bedside Glucose (Misc Panel) 148H 06/28/20 06:26: Anion Gap 5L, Glomerular Filtration Rate > 60.0, Calcium Level 9.0 06/28/20 10:18: Urine Color YELLOW, Urine Appearance CLEAR, Urine pH 7.0, Urine Specific [place] 1.016, Urine Protein NEGATIVE, Urine Glucose (UA) 2+H, Urine Ketones TRACEH, Urine Blood NEGATIVE, Urine Nitrite NEGATIVE, Urine Bilirubin NEGATIVE, Urine Urobilinogen 0.2, Urine Leukocyte Esterase NEGATIVE, Urine WBC (Auto) 0, Urine RBC (Auto) 1, Urine Hyaline Casts (Auto) 0, Urine Bacteria (Auto) NEGATIVE, Urine Squamous Epithelial Cells 0, Urine Mucus (Auto) SMALL, Urine Sperm (Auto) Current Medications Current Medications Current Medications Medications (Trade) Dose Ordered Sig/Cinthia Route PRN Reason Start Time Stop Time Status Last Admin Dose Admin Acetaminophen (Tylenol Tab) 650 mg Q4HP PRN PO fever/MILD PAIN (PS 1-4) 06/17/20 12:50 Albuterol/ Ipratropium (Duoneb (Ipr 0.5mg/Alb 2.5mg)) 3 ml RTID NEB 06/17/20 14:00 06/28/20 06:56 Allopurinol (Zyloprim) 100 mg DAILY PO 06/18/20 09:00 06/21/20 14:11 DC 06/21/20 12:44 Amlodipine Besylate (Norvasc) 5 mg DAILY PO 06/18/20 09:00 06/28/20 08:28 Atorvastatin Calcium (Lipitor) 80 mg DAILY PO 06/18/20 09:00 06/17/20 14:57 DC Atorvastatin Calcium (Lipitor) 80 mg QHS PO 06/17/20 21:00 06/27/20 20:33 Bisacodyl (Dulcolax Suppository) 10 mg DAILYPRN PRN ME CONSTIPATION 06/17/20 12:50 Carvedilol (COReg) 12.5 mg BID PO 06/17/20 21:00 06/28/20 08:28 Dextrose (Dextrose 50%) 25 ml ASDIRECTED PRN IV SEE LABEL COMMENTS 06/17/20 12:50 Divalproex Sodium (Depakote Sprinkles) 500 mg BID PO 06/24/20 21:00 06/28/20 08:27 Divalproex Sodium (Depakote Sprinkles) 750 mg BID PO 06/18/20 09:00 06/24/20 09:21 DC 06/24/20 08:33 Docusate Sodium (Colace) 100 mg BID PO 06/17/20 21:00 06/21/20 14:11 DC 06/20/20 20:40 Fluoxetine HCl (PROzac) 20 mg DAILY PO 06/18/20 09:00 06/28/20 08:28 Glucagon (Glucagon) 1 mg ASDIRECTED PRN SC SEE LABEL COMMENTS 06/17/20 12:50 Glucose (Glucose) 16 GM ASDIRECTED PRN PO SEE LABEL COMMENTS 06/17/20 12:50 Home Med (Med Rec Complete!) ASDIRECTED XX 06/17/20 13:45 06/17/20 14:29 DC Insulin Human Lispro (HumaLOG INSULIN) SEE PROTOCOL TABLE AC SC 06/17/20 17:30 06/28/20 11:56 Insulin Human Lispro (HumaLOG INSULIN) SEE PROTOCOL TABLE QHS SC 06/17/20 21:00 Lorazepam (Ativan) 0.5 mg Q6HP PRN PO agitation 06/17/20 12:50 06/17/20 13:28 DC Lorazepam (Ativan) 2 mg Q6HP PRN IM seizure 06/17/20 13:30 Metformin HCl (Glucophage) 500 mg DAILY@18 PO 06/22/20 18:00 06/27/20 18:03 Pantoprazole Sodium (Protonix) 40 mg DAILY PO 06/18/20 09:00 06/21/20 14:11 DC 06/20/20 09:03 Potassium Chloride (Micro-K Extencaps) 20 meq DAILY PO 06/18/20 09:00 06/18/20 14:43 DC 06/18/20 09:46 Potassium Chloride (Micro-K Extencaps) 40 meq DAILY PO 06/19/20 09:00 06/28/20 08:26 Quetiapine Fumarate (SEROquel) 12.5 mg BID PO 06/21/20 09:00 06/24/20 06:38 DC 06/23/20 20:41 Quetiapine Fumarate (SEROquel) 12.5 mg BID PO 06/17/20 21:00 06/20/20 07:30 DC 06/19/20 21:22 Quetiapine Fumarate (SEROquel) 12.5 mg BID PRN PO agitation 06/20/20 09:00 06/20/20 13:45 DC Quetiapine Fumarate (SEROquel) 12.5 mg DAILY PRN PO agitation 06/24/20 09:25 Quetiapine Fumarate (SEROquel) 12.5 mg QHS PO 06/24/20 21:00 06/27/20 20:33 Quetiapine Fumarate (SEROquel) 12.5 mg TID PRN PO agitation 06/20/20 13:45 06/21/20 10:23 DC 06/20/20 20:40 Ramelteon (Rozerem) 8 mg QHS PO 06/21/20 21:00 06/24/20 06:38 DC 06/23/20 20:41 Ramelteon (Rozerem) 8 mg QHS PRN PO INSOMNIA 06/19/20 20:15 06/21/20 10:23 DC 06/19/20 21:22 Ramelteon (Rozerem) 8 mg QHS PRN PO insomnia 06/24/20 21:00 06/27/20 20:33 Senna (Senokot) 1 tab QHS PO 06/17/20 21:00 06/21/20 14:11 DC 06/20/20 20:40 Spironolactone (Aldactone) 25 mg QAM PO 06/18/20 09:00 06/17/20 13:15 DC Valproic Acid (Depakene) 750 mg BID PO 06/17/20 21:00 06/18/20 01:56 LINDA ROMANO MD Jun 28, 2020 12:28
[2020-06-28 14:00] VITALS: BP 147/75
[2020-06-28] MEDS: metFORMIN (GLUCOPHAGE) 500MG TAB PO SCH (17:20)
[2020-06-28 19:34] VITALS: BP 136/98
[2020-06-28] MEDS: ATORVASTATIN 20 MG TAB PO SCH (20:06)
[2020-06-28] MEDS: QUEtiapine FUMARATE 12.5 MG HALF-TAB PO SCH (20:06)
[2020-06-28] MEDS: RAMELTEON 8 MG TAB (ROZEREM) PO PRN (20:32)
--- NOTE | 2020-06-28 22:31 | REPVR ---
PROCEDURE INFORMATION: Exam: MR Head Without Contrast Exam date and time: 06/28/2020 9:17 PM Age: 69 years old Clinical indication: Other: Vasogenic edema? Recent left frontal bleed TECHNIQUE: Imaging protocol: MR of the head without contrast. COMPARISON: MRI-Brain W/O FOLL BY WITH 06/14/2020 12:26 PM FINDINGS: Brain: Patient had a large acute hematoma of the left frontal lobe February 2020. The high density blood has resolved on CT. However, on MRI there is a 3.2 cm x 2 cm oval area of mostly bright signal intensity left frontal lobe that is consistent with old hematoma and stable since the examination of 06/08/2020. There is encephalomalacia involving much of the left frontal lobe from previous hemorrhagic stroke. There is enlargement of the ventricles probably the result of atrophy. Communicating hydrocephalus is another consideration. The enlarged ventricles have remained stable since 06/08/2020. IMPRESSION: 1. Large area of encephalomalacia from previous hemorrhage and stroke involving the left frontal lobe. There is marked atrophy. 2. The oval area of old blood products left frontal lobe is stable when compared with 06/08/2020. 3. Enlarged ventricles may be the result of atrophy. Communicating type hydrocephalus not excluded. 4. It would be important to have sequential follow-up exams to document stability of the left frontal lobe. Perhaps following this with CT scan without and with contrast would be best. This would be to exclude any possibility of unrecognized underlying vascular malformation or neoplasm. This would also be helpful to follow the size of the ventricles and ensure stability. Electronically signed by: Guero Avila On 06/28/2020 22:30:45 PM
[2020-06-29 05:31] VITALS: BP 140/64
[2020-06-29 06:21] LABS: BASO % 0.2 % (0.0-1.0); EOS # 0.1 10^3/uL (0.0-0.5); EOS % 2.2 % (0.0-3.0); HEMATOCRIT 35.4 % (42.0-52.0); HEMOGLOBIN 12.1 g/dl (13.5-17.5); LYMPH # 2.6 10^3/uL (1.5-5.0); LYMPH % 43.5 % (24.0-44.0); MEAN CORPUSCULAR HEMOGLOBIN 32.7 pg (27.0-33.0); MEAN CORPUSCULAR HGB CONC 34.2 g/dl (32.0-36.5); MEAN CORPUSCULAR VOLUME 95.7 fl (80.0-96.0); MONO # 0.6 10^3/uL (0.0-0.8); MONO % 10.5 % (2.0-8.0); NEUTROPHILS # 2.6 10^3/uL (1.5-8.5); NEUTROPHILS % 43.1 % (36.0-66.0); PLATELET COUNT, AUTOMATED 145 10^3/uL (150-450); WHITE BLOOD COUNT 5.9 10^3/uL (4.0-10.0)
[2020-06-29 06:48] LABS: BLOOD UREA NITROGEN 17 MG/DL (7-18); CALCIUM LEVEL 9.2 MG/DL (8.8-10.2); CARBON DIOXIDE LEVEL 28 MEQ/L (21-32); CHLORIDE LEVEL 105 MEQ/L (98-107); CREATININE FOR GFR 0.93 MG/DL (0.70-1.30); GLOMERULAR FILTRATION RATE > 60.0 (>42); GLUCOSE, FASTING 130 MG/DL (70-100); POTASSIUM SERUM 3.7 MEQ/L (3.5-5.1); SODIUM LEVEL 141 MEQ/L (136-145)
[2020-06-29] MEDS: IPRATROPIUM 0.5MG/ALBUTEROL 2.5MG INH SOL UD 3ML (DUONEB) NEB SCH ×3 (07:13→21:00)
[2020-06-29] MEDS: POTASSIUM CHLORIDE 10 MEQ SR TABLET PO SCH (07:27)
[2020-06-29] MEDS: DIVALPROEX SPRINKLE 125 MG CAP PO SCH ×3 (07:27→21:00)
[2020-06-29] MEDS: amLODIPine 5 MG TAB PO SCH (07:27)
[2020-06-29] MEDS: CARVedilol 12.5 MG TAB PO SCH ×3 (07:27→23:51)
[2020-06-29] MEDS: FLUoxetine 20 MG CAP PO SCH (07:27)
[2020-06-29] MEDS: HumaLOG INSULIN (NovoLOG) PER UNIT SC SCH ×4 (07:28→20:22)
--- NOTE | 2020-06-29 08:45 | IPNPDOC ---
PM&R Progress Note DATE OF SERVICE: Jun 29, 2020 Choirmaster Progress Note Subjective: Patient seen in his room after CT scan, more alert stating he felt ok, did not recall his being present yesterday, but able to follow commands and move all 4 limbs upon request. REVIEW OF SYSTEMS: The following is a completed review of systems and has been reviewed. Review of systems otherwise unremarkable. PAIN: Patient self reports no pain EYES: No recent vision changes EARS, NOSE, & THROAT: No throat pain, or dysphagia, or rhinorrhea CARDIOVASCULAR: Denies chest pain or palpitations PULMONARY: Denies shortness of breath GASTROINTESTINAL: Denies constipation/diarrhea GENITOURINARY: denies dysuria MUSCULOSKELETAL: generalized weakness NEUROLOGICAL: +aphasia and apraxia HEMATOLOGICAL: denies easy bruising SKIN: denies rash PSYCHIATRIC: +confused All other review of systems found to be negative. PHYSICAL EXAMINATION: VITAL SIGNS: Please see below. GENERAL: No acute distress. HEENT: PERRL. Extraocular movements intact. Clear conjunctiva CARDIOVASCULAR: Regular rate and rhythm. No murmurs, rubs, or gallops LUNGS: Clear to auscultation bilaterally. No wheezes. No rhonchi ABDOMEN: Soft, nontender, nondistended. Positive bowel sounds. Normal active bowel sounds NEUROLOGICAL: Alert and oriented to self Cranial nerves II through XII grossly intact. Sensation grossly intact +apraxic, +aphasic- following commands EXTREMITIES: 5\5 strength bilateral upper extremities. 5\5 strength right lower extremity. 5/5 strength in left lower extremity. SKIN: no sacral ulcers ASSESSMENT:69-year-old M with past medical history of CKD, afib, left frontal stroke admitted to ARU and discharged to [facility] Neuro-ICU for left frontal hematoma on 06-14-20 admitted back to ARU for continued management PLAN: 1. Rehab- PT/OT advance gait and mobility, strengthen/stretch/maintain ROM all 4limbs-patient having difficulty initiating movements on command -FRONT DESK AUXILIARY for cog and swallow eval 2. 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 -seizure prophylaxis c/u Depakote (patient more willing to take if given with icecream), Depakote level 99, high end of normal, lowered dose 06-24-20 as may be contributing to daytime fatigue, 06-27 level 66 -seroquel 12.5 mg qhs, changed daily dosing to prn to reduce daytime fatigue -Ativan prn agitation/seizure -patient had unwitnessed fall 06-18-20, CTH negative, no new deficits noted on exam - MRI 06-28-20 and f/u CT with and without contrast 06-29 ordered showing essentially no change in front lobe lesion or ventricles- f/u with neurosurgery at [facility] after d/c and scanning supervisor Dr. Frederick, will refer to local neurology as well 3. CArdiac- Afib c/u coreg -chronic diastolic CHF- daily weights, fluid restrict -HTN- c/u amlodipine 4. Resp- monitor for infection, Duonebs, hx of COPD and LUISITO not compliant with CPAP 5. Endo- hx of DM c/u insulin coverage- started on metformin, hyperglycemia better controlled 6. renal- hx of CKD monitor for GAURI 7. GI ppx- protonix 8. DVT ppx- teds 9. Pain- tylenol prn 10. Hypokalemia- c/u to monitor and replete prn 11. - Ua negative 12. Dispo-goal to home with , at this time he will require Stephanie, although he is able to move well enough when he initiates on his own, but not safely or consistently- patient has [employer] insurance which can provide more assistance in the home-spoke with who provided contact info today, will aim for d/c home 07-05-20 but can have an additional day/two if it means more care is set up for safe d/c, understands why patient is unable to initiate movement, but feels she wants to try taking care of him in the home where he might improve in known surroundings Allergies Coded Allergies: No Known Allergies (Unverified , 03/31/19) Vital Signs Vital Signs Date Time Temp Pulse Resp B/P (MAP) Pulse Ox O2 Delivery O2 Flow Rate FiO2 06/29/20 07:27 64 140/64 06/29/20 05:31 97.3 18 98 Room Air Laboratory Data CBC/BMP Laboratory Tests 06/29/20 05:42 Labs 24H Laboratory Tests 2 06/28/20 10:18: Urine Color YELLOW, Urine Appearance CLEAR, Urine pH 7.0, Urine Specific [place] 1.016, Urine Protein NEGATIVE, Urine Glucose (UA) 2+H, Urine Ketones TRACEH, Urine Blood NEGATIVE, Urine Nitrite NEGATIVE, Urine Bilirubin NEGATIVE, Urine Urobilinogen 0.2, Urine Leukocyte Esterase NEGATIVE, Urine WBC (Auto) 0, Urine RBC (Auto) 1, Urine Hyaline Casts (Auto) 0, Urine Bacteria (Auto) NEGATIVE, Urine Squamous Epithelial Cells 0, Urine Mucus (Auto) SMALL, Urine Sperm (Auto) 06/28/20 16:22: Bedside Glucose (Misc Panel) 111H 06/28/20 19:59: Bedside Glucose (Misc Panel) 159H 06/29/20 05:42: Immature Granulocyte % (Auto) 0.5, Neutrophils (%) (Auto) 43.1, Lymphocytes (%) (Auto) 43.5, Monocytes (%) (Auto) 10.5H, Eosinophils (%) (Auto) 2.2, Basophils (%) (Auto) 0.2, Neutrophils # (Auto) 2.6, Lymphocytes # (Auto) 2.6, Monocytes # (Auto) 0.6, Eosinophils # (Auto) 0.1, Basophils # (Auto) 0.0, Nucleated Red Blood Cells % (auto) 0.0, Anion Gap 8, Glomerular Filtration Rate > 60.0, Calcium Level 9.2 Current Medications Current Medications Current Medications Medications (Trade) Dose Ordered Sig/Cinthia Route PRN Reason Start Time Stop Time Status Last Admin Dose Admin Acetaminophen (Tylenol Tab) 650 mg Q4HP PRN PO fever/MILD PAIN (PS 1-4) 06/17/20 12:50 Albuterol/ Ipratropium (Duoneb (Ipr 0.5mg/Alb 2.5mg)) 3 ml RTID NEB 06/17/20 14:00 06/29/20 07:13 Allopurinol (Zyloprim) 100 mg DAILY PO 06/18/20 09:00 06/21/20 14:11 DC 06/21/20 12:44 Amlodipine Besylate (Norvasc) 5 mg DAILY PO 06/18/20 09:00 06/29/20 07:27 Atorvastatin Calcium (Lipitor) 80 mg DAILY PO 06/18/20 09:00 06/17/20 14:57 DC Atorvastatin Calcium (Lipitor) 80 mg QHS PO 06/17/20 21:00 06/28/20 20:06 Bisacodyl (Dulcolax Suppository) 10 mg DAILYPRN PRN [place] CONSTIPATION 06/17/20 12:50 Carvedilol (COReg) 12.5 mg BID PO 06/17/20 21:00 06/29/20 07:27 Dextrose (Dextrose 50%) 25 ml ASDIRECTED PRN IV SEE LABEL COMMENTS 06/17/20 12:50 Divalproex Sodium (Depakote Sprinkles) 500 mg BID PO 06/24/20 21:00 06/29/20 07:27 Divalproex Sodium (Depakote Sprinkles) 750 mg BID PO 06/18/20 09:00 06/24/20 09:21 DC 06/24/20 08:33 Docusate Sodium (Colace) 100 mg BID PO 06/17/20 21:00 06/21/20 14:11 DC 06/20/20 20:40 Fluoxetine HCl (PROzac) 20 mg DAILY PO 06/18/20 09:00 06/29/20 07:27 Glucagon (Glucagon) 1 mg ASDIRECTED PRN SC SEE LABEL COMMENTS 06/17/20 12:50 Glucose (Glucose) 16 GM ASDIRECTED PRN PO SEE LABEL COMMENTS 06/17/20 12:50 Home Med (Med Rec Complete!) ASDIRECTED XX 06/17/20 13:45 06/17/20 14:29 DC Insulin Human Lispro (HumaLOG INSULIN) SEE PROTOCOL TABLE AC SC 06/17/20 17:30 06/29/20 07:28 Insulin Human Lispro (HumaLOG INSULIN) SEE PROTOCOL TABLE QHS SC 06/17/20 21:00 Lorazepam (Ativan) 0.5 mg Q6HP PRN PO agitation 06/17/20 12:50 06/17/20 13:28 DC Lorazepam (Ativan) 2 mg Q6HP PRN IM seizure 06/17/20 13:30 Metformin HCl (Glucophage) 500 mg DAILY@18 PO 06/22/20 18:00 06/28/20 17:20 Pantoprazole Sodium (Protonix) 40 mg DAILY PO 06/18/20 09:00 06/21/20 14:11 DC 06/20/20 09:03 Potassium Chloride (Micro-K Extencaps) 20 meq DAILY PO 06/18/20 09:00 06/18/20 14:43 DC 06/18/20 09:46 Potassium Chloride (Micro-K Extencaps) 40 meq DAILY PO 06/19/20 09:00 06/29/20 07:27 Quetiapine Fumarate (SEROquel) 12.5 mg BID PO 06/21/20 09:00 06/24/20 06:38 DC 06/23/20 20:41 Quetiapine Fumarate (SEROquel) 12.5 mg BID PO 06/17/20 21:00 06/20/20 07:30 DC 06/19/20 21:22 Quetiapine Fumarate (SEROquel) 12.5 mg BID PRN PO agitation 06/20/20 09:00 06/20/20 13:45 DC Quetiapine Fumarate (SEROquel) 12.5 mg DAILY PRN PO agitation 06/24/20 09:25 06/28/20 20:32 Quetiapine Fumarate (SEROquel) 12.5 mg QHS PO 06/24/20 21:00 06/28/20 20:06 Quetiapine Fumarate (SEROquel) 12.5 mg TID PRN PO agitation 06/20/20 13:45 06/21/20 10:23 DC 06/20/20 20:40 Ramelteon (Rozerem) 8 mg QHS PO 06/21/20 21:00 06/24/20 06:38 DC 06/23/20 20:41 Ramelteon (Rozerem) 8 mg QHS PRN PO INSOMNIA 06/19/20 20:15 06/21/20 10:23 DC 06/19/20 21:22 Ramelteon (Rozerem) 8 mg QHS PRN PO insomnia 06/24/20 21:00 06/28/20 20:32 Senna (Senokot) 1 tab QHS PO 06/17/20 21:00 06/21/20 14:11 DC 06/20/20 20:40 Spironolactone (Aldactone) 25 mg QAM PO 06/18/20 09:00 06/17/20 13:15 DC Valproic Acid (Depakene) 750 mg BID PO 06/17/20 21:00 06/18/20 01:56 LINDA ROMANO MD Jun 29, 2020 08:45
[2020-06-29] MEDS: REMEDY PHYTOPLEX Z-GUARD PASTE 113GM TUBE (FROM STOREROOM PRODUCT) TOP SCH ×4 (09:00→23:54)
[2020-06-29] MEDS ORDERED: ISOVUE-370 76% 100ML VIAL As Ordered ONE (09:30)
--- NOTE | 2020-06-29 10:39 | REP ---
INDICATION: evaluate for mass and hydrocephalus. COMPARISON: Head CT 06/18/2020. TECHNIQUE: Axial CT images with multiplanar reformations. FINDINGS: No acute bleed or acute large vessel territorial infarct. Again seen is an area of encephalomalacia in the left frontal lobe with tissue loss. The ventricles are prominent as noted previously. No hemorrhage. There is diffuse age-related volume loss. The postcontrast coronal images demonstrate a margin of enhancement around the cavity in the left frontal lobe (im 10 se 302). IMPRESSION: No acute findings. No significant changes from the comparison study of 06/18/2020 with prominent ventricles, encephalomalacia of the left frontal lobe, and diffuse age-related volume loss. The postcontrast coronal images demonstrate a margin of enhancement around the cavity in the left frontal lobe (im 10 se 302). Margins remain thin however continued attention on follow-up imaging recommended. <Electronically signed by Kal Hammer > 06/29/20 [id number]
[2020-06-29 14:00] VITALS: BP 132/63
[2020-06-29] MEDS: metFORMIN (GLUCOPHAGE) 500MG TAB PO SCH (17:27)
[2020-06-29 20:00] VITALS: BP 127/75
[2020-06-29] MEDS: ATORVASTATIN 20 MG TAB PO SCH ×2 (20:19→23:52)
[2020-06-29] MEDS: QUEtiapine FUMARATE 12.5 MG HALF-TAB PO SCH ×2 (20:22→23:55)
[2020-06-29] MEDS: RAMELTEON 8 MG TAB (ROZEREM) PO PRN (20:25)
[2020-06-30 06:03] VITALS: BP 149/90
[2020-06-30] MEDS: IPRATROPIUM 0.5MG/ALBUTEROL 2.5MG INH SOL UD 3ML (DUONEB) NEB SCH ×3 (07:18→20:31)
[2020-06-30] MEDS: HumaLOG INSULIN (NovoLOG) PER UNIT SC SCH ×4 (09:06→21:00)
[2020-06-30] MEDS: CARVedilol 12.5 MG TAB PO SCH ×2 (09:07→22:07)
[2020-06-30] MEDS: DIVALPROEX SPRINKLE 125 MG CAP PO SCH ×2 (09:08→22:07)
[2020-06-30] MEDS: FLUoxetine 20 MG CAP PO SCH (09:09)
[2020-06-30] MEDS: POTASSIUM CHLORIDE 10 MEQ SR TABLET PO SCH ×2 (09:09→13:38)
[2020-06-30] MEDS: amLODIPine 5 MG TAB PO SCH (09:09)
[2020-06-30] MEDS: REMEDY PHYTOPLEX Z-GUARD PASTE 113GM TUBE (FROM STOREROOM PRODUCT) TOP SCH ×3 (10:01→22:09)
[2020-06-30 14:00] VITALS: BP 128/70
[2020-06-30] MEDS: metFORMIN (GLUCOPHAGE) 500MG TAB PO SCH (17:22)
[2020-06-30 20:15] VITALS: BP 161/75
[2020-06-30] MEDS: RAMELTEON 8 MG TAB (ROZEREM) PO PRN (22:07)
[2020-06-30] MEDS: ATORVASTATIN 20 MG TAB PO SCH (22:08)
[2020-06-30] MEDS: QUEtiapine FUMARATE 12.5 MG HALF-TAB PO SCH (22:08)
[2020-07-01 06:47] VITALS: BP 121/58
[2020-07-01] MEDS: IPRATROPIUM 0.5MG/ALBUTEROL 2.5MG INH SOL UD 3ML (DUONEB) NEB SCH ×3 (07:03→20:00)
[2020-07-01 08:10] LABS: BASO % 0.3 % (0.0-1.0); EOS # 0.2 10^3/uL (0.0-0.5); EOS % 2.3 % (0.0-3.0); HEMATOCRIT 33.5 % (42.0-52.0); HEMOGLOBIN 11.3 g/dl (13.5-17.5); LYMPH # 2.9 10^3/uL (1.5-5.0); LYMPH % 39.8 % (24.0-44.0); MEAN CORPUSCULAR HEMOGLOBIN 32.6 pg (27.0-33.0); MEAN CORPUSCULAR HGB CONC 33.7 g/dl (32.0-36.5); MEAN CORPUSCULAR VOLUME 96.5 fl (80.0-96.0); MONO # 0.8 10^3/uL (0.0-0.8); MONO % 10.6 % (2.0-8.0); NEUTROPHILS # 3.4 10^3/uL (1.5-8.5); NEUTROPHILS % 46.7 % (36.0-66.0); PLATELET COUNT, AUTOMATED 143 10^3/uL (150-450); RED BLOOD COUNT 3.47 10^6/uL (4.30-6.10); WHITE BLOOD COUNT 7.4 10^3/uL (4.0-10.0)
[2020-07-01] MEDS: HumaLOG INSULIN (NovoLOG) PER UNIT SC SCH ×4 (08:32→21:00)
[2020-07-01] MEDS: POTASSIUM CHLORIDE 10 MEQ SR TABLET PO SCH (08:32)
[2020-07-01] MEDS: FLUoxetine 20 MG CAP PO SCH (08:33)
[2020-07-01] MEDS: DIVALPROEX SPRINKLE 125 MG CAP PO SCH ×2 (08:33→21:05)
[2020-07-01] MEDS: REMEDY PHYTOPLEX Z-GUARD PASTE 113GM TUBE (FROM STOREROOM PRODUCT) TOP SCH ×3 (08:34→21:05)
[2020-07-01] MEDS: amLODIPine 5 MG TAB PO SCH (08:34)
[2020-07-01] MEDS: CARVedilol 12.5 MG TAB PO SCH ×2 (08:34→21:05)
[2020-07-01 08:41] LABS: BLOOD UREA NITROGEN 18 MG/DL (7-18); CALCIUM LEVEL 8.4 MG/DL (8.8-10.2); CARBON DIOXIDE LEVEL 30 MEQ/L (21-32); CHLORIDE LEVEL 107 MEQ/L (98-107); CREATININE FOR GFR 0.98 MG/DL (0.70-1.30); GLOMERULAR FILTRATION RATE > 60.0 (>42); GLUCOSE, FASTING 123 MG/DL (70-100); POTASSIUM SERUM 3.4 MEQ/L (3.5-5.1); SODIUM LEVEL 142 MEQ/L (136-145)
[2020-07-01] MEDS ORDERED: POTASSIUM CHLORIDE 10 MEQ SR TABLET PO ONE (08:55)
[2020-07-01 10:19] LABS: MAGNESIUM LEVEL 1.6 MG/DL (1.8-2.4)
[2020-07-01] MEDS: MAGNESIUM OXIDE 400MG TAB (MAG-OX) PO SCH ×2 (12:34→21:04)
[2020-07-01 14:00] VITALS: BP 134/74
[2020-07-01] MEDS: metFORMIN (GLUCOPHAGE) 500MG TAB PO SCH (17:28)
[2020-07-01 20:00] VITALS: BP 125/60
[2020-07-01] MEDS: RAMELTEON 8 MG TAB (ROZEREM) PO PRN (21:04)
[2020-07-01] MEDS: QUEtiapine FUMARATE 12.5 MG HALF-TAB PO SCH (21:04)
[2020-07-01] MEDS: ATORVASTATIN 20 MG TAB PO SCH (21:04)
--- NOTE | 2020-07-01 21:20 | IPNPDOC ---
PM&R Progress Note DATE OF SERVICE: Jun 30, 2020 Service Writer Advisor Progress Note Subjective: Patient seen in his room during family training, much more alert and mobile in bed. His reported she hurt her back while helping lower him to the floor while in the parallel bars, she states she has had this type of back pain before, it is non-radiating pain, and that she had a follow-up appointment with her PMD. REVIEW OF SYSTEMS: The following is a completed review of systems and has been reviewed. Review of systems otherwise unremarkable. PAIN: Patient self reports no pain EYES: No recent vision changes EARS, NOSE, & THROAT: No throat pain, or dysphagia, or rhinorrhea CARDIOVASCULAR: Denies chest pain or palpitations PULMONARY: Denies shortness of breath GASTROINTESTINAL: Denies constipation/diarrhea GENITOURINARY: denies dysuria MUSCULOSKELETAL: generalized weakness NEUROLOGICAL: +aphasia and apraxia HEMATOLOGICAL: denies easy bruising SKIN: denies rash PSYCHIATRIC: +confused All other review of systems found to be negative. PHYSICAL EXAMINATION: VITAL SIGNS: Please see below. GENERAL: No acute distress. HEENT: PERRL. Extraocular movements intact. Clear conjunctiva CARDIOVASCULAR: Regular rate and rhythm. No murmurs, rubs, or gallops LUNGS: Clear to auscultation bilaterally. No wheezes. No rhonchi ABDOMEN: Soft, nontender, nondistended. Positive bowel sounds. Normal active bowel sounds NEUROLOGICAL: Alert and oriented to self Cranial nerves II through XII grossly intact. Sensation grossly intact +apraxic, +aphasic EXTREMITIES: 5\5 strength bilateral upper extremities. 5\5 strength right lower extremity. 5/5 strength in left lower extremity. SKIN: no sacral ulcers ASSESSMENT:69-year-old M with past medical history of CKD, afib, left frontal stroke admitted to ARU and discharged to [facility] Neuro-ICU for left frontal hematoma on 06-14-20 admitted back to ARU for continued management PLAN: 1. Rehab- PT/OT advance gait and mobility, strengthen/stretch/maintain ROM all 4limbs-patient having difficulty initiating movements on command -CLINIC MANAGER for cog and swallow eval 2. 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 3. CArdiac- Afib c/u coreg -chronic diastolic CHF- daily weights, fluid restrict -HTN- c/u amlodipine 4. Resp- monitor for infection, Duonebs, hx of COPD and LUISITO not compliant with CPAP 5. Endo- hx of DM c/u insulin coverage- started on metformin, hyperglycemia better controlled 6. renal- hx of CKD monitor for GAURI 7. GI ppx- protonix 8. DVT ppx- teds 9. Pain- tylenol prn 10. Hypokalemia- c/u to monitor and replete prn 11. - UA ordered as possible cause of patient's lack of initiation- results negative 12. Dispo-goal to home with , at this time he will require Stephanie, although he is able to move well enough when he initiates on his own, but not safely or consistently Allergies Coded Allergies: No Known Allergies (Unverified , 03/31/19) Vital Signs Vital Signs Date Time Temp Pulse Resp B/P (MAP) Pulse Ox O2 Delivery O2 Flow Rate FiO2 07/01/20 21:05 67 125/60 07/01/20 20:00 97.2 18 98 Room Air Laboratory Data CBC/BMP Laboratory Tests 07/01/20 07:11 Labs 24H Laboratory Tests 2 06/30/20 21:50: Bedside Glucose (Misc Panel) 124H 07/01/20 06:58: Bedside Glucose (Misc Panel) 135H 07/01/20 07:11: Immature Granulocyte % (Auto) 0.3, Neutrophils (%) (Auto) 46.7, Lymphocytes (%) (Auto) 39.8, Monocytes (%) (Auto) 10.6H, Eosinophils (%) (Auto) 2.3, Basophils (%) (Auto) 0.3, Neutrophils # (Auto) 3.4, Lymphocytes # (Auto) 2.9, Monocytes # (Auto) 0.8, Eosinophils # (Auto) 0.2, Basophils # (Auto) 0.0, Nucleated Red Blood Cells % (auto) 0.0, Anion Gap 5L, Glomerular Filtration Rate > 60.0, Calcium Level 8.4L, Magnesium Level 1.6L 07/01/20 11:17: Bedside Glucose (Misc Panel) 227H 07/01/20 16:22: Bedside Glucose (Misc Panel) 124H 07/01/20 19:39: Bedside Glucose (Misc Panel) 147H Current Medications Current Medications Current Medications Medications (Trade) Dose Ordered Sig/Cinthia Route PRN Reason Start Time Stop Time Status Last Admin Dose Admin Acetaminophen (Tylenol Tab) 650 mg Q4HP PRN PO fever/MILD PAIN (PS 1-4) 06/17/20 12:50 Albuterol/ Ipratropium (Duoneb (Ipr 0.5mg/Alb 2.5mg)) 3 ml RTID NEB 06/17/20 14:00 07/01/20 20:00 Allopurinol (Zyloprim) 100 mg DAILY PO 06/18/20 09:00 06/21/20 14:11 DC 06/21/20 12:44 Amlodipine Besylate (Norvasc) 5 mg DAILY PO 06/18/20 09:00 07/01/20 08:34 Atorvastatin Calcium (Lipitor) 80 mg DAILY PO 06/18/20 09:00 06/17/20 14:57 DC Atorvastatin Calcium (Lipitor) 80 mg QHS PO 06/17/20 21:00 07/01/20 21:04 Bisacodyl (Dulcolax Suppository) 10 mg DAILYPRN PRN [place] CONSTIPATION 06/17/20 12:50 Carvedilol (COReg) 12.5 mg BID PO 06/17/20 21:00 07/01/20 21:05 Dextrose (Dextrose 50%) 25 ml ASDIRECTED PRN IV SEE LABEL COMMENTS 06/17/20 12:50 Divalproex Sodium (Depakote Sprinkles) 500 mg BID PO 06/24/20 21:00 07/01/20 21:05 Divalproex Sodium (Depakote Sprinkles) 750 mg BID PO 06/18/20 09:00 06/24/20 09:21 DC 06/24/20 08:33 Docusate Sodium (Colace) 100 mg BID PO 06/17/20 21:00 06/21/20 14:11 DC 06/20/20 20:40 Fluoxetine HCl (PROzac) 20 mg DAILY PO 06/18/20 09:00 07/01/20 08:33 Glucagon (Glucagon) 1 mg ASDIRECTED PRN SC SEE LABEL COMMENTS 06/17/20 12:50 Glucose (Glucose) 16 GM ASDIRECTED PRN PO SEE LABEL COMMENTS 06/17/20 12:50 Home Med (Med Rec Complete!) ASDIRECTED XX 06/17/20 13:45 06/17/20 14:29 DC Insulin Human Lispro (HumaLOG INSULIN) SEE PROTOCOL TABLE AC SC 06/17/20 17:30 07/01/20 17:28 Insulin Human Lispro (HumaLOG INSULIN) SEE PROTOCOL TABLE QHS SC 06/17/20 21:00 Lorazepam (Ativan) 0.5 mg Q6HP PRN PO agitation 06/17/20 12:50 06/17/20 13:28 DC Lorazepam (Ativan) 2 mg Q6HP PRN IM seizure 06/17/20 13:30 06/29/20 13:30 DC Magnesium Oxide (Mag-Ox) 400 mg BID PO 07/01/20 09:00 07/01/20 21:04 Metformin HCl (Glucophage) 500 mg DAILY@18 PO 06/22/20 18:00 07/01/20 17:28 Pantoprazole Sodium (Protonix) 40 mg DAILY PO 06/18/20 09:00 06/21/20 14:11 DC 06/20/20 09:03 Potassium Chloride (Micro-K Extencaps) 20 meq DAILY PO 06/18/20 09:00 06/18/20 14:43 DC 06/18/20 09:46 Potassium Chloride (Micro-K Extencaps) 40 meq DAILY PO 06/19/20 09:00 07/01/20 08:32 Quetiapine Fumarate (SEROquel) 12.5 mg BID PO 06/21/20 09:00 06/24/20 06:38 DC 06/23/20 20:41 Quetiapine Fumarate (SEROquel) 12.5 mg BID PO 06/17/20 21:00 06/20/20 07:30 DC 06/19/20 21:22 Quetiapine Fumarate (SEROquel) 12.5 mg BID PRN PO agitation 06/20/20 09:00 06/20/20 13:45 DC Quetiapine Fumarate (SEROquel) 12.5 mg DAILY PRN PO agitation 06/24/20 09:25 06/28/20 20:32 Quetiapine Fumarate (SEROquel) 12.5 mg QHS PO 06/24/20 21:00 07/01/20 21:04 Quetiapine Fumarate (SEROquel) 12.5 mg TID PRN PO agitation 06/20/20 13:45 06/21/20 10:23 DC 06/20/20 20:40 Ramelteon (Rozerem) 8 mg QHS PO 06/21/20 21:00 06/24/20 06:38 DC 06/23/20 20:41 Ramelteon (Rozerem) 8 mg QHS PRN PO INSOMNIA 06/19/20 20:15 06/21/20 10:23 DC 06/19/20 21:22 Ramelteon (Rozerem) 8 mg QHS PRN PO insomnia 06/24/20 21:00 07/01/20 21:04 Senna (Senokot) 1 tab QHS PO 06/17/20 21:00 06/21/20 14:11 DC 06/20/20 20:40 Spironolactone (Aldactone) 25 mg QAM PO 06/18/20 09:00 06/17/20 13:15 DC Valproic Acid (Depakene) 750 mg BID PO 06/17/20 21:00 06/18/20 01:56 LINDA ROMANO MD Jul 01, 2020 21:20
--- NOTE | 2020-07-01 21:22 | IPNPDOC ---
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 REVIEW OF SYSTEMS: The following is a completed review of systems and has been reviewed. Review of systems otherwise unremarkable. PAIN: Patient self reports no pain EYES: No recent vision changes EARS, NOSE, & THROAT: No throat pain, or dysphagia, or rhinorrhea CARDIOVASCULAR: Denies chest pain or palpitations PULMONARY: Denies shortness of breath GASTROINTESTINAL: Denies constipation/diarrhea GENITOURINARY: denies dysuria MUSCULOSKELETAL: generalized weakness NEUROLOGICAL: +aphasia and apraxia HEMATOLOGICAL: denies easy bruising SKIN: denies rash PSYCHIATRIC: +confused All other review of systems found to be negative. PHYSICAL EXAMINATION: VITAL SIGNS: Please see below. GENERAL: No acute distress. HEENT: PERRL. Extraocular movements intact. Clear conjunctiva CARDIOVASCULAR: Regular rate and rhythm. No murmurs, rubs, or gallops LUNGS: Clear to auscultation bilaterally. No wheezes. No rhonchi ABDOMEN: Soft, nontender, nondistended. Positive bowel sounds. Normal active bowel sounds NEUROLOGICAL: Alert and oriented to self Cranial nerves II through XII grossly intact. Sensation grossly intact +apraxic, +aphasic EXTREMITIES: 5\5 strength bilateral upper extremities. 5\5 strength right lower extremity. 5/5 strength in left lower extremity. SKIN: no sacral ulcers ASSESSMENT:69-year-old M with past medical history of CKD, afib, left frontal stroke admitted to ARU and discharged to [facility] Neuro-ICU for left frontal hematoma on 06-14-20 admitted back to ARU for continued management PLAN: 1. 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 3. CArdiac- Afib c/u coreg -chronic diastolic CHF- daily weights, fluid restrict -HTN- c/u amlodipine 4. Resp- monitor for infection, Duonebs, hx of COPD and LUISITO not compliant with CPAP 5. Endo- hx of DM c/u insulin coverage- started on metformin, hyperglycemia better controlled 6. renal- hx of CKD monitor for GAURI 7. GI ppx- protonix 8. DVT ppx- teds 9. Pain- tylenol prn 10. Hypokalemia- c/u to monitor and replete prn- will check Magnesium levels and start supplement 11. - UA ordered as possible cause of patient's lack of initiation- results negative 12. Dispo-goal to home with , at this time he will require Stephanie, although he is able to move well enough when he initiates on his own, but not safely or consistently Allergies Coded Allergies: No Known Allergies (Unverified , 03/31/19) Vital Signs Vital Signs Date Time Temp Pulse Resp B/P (MAP) Pulse Ox O2 Delivery O2 Flow Rate FiO2 07/01/20 21:05 67 125/60 07/01/20 20:00 97.2 18 98 Room Air Laboratory Data CBC/BMP Laboratory Tests 07/01/20 07:11 Labs 24H Laboratory Tests 2 06/30/20 21:50: Bedside Glucose (Misc Panel) 124H 07/01/20 06:58: Bedside Glucose (Misc Panel) 135H 07/01/20 07:11: Immature Granulocyte % (Auto) 0.3, Neutrophils (%) (Auto) 46.7, Lymphocytes (%) (Auto) 39.8, Monocytes (%) (Auto) 10.6H, Eosinophils (%) (Auto) 2.3, Basophils (%) (Auto) 0.3, Neutrophils # (Auto) 3.4, Lymphocytes # (Auto) 2.9, Monocytes # (Auto) 0.8, Eosinophils # (Auto) 0.2, Basophils # (Auto) 0.0, Nucleated Red Blood Cells % (auto) 0.0, Anion Gap 5L, Glomerular Filtration Rate > 60.0, Calcium Level 8.4L, Magnesium Level 1.6L 07/01/20 11:17: Bedside Glucose (Misc Panel) 227H 07/01/20 16:22: Bedside Glucose (Misc Panel) 124H 07/01/20 19:39: Bedside Glucose (Misc Panel) 147H Current Medications Current Medications Current Medications Medications (Trade) Dose Ordered Sig/Cinthia Route PRN Reason Start Time Stop Time Status Last Admin Dose Admin Acetaminophen (Tylenol Tab) 650 mg Q4HP PRN PO fever/MILD PAIN (PS 1-4) 06/17/20 12:50 Albuterol/ Ipratropium (Duoneb (Ipr 0.5mg/Alb 2.5mg)) 3 ml RTID NEB 06/17/20 14:00 07/01/20 20:00 Allopurinol (Zyloprim) 100 mg DAILY PO 06/18/20 09:00 06/21/20 14:11 DC 06/21/20 12:44 Amlodipine Besylate (Norvasc) 5 mg DAILY PO 06/18/20 09:00 07/01/20 08:34 Atorvastatin Calcium (Lipitor) 80 mg DAILY PO 06/18/20 09:00 06/17/20 14:57 DC Atorvastatin Calcium (Lipitor) 80 mg QHS PO 06/17/20 21:00 07/01/20 21:04 Bisacodyl (Dulcolax Suppository) 10 mg DAILYPRN PRN [place] CONSTIPATION 06/17/20 12:50 Carvedilol (COReg) 12.5 mg BID PO 06/17/20 21:00 07/01/20 21:05 Dextrose (Dextrose 50%) 25 ml ASDIRECTED PRN IV SEE LABEL COMMENTS 06/17/20 12:50 Divalproex Sodium (Depakote Sprinkles) 500 mg BID PO 06/24/20 21:00 07/01/20 21:05 Divalproex Sodium (Depakote Sprinkles) 750 mg BID PO 06/18/20 09:00 06/24/20 09:21 DC 06/24/20 08:33 Docusate Sodium (Colace) 100 mg BID PO 06/17/20 21:00 06/21/20 14:11 DC 06/20/20 20:40 Fluoxetine HCl (PROzac) 20 mg DAILY PO 06/18/20 09:00 07/01/20 08:33 Glucagon (Glucagon) 1 mg ASDIRECTED PRN SC SEE LABEL COMMENTS 06/17/20 12:50 Glucose (Glucose) 16 GM ASDIRECTED PRN PO SEE LABEL COMMENTS 06/17/20 12:50 Home Med (Med Rec Complete!) ASDIRECTED XX 06/17/20 13:45 06/17/20 14:29 DC Insulin Human Lispro (HumaLOG INSULIN) SEE PROTOCOL TABLE AC SC 06/17/20 17:30 07/01/20 17:28 Insulin Human Lispro (HumaLOG INSULIN) SEE PROTOCOL TABLE QHS SC 06/17/20 21:00 Lorazepam (Ativan) 0.5 mg Q6HP PRN PO agitation 06/17/20 12:50 06/17/20 13:28 DC Lorazepam (Ativan) 2 mg Q6HP PRN IM seizure 06/17/20 13:30 06/29/20 13:30 DC Magnesium Oxide (Mag-Ox) 400 mg BID PO 07/01/20 09:00 07/01/20 21:04 Metformin HCl (Glucophage) 500 mg DAILY@18 PO 06/22/20 18:00 07/01/20 17:28 Pantoprazole Sodium (Protonix) 40 mg DAILY PO 06/18/20 09:00 06/21/20 14:11 DC 06/20/20 09:03 Potassium Chloride (Micro-K Extencaps) 20 meq DAILY PO 06/18/20 09:00 06/18/20 14:43 DC 06/18/20 09:46 Potassium Chloride (Micro-K Extencaps) 40 meq DAILY PO 06/19/20 09:00 07/01/20 08:32 Quetiapine Fumarate (SEROquel) 12.5 mg BID PO 06/21/20 09:00 06/24/20 06:38 DC 06/23/20 20:41 Quetiapine Fumarate (SEROquel) 12.5 mg BID PO 06/17/20 21:00 06/20/20 07:30 DC 06/19/20 21:22 Quetiapine Fumarate (SEROquel) 12.5 mg BID PRN PO agitation 06/20/20 09:00 06/20/20 13:45 DC Quetiapine Fumarate (SEROquel) 12.5 mg DAILY PRN PO agitation 06/24/20 09:25 06/28/20 20:32 Quetiapine Fumarate (SEROquel) 12.5 mg QHS PO 06/24/20 21:00 07/01/20 21:04 Quetiapine Fumarate (SEROquel) 12.5 mg TID PRN PO agitation 06/20/20 13:45 06/21/20 10:23 DC 06/20/20 20:40 Ramelteon (Rozerem) 8 mg QHS PO 06/21/20 21:00 06/24/20 06:38 DC 06/23/20 20:41 Ramelteon (Rozerem) 8 mg QHS PRN PO INSOMNIA 06/19/20 20:15 06/21/20 10:23 DC 06/19/20 21:22 Ramelteon (Rozerem) 8 mg QHS PRN PO insomnia 06/24/20 21:00 07/01/20 21:04 Senna (Senokot) 1 tab QHS PO 06/17/20 21:00 06/21/20 14:11 DC 06/20/20 20:40 Spironolactone (Aldactone) 25 mg QAM PO 06/18/20 09:00 06/17/20 13:15 DC Valproic Acid (Depakene) 750 mg BID PO 06/17/20 21:00 06/18/20 01:56 LINDA ROMANO MD Jul 01, 2020 21:21
[2020-07-02 05:17] VITALS: BP 156/80
[2020-07-02] MEDS: IPRATROPIUM 0.5MG/ALBUTEROL 2.5MG INH SOL UD 3ML (DUONEB) NEB SCH ×3 (07:28→20:13)
[2020-07-02 08:09] LABS: BLOOD UREA NITROGEN 22 MG/DL (7-18); CALCIUM LEVEL 8.9 MG/DL (8.8-10.2); CARBON DIOXIDE LEVEL 31 MEQ/L (21-32); CHLORIDE LEVEL 108 MEQ/L (98-107); CREATININE FOR GFR 0.98 MG/DL (0.70-1.30); GLOMERULAR FILTRATION RATE > 60.0 (>42); GLUCOSE, FASTING 125 MG/DL (70-100); POTASSIUM SERUM 3.9 MEQ/L (3.5-5.1); SODIUM LEVEL 143 MEQ/L (136-145)
[2020-07-02 09:15] VITALS: BP 153/67
[2020-07-02] MEDS: DIVALPROEX SPRINKLE 125 MG CAP PO SCH ×2 (09:17→21:20)
[2020-07-02] MEDS: MAGNESIUM OXIDE 400MG TAB (MAG-OX) PO SCH ×2 (09:17→21:19)
[2020-07-02] MEDS: FLUoxetine 20 MG CAP PO SCH (09:17)
[2020-07-02] MEDS: HumaLOG INSULIN (NovoLOG) PER UNIT SC SCH ×4 (09:17→21:00)
[2020-07-02] MEDS: amLODIPine 5 MG TAB PO SCH (09:18)
[2020-07-02] MEDS: POTASSIUM CHLORIDE 10 MEQ SR TABLET PO SCH (09:18)
[2020-07-02] MEDS: REMEDY PHYTOPLEX Z-GUARD PASTE 113GM TUBE (FROM STOREROOM PRODUCT) TOP SCH ×3 (09:18→21:21)
[2020-07-02] MEDS: CARVedilol 12.5 MG TAB PO SCH ×2 (09:18→21:20)
[2020-07-02 14:15] VITALS: BP 150/65
[2020-07-02] MEDS: metFORMIN (GLUCOPHAGE) 500MG TAB PO SCH (17:03)
[2020-07-02 20:00] VITALS: BP 159/79
[2020-07-02] MEDS: ATORVASTATIN 20 MG TAB PO SCH (21:19)
[2020-07-02] MEDS: RAMELTEON 8 MG TAB (ROZEREM) PO PRN (21:19)
[2020-07-02] MEDS: QUEtiapine FUMARATE 12.5 MG HALF-TAB PO SCH (21:20)
[2020-07-03 05:37] VITALS: BP 165/79
[2020-07-03 06:45] VITALS: BP 158/74
[2020-07-03] MEDS: IPRATROPIUM 0.5MG/ALBUTEROL 2.5MG INH SOL UD 3ML (DUONEB) NEB SCH ×3 (07:10→19:43)
[2020-07-03] MEDS: MAGNESIUM OXIDE 400MG TAB (MAG-OX) PO SCH ×2 (08:33→20:39)
[2020-07-03] MEDS: FLUoxetine 20 MG CAP PO SCH (08:33)
[2020-07-03] MEDS: HumaLOG INSULIN (NovoLOG) PER UNIT SC SCH ×4 (08:33→21:00)
[2020-07-03] MEDS: CARVedilol 12.5 MG TAB PO SCH ×2 (08:33→20:39)
[2020-07-03] MEDS: amLODIPine 5 MG TAB PO SCH (08:33)
[2020-07-03] MEDS: DIVALPROEX SPRINKLE 125 MG CAP PO SCH ×2 (08:34→20:39)
[2020-07-03] MEDS: POTASSIUM CHLORIDE 10 MEQ SR TABLET PO SCH (08:34)
[2020-07-03] MEDS: REMEDY PHYTOPLEX Z-GUARD PASTE 113GM TUBE (FROM STOREROOM PRODUCT) TOP SCH ×3 (08:34→20:40)
[2020-07-03 14:00] VITALS: BP 143/63
[2020-07-03] MEDS: metFORMIN (GLUCOPHAGE) 500MG TAB PO SCH (17:31)
[2020-07-03 20:00] VITALS: BP 143/70
[2020-07-03] MEDS: RAMELTEON 8 MG TAB (ROZEREM) PO PRN (20:39)
[2020-07-03] MEDS: ATORVASTATIN 20 MG TAB PO SCH (20:39)
[2020-07-03] MEDS: QUEtiapine FUMARATE 12.5 MG HALF-TAB PO SCH (20:40)
[2020-07-04 06:38] VITALS: BP 156/78
[2020-07-04 06:39] LABS: BASO % 0.4 % (0.0-1.0); EOS # 0.2 10^3/uL (0.0-0.5); HEMATOCRIT 33.4 % (42.0-52.0); HEMOGLOBIN 11.2 g/dl (13.5-17.5); LYMPH # 2.7 10^3/uL (1.5-5.0); LYMPH % 53.3 % (24.0-44.0); MEAN CORPUSCULAR HEMOGLOBIN 32.2 pg (27.0-33.0); MEAN CORPUSCULAR HGB CONC 33.5 g/dl (32.0-36.5); MONO # 0.5 10^3/uL (0.0-0.8); MONO % 9.7 % (2.0-8.0); NEUTROPHILS # 1.7 10^3/uL (1.5-8.5); NEUTROPHILS % 33.4 % (36.0-66.0); PLATELET COUNT, AUTOMATED 130 10^3/uL (150-450); RED BLOOD COUNT 3.48 10^6/uL (4.30-6.10)
[2020-07-04 06:54] LABS: BLOOD UREA NITROGEN 22 MG/DL (7-18); CALCIUM LEVEL 8.4 MG/DL (8.8-10.2); CARBON DIOXIDE LEVEL 30 MEQ/L (21-32); CHLORIDE LEVEL 107 MEQ/L (98-107); CREATININE FOR GFR 0.98 MG/DL (0.70-1.30); GLOMERULAR FILTRATION RATE > 60.0 (>42); GLUCOSE, FASTING 117 MG/DL (70-100); POTASSIUM SERUM 4.1 MEQ/L (3.5-5.1); SODIUM LEVEL 142 MEQ/L (136-145)
[2020-07-04] MEDS: IPRATROPIUM 0.5MG/ALBUTEROL 2.5MG INH SOL UD 3ML (DUONEB) NEB SCH ×3 (07:30→20:00)
[2020-07-04] MEDS ORDERED: KLOR10TA76 PO (09:56)
[2020-07-04] MEDS ORDERED: AMLO1TAB24 PO (09:56)
[2020-07-04] MEDS ORDERED: ALLO10TA PO (09:56)
[2020-07-04] MEDS ORDERED: DIVA1CAP PO (09:56)
[2020-07-04] MEDS ORDERED: GLUC500T PO (09:56)
[2020-07-04] MEDS ORDERED: FLUO20CA22 PO (09:56)
[2020-07-04] MEDS ORDERED: MAGN400T2 PO (09:56)
[2020-07-04] MEDS ORDERED: QUET25TA3 PO (09:56)
[2020-07-04] MEDS ORDERED: PANT40TA29 PO (09:56)
[2020-07-04] MEDS ORDERED: CARV12.5 PO (09:56)
[2020-07-04] MEDS ORDERED: ATOR80TA59 PO (09:56)
[2020-07-04] MEDS: HumaLOG INSULIN (NovoLOG) PER UNIT SC SCH ×4 (09:59→20:41)
[2020-07-04] MEDS: DIVALPROEX SPRINKLE 125 MG CAP PO SCH ×2 (09:59→20:39)
[2020-07-04] MEDS: FLUoxetine 20 MG CAP PO SCH (10:00)
[2020-07-04] MEDS: MAGNESIUM OXIDE 400MG TAB (MAG-OX) PO SCH ×2 (10:00→20:39)
[2020-07-04] MEDS: POTASSIUM CHLORIDE 10 MEQ SR TABLET PO SCH (10:00)
[2020-07-04] MEDS: CARVedilol 12.5 MG TAB PO SCH ×2 (10:01→20:39)
[2020-07-04] MEDS: REMEDY PHYTOPLEX Z-GUARD PASTE 113GM TUBE (FROM STOREROOM PRODUCT) TOP SCH ×3 (10:01→20:42)
[2020-07-04] MEDS: amLODIPine 5 MG TAB PO SCH (10:01)
[2020-07-04 14:00] VITALS: BP 103/62
[2020-07-04] MEDS: metFORMIN (GLUCOPHAGE) 500MG TAB PO SCH (17:21)
[2020-07-04 19:55] VITALS: BP 145/72
[2020-07-04] MEDS: RAMELTEON 8 MG TAB (ROZEREM) PO PRN (20:39)
[2020-07-04] MEDS: ATORVASTATIN 20 MG TAB PO SCH (20:39)
[2020-07-04] MEDS: QUEtiapine FUMARATE 12.5 MG HALF-TAB PO SCH (20:40)
[2020-07-04 23:30] VITALS: BP 138/52
[2020-07-05 05:32] VITALS: BP 160/77
[2020-07-05] MEDS: IPRATROPIUM 0.5MG/ALBUTEROL 2.5MG INH SOL UD 3ML (DUONEB) NEB SCH ×3 (07:23→19:17)
[2020-07-05] MEDS: REMEDY PHYTOPLEX Z-GUARD PASTE 113GM TUBE (FROM STOREROOM PRODUCT) TOP SCH ×3 (09:00→20:43)
[2020-07-05] MEDS: HumaLOG INSULIN (NovoLOG) PER UNIT SC SCH ×5 (09:17→20:34)
[2020-07-05] MEDS: CARVedilol 12.5 MG TAB PO SCH ×3 (09:18→20:41)
[2020-07-05] MEDS: amLODIPine 5 MG TAB PO SCH ×2 (09:19→12:49)
[2020-07-05] MEDS: FLUoxetine 20 MG CAP PO SCH ×2 (09:19→12:49)
[2020-07-05] MEDS: MAGNESIUM OXIDE 400MG TAB (MAG-OX) PO SCH ×3 (09:19→20:40)
[2020-07-05] MEDS: DIVALPROEX SPRINKLE 125 MG CAP PO SCH ×3 (09:19→20:42)
[2020-07-05] MEDS: POTASSIUM CHLORIDE 10 MEQ SR TABLET PO SCH ×2 (09:20→12:49)
[2020-07-05 14:00] VITALS: BP 144/67
--- NOTE | 2020-07-05 17:40 | REP ---
INDICATION: cough, r/o infiltrate. COMPARISON: Comparison chest x-ray is from June 08, 2020. TECHNIQUE: Two views.. FINDINGS: The lungs are well inflated and free of infiltrate. The pleural angles are sharp. The heart size is borderline. Pulmonary vasculature is not increased. No significant bony abnormality is seen. IMPRESSION: Borderline heart size. No infiltrates seen. Otherwise no active disease.. <Electronically signed by Raudel Marshall > 07/05/20 [id number]
[2020-07-05] MEDS: guaiFENesin 200 MG TAB PO SCH ×2 (17:53→20:40)
[2020-07-05] MEDS: metFORMIN (GLUCOPHAGE) 500MG TAB PO SCH (17:53)
[2020-07-05 20:33] VITALS: BP 144/65
[2020-07-05] MEDS: RAMELTEON 8 MG TAB (ROZEREM) PO PRN (20:40)
[2020-07-05] MEDS: QUEtiapine FUMARATE 12.5 MG HALF-TAB PO SCH (20:41)
[2020-07-05] MEDS: ATORVASTATIN 20 MG TAB PO SCH (20:41)
[2020-07-06 06:15] VITALS: BP 168/80
[2020-07-06] MEDS: IPRATROPIUM 0.5MG/ALBUTEROL 2.5MG INH SOL UD 3ML (DUONEB) NEB SCH ×3 (07:55→20:26)
[2020-07-06] MEDS: guaiFENesin 200 MG TAB PO SCH ×2 (08:20→21:00)
[2020-07-06] MEDS: DIVALPROEX SPRINKLE 125 MG CAP PO SCH ×2 (08:20→21:34)
[2020-07-06] MEDS: REMEDY PHYTOPLEX Z-GUARD PASTE 113GM TUBE (FROM STOREROOM PRODUCT) TOP SCH ×3 (08:21→21:36)
[2020-07-06] MEDS: FLUoxetine 20 MG CAP PO SCH (08:21)
[2020-07-06] MEDS: POTASSIUM CHLORIDE 10 MEQ SR TABLET PO SCH (08:21)
[2020-07-06] MEDS: amLODIPine 5 MG TAB PO SCH (08:21)
[2020-07-06] MEDS: MAGNESIUM OXIDE 400MG TAB (MAG-OX) PO SCH ×2 (08:21→21:00)
[2020-07-06] MEDS: HumaLOG INSULIN (NovoLOG) PER UNIT SC SCH ×4 (08:22→21:00)
[2020-07-06] MEDS: CARVedilol 12.5 MG TAB PO SCH ×2 (08:22→21:35)
[2020-07-06 14:00] VITALS: BP 152/77
[2020-07-06] MEDS: metFORMIN (GLUCOPHAGE) 500MG TAB PO SCH (17:08)
[2020-07-06 20:00] VITALS: BP 153/77
--- NOTE | 2020-07-06 20:59 | IPNPDOC ---
PM&R Progress Note DATE OF SERVICE: Jul 06, 2020 Recreation Counselor Progress Note Subjective: Patient seen in his room with sitter bedside, stating he has no new issues. REVIEW OF SYSTEMS: The following is a completed review of systems and has been reviewed. Review of systems otherwise unremarkable. PAIN: Patient self reports no pain EYES: No recent vision changes EARS, NOSE, & THROAT: No throat pain, or dysphagia, or rhinorrhea CARDIOVASCULAR: Denies chest pain or palpitations PULMONARY: Denies shortness of breath GASTROINTESTINAL: Denies constipation/diarrhea GENITOURINARY: denies dysuria MUSCULOSKELETAL: generalized weakness NEUROLOGICAL: +aphasia and apraxia HEMATOLOGICAL: denies easy bruising SKIN: denies rash PSYCHIATRIC: +confused All other review of systems found to be negative. PHYSICAL EXAMINATION: VITAL SIGNS: Please see below. GENERAL: No acute distress. HEENT: PERRL. Extraocular movements intact. Clear conjunctiva CARDIOVASCULAR: Regular rate and rhythm. No murmurs, rubs, or gallops LUNGS: Clear to auscultation bilaterally. No wheezes. No rhonchi ABDOMEN: Soft, nontender, nondistended. Positive bowel sounds. Normal active bowel sounds NEUROLOGICAL: Alert and oriented to self Cranial nerves II through XII grossly intact. Sensation grossly intact +apraxic, +aphasic EXTREMITIES: 5\5 strength bilateral upper extremities. 5\5 strength right lower extremity. 5/5 strength in left lower extremity. SKIN: no sacral ulcers ASSESSMENT:69-year-old M with past medical history of CKD, afib, left frontal stroke admitted to ARU and discharged to [facility] Neuro-ICU for left frontal h ematoma on 06-14-20 admitted back to ARU for continued management PLAN: 1. 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 3. CArdiac- Afib c/u coreg -chronic diastolic CHF- daily weights, fluid restrict -HTN- c/u amlodipine 4. Resp- monitor for infection, Duonebs, hx of COPD and LUISITO not compliant with CPAP 5. Endo- hx of DM c/u insulin coverage- started on metformin, hyperglycemia better controlled 6. renal- hx of CKD monitor for GAURI 7. GI ppx- protonix 8. DVT ppx- teds 9. Pain- tylenol prn 10. Hypokalemia with hypomagnesemia- improved with Mg-Ox supplement, c/u potassium supplements 11. - UA ordered as possible cause of patient's lack of initiation- results negative 12. Dispo-goal to home with , at this time he will require Stephanie, d/ postponed to 07-11-20 per 's request so she can have time for her back sprain to resolve Allergies Coded Allergies: No Known Allergies (Unverified , 03/31/19) Vital Signs Vital Signs Date Time Temp Pulse Resp B/P (MAP) Pulse Ox O2 Delivery O2 Flow Rate FiO2 07/06/20 14:00 97.3 69 18 152/77 (102) 98 Room Air Laboratory Data Labs 24H Laboratory Tests 2 07/06/20 06:15: Bedside Glucose (Misc Panel) 121H 07/06/20 11:39: Bedside Glucose (Misc Panel) 260H 07/06/20 16:22: Bedside Glucose (Misc Panel) 111H 07/06/20 19:44: Bedside Glucose (Misc Panel) 160H Current Medications Current Medications Current Medications Medications (Trade) Dose Ordered Sig/Cinthia Route PRN Reason Start Time Stop Time Status Last Admin Dose Admin Acetaminophen (Tylenol Tab) 650 mg Q4HP PRN PO fever/MILD PAIN (PS 1-4) 06/17/20 12:50 Albuterol/ Ipratropium (Duoneb (Ipr 0.5mg/Alb 2.5mg)) 3 ml RTID NEB 06/17/20 14:00 07/06/20 20:26 Allopurinol (Zyloprim) 100 mg DAILY PO 06/18/20 09:00 06/21/20 14:11 DC 06/21/20 12:44 Amlodipine Besylate (Norvasc) 5 mg DAILY PO 06/18/20 09:00 07/06/20 08:21 Atorvastatin Calcium (Lipitor) 80 mg DAILY PO 06/18/20 09:00 06/17/20 14:57 DC Atorvastatin Calcium (Lipitor) 80 mg QHS PO 06/17/20 21:00 07/05/20 20:41 Bisacodyl (Dulcolax Suppository) 10 mg DAILYPRN PRN [place] CONSTIPATION 06/17/20 12:50 Carvedilol (COReg) 12.5 mg BID PO 06/17/20 21:00 07/06/20 08:22 Dextrose (Dextrose 50%) 25 ml ASDIRECTED PRN IV SEE LABEL COMMENTS 06/17/20 12:50 Divalproex Sodium (Depakote Sprinkles) 500 mg BID PO 06/24/20 21:00 07/06/20 08:20 Divalproex Sodium (Depakote Sprinkles) 750 mg BID PO 06/18/20 09:00 06/24/20 09:21 DC 06/24/20 08:33 Docusate Sodium (Colace) 100 mg BID PO 06/17/20 21:00 06/21/20 14:11 DC 06/20/20 20:40 Fluoxetine HCl (PROzac) 20 mg DAILY PO 06/18/20 09:00 07/06/20 08:21 Glucagon (Glucagon) 1 mg ASDIRECTED PRN SC SEE LABEL COMMENTS 06/17/20 12:50 Glucose (Glucose) 16 GM ASDIRECTED PRN PO SEE LABEL COMMENTS 06/17/20 12:50 Guaifenesin (Robitussin Tab) 400 mg BID PO 07/05/20 09:00 07/06/20 08:20 Home Med (Med Rec Complete!) ASDIRECTED XX 06/17/20 13:45 06/17/20 14:29 DC Insulin Human Lispro (HumaLOG INSULIN) SEE PROTOCOL TABLE AC SC 06/17/20 17:30 07/06/20 17:08 Insulin Human Lispro (HumaLOG INSULIN) SEE PROTOCOL TABLE QHS SC 06/17/20 21:00 Lorazepam (Ativan) 0.5 mg Q6HP PRN PO agitation 06/17/20 12:50 06/17/20 13:28 DC Lorazepam (Ativan) 2 mg Q6HP PRN IM seizure 06/17/20 13:30 06/29/20 13:30 DC Magnesium Oxide (Mag-Ox) 400 mg BID PO 07/01/20 09:00 07/06/20 08:21 Metformin HCl (Glucophage) 500 mg DAILY@18 PO 06/22/20 18:00 07/06/20 17:08 Pantoprazole Sodium (Protonix) 40 mg DAILY PO 06/18/20 09:00 06/21/20 14:11 DC 06/20/20 09:03 Potassium Chloride (Micro-K Extencaps) 20 meq DAILY PO 06/18/20 09:00 06/18/20 14:43 DC 06/18/20 09:46 Potassium Chloride (Micro-K Extencaps) 40 meq DAILY PO 06/19/20 09:00 07/06/20 08:21 Quetiapine Fumarate (SEROquel) 12.5 mg BID PO 06/21/20 09:00 06/24/20 06:38 DC 06/23/20 20:41 Quetiapine Fumarate (SEROquel) 12.5 mg BID PO 06/17/20 21:00 06/20/20 07:30 DC 06/19/20 21:22 Quetiapine Fumarate (SEROquel) 12.5 mg BID PRN PO agitation 06/20/20 09:00 06/20/20 13:45 DC Quetiapine Fumarate (SEROquel) 12.5 mg DAILY PRN PO agitation 06/24/20 09:25 06/28/20 20:32 Quetiapine Fumarate (SEROquel) 12.5 mg QHS PO 06/24/20 21:00 07/05/20 20:41 Quetiapine Fumarate (SEROquel) 12.5 mg TID PRN PO agitation 06/20/20 13:45 06/21/20 10:23 DC 06/20/20 20:40 Ramelteon (Rozerem) 8 mg QHS PO 06/21/20 21:00 06/24/20 06:38 DC 06/23/20 20:41 Ramelteon (Rozerem) 8 mg QHS PRN PO INSOMNIA 06/19/20 20:15 06/21/20 10:23 DC 06/19/20 21:22 Ramelteon (Rozerem) 8 mg QHS PRN PO insomnia 06/24/20 21:00 07/05/20 20:40 Senna (Senokot) 1 tab QHS PO 06/17/20 21:00 06/21/20 14:11 DC 06/20/20 20:40 Spironolactone (Aldactone) 25 mg QAM PO 06/18/20 09:00 06/17/20 13:15 DC Valproic Acid (Depakene) 750 mg BID PO 06/17/20 21:00 06/18/20 01:56 LINDA ROMANO MD Jul 06, 2020 20:59
[2020-07-06] MEDS: ATORVASTATIN 20 MG TAB PO SCH (21:00)
[2020-07-06] MEDS: QUEtiapine FUMARATE 12.5 MG HALF-TAB PO SCH (21:33)
[2020-07-06] MEDS: RAMELTEON 8 MG TAB (ROZEREM) PO PRN (21:33)
[2020-07-07 05:29] VITALS: BP 160/78
[2020-07-07] MEDS: IPRATROPIUM 0.5MG/ALBUTEROL 2.5MG INH SOL UD 3ML (DUONEB) NEB SCH (07:13)
[2020-07-07] MEDS: HumaLOG INSULIN (NovoLOG) PER UNIT SC SCH ×4 (09:58→20:09)
[2020-07-07] MEDS: POTASSIUM CHLORIDE 10 MEQ SR TABLET PO SCH (10:19)
[2020-07-07] MEDS: CARVedilol 12.5 MG TAB PO SCH ×2 (10:20→20:09)
[2020-07-07] MEDS: FLUoxetine 20 MG CAP PO SCH (10:20)
[2020-07-07] MEDS: DIVALPROEX SPRINKLE 125 MG CAP PO SCH ×2 (10:21→20:07)
[2020-07-07] MEDS: MAGNESIUM OXIDE 400MG TAB (MAG-OX) PO SCH ×2 (10:21→20:07)
[2020-07-07] MEDS: amLODIPine 5 MG TAB PO SCH (10:22)
[2020-07-07] MEDS: guaiFENesin 200 MG TAB PO SCH ×2 (10:22→20:08)
[2020-07-07] MEDS: REMEDY PHYTOPLEX Z-GUARD PASTE 113GM TUBE (FROM STOREROOM PRODUCT) TOP SCH ×3 (10:23→20:10)
--- NOTE | 2020-07-07 10:37 | IPNPDOC ---
PM&R Progress Note DATE OF SERVICE: Jul 07, 2020 [facility] Progress Note Subjective: Patient seen in therapy, able to propel his own wheelchair when directed to. REVIEW OF SYSTEMS: The following is a completed review of systems and has been reviewed. Review of systems otherwise unremarkable. PAIN: Patient self reports no pain EYES: No recent vision changes EARS, NOSE, & THROAT: No throat pain, or dysphagia, or rhinorrhea CARDIOVASCULAR: Denies chest pain or palpitations PULMONARY: Denies shortness of breath GASTROINTESTINAL: Denies constipation/diarrhea GENITOURINARY: denies dysuria MUSCULOSKELETAL: generalized weakness NEUROLOGICAL: +aphasia and apraxia HEMATOLOGICAL: denies easy bruising SKIN: denies rash PSYCHIATRIC: +confused All other review of systems found to be negative. PHYSICAL EXAMINATION: VITAL SIGNS: Please see below. GENERAL: No acute distress. HEENT: PERRL. Extraocular movements intact. Clear conjunctiva CARDIOVASCULAR: Regular rate and rhythm. No murmurs, rubs, or gallops LUNGS: Clear to auscultation bilaterally. No wheezes. No rhonchi ABDOMEN: Soft, nontender, nondistended. Positive bowel sounds. Normal active bowel sounds NEUROLOGICAL: Alert and oriented to self Cranial nerves II through XII grossly intact. Sensation grossly intact +apraxic, +aphasic EXTREMITIES: 5\5 strength bilateral upper extremities. 5\5 strength right lower extremity. 5/5 strength in left lower extremity. SKIN: no sacral ulcers ASSESSMENT:69-year-old M with past medical history of CKD, afib, left frontal stroke admitted to ARU and discharged to [facility] Neuro-ICU for left frontal hematoma on 06-14-20 admitted back to ARU for continued management PLAN: 1. Rehab- PT/OT advance gait and mobility, strengthen/stretch/maintain ROM all 4limbs-patient having difficulty initiating movements on command -[employer] for cog and swallow eval 2. 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 3. CArdiac- Afib c/u coreg -chronic diastolic CHF- daily weights, fluid restrict -HTN- c/u amlodipine 4. Resp- monitor for infection, Duonebs, hx of COPD and LUISITO not compliant with CPAP 5. Endo- hx of DM c/u insulin coverage- started on metformin, hyperglycemia better controlled 6. renal- hx of CKD monitor for GAURI 7. GI ppx- protonix 8. DVT ppx- teds 9. Pain- tylenol prn 10. Hypokalemia with hypomagnesemia- improved with Mg-Ox supplement, c/u potassium supplements 11. - UA ordered as possible cause of patient's lack of initiation- results negative 12. Dispo-goal to home with , at this time he will require Stephanie d/ postponed to 07-11-20 per 's request so she can have time for her back sprain to resolve and to [facility] Allergies Coded Allergies: No Known Allergies (Unverified , 03/31/19) Vital Signs Vital Signs Date Time Temp Pulse Resp B/P (MAP) Pulse Ox O2 Delivery O2 Flow Rate FiO2 07/07/20 10:22 63 160/78 07/07/20 05:29 97.2 18 98 Room Air Laboratory Data Labs 24H Laboratory Tests 2 07/06/20 11:39: Bedside Glucose (Misc Panel) 260H 07/06/20 16:22: Bedside Glucose (Misc Panel) 111H 07/06/20 19:44: Bedside Glucose (Misc Panel) 160H 07/07/20 05:16: Bedside Glucose (Misc Panel) 130H Current Medications Current Medications Current Medications Medications (Trade) Dose Ordered Sig/Cinthai Route PRN Reason Start Time Stop Time Status Last Admin Dose Admin Acetaminophen (Tylenol Tab) 650 mg Q4HP PRN PO fever/MILD PAIN (PS 1-4) 06/17/20 12:50 Albuterol/ Ipratropium (Combivent Respimat 100-20mcg) 1 puff RBID INH 07/07/20 20:00 Albuterol/ Ipratropium (Duoneb (Ipr 0.5mg/Alb 2.5mg)) 3 ml RTID NEB 06/17/20 14:00 07/07/20 08:01 DC 07/07/20 07:13 Allopurinol (Zyloprim) 100 mg DAILY PO 06/18/20 09:00 06/21/20 14:11 DC 06/21/20 12:44 Amlodipine Besylate (Norvasc) 5 mg DAILY PO 06/18/20 09:00 07/07/20 10:22 Atorvastatin Calcium (Lipitor) 80 mg DAILY PO 06/18/20 09:00 06/17/20 14:57 DC Atorvastatin Calcium (Lipitor) 80 mg QHS PO 06/17/20 21:00 07/05/20 20:41 Bisacodyl (Dulcolax Suppository) 10 mg DAILYPRN PRN SD CONSTIPATION 06/17/20 12:50 Carvedilol (COReg) 12.5 mg BID PO 06/17/20 21:00 07/07/20 10:20 Dextrose (Dextrose 50%) 25 ml ASDIRECTED PRN IV SEE LABEL COMMENTS 06/17/20 12:50 Divalproex Sodium (Depakote Sprinkles) 500 mg BID PO 06/24/20 21:00 07/07/20 10:21 Divalproex Sodium (Depakote Sprinkles) 750 mg BID PO 06/18/20 09:00 06/24/20 09:21 DC 06/24/20 08:33 Docusate Sodium (Colace) 100 mg BID PO 06/17/20 21:00 06/21/20 14:11 DC 06/20/20 20:40 Fluoxetine HCl (PROzac) 20 mg DAILY PO 06/18/20 09:00 07/07/20 10:20 Glucagon (Glucagon) 1 mg ASDIRECTED PRN SC SEE LABEL COMMENTS 06/17/20 12:50 Glucose (Glucose) 16 GM ASDIRECTED PRN PO SEE LABEL COMMENTS 06/17/20 12:50 Guaifenesin (Robitussin Tab) 400 mg BID PO 07/05/20 09:00 07/07/20 10:22 Home Med (Med Rec Complete!) ASDIRECTED XX 06/17/20 13:45 06/17/20 14:29 DC Insulin Human Lispro (HumaLOG INSULIN) SEE PROTOCOL TABLE AC SC 06/17/20 17:30 07/07/20 09:58 Insulin Human Lispro (HumaLOG INSULIN) SEE PROTOCOL TABLE QHS SC 06/17/20 21:00 Lorazepam (Ativan) 0.5 mg Q6HP PRN PO agitation 06/17/20 12:50 06/17/20 13:28 DC Lorazepam (Ativan) 2 mg Q6HP PRN IM seizure 06/17/20 13:30 06/29/20 13:30 DC Magnesium Oxide (Mag-Ox) 400 mg BID PO 07/01/20 09:00 07/07/20 10:21 Metformin HCl (Glucophage) 500 mg DAILY@18 PO 06/22/20 18:00 07/06/20 17:08 Pantoprazole Sodium (Protonix) 40 mg DAILY PO 06/18/20 09:00 06/21/20 14:11 DC 06/20/20 09:03 Potassium Chloride (Micro-K Extencaps) 20 meq DAILY PO 06/18/20 09:00 06/18/20 14:43 DC 06/18/20 09:46 Potassium Chloride (Micro-K Extencaps) 40 meq DAILY PO 06/19/20 09:00 07/07/20 10:19 Quetiapine Fumarate (SEROquel) 12.5 mg BID PO 06/21/20 09:00 06/24/20 06:38 DC 06/23/20 20:41 Quetiapine Fumarate (SEROquel) 12.5 mg BID PO 06/17/20 21:00 06/20/20 07:30 DC 06/19/20 21:22 Quetiapine Fumarate (SEROquel) 12.5 mg BID PRN PO agitation 06/20/20 09:00 06/20/20 13:45 DC Quetiapine Fumarate (SEROquel) 12.5 mg DAILY PRN PO agitation 06/24/20 09:25 06/28/20 20:32 Quetiapine Fumarate (SEROquel) 12.5 mg QHS PO 06/24/20 21:00 07/06/20 21:33 Quetiapine Fumarate (SEROquel) 12.5 mg TID PRN PO agitation 06/20/20 13:45 06/21/20 10:23 DC 06/20/20 20:40 Ramelteon (Rozerem) 8 mg QHS PO 06/21/20 21:00 06/24/20 06:38 DC 06/23/20 20:41 Ramelteon (Rozerem) 8 mg QHS PRN PO INSOMNIA 06/19/20 20:15 06/21/20 10:23 DC 06/19/20 21:22 Ramelteon (Rozerem) 8 mg QHS PRN PO insomnia 06/24/20 21:00 07/06/20 21:33 Senna (Senokot) 1 tab QHS PO 06/17/20 21:00 06/21/20 14:11 DC 06/20/20 20:40 Spironolactone (Aldactone) 25 mg QAM PO 06/18/20 09:00 06/17/20 13:15 DC Valproic Acid (Depakene) 750 mg BID PO 06/17/20 21:00 06/18/20 01:56 LINDA ROMANO MD Jul 07, 2020 10:37
[2020-07-07 14:00] VITALS: BP 148/71
[2020-07-07] MEDS: metFORMIN (GLUCOPHAGE) 500MG TAB PO SCH (17:20)
[2020-07-07 20:00] VITALS: BP 148/64
[2020-07-07] MEDS: QUEtiapine FUMARATE 12.5 MG HALF-TAB PO SCH (20:06)
[2020-07-07] MEDS: ATORVASTATIN 20 MG TAB PO SCH (20:08)
[2020-07-07] MEDS: RAMELTEON 8 MG TAB (ROZEREM) PO PRN (20:08)
[2020-07-07] MEDS: COMBIVENT RESPIMAT 100-20MCG INHALER 4GM INH SCH (20:43)
[2020-07-08 05:37] VITALS: BP 161/79
[2020-07-08] MEDS: COMBIVENT RESPIMAT 100-20MCG INHALER 4GM INH SCH ×2 (07:46→19:24)
[2020-07-08] MEDS: HumaLOG INSULIN (NovoLOG) PER UNIT SC SCH ×4 (08:52→21:00)
[2020-07-08] MEDS: guaiFENesin 200 MG TAB PO SCH ×2 (08:53→20:27)
[2020-07-08] MEDS: POTASSIUM CHLORIDE 10 MEQ SR TABLET PO SCH (08:53)
[2020-07-08] MEDS: CARVedilol 12.5 MG TAB PO SCH ×2 (08:53→20:51)
[2020-07-08] MEDS: DIVALPROEX SPRINKLE 125 MG CAP PO SCH ×2 (08:53→20:27)
[2020-07-08] MEDS: amLODIPine 5 MG TAB PO SCH (08:53)
[2020-07-08] MEDS: MAGNESIUM OXIDE 400MG TAB (MAG-OX) PO SCH ×2 (08:53→20:28)
[2020-07-08] MEDS: FLUoxetine 20 MG CAP PO SCH (08:53)
[2020-07-08] MEDS: REMEDY PHYTOPLEX Z-GUARD PASTE 113GM TUBE (FROM STOREROOM PRODUCT) TOP SCH ×3 (08:54→21:50)
[2020-07-08 09:10] LABS: BASO % 0.2 % (0.0-1.0); EOS # 0.1 10^3/uL (0.0-0.5); EOS % 2.3 % (0.0-3.0); HEMATOCRIT 37.7 % (42.0-52.0); HEMOGLOBIN 12.5 g/dl (13.5-17.5); LYMPH # 2.3 10^3/uL (1.5-5.0); MEAN CORPUSCULAR HEMOGLOBIN 32.5 pg (27.0-33.0); MEAN CORPUSCULAR HGB CONC 33.2 g/dl (32.0-36.5); MEAN CORPUSCULAR VOLUME 97.9 fl (80.0-96.0); MONO # 0.5 10^3/uL (0.0-0.8); MONO % 9.9 % (2.0-8.0); NEUTROPHILS # 2.4 10^3/uL (1.5-8.5); NEUTROPHILS % 44.4 % (36.0-66.0); PLATELET COUNT, AUTOMATED 109 10^3/uL (150-450); RED BLOOD COUNT 3.85 10^6/uL (4.30-6.10); WHITE BLOOD COUNT 5.3 10^3/uL (4.0-10.0)
[2020-07-08 09:31] LABS: BLOOD UREA NITROGEN 21 MG/DL (7-18); CALCIUM LEVEL 8.4 MG/DL (8.8-10.2); CARBON DIOXIDE LEVEL 33 MEQ/L (21-32); CHLORIDE LEVEL 107 MEQ/L (98-107); CREATININE FOR GFR 1.08 MG/DL (0.70-1.30); GLOMERULAR FILTRATION RATE > 60.0 (>42); GLUCOSE, FASTING 186 MG/DL (70-100); POTASSIUM SERUM 3.9 MEQ/L (3.5-5.1); SODIUM LEVEL 143 MEQ/L (136-145)
[2020-07-08 13:35] VITALS: BP 171/54
[2020-07-08 17:18] VITALS: BP 152/70
[2020-07-08 20:15] VITALS: BP 146/67
[2020-07-08] MEDS: RAMELTEON 8 MG TAB (ROZEREM) PO PRN (20:28)
[2020-07-08] MEDS: ATORVASTATIN 20 MG TAB PO SCH (20:28)
[2020-07-08] MEDS: QUEtiapine FUMARATE 12.5 MG HALF-TAB PO SCH (20:28)
--- NOTE | 2020-07-08 21:15 | IPNPDOC ---
PM&R Progress Note DATE OF SERVICE: Jul 08, 2020 [employer] Progress Note Subjective: Patient seen in his room and was told he would go home Saturday. He expressed agreement. No complaints. REVIEW OF SYSTEMS: The following is a completed review of systems and has been reviewed. Review of systems otherwise unremarkable. PAIN: Patient self reports no pain EYES: No recent vision changes EARS, NOSE, & THROAT: No throat pain, or dysphagia, or rhinorrhea CARDIOVASCULAR: Denies chest pain or palpitations PULMONARY: Denies shortness of breath GASTROINTESTINAL: Denies constipation/diarrhea GENITOURINARY: denies dysuria MUSCULOSKELETAL: generalized weakness NEUROLOGICAL: +aphasia and apraxia (improving) HEMATOLOGICAL: denies easy bruising SKIN: denies rash PSYCHIATRIC: +confused All other review of systems found to be negative. PHYSICAL EXAMINATION: VITAL SIGNS: Please see below. GENERAL: No acute distress. HEENT: PERRL. Extraocular movements intact. Clear conjunctiva CARDIOVASCULAR: Regular rate and rhythm. No murmurs, rubs, or gallops LUNGS: Clear to auscultation bilaterally. No wheezes. No rhonchi ABDOMEN: Soft, nontender, nondistended. Positive bowel sounds. Normal active bowel sounds NEUROLOGICAL: Alert and oriented to self Cranial nerves II through XII grossly intact. Sensation grossly intact +apraxic, +aphasic EXTREMITIES: 5\5 strength bilateral upper extremities. 5\5 strength right lower extremity. 5/5 strength in left lower extremity. SKIN: no sacral ulcers ASSESSMENT:69-year-old M with past medical history of CKD, afib, left frontal stroke admitted to ARU and discharged to [facility] Neuro-ICU for left frontal hematoma on 06-14-20 admitted back to ARU for continued management PLAN: 1. 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 3. CArdiac- Afib c/u coreg -chronic diastolic CHF- daily weights, fluid restrict -HTN- c/u amlodipine 4. Resp- monitor for infection, Duonebs, hx of COPD and LUISITO not compliant with CPAP 5. Endo- hx of DM c/u insulin coverage- started on metformin, hyperglycemia better controlled 6. renal- hx of CKD monitor for GAURI 7. GI ppx- protonix 8. DVT ppx- teds 9. Pain- tylenol prn 10. Hypokalemia with hypomagnesemia- improved with Mg-Ox supplement, c/u potassium supplements 11. - UA ordered as possible cause of patient's lack of initiation- results negative 12. Dispo-goal to home with , at this time he will require tSephanie, d/ postpon ed to 07-11-20 per 's request so she can have time for her back sprain to resolve and to get [facility] Allergies Coded Allergies: No Known Allergies (Unverified , 03/31/19) Vital Signs Vital Signs Date Time Temp Pulse Resp B/P (MAP) Pulse Ox O2 Delivery O2 Flow Rate FiO2 07/08/20 20:51 61 146/67 07/08/20 17:18 63 07/08/20 13:35 97.6 18 Room Air Laboratory Data CBC/BMP Laboratory Tests 07/08/20 08:19 Labs 24H Laboratory Tests 2 07/08/20 05:13: Bedside Glucose (Misc Panel) 126H 07/08/20 08:19: Immature Granulocyte % (Auto) 0.2, Neutrophils (%) (Auto) 44.4, Lymphocytes (%) (Auto) 43.0, Monocytes (%) (Auto) 9.9H, Eosinophils (%) (Auto) 2.3, Basophils (%) (Auto) 0.2, Neutrophils # (Auto) 2.4, Lymphocytes # (Auto) 2.3, Monocytes # (Auto) 0.5, Eosinophils # (Auto) 0.1, Basophils # (Auto) 0.0, Nucleated Red Blood Cells % (auto) 0.0, Anion Gap 3L, Glomerular Filtration Rate > 60.0, Calc ium Level 8.4L 07/08/20 11:35: Bedside Glucose (Misc Panel) 230H 07/08/20 16:40: Bedside Glucose (Misc Panel) 117H 07/08/20 20:19: Bedside Glucose (Misc Panel) 145H Current Medications Current Medications Current Medications Medications (Trade) Dose Ordered Sig/Cinthia Route PRN Reason Start Time Stop Time Status Last Admin Dose Admin Acetaminophen (Tylenol Tab) 650 mg Q4HP PRN PO fever/MILD PAIN (PS 1-4) 06/17/20 12:50 Albuterol/ Ipratropium (Combivent Respimat 100-20mcg) 1 puff RBID INH 07/07/20 20:00 07/08/20 19:24 Albuterol/ Ipratropium (Duoneb (Ipr 0.5mg/Alb 2.5mg)) 3 ml RTID NEB 06/17/20 14:00 07/07/20 08:01 DC 07/07/20 07:13 Allopurinol (Zyloprim) 100 mg DAILY PO 06/18/20 09:00 06/21/20 14:11 DC 06/21/20 12:44 Amlodipine Besylate (Norvasc) 5 mg DAILY PO 06/18/20 09:00 07/08/20 08:53 Atorvastatin Calcium (Lipitor) 80 mg DAILY PO 06/18/20 09:00 06/17/20 14:57 DC Atorvastatin Calcium (Lipitor) 80 mg QHS PO 06/17/20 21:00 07/08/20 20:28 Bisacodyl (Dulcolax Suppository) 10 mg DAILYPRN PRN PA CONSTIPATION 06/17/20 12:50 Carvedilol (COReg) 12.5 mg BID PO 06/17/20 21:00 07/08/20 20:51 Dextrose (Dextrose 50%) 25 ml ASDIRECTED PRN IV SEE LABEL COMMENTS 06/17/20 12:50 Divalproex Sodium (Depakote Sprinkles) 500 mg BID PO 06/24/20 21:00 07/08/20 20:27 Divalproex Sodium (Depakote Sprinkles) 750 mg BID PO 06/18/20 09:00 06/24/20 09:21 DC 06/24/20 08:33 Docusate Sodium (Colace) 100 mg BID PO 06/17/20 21:00 06/21/20 14:11 DC 06/20/20 20:40 Fluoxetine HCl (PROzac) 20 mg DAILY PO 06/18/20 09:00 07/08/20 08:53 Glucagon (Glucagon) 1 mg ASDIRECTED PRN SC SEE LABEL COMMENTS 06/17/20 12:50 Glucose (Glucose) 16 GM ASDIRECTED PRN PO SEE LABEL COMMENTS 06/17/20 12:50 Guaifenesin (Robitussin Tab) 400 mg BID PO 07/05/20 09:00 07/08/20 20:27 Home Med (Med Rec Complete!) ASDIRECTED XX 06/17/20 13:45 06/17/20 14:29 DC Insulin Human Lispro (HumaLOG INSULIN) SEE PROTOCOL TABLE AC SC 06/17/20 17:30 07/08/20 17:09 Insulin Human Lispro (HumaLOG INSULIN) SEE PROTOCOL TABLE QHS SC 06/17/20 21:00 Lorazepam (Ativan) 0.5 mg Q6HP PRN PO agitation 06/17/20 12:50 06/17/20 13:28 DC Lorazepam (Ativan) 2 mg Q6HP PRN IM seizure 06/17/20 13:30 06/29/20 13:30 DC Magnesium Oxide (Mag-Ox) 400 mg BID PO 07/01/20 09:00 07/08/20 20:28 Metformin HCl (Glucophage) 500 mg DAILY@18 PO 06/22/20 18:00 07/07/20 17:24 DC 07/06/20 17:08 Pantoprazole Sodium (Protonix) 40 mg DAILY PO 06/18/20 09:00 06/21/20 14:11 DC 06/20/20 09:03 Potassium Chloride (Micro-K Extencaps) 20 meq DAILY PO 06/18/20 09:00 06/18/20 14:43 DC 06/18/20 09:46 Potassium Chloride (Micro-K Extencaps) 40 meq DAILY PO 06/19/20 09:00 07/08/20 08:53 Quetiapine Fumarate (SEROquel) 12.5 mg BID PO 06/21/20 09:00 06/24/20 06:38 DC 06/23/20 20:41 Quetiapine Fumarate (SEROquel) 12.5 mg BID PO 06/17/20 21:00 06/20/20 07:30 DC 06/19/20 21:22 Quetiapine Fumarate (SEROquel) 12.5 mg BID PRN PO agitation 06/20/20 09:00 06/20/20 13:45 DC Quetiapine Fumarate (SEROquel) 12.5 mg DAILY PRN PO agitation 06/24/20 09:25 06/28/20 20:32 Quetiapine Fumarate (SEROquel) 12.5 mg QHS PO 06/24/20 21:00 07/08/20 20:28 Quetiapine Fumarate (SEROquel) 12.5 mg TID PRN PO agitation 06/20/20 13:45 06/21/20 10:23 DC 06/20/20 20:40 Ramelteon (Rozerem) 8 mg QHS PO 06/21/20 21:00 06/24/20 06:38 DC 06/23/20 20:41 Ramelteon (Rozerem) 8 mg QHS PRN PO INSOMNIA 06/19/20 20:15 06/21/20 10:23 DC 06/19/20 21:22 Ramelteon (Rozerem) 8 mg QHS PRN PO insomnia 06/24/20 21:00 07/08/20 20:28 Senna (Senokot) 1 tab QHS PO 06/17/20 21:00 06/21/20 14:11 DC 06/20/20 20:40 Spironolactone (Aldactone) 25 mg QAM PO 06/18/20 09:00 06/17/20 13:15 DC Valproic Acid (Depakene) 750 mg BID PO 06/17/20 21:00 06/18/20 01:56 LINDA ROMANO MD Jul 08, 2020 21:15
[2020-07-09 05:52] VITALS: BP 149/69
[2020-07-09] MEDS: HumaLOG INSULIN (NovoLOG) PER UNIT SC SCH ×4 (07:30→20:29)
[2020-07-09] MEDS: COMBIVENT RESPIMAT 100-20MCG INHALER 4GM INH SCH ×2 (08:00→16:28)
[2020-07-09] MEDS: CARVedilol 12.5 MG TAB PO SCH ×2 (10:06→20:12)
[2020-07-09] MEDS: guaiFENesin 200 MG TAB PO SCH ×2 (10:06→20:13)
[2020-07-09] MEDS: MAGNESIUM OXIDE 400MG TAB (MAG-OX) PO SCH ×2 (10:06→20:12)
[2020-07-09] MEDS: amLODIPine 5 MG TAB PO SCH (10:07)
[2020-07-09] MEDS: POTASSIUM CHLORIDE 10 MEQ SR TABLET PO SCH (10:07)
[2020-07-09] MEDS: DIVALPROEX SPRINKLE 125 MG CAP PO SCH ×2 (10:07→20:10)
[2020-07-09] MEDS: FLUoxetine 20 MG CAP PO SCH (10:07)
[2020-07-09] MEDS: REMEDY PHYTOPLEX Z-GUARD PASTE 113GM TUBE (FROM STOREROOM PRODUCT) TOP SCH ×3 (10:08→20:13)
[2020-07-09 14:00] VITALS: BP 161/77
[2020-07-09] MEDS: ATORVASTATIN 20 MG TAB PO SCH (20:12)
[2020-07-09] MEDS: QUEtiapine FUMARATE 12.5 MG HALF-TAB PO SCH (20:12)
[2020-07-09] MEDS: RAMELTEON 8 MG TAB (ROZEREM) PO PRN (20:12)
[2020-07-09 20:15] VITALS: BP 150/76
[2020-07-10 06:00] VITALS: BP 168/80
[2020-07-10] MEDS: COMBIVENT RESPIMAT 100-20MCG INHALER 4GM INH SCH ×2 (08:00→20:35)
[2020-07-10 09:00] VITALS: BP 138/63
[2020-07-10] MEDS: CARVedilol 12.5 MG TAB PO SCH ×2 (09:05→21:51)
[2020-07-10] MEDS: MAGNESIUM OXIDE 400MG TAB (MAG-OX) PO SCH ×2 (09:05→21:53)
[2020-07-10] MEDS: amLODIPine 5 MG TAB PO SCH (09:05)
[2020-07-10] MEDS: FLUoxetine 20 MG CAP PO SCH (09:06)
[2020-07-10] MEDS: POTASSIUM CHLORIDE 10 MEQ SR TABLET PO SCH (09:07)
[2020-07-10] MEDS: guaiFENesin 200 MG TAB PO SCH ×2 (09:07→21:51)
[2020-07-10] MEDS: REMEDY PHYTOPLEX Z-GUARD PASTE 113GM TUBE (FROM STOREROOM PRODUCT) TOP SCH ×3 (09:08→21:54)
[2020-07-10] MEDS: DIVALPROEX SPRINKLE 125 MG CAP PO SCH ×2 (09:08→21:51)
[2020-07-10] MEDS: HumaLOG INSULIN (NovoLOG) PER UNIT SC SCH ×4 (09:19→21:52)
--- NOTE | 2020-07-10 09:39 | IPNPDOC ---
Date Seen The patient was seen on 07/10/20. Progress Note RN called re: fall in the room unwitnessed, and found to have slid down to the floor on his buttocks, w/o head trauma prodromal sx's and vitals stable w/o pain in bl hips or le extremites. plan: pls check xray b/l hips. pain control, and encourage assisted ambulation only due to fall risk. VS, I&O, 24H, Fishbone Vital Signs/I&O Vital Signs Date Time Temp Pulse Resp B/P (MAP) Pulse Ox O2 Delivery O2 Flow Rate FiO2 07/10/20 09:05 67 138/63 07/10/20 06:00 97.1 18 94 Room Air I&O- Last 24 Hours up to 6 AM 07/10/20 06:00 Intake Total 490 ml Balance 490 ml Laboratory Data 24H LABS Laboratory Tests 2 07/09/20 11:25: Bedside Glucose (Misc Panel) 283H 07/09/20 16:29: Bedside Glucose (Misc Panel) 110 07/09/20 20:14: Bedside Glucose (Misc Panel) 135H 07/10/20 05:47: Bedside Glucose (Misc Panel) 150H AUSTIN WILLS MD July 10, 2020 09:39
--- NOTE | 2020-07-10 12:01 | REP ---
INDICATION: fall r/o fracture. COMPARISON: None. TECHNIQUE: AP view of the pelvis with neutral and frog-lateral views of the right and left hip. FINDINGS: Generalized age-related degenerative changes are appreciated to the pelvis and bilateral hips. No evidence for acute fracture or dislocation. Surrounding soft tissues are unremarkable. IMPRESSION: No acute fracture or dislocation <Electronically signed by Abe Gurrola > 07/10/20 [id number]
--- NOTE | 2020-07-10 13:14 | HPEPDOC ---
[facility] Medical History & Physical Date of Admission Jun 18, 2019 Date of Service: July 10, 2020 History and Physical CHIEF COMPLAINT: Fall HISTORY OF PRESENT ILLNESS: 69-year-old male with history of chronic A. fib on eliquis was CHF with preserved systolic function, diastolic dysfunction, hypertension, COPD, LUISITO, noncompliant with CPAP, hyperlipidemia, prior smoker, chronic kidney disease stage III, obesity, diabetes, left frontal intracranial hemorrhage with ventricular extension secondary to cerebral amyloid angiopathy admitted to [facility] for neurosurgical services with chronic apraxia and aphasia was admitted to the medical service at [facility] from June 08 2 June 09 after a fall at home while going to the bathroom with gait instability. At that time. CT of the head was unremarkable. MRI was inconclusive. Laboratory work were negative. No infectious etiology. Prolactin level was normal. Patient was diagnosed with multi-infarct dementia with gait instability and recurrent falls transferred to acute rehabilitation unit for rehabilitation services. Patient was readmitted June 17 to the acute rehabilitation unit. RN called because of a fall today when the patient was found to have slipped off the bed and lowered himself down onto his buttocks at the site of the bed without any head trauma and denied any prodromal symptoms of chest pain, pressure, tightness, palpitations, lightheadedness, near syncope prior to the episode. Patient has not had any fevers, chills, chest pain, pressure, shortness of breath, cough, nausea, vomiting, diarrhea, abdominal pain, constipation, dysuria urgency frequency prior to the fall today. He otherwise denies any new complaints. He was assisted to go back to bed without any complaints of bilateral lower extremity pain, hip pain, gait ataxia aside from his chronic weakness PAST MEDICAL HISTORY: Multi-infarct dementia, chronic atrial fibrillation, CHF with preserved systolic function, diastolic dysfunction, hypertension, COPD, LUISITO, noncompliant with CPAP herbal amyloid angiopathy, hyperlipidemia, prior smoker, chronic kidney disease stage III, obesity, diabetes, left frontal intracranial hemorrhage with ventricular extension. Chronic apraxia and aphasia PAST SURGICAL HISTORY: Left heart cath, left ankle repair, hernia repair, splenectomy, partial excision of the liver resection of the lung, abdominal, cholecystectomy SOCIAL HISTORY: Prior smoker, pack a day since age of 14 and quit in 1996. 3 children, retired [employer]. full code with trial of intubation. Healthcare proxy is his , no recreational drug use. No alcohol use, usually requires 1 person assistance with a walker at home FAMILY HISTORY: Mother. Father , both had coronary artery disease. Father had diabetes ALLERGIES: Please see below. REVIEW OF SYSTEMS: 10 point review of systems negative aside from positive findings in HPI HOME MEDICATIONS: Please see below. PHYSICAL EXAMINATION: VITAL SIGNS: See below GENERAL APPEARANCE: Normocephalic, atraumatic, awake, alert, oriented to person, place and time. No respiratory distress HEENT: No pallor, no JVD, thyromegaly, cervical lymphadenopathy or carotid bruit CARDIOVASCULAR: S1, S2, irregularly irregular, not tachycardic LUNGS: Air entry is equal bilaterally. No scoliosis clear to auscultation wheezing or rales ABDOMEN: Positive bowel sounds, soft, nontender, nondistended, normoactive bowel sounds. No rebound, guarding EXTREMITIES: No cyanosis or clubbing LABORATORY DATA: See below. IMAGING: Reviewed MICROBIOLOGY: Please see below. ASSESSMENT: 69-year-old male with history of chronic A. fib on Eliquis was CHF with preserved systolic function, diastolic dysfunction, hypertension, COPD, LUISITO, noncompliant with CPAP, hyperlipidemia, prior smoker, chronic kidney disease stage III, obesity, diabetes, left frontal intracranial hemorrhage with ventr icular extension secondary to cerebral amyloid angiopathy admitted to [facility] for neurosurgical services with chronic apraxia and aphasia was admitted to the medical service at [facility] from June 08 2 June 09 after a fall at home while going to the bathroom with gait instability. At that time. CT of the head was unremarkable. MRI was inconclusive. Laboratory work were negative. No infectious etiology. Prolactin level was normal. Patient was diagnosed with multi-infarct dementia with gait instability and recurrent falls transferred to acute rehabilitation unit for rehabilitation services. Patient was readmitted June 17 to the acute rehabilitation unit. RN called because of a fall today when the patient was found to have slipped off the bed and lowered himself down onto his buttocks at the site of the bed without any head trauma and denied any prodromal symptoms of chest pain, pressure, tightness, palpitations, lightheadedness, near syncope prior to the episode. Patient has not had any fevers, chills, chest pain, pressure, shortness of breath, cough, nausea, vomiting, diarrhea, abdominal pain, constipation, dysuria urgency frequency prior to the fall today. He otherwise denies any new complaints. He was assisted to go back to bed without any complaints of bilateral lower extremity pain, hip pain, gait ataxia aside from his chronic weakness Fall secondary to chronic debility in the setting of multi-infarct dementia Chronic atrial fibrillation-rate controlled and anticoagulated Compensated congestive heart failure with preserved systolic function, diastolic dysfunction Hypertension COPD LUISITO, noncompliant with CPAP Hyperlipidemia Prior smoker Chronic kidney disease stage III at baseline creatinine Obesity Type 2 diabetes History of amyloid angiopathy with left frontal intracranial hemorrhage with ventricular extension with chronic apraxia and aphasia PLAN: Patient has no acute injuries from the recent fall. I would recommend assisted ambulation at all times. Fall precautions. He is continued on all his home medications. Since there is been no head trauma or change in neurological status. I would recommend 24-hour observation for mental status changes. If neurological changes are seen. Patient may benefit from CT of the head without contrast to rule out subdural hematoma. The patient may be continued on anticoagulation for his atrial fibrillation. He is stable on his home medications, which should be continued. Continue with rehabilitation services in the morning and reassess for any new neurological issues over the next 24 hours. Patient denies any prodromal symptoms and has no infectious etiology as a reason For his fall. Vital Signs Vital Signs Date Time Temp Pulse Resp B/P (MAP) Pulse Ox O2 Delivery O2 Flow Rate FiO2 07/10/20 09:05 67 138/63 07/10/20 09:00 97.4 18 99 Room Air Laboratory Data Labs 24H Laboratory Tests 2 07/09/20 16:29: Bedside Glucose (Misc Panel) 110 07/09/20 20:14: Bedside Glucose (Misc Panel) 135H 07/10/20 05:47: Bedside Glucose (Misc Panel) 150H 07/10/20 11:22: Bedside Glucose (Misc Panel) 208H Home Medications Scheduled Allopurinol (Allopurinol) 100 Mg Tablet, 100 MG PO DAILY Amlodipine Besylate (Amlodipine Besylate) 5 Mg Tablet, 5 MG PO DAILY Amlodipine Besylate (Amlodipine Besylate) 5 Mg Tablet, 5 MG PO DAILY Atorvastatin Calcium (Atorvastatin Calcium) 80 Mg Tab, 80 MG PO QHS Carvedilol (Carvedilol) 12.5 Mg Tablet, 12.5 MG PO BID Carvedilol (Carvedilol) 12.5 Mg Tablet, 12.5 MG PO BID Divalproex Sodium (Divalproex Sodium) 125 Mg Cap.dr.spr, 500 MG PO BID Fluoxetine Hcl (Fluoxetine HCl) 20 Mg Capsule, 20 MG PO DAILY Fluoxetine Hcl (Fluoxetine HCl) 20 Mg Capsule, 20 MG PO DAILY Magnesium Oxide (Magnesium Oxide) 400 Mg Tablet, 400 MG PO BID Metformin HCl (Glucophage) 500 Mg Tablet, 500 MG PO DAILY@18 Pantoprazole Sodium (Pantoprazole Sodium) 40 Mg Tablet.dr, 40 MG PO DAILY Potassium Chloride (Klor-Con M10) 10 Meq Tab.er.prt, 40 MEQ PO DAILY Quetiapine Fumarate (Quetiapine Fumarate) 25 Mg Tablet, 12.5 MG PO QHS Allergies Coded Allergies: No Known Allergies (Unverified , 03/31/19) A-FIB/CHADSVASC A-FIB History Current/History of A-Fib/PAF?: Yes Current PO Anticoag Therapy: Yes Age/Risk Factor Scoring CHADSVASC: CHADSVASC Response (Comments) Value Age Risk Factor Age 65-74 years old 1 Gender Risk Factor Male 0 Hx of CHF Yes 1 Hx of HTN Yes 1 Hx of Stroke/TIA/or VTE Yes 2 Hx of Diabetes Yes 1 Hx of Vascular Disease No 0 Total 6 Treatment Treatment ordered: Apixaban AUSTIN WILLS MD July 10, 2020 13:14
[2020-07-10 14:00] VITALS: BP 132/61
[2020-07-10 20:00] VITALS: BP 139/57
[2020-07-10] MEDS: ATORVASTATIN 20 MG TAB PO SCH (21:51)
[2020-07-10] MEDS: RAMELTEON 8 MG TAB (ROZEREM) PO PRN (21:51)
[2020-07-10] MEDS: QUEtiapine FUMARATE 12.5 MG HALF-TAB PO SCH (21:53)
[2020-07-11 06:00] VITALS: BP 144/78
[2020-07-11] MEDS: COMBIVENT RESPIMAT 100-20MCG INHALER 4GM INH SCH (07:29)
[2020-07-11 09:00] VITALS: BP 164/75
[2020-07-11] MEDS: REMEDY PHYTOPLEX Z-GUARD PASTE 113GM TUBE (FROM STOREROOM PRODUCT) TOP SCH (09:24)
[2020-07-11] MEDS: FLUoxetine 20 MG CAP PO SCH (09:25)
[2020-07-11] MEDS: CARVedilol 12.5 MG TAB PO SCH (09:35)
[2020-07-11] MEDS: guaiFENesin 200 MG TAB PO SCH (09:36)
[2020-07-11] MEDS: MAGNESIUM OXIDE 400MG TAB (MAG-OX) PO SCH (09:36)
[2020-07-11] MEDS: DIVALPROEX SPRINKLE 125 MG CAP PO SCH (09:36)
[2020-07-11] MEDS: POTASSIUM CHLORIDE 10 MEQ SR TABLET PO SCH (09:36)
[2020-07-11 09:37] VITALS: BP 164/75
[2020-07-11] MEDS: amLODIPine 5 MG TAB PO SCH (09:37)
[2020-07-11] MEDS: HumaLOG INSULIN (NovoLOG) PER UNIT SC SCH ×2 (09:46→13:08)
[2020-07-11 14:00] VITALS: BP 146/71
--- NOTE | 2020-07-18 13:17 | PMRDS ---
NAME: ROSA PORTILLO [facility] WT ID#: [id number] : 1950 JOB: [id number] PAULO: 07/11/2020 ACCT: [id number] DOCTOR: LINDA FORD MD PMR DISCHARGE SUMMARY DATE OF ADMISSION: 06/17/2020 DATE OF DISCHARGE: 07/11/2020 CHIEF COMPLAINT/DISCHARGE DIAGNOSIS: Left frontal intracranial hemorrhage. HISTORY OF PRESENT ILLNESS: This is a 69-year-old man with a past medical history of atrial fibrillation on Eliquis, chronic diastolic CHF, COPD, ulcerative colitis, right eye blindness, agent orange exposure, LUISITO not on CPAP, hyperlipidemia, CKD III, diabetes, who fell at home with worsening confusion and presented to [facility] where a CTH did not show acute intracranial pathology, but did show "old left frontal lobe infarction." MRI of the brain was done, showing "restricted diffusion noted in the left frontal lobe which is not the typical appearance for post-infarct or posttraumatic encephalomalacia. Recommended full MRI characterization with and without Gadolinium. Current study consists of limited sequences. An underlying mass is not excluded." He was continued on his home Eliquis dosing and on 06/14/2020 had worsening confusion and decline in function. MRI with contrast was showing new left frontal hematoma and hydrocephalus for which he was urgently transferred to [facility] Neuro ICU where his Eliquis was held. EEG did not show seizure activity and follow-up MRI on 06/15/2020 showed "there is a resolving left frontal subacute hemorrhage with surrounding edema and encephalomalacia and mass effect on the anterior body of the left lateral ventricle. The ventricles are disproportionately enlarged. The sulci are within normal limits. There is no midline shift." He was diagnosed with cerebral amyloid angiopathy, had no further decline in his function, was deemed medically appropriate for discharge back to ARU on 06/17/2020. PAST MEDICAL HISTORY: As per HPI. HOSPITAL COURSE: The patient was admitted and enrolled in a comprehensive PT/OT, Speech Language and Pathology program. He received 24 hour nursing supervision and weekly team meetings were held to discuss his progress. The patient was maintained on Seroquel q.h.s. for agitation and daily dose was continued at a p.r.n. level. Patient's daytime fatigue gradually improved. His Depakote levels were higher end of normal so his dose was decreased with follow-up levels on 06/27 showing a therapeutic level of 66. The patient's lethargy overall improved. He did have frequent episodes of hypokalemia and required repletion on multiple occasions. Eventually, he was started on magnesium supplements as well for hypomagnesemia. The patient was mostly limited by his left frontal lobe hemorrhagic stroke causing him to have severe apraxia and behavioral issues which lead to inconsistencies in his participation in therapy. Patient, however was clinically stable during his hospital course. His underwent multiple rounds of training and agreed to take patient home at a [facility] level and the patient was thus deemed medically and functionally appropriate for discharge to home on 07/11/2020. DISCHARGE MEDICATIONS: As per instructions. FUNCTIONAL HISTORY: On discharge, the patient was mod assist for bed mobility and ambulation. Thank you for this referral.
== END 2020-07-11 15:30 | disposition home health service (06) | DRG 949 ==
LOC: M PM&R 11:16
PROVIDERS: ADMIT Physical Medicine & Rehabilitation; ATTEND Physical Medicine & Rehabilitation
DX: S06.350D Traumatic hemorrhage of left cerebrum without loss of consciousness, subsequent encounter (principal); I50.32 Chronic diastolic (congestive) heart failure; K51.90 Ulcerative colitis, unspecified, without complications; E85.4 Organ-limited amyloidosis; R47.01 Aphasia; I48.91 Unspecified atrial fibrillation; J44.9 Chronic obstructive pulmonary disease, unspecified; H54.61 Unqualified visual loss, right eye, normal vision left eye; G47.33 Obstructive sleep apnea (adult) (pediatric); E78.5 Hyperlipidemia, unspecified; N18.30 Chronic kidney disease, stage 3 unspecified; E11.22 Type 2 diabetes mellitus with diabetic chronic kidney disease; W18.09XD Striking against other object with subsequent fall, subsequent encounter; I69.220 Aphasia following other nontraumatic intracranial hemorrhage; I69.290 Apraxia following other nontraumatic intracranial hemorrhage; E87.6 Hypokalemia; F01.50 Vascular dementia, unspecified severity, without behavioral disturbance, psychotic disturbance, mood disturbance, and anxiety; Y92.009 Unspecified place in unspecified non-institutional (private) residence as the place of occurrence of the external cause; E11.65 Type 2 diabetes mellitus with hyperglycemia; Y99.8 Other external cause status; E83.42 Hypomagnesemia; I68.0 Cerebral amyloid angiopathy; R53.1 Weakness; R29.6 Repeated falls; R48.2 Apraxia; R26.89 Other abnormalities of gait and mobility; Z74.09 Other reduced mobility; Z79.4 Long term (current) use of insulin; Z90.49 Acquired absence of other specified parts of digestive tract; Z79.899 Other long term (current) drug therapy

== ENCOUNTER → 2020-07-20 | Outpatient (REF) | payer BC, OTHER, MEDICARE ==
[~2020-07-20] MED LIST changes: +COLA100C5 PO; +DIVA1CAP PO; +GLUC500T PO; +IPRA0.00 INH; +MAGN400T2 PO; +ROZE8TAB16 PO; +SERO1TAB3 PO
[2020-07-20 14:44] LABS: APPEARANCE, URINE CLEAR (CLEAR); BACTERIA, URINE AUTO NEGATIVE (NEGATIVE); BILIRUBIN, URINE AUTO NEGATIVE (NEGATIVE); BLOOD, URINE BLOOD NEGATIVE (NEGATIVE); COLOR, URINE YELLOW (YELLOW); GLUCOSE, URINE (UA) AUTO 3+ mg/dL (NEGATIVE); KETONE, URINE AUTO TRACE mg/dL (NEGATIVE); LEUKOCYTE ESTERASE, URINE AUTO NEGATIVE (NEGATIVE); MUCUS, URINE SMALL (NEGATIVE); NITRITE, URINE AUTO NEGATIVE (NEGATIVE); PROTEIN, URINE AUTO 1+ mg/dL (NEGATIVE); RBC, URINE AUTO 1 /HPF (0-3); SQUAMOUS EPITHELIAL CELL UR AU 1 /HPF (0-6); UROBILINOGEN, URINE AUTO 0.2 mg/dL (0.0-2.0); WBC, URINE AUTO 2 /HPF (0-3)
== END ==
LOC: M SHH 14:30
PROVIDERS: ATTEND Internal Medicine
DX: R39.9 Unspecified symptoms and signs involving the genitourinary system (principal)

== ENCOUNTER 2020-08-01 10:41 | Inpatient (IN) | payer OTHER, BC, MEDICARE ==
[~2020-08-01] VITALS: Ht 167.6 cm; Wt 87.2 kg
[2020-08-01] MEDS ORDERED: METF500T13 (11:10)
--- NOTE | 2020-08-01 11:36 | REP ---
INDICATION: CVA. Patient has a prior history of left frontal lobe parenchymal hemorrhage, this is observed on CT study from 02/16/2020. COMPARISON: Comparison studies are reviewed from June 29, 2020, May 10, 2020, and February 16, 2020.. TECHNIQUE: Helical scanning is acquired. 5 mm axial images were reformatted. Coronal MPR images were generated. FINDINGS: Preliminary digital geotechnical intern radiograph is unremarkable. Bone window settings demonstrate intact bony calvarium. Visualized paranasal sinuses are clear. Vascular calcification is noted in the distal internal carotid arteries bilaterally. No intraorbital abnormality is seen. On soft tissue window settings, there is moderate generalized volume loss again noted with concordant ventricular enlargement. There are fairly extensive small-vessel atherosclerotic changes in the periventricular white matter bilaterally. There is old encephalomalacia in the left frontal lobe as a sequela of the prior frontal lobe hemorrhage versus hemorrhagic infarction. In any event, this is unchanged from the most recent prior study. No new area of infarction is seen. There is no evidence of acute intracranial hemorrhage. No extra-axial fluid collection is seen. No mass or midline shift is observed. IMPRESSION: Old area of encephalomalacia in the left frontal lobe related to previous hemorrhagic episode. Small-vessel atherosclerotic changes and moderate generalized volume loss seen. Vascular calcification. No acute intracranial abnormality.. <Electronically signed by Raudel Marshall > 08/01/20 0928
[2020-08-01 12:56] LABS: BASO % 0.2 % (0.0-1.0); EOS # 0.1 10^3/uL (0.0-0.5); EOS % 1.8 % (0.0-3.0); HEMATOCRIT 38.1 % (42.0-52.0); HEMOGLOBIN 12.5 g/dl (13.5-17.5); LYMPH # 2.4 10^3/uL (1.5-5.0); LYMPH % 42.7 % (24.0-44.0); MEAN CORPUSCULAR HEMOGLOBIN 32.4 pg (27.0-33.0); MEAN CORPUSCULAR HGB CONC 32.8 g/dl (32.0-36.5); MEAN CORPUSCULAR VOLUME 98.7 fl (80.0-96.0); MONO # 0.6 10^3/uL (0.0-0.8); MONO % 11.4 % (2.0-8.0); NEUTROPHILS # 2.4 10^3/uL (1.5-8.5); NEUTROPHILS % 43.5 % (36.0-66.0); PLATELET COUNT, AUTOMATED 115 10^3/uL (150-450); RED BLOOD COUNT 3.86 10^6/uL (4.30-6.10); WHITE BLOOD COUNT 5.5 10^3/uL (4.0-10.0)
[2020-08-01 13:19] LABS: BLOOD UREA NITROGEN 23 MG/DL (7-18); CARBON DIOXIDE LEVEL 31 MEQ/L (21-32); CHLORIDE LEVEL 106 MEQ/L (98-107); CREATININE FOR GFR 1.16 MG/DL (0.70-1.30); GLOMERULAR FILTRATION RATE > 60.0 (>42); GLUCOSE, FASTING 174 MG/DL (70-100); POTASSIUM SERUM 4.5 MEQ/L (3.5-5.1); SODIUM LEVEL 141 MEQ/L (136-145)
[2020-08-01 14:32] LABS: RSV AMPLIFICATION NEGATIVE (NEGATIVE)
[2020-08-01] MEDS ORDERED: LABETALOL 100MG/20ML VIAL IV ONE (16:05)
[2020-08-01] MEDS ORDERED: MAGN400T2 PO (16:29)
[2020-08-01] MEDS ORDERED: DEPA1CAP PO (16:29)
[2020-08-01] MEDS ORDERED: POTA20PW PO (16:29)
[2020-08-01] MEDS ORDERED: QUET25TA3 PO (16:29)
[2020-08-01] MEDS ORDERED: PANT-23 PO (16:29)
[2020-08-01] MEDS ORDERED: ALLO100T PO (16:29)
[2020-08-01] MEDS ORDERED: ATOR80TA59 PO (16:29)
[2020-08-01] MEDS ORDERED: TOUJ1.2I SC (16:32)
[2020-08-01] MEDS ORDERED: OZEM2INJ2 SC (16:32)
[2020-08-01] MEDS ORDERED: NOVOINJ3 SC (16:32)
--- NOTE | 2020-08-01 17:38 | HPEPDOC ---
[facility] Medical History & Physical Date of Admission August 01, 2020 Date of Service: August 01, 2020 Attending Physician: YURY ROSS MD History and Physical CHIEF COMPLAINT: Increased confusion HISTORY OF PRESENT ILLNESS: 69 M with a history of chronic paroxysmal afib recently on eliquis that was stopped i/s/o recent intracerebral hemorrhage, chronic diastolic CHF, COPD, ulcerative colitis, right eye blindness, agent orange exposure, LUISITO not on CPAP, HLD, CKD3, DM who was brought in from home by his for acute confusion on baseline dementia out of his recent baseline. She also reported that she thought he might have been weak on the L side but Dr. Mcneill did not appreciate that observation but definitely notes the confusion. His recent neurological history is as follows. In early 06/2020 he fell at home with worsening confusion and presented to [facility] where CTH did not show acute intracranial pathology and MRI did not show acute infarct, masses or bleeding. He was continued on his home Eliquis dosing and on 06/14 he developed worsening confusion and decline in function and a repeat MRI with contrast showed a new left frontal hematoma with hydrocephalus for which he was urgently transferred to [facility] neuro-ICU where his Eliquis was discontinued, EEG did not show seizure activity, and follow-up MRI on 06-15-20 showed a resolving left frontal subacute hemorrhage with surrounding edema and encephalomalacia and mass effect on the anterior body of the left lateral ventricle and he was diagnosed with cerebral amyloid angiopathy, had no further decline in his function and at that time was admitted back to the [facility] ARU on 06/17 where he remained and did well until his discharge home with home PT/OT on 07/11. According to his , he has done well at home but yesterday he became more confused than usual was not answering questions appropriately and she thought he may have been slightly weaker on the L side and so brought him into the ED for evaluation. In the ED, he is hypertensive to SBP 180s, otherwise saturating well on room air and denies any physical complaints at all but is of course an unreliable historian at this time. His denies recent history of fever, chills, complaints of chest pain, SOB, palpitations, falls, LOC, change in urinary or bowel habits. ED workup was notable for CT head without acute pathology that noted old area of encephalomalacia in the L frontal lobe related to the previous hemorrhage, small vessel arthrosclerotic disease, moderate general volume loss and vascular calcifications. WBC was 5.5, hgb 12.5, platelets 115, Na 141, K 4.5, Cr 1.16, UA was bland and covid-19 was negative on respiratory panel. He is now being admitted for encephalopathy for r/o new CVA and PT/OT evaluation. REVIEW OF SYSTEMS: A 10 point ROS was completed and was otherwise unremarkable, except as noted in the HPI above. PAST MEDICAL HISTORY: per HPI PAST SURGICAL HISTORY: Cholecystectomy, lung resection, partial liver excision, splenectomy, hernia repair, left ankle repair, LHC ALLERGIES: Please see below. MEDICATIONS: Please see below. FAMILY HISTORY: Cardiac, DM SOCIAL HISTORY: Former smoker Denies alcohol Denies illicit drugs PHYSICAL EXAMINATION: VITAL SIGNS: Please see below. GENERAL: No acute distress. HEENT: NCAT. PERRLA. EOMI. Clear conjunctiva. MMM CARDIOVASCULAR: RRR, no m/r/g LUNGS: Clear to auscultation bilaterally. No wheezes. No rhonchi ABDOMEN: Soft, nontender, nondistended. Positive bowel sounds. Normal active bowel sounds NEUROLOGICAL: Alert and oriented to self, will answer questions appropriately sometimes then suddenly answers yes to everything, Cranial nerves II through XII grossly intact. Sensation grossly intact. On my examination has 5\5 strength bilateral upper extremities. 5\5 strength right lower extremity. 5/5 strength in left lower extremity. PSYCH: Alert and oriented to self. LABORATORY DATA and IMAGING: as noted above. See below for full details. ASSESSMENT: 69 M with a history of chronic paroxysmal afib recently on eliquis that was stopped i/s/o recent intracerebral hemorrhage, several CVAs in the past, dementia, chronic diastolic CHF, COPD, ulcerative colitis, right eye blindness, agent orange exposure, LUISITO not on CPAP, HLD, CKD3, DM who was brought in from home by his for acute confusion on baseline dementia out of his recent baseline. 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 - continue seroquel 12.5 mg BID - continue ativan prn for agitation - 1:1 sitter for impulsive behavior, high risk for falls - fall precautions - CT head was negative for acute pathology, UA was bland, no leukocytosis, CXR wnl - given recent history of maybe transient L sided mild weakness per at home, will get MRI brain and MRA to r/o CVA Recent multiple CVA with ongoing PT/OT -PT/OT -may consider ARU screen per PT/OT recs Paroxysmal Afib -continue home coreg -no AC given recent hemorrhage Chronic diastolic CHF: appears euvolemic - daily weights, strict I/Os HTN: - Continue home amlodipine and coreg History of COPD: no evidence of exacerbation -PRN albuterol mdi LUISITO not compliant with CPAP: -may require nocturnal O2 if hypoxemic DM : -continue home 20 units long active QHS -SSI AC/HS -FSBG AC/HS -hypoglycemia protocol CKD: stable -monitor daily BMP DVT ppx- teds and SCDs Vital Signs Vital Signs Date Time Temp Pulse Resp B/P (MAP) Pulse Ox O2 Delivery O2 Flow Rate FiO2 08/01/20 15:00 60 18 180/65 (103) 95 Room Air 08/01/20 10:44 96.6 Laboratory Data Labs 24H Laboratory Tests 2 08/01/20 11:11: Immature Granulocyte % (Auto) 0.4, Neutrophils (%) (Auto) 43.5, Lymphocytes (%) (Auto) 42.7, Monocytes (%) (Auto) 11.4H, Eosinophils (%) (Auto) 1.8, Basophils (%) (Auto) 0.2, Neutrophils # (Auto) 2.4, Lymphocytes # (Auto) 2.4, Monocytes # (Auto) 0.6, Eosinophils # (Auto) 0.1, Basophils # (Auto) 0.0, Nucleated Red Blood Cells % (auto) 0.0, Anion Gap 4L, Glomerular Filtration Rate > 60.0, Calcium Level 8.0L 08/01/20 13:34: Coronavirus (COVID-19)(PCR) NEGATIVE, Influenza Type A (RT-PCR) NEGATIVE, Influenza Type B (RT-PCR) NEGATIVE, Respiratory Syncytial Virus (PCR) NEGATIVE 08/01/20 13:35: Urine Color YELLOW, Urine Appearance CLEAR, Urine pH 6.0, Urine Specific [place] 1.019, Urine Protein 1+H, Urine Glucose (UA) 2+H, Urine Ketones TRACEH, Urine Bl ood NEGATIVE, Urine Nitrite NEGATIVE, Urine Bilirubin NEGATIVE, Urine Urobilinogen 2.0H, Urine Leukocyte Esterase NEGATIVE, Urine WBC (Auto) 1, Urine RBC (Auto) 1, Urine Hyaline Casts (Auto) 0, Urine Bacteria (Auto) NEGATIVE, Urine Squamous Epithelial Cells 0, Urine Mucus (Auto) SMALL, Urine Sperm (Auto) CBC/BMP Laboratory Tests 08/01/20 11:11 Home Medications Scheduled Allopurinol (Allopurinol) 100 Mg Tablet, 100 MG PO DAILY Amlodipine Besylate (Amlodipine Besylate) 5 Mg Tablet, 5 MG PO DAILY Atorvastatin Calcium (Atorvastatin Calcium) 80 Mg Tablet, 80 MG PO QHS Carvedilol (Carvedilol) 12.5 Mg Tablet, 12.5 MG PO BID Divalproex Sodium (Depakote Sprinkle) 125 Mg Cap.dr.spr, 500 MG PO BID Fluoxetine Hcl (Fluoxetine HCl) 20 Mg Capsule, 20 MG PO DAILY Insulin Aspart (Novolog Flexpen) 100 Unit/1 Ml Insuln.pen, 1 DOSE SC AC PER SLIDING SCALE Insulin Glargine,Hum.rec.anlog (Toujeo Solostar) 300 Unit/1 Ml Insuln.pen, 20 UNIT SC QHS Magnesium Oxide (Magnesium Oxide) 400 Mg Tablet, 400 MG PO BID Pantoprazole Sodium (Pantoprazole Sodium) 40 Mg Tablet.dr, 40 MG PO DAILY Potassium Chloride (Potassium Chloride) 20 Meq Packet, 20 MEQ PO BID MIX WITH WATER Quetiapine Fumarate (Quetiapine Fumarate) 25 Mg Tablet, 12.5 MG PO QHS Semaglutide (Ozempic) 1 Mg/0.75 Ml Pen.injctr, 0.5 MG SC 1XWK SATURDAY Allergies Coded Allergies: No Known Allergies (Unverified , 03/31/19) A-FIB/CHADSVASC A-FIB History Current/History of A-Fib/PAF?: Yes Current PO Anticoag Therapy: No Treatment Reason Anticoagulant not given: Other (recent history of hemorrahgic CVA) Other reason anticoagulant not: recent history of hemorrahgic CVA YURY ROSS MD August 01, 2020 16:34
[2020-08-01] MEDS ORDERED: DEXTROSE 50% 50 ML SYRINGE IV PRN (17:45)
[2020-08-01] MEDS ORDERED: GLUCAGON INJ 1MG VIAL SC PRN (17:45)
[2020-08-01] MEDS ORDERED: GLUCOSE 4GM CHEW TABLET PO PRN (17:45)
--- NOTE | 2020-08-01 20:16 | ECGEPIP ---
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
--- NOTE | 2020-08-01 20:26 | REPVR ---
PROCEDURE INFORMATION: Exam: MR Head Without Contrast Exam date and time: 08/01/2020 4:01 PM Age: 70 years old Clinical indication: Altered mental status/memory loss; Confusion or disorientation; Additional info: R/O acute infarct TECHNIQUE: Imaging protocol: MR of the head without contrast. COMPARISON: MRI-Brain without Contrast 06/28/2020 8:51 PM FINDINGS: Brain: 2.9 x 1.8 x 1.9 cm ovoid focus of signal abnormality in the left frontal lobe, T2 bright centrally surrounded by dense thick hemosiderin ring, findings consistent with prior parenchymal hematoma. Restricted diffusion demonstrated in the central portion of the hematoma bed, decreased in size in comparison to the prior study. Surrounding white matter changes secondary to sequelae of prior hemorrhagic infarct again redemonstrated. Findings substantially unchanged in comparison to the prior study of 06/28/2020. Multiple foci of T2 lengthening are demonstrated in the subcortical, periventricular and centrum semiovale white matter consistent with age-related small vessel gliosis. Moderate global parenchymal volume loss consistent with patient age. Cerebral ventricles: The degree of ventricular dilatation is normal for age and/or degree of atrophy present. Bones/joints: Unremarkable. Paranasal sinuses: Normal as visualized. No acute sinusitis. Mastoid air cells: Normal as visualized. No mastoid effusion. Orbital cavity: Unremarkable. Soft tissues: Unremarkable. IMPRESSION: 1. 2.9 x 1.8 x 1.9 cm ovoid focus of signal abnormality in the left frontal lobe, T2 bright centrally surrounded by dense thick hemosiderin ring, findings consistent with prior parenchymal hematoma. Restricted diffusion demonstrated in the central portion of the hematoma bed, decreased in size in comparison to the prior study. Surrounding white matter changes secondary to sequelae of prior hemorrhagic infarct again redemonstrated. Findings substantially unchanged in comparison to the prior study of 06/28/2020. 2. Multiple foci of T2 lengthening are demonstrated in the subcortical, periventricular and centrum semiovale white matter consistent with age-related small vessel gliosis. 3. Moderate global parenchymal volume loss consistent with patient age. 4. The degree of ventricular dilatation is normal for age and/or degree of atrophy present. 5. No acute findings. Electronically signed by: Kedar Larson On 08/01/2020 20:26:07 PM
--- NOTE | 2020-08-01 20:34 | REPVR ---
PROCEDURE INFORMATION: Exam: MRA Head Without Contrast; Arteriography Exam date and time: 08/01/2020 4:01 PM Age: 70 years old Clinical indication: Cognitive deficit; Altered mental status; Patient HX: Limited study, PT unable to cooperate; Additional info: R/O acute infarct TECHNIQUE: Imaging protocol: Magnetic resonance angiography head without contrast. Exam focused on the arteries. COMPARISON: MRA BRAIN W/O CONTRAST 07/12/2017 12:27 PM FINDINGS: ANTERIOR CIRCULATION: Right internal carotid artery: [id number] atherosclerotic changes in the right carotid siphon and cavernous segment. Right middle cerebral artery: No occlusion or significant stenosis. No aneurysm. Right anterior cerebral artery: No occlusion or significant stenosis. No aneurysm. Left internal carotid artery: Mild atherosclerotic changes in the left carotid siphon and cavernous segments. Left middle cerebral artery: No occlusion or significant stenosis. No aneurysm. Left anterior cerebral artery: No occlusion or significant stenosis. No aneurysm. POSTERIOR CIRCULATION: Right vertebral artery: No occlusion or significant stenosis. No aneurysm. Left vertebral artery: No occlusion or significant stenosis. No aneurysm. Basilar artery: No occlusion or significant stenosis. No aneurysm. Right posterior cerebral artery: Short segment narrowing at the origin of the P1 segment of the right posterior cerebral artery. Left posterior cerebral artery: No occlusion or significant stenosis. No aneurysm. IMPRESSION: 1. Short segment stenosis at the origin of the P1 segment of the right posterior cerebral artery. 2. Mild atherosclerotic changes demonstrated in the intracranial carotid arteries. Electronically signed by: Kedar Larson On 08/01/2020 20:34:25 PM
[2020-08-01 20:45] VITALS: BP 169/68
[2020-08-01] MEDS: QUEtiapine FUMARATE 12.5 MG HALF-TAB PO SCH (21:00)
[2020-08-01] MEDS: HumaLOG INSULIN (NovoLOG) PER UNIT SC SCH (21:00)
[2020-08-01] MEDS: ATORVASTATIN 20 MG TAB PO SCH (21:25)
[2020-08-01] MEDS: MAGNESIUM OXIDE 400MG TAB (MAG-OX) PO SCH (21:25)
[2020-08-01] MEDS: LEVEMIR (INSULIN DETEMIR) 1 UNITS/0.01ML SC SCH (21:25)
[2020-08-01] MEDS: CARVedilol 12.5 MG TAB PO SCH (21:25)
[2020-08-01] MEDS: POTASSIUM CHL PWD 20 MEQ PACKET PO SCH (23:22)
[2020-08-01] MEDS: DIVALPROEX SPRINKLE 125 MG CAP PO SCH (23:22)
[2020-08-01] MEDS: LORazepam 1 MG TAB PO PRN (23:38)
[2020-08-02] VITALS: BP 138/78
[2020-08-02 04:00] VITALS: BP 164/70
[2020-08-02 05:14] LABS: HEMATOCRIT 37.3 % (42.0-52.0); HEMOGLOBIN 12.8 g/dl (13.5-17.5); MEAN CORPUSCULAR HEMOGLOBIN 32.7 pg (27.0-33.0); MEAN CORPUSCULAR HGB CONC 34.3 g/dl (32.0-36.5); MEAN CORPUSCULAR VOLUME 95.2 fl (80.0-96.0); PLATELET COUNT, AUTOMATED 126 10^3/uL (150-450); RED BLOOD COUNT 3.92 10^6/uL (4.30-6.10); WHITE BLOOD COUNT 5.9 10^3/uL (4.0-10.0)
[2020-08-02 05:35] LABS: BLOOD UREA NITROGEN 16 MG/DL (7-18); CALCIUM LEVEL 8.5 MG/DL (8.8-10.2); CARBON DIOXIDE LEVEL 32 MEQ/L (21-32); CHLORIDE LEVEL 108 MEQ/L (98-107); CREATININE FOR GFR 1.06 MG/DL (0.70-1.30); GLOMERULAR FILTRATION RATE > 60.0 (>42); GLUCOSE, FASTING 103 MG/DL (70-100); MAGNESIUM LEVEL 2.1 MG/DL (1.8-2.4); POTASSIUM SERUM 4.1 MEQ/L (3.5-5.1); SODIUM LEVEL 144 MEQ/L (136-145)
[2020-08-02 07:20] VITALS: BP 154/84
[2020-08-02] MEDS: HumaLOG INSULIN (NovoLOG) PER UNIT SC SCH ×4 (07:30→21:00)
[2020-08-02] MEDS: POTASSIUM CHL PWD 20 MEQ PACKET PO SCH ×2 (08:14→21:03)
[2020-08-02] MEDS: FLUoxetine 20 MG CAP PO SCH (08:15)
[2020-08-02] MEDS: CARVedilol 12.5 MG TAB PO SCH ×2 (08:15→21:05)
[2020-08-02] MEDS: amLODIPine 5 MG TAB PO SCH (08:15)
[2020-08-02] MEDS: PANTOPRAZOLE 40MG TAB (PROTONIX) PO SCH (08:15)
[2020-08-02] MEDS: MAGNESIUM OXIDE 400MG TAB (MAG-OX) PO SCH ×2 (08:15→21:04)
[2020-08-02] MEDS: allopurinoL 100 MG TAB PO SCH (08:15)
[2020-08-02] MEDS: DIVALPROEX SPRINKLE 125 MG CAP PO SCH ×2 (08:15→21:07)
--- NOTE | 2020-08-02 13:01 | IPNPDOC ---
Text Note Date of Service The patient was seen on 08/02/20. NOTE Subjective: -No acute changes -Had some confusion when he first awoke this morning per nursing, at this time is appropriately answering questions Objective: VITAL SIGNS: Please see below. GENERAL: No acute distress. HEENT: NCAT. PERRLA. EOMI. Clear conjunctiva. MMM CARDIOVASCULAR: RRR, no m/r/g LUNGS: Clear to auscultation bilaterally. No wheezes. No rhonchi ABDOMEN: Soft, nontender, nondistended. Positive bowel sounds. Normal active bowel sounds NEUROLOGICAL: Alert and oriented to self and answers appropriately, Cranial nerves II through XII grossly intact. Sensation grossly intact. On my examination has 5\5 strength bilateral upper extremities. 5\5 strength right lo wer extremity. 5/5 strength in left lower extremity. PSYCH: Alert and oriented to self. LABORATORY DATA: Reviewed IMAGING: CT head: Preliminary digital manager document radiograph is unremarkable. Bone window settings demonstrate intact bony calvarium. Visualized paranasal sinuses are clear. Vascular calcification is noted in the distal internal carotid arteries bilaterally. No intraorbital abnormality is seen. On soft tissue window settings, there is moderate generalized volume loss again noted with concordant ventricular enlargement. There are fairly extensive small- vessel atherosclerotic changes in the periventricular white matter bilaterally. There is old encephalomalacia in the left frontal lobe as a sequela of the prior frontal lobe hemorrhage versus hemorrhagic infarction. In any event, this is unchanged from the most recent prior study. No new area of infarction is seen. There is no evidence of acute intracranial hemorrhage. No extra-axial fluid collection is seen. No m ass or midline shift is observed. IMPRESSION: Old area of encephalomalacia in the left frontal lobe related to previous hemorrhagic episode. Small-vessel atherosclerotic changes and moderate generalized volume loss seen. Vascular calcification. No acute intracranial abnormality. MRI brain: Brain: 2.9 x 1.8 x 1.9 cm ovoid focus of signal abnormality in the left frontal lobe, T2 bright centrally surrounded by dense thick hemosiderin ring, findings consistent with prior parenchymal hematoma. Restricted diffusion demonstrated in the central portion of the hematoma bed, decreased in size in comparison to the prior study. Surrounding white matter changes secondary to sequelae of prior hemorrhagic infarct again redemonstrated. Findings substantially unchanged in comparison to the prior study of 06/28/2020. Multiple foci of T2 lengthening are demonstrated in the subcortical, periventricular and centrum semiovale white matter consistent with age-related small vessel gliosis. Moderate global parenchymal volume loss consistent with patient age. Cerebral ventricles: The degree of ventricular dilatation is normal for age and/or degree of atrophy present. Bones/joints: Unremarkable. Paranasal sinuses: Normal as visualized. No acute sinusitis. Mastoid air cells: Normal as visualized. No mastoid effusion. Orbital cavity: Unremarkable. Soft tissues: Unremarkable. IMPRESSION: 1. 2.9 x 1.8 x 1.9 cm ovoid focus of signal abnormality in the left frontal lobe, T2 bright centrally surrounded by dense thick hemosiderin ring, findings consistent with prior parenchymal hematoma. Restricted diffusion demonstrated in the central portion of the hematoma bed, decreased in size in comparison to the prior study. Surrounding white matter changes secondary to sequelae of prior hemorrhagic infarct again redemonstrated. Findings substantially unchanged in comparison to the prior study of 06/28/2020. 2. Multiple foci of T2 lengthening are demonstrated in the subcortical, periventricular and centrum semiovale white matter consistent with age-related small vessel gliosis. 3. Moderate global parenchymal volume loss consistent with patient age. 4. The degree of ventricular dilatation is normal for age and/or degree of atrophy present. 5. No acute findings. MRA brain: Right internal carotid artery: [id number] atherosclerotic changes in the right carotid siphon and cavernous segment. Right middle cerebral artery: No occlusion or significant stenosis. No aneurysm. Right anterior cerebral artery: No occlusion or significant stenosis. No aneurysm. Left internal carotid artery: Mild atherosclerotic changes in the left carotid siphon and cavernous segments. Left middle cerebral artery: No occlusion or significant stenosis. No aneurysm. Left anterior cerebral artery: No occlusion or significant stenosis. No aneurysm. POSTERIOR CIRCULATION: Right vertebral artery: No occlusion or significant stenosis. No aneurysm. Left vertebral artery: No occlusion or significant stenosis. No aneurysm. Basilar artery: No occlusion or significant stenosis. No aneurysm. Right posterior cerebral artery: Short segment narrowing at the origin of the P1 segment of the right posterior cerebral artery. Left posterior cerebral artery: No occlusion or significant stenosis. No aneurysm. IMPRESSION: 1. Short segment stenosis at the origin of the P1 segment of the right posterior cerebral artery. 2. Mild atherosclerotic changes demonstrated in the intracranial carotid arteries. ASSESSMENT: 69 M with a history of chronic paroxysmal afib recently on eliquis that was stopped i/s/o recent intracerebral hemorrhage, several CVAs in the past, dementia, chronic diastolic CHF, COPD, ulcerative colitis, right eye blindness, agent orange exposure, LUISITO not on CPAP, HLD, CKD3, DM who was brought in from home by his for acute confusion on baseline dementia out of his recent baseline. 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 - continue seroquel 12.5 mg BID - continue ativan prn for agitation - 1:1 sitter for impulsive behavior, high risk for falls - fall precautions - CT head was negative for acute pathology, UA was bland, no leukocytosis, CXR wnl - given recent history of maybe transient L sided mild weakness per at home, did MRI brain and MRA and showed no acute CVA Recent multiple CVA with ongoing PT/OT -PT/OT -[facility] screen Paroxysmal Afib -continue home coreg -no AC given recent hemorrhage Chronic diastolic CHF: appears euvolemic - daily weights, strict I/Os HTN: - Continue home amlodipine and coreg History of COPD: no evidence of exacerbation -PRN albuterol mdi LUISITO not compliant with CPAP: -may require nocturnal O2 if hypoxemic DM : -continue home 20 units long active QHS -SSI AC/HS -FSBG AC/HS -hypoglycemia protocol CKD: stable -monitor daily BMP DVT ppx- teds and SCDs Dispo: med/surg VS,Fishbone, I+O VS, Fishbone, I+O Laboratory Tests 08/01/20 11:11 08/02/20 04:53 Vital Signs Date Time Temp Pulse Resp B/P (MAP) Pulse Ox O2 Delivery O2 Flow Rate FiO2 08/02/20 08:15 68 154/84 08/02/20 07:20 97.0 18 97 Room Air YURY ROSS MD August 02, 2020 09:29
[2020-08-02 15:30] VITALS: BP 158/78
[2020-08-02] MEDS: LORazepam 1 MG TAB PO PRN (18:19)
[2020-08-02 20:00] VITALS: BP 158/72
[2020-08-02] MEDS: QUEtiapine FUMARATE 12.5 MG HALF-TAB PO SCH (21:04)
[2020-08-02] MEDS: LEVEMIR (INSULIN DETEMIR) 1 UNITS/0.01ML SC SCH (21:07)
[2020-08-02] MEDS: ATORVASTATIN 20 MG TAB PO SCH (21:07)
[2020-08-02] MEDS: ACETAMINOPHEN TAB 650MG DOSE (2X325MG) PO PRN (21:08)
[2020-08-03] VITALS (7 sets, daily range): BP systolic 140–183; BP diastolic 70–88
[2020-08-03 05:23] LABS: HEMATOCRIT 35.5 % (42.0-52.0); HEMOGLOBIN 12.1 g/dl (13.5-17.5); MEAN CORPUSCULAR HEMOGLOBIN 32.1 pg (27.0-33.0); MEAN CORPUSCULAR HGB CONC 34.1 g/dl (32.0-36.5); MEAN CORPUSCULAR VOLUME 94.2 fl (80.0-96.0); PLATELET COUNT, AUTOMATED 126 10^3/uL (150-450); RED BLOOD COUNT 3.77 10^6/uL (4.30-6.10)
[2020-08-03 05:42] LABS: BLOOD UREA NITROGEN 20 MG/DL (7-18); CALCIUM LEVEL 8.5 MG/DL (8.8-10.2); CARBON DIOXIDE LEVEL 31 MEQ/L (21-32); CHLORIDE LEVEL 106 MEQ/L (98-107); CREATININE FOR GFR 1.08 MG/DL (0.70-1.30); GLOMERULAR FILTRATION RATE > 60.0 (>42); GLUCOSE, FASTING 132 MG/DL (70-100); POTASSIUM SERUM 3.7 MEQ/L (3.5-5.1); SODIUM LEVEL 141 MEQ/L (136-145)
[2020-08-03] MEDS: POTASSIUM CHL PWD 20 MEQ PACKET PO SCH ×2 (09:29→21:51)
[2020-08-03] MEDS: MAGNESIUM OXIDE 400MG TAB (MAG-OX) PO SCH ×2 (09:30→21:50)
[2020-08-03] MEDS: FLUoxetine 20 MG CAP PO SCH (09:30)
[2020-08-03] MEDS: CARVedilol 12.5 MG TAB PO SCH ×2 (09:30→21:50)
[2020-08-03] MEDS: amLODIPine 5 MG TAB PO SCH (09:30)
[2020-08-03] MEDS: HumaLOG INSULIN (NovoLOG) PER UNIT SC SCH ×4 (09:30→21:00)
[2020-08-03] MEDS: DIVALPROEX SPRINKLE 125 MG CAP PO SCH ×2 (09:30→21:51)
[2020-08-03] MEDS: allopurinoL 100 MG TAB PO SCH (09:31)
[2020-08-03] MEDS: PANTOPRAZOLE 40MG TAB (PROTONIX) PO SCH (09:31)
--- NOTE | 2020-08-03 13:20 | IPNPDOC ---
Text Note Date of Service The patient was seen on 08/03/20. NOTE Subjective: -No acute changes -Has episodic confusion and restlessness Objective: VITAL SIGNS: Please see below. GENERAL: No acute distress. HEENT: NCAT. PERRLA. EOMI. Clear conjunctiva. MMM CARDIOVASCULAR: RRR, no m/r/g LUNGS: Clear to auscultation bilaterally. No wheezes. No rhonchi ABDOMEN: Soft, nontender, nondistended. Positive bowel sounds. Normal active bowel sounds NEUROLOGICAL: Alert and oriented only to self and answers appropriately, Cranial nerves II through XII grossly intact. Sensation grossly intact. On my examination has 5\5 strength bilateral upper extremities. 5\5 strength right lower extremity. 5/5 strength in left lower extremity. PSYCH: Alert and oriented to self. LABORATORY DATA: Reviewed, stable IMAGING: CT head: Preliminary digital imaging manager radiograph is unremarkable. Bone window settings demonstrate intact bony calvarium. Visualized paranasal sinuses are clear. Vascular calcification is noted in the distal internal carotid arteries bilaterally. No intraorbital abnormality is seen. On soft tissue window settings, there is moderate generalized volume loss again noted with concordant ventricular enlargement. There are fairly extensive small- vessel atherosclerotic changes in the periventricular white matter bilaterally. There is old encephalomalacia in the left frontal lobe as a sequela of the prior frontal lobe hemorrhage versus hemorrhagic infarction. In any event, this is unchanged from the most recent prior study. No new area of infarction is seen. There is no evidence of acute intracranial hemorrhage. No extra-axial fluid collection is seen. No mass or midline shift is observed. IMPRESSION: Old area of encephalomalacia in the left frontal lobe related to previous hemorrhagic episode. Small-vessel atherosclerotic changes and moderate generalized volume loss seen. Vascular calcification. No acute intracranial abnormality. MRI brain: Brain: 2.9 x 1.8 x 1.9 cm ovoid focus of signal abnormality in the left frontal lobe, T2 bright centrally surrounded by dense thick hemosiderin ring, findings consistent with prior parenchymal hematoma. Restricted diffusion demonstrated in the central portion of the hematoma bed, decreased in size in comparison to the prior study. Surrounding white matter changes secondary to sequelae of prior hemorrhagic infarct again redemonstrated. Findings substantially unchanged in comparison to the prior study of 06/28/2020. Multiple foci of T2 lengthening are demonstrated in the subcortical, periventricular and centrum semiovale white matter consistent with age-related small vessel gliosis. Moderate global parenchymal volume loss consistent with patient age. Cerebral ventricles: The degree of ventricular dilatation is normal for age and/or degree of atrophy present. Bones/joints: Unremarkable. Paranasal sinuses: Normal as visualized. No acute sinusitis. Mastoid air cells: Normal as visualized. No mastoid effusion. Orbital cavity: Unremarkable. Soft tissues: Unremarkable. IMPRESSION: 1. 2.9 x 1.8 x 1.9 cm ovoid focus of signal abnormality in the left frontal lobe, T2 bright centrally surrounded by dense thick hemosiderin ring, findings consistent with prior parenchymal hematoma. Restricted diffusion demonstrated in the central portion of the hematoma bed, decreased in size in comparison to the prior study. Surrounding white matter changes secondary to sequelae of prior hemorrhagic infarct again redemonstrated. Findings substantially unchanged in comparison to the prior study of 06/28/2020. 2. Multiple foci of T2 lengthening are demonstrated in the subcortical, periventricular and centrum semiovale white matter consistent with age-related small vessel gliosis. 3. Moderate global parenchymal volume loss consistent with patient age. 4. The degree of ventricular dilatation is normal for age and/or degree of atrophy present. 5. No acute findings. MRA brain: Right internal carotid artery: [id number] atherosclerotic changes in the right carotid siphon and cavernous segment. Right middle cerebral artery: No occlusion or significant stenosis. No aneurysm. Right anterior cerebral artery: No occlusion or significant stenosis. No aneurysm. Left internal carotid artery: Mild atherosclerotic changes in the left carotid siphon and cavernous segments. Left middle cerebral artery: No occlusion or significant stenosis. No aneurysm. Left anterior cerebral artery: No occlusion or significant stenosis. No aneurysm. POSTERIOR CIRCULATION: Right vertebral artery: No occlusion or significant stenosis. No aneurysm. Left vertebral artery: No occlusion or significant stenosis. No aneurysm. Basilar artery: No occlusion or significant stenosis. No aneurysm. Right posterior cerebral artery: Short segment narrowing at the origin of the P1 segment of the right posterior cerebral artery. Left posterior cerebral artery: No occlusion or significant stenosis. No aneurysm. IMPRESSION: 1. Short segment stenosis at the origin of the P1 segment of the right posterior cerebral artery. 2. Mild atherosclerotic changes demonstrated in the intracranial carotid arteries. ASSESSMENT: 69 M with a history of chronic paroxysmal afib recently on eliquis that was stopped i/s/o recent intracerebral hemorrhage, several CVAs in the past, dementia, chronic diastolic CHF, COPD, ulcerative colitis, right eye blindness, agent orange exposure, LUISITO not on CPAP, HLD, CKD3, DM who was brought in from home by his for acute confusion on baseline dementia out of his recent baseline. Plan: Acute encephalopathy on baseline dementia and known recent cerebral amyloid angiopathy i/s/o recent hemorrhagic left frontal lobe CVA. I suspect that this might be his new baseline. 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 - fall precautions - CT head was negative for acute pathology, UA was bland, no leukocytosis, CXR wnl - given recent history of maybe transient L sided mild weakness per at home, did MRI brain and MRA and showed no acute CVA Recent multiple CVA with ongoing PT/OT -PT/OT -[facility] screen. The current discussion is leaning towards that his ability to participate and improve with intensive rehab proved challenging the last admi ssion to [facility] and the ended up learning how to use a Stephanie lift to get him home. At this time it is unclear if he would benefit from more intensive therapy or if he would be best served with discharge home with family to continue to recent routine. [facility] wants him to work more with PT/OT while inpatient and will reassess him tomorrow Paroxysmal Afib -continue home coreg -no AC given recent hemorrhage Chronic diastolic CHF: appears euvolemic - daily weights, strict I/Os HTN: - Continue home amlodipine and coreg History of COPD: no evidence of exacerbation -PRN albuterol mdi LUISITO not compliant with CPAP: -may require nocturnal O2 if hypoxemic DM : -continue home 20 units long active QHS -SSI AC/HS -FSBG AC/HS -hypoglycemia protocol CKD: stable -monitor daily BMP DVT ppx- teds and SCDs Dispo: med/surg VS,Fishbone, I+O VS, Fishbone, I+O Laboratory Tests 08/03/20 04:52 Vital Signs Date Time Temp Pulse Resp B/P (MAP) Pulse Ox O2 Delivery O2 Flow Rate FiO2 08/03/20 07:20 96.4 63 18 183/86 (118) 99 Room Air I&O- Last 24 Hours up to 6 AM 08/03/20 06:00 Intake Total 1230 ml Balance 1230 ml YURY ROSS MD August 03, 2020 09:16
[2020-08-03] MEDS: ACETAMINOPHEN TAB 650MG DOSE (2X325MG) PO PRN (15:25)
--- NOTE | 2020-08-03 17:07 | REP ---
INDICATION: labile R sided weakness. COMPARISON: Comparison head CT study August 01, 2020.. TECHNIQUE: Helical scanning is acquired and 5 mm axial images re-formatted. Coronal MPR images are generated. FINDINGS: Previously noted area of left frontal lobe encephalomalacia is again seen unchanged from comparison CT study August 01, 2020. Generalized volume loss and concordant ventricular enlargement is again seen unchanged. No evidence of intracranial hemorrhage is seen. There are small vessel atherosclerotic changes again noted. No extra-axial fluid collection or midline shift is seen.. IMPRESSION: Stable area of post hemorrhagic encephalomalacia left frontal lobe. No acute intracranial abnormality. Small-vessel changes and generalized volume loss again seen. Vascular calcification.. <Electronically signed by Raudel Marshall > 08/03/20 [id number]
[2020-08-03] MEDS: LORazepam 1 MG TAB PO PRN (18:28)
[2020-08-03] MEDS: LEVEMIR (INSULIN DETEMIR) 1 UNITS/0.01ML SC SCH ×2 (21:00→21:52)
[2020-08-03] MEDS: ATORVASTATIN 20 MG TAB PO SCH (21:50)
[2020-08-03] MEDS: QUEtiapine FUMARATE 12.5 MG HALF-TAB PO SCH (21:51)
[2020-08-04 02:00] VITALS: BP 163/74
[2020-08-04 06:00] VITALS: BP 166/76
[2020-08-04 07:16] LABS: BLOOD UREA NITROGEN 23 MG/DL (7-18); CALCIUM LEVEL 8.8 MG/DL (8.8-10.2); CARBON DIOXIDE LEVEL 32 MEQ/L (21-32); CHLORIDE LEVEL 105 MEQ/L (98-107); CREATININE FOR GFR 1.05 MG/DL (0.70-1.30); GLOMERULAR FILTRATION RATE > 60.0 (>42); GLUCOSE, FASTING 130 MG/DL (70-100); POTASSIUM SERUM 3.5 MEQ/L (3.5-5.1); SODIUM LEVEL 140 MEQ/L (136-145)
[2020-08-04 08:24] LABS: HEMATOCRIT 37.7 % (42.0-52.0); MEAN CORPUSCULAR HEMOGLOBIN 32.4 pg (27.0-33.0); MEAN CORPUSCULAR HGB CONC 34.5 g/dl (32.0-36.5); PLATELET COUNT, AUTOMATED 123 10^3/uL (150-450); RED BLOOD COUNT 4.01 10^6/uL (4.30-6.10)
[2020-08-04] MEDS: allopurinoL 100 MG TAB PO SCH (08:50)
[2020-08-04] MEDS: MAGNESIUM OXIDE 400MG TAB (MAG-OX) PO SCH ×2 (08:50→21:48)
[2020-08-04] MEDS: HumaLOG INSULIN (NovoLOG) PER UNIT SC SCH ×4 (08:50→21:00)
[2020-08-04] MEDS: PANTOPRAZOLE 40MG TAB (PROTONIX) PO SCH (08:51)
[2020-08-04] MEDS: FLUoxetine 20 MG CAP PO SCH (08:52)
[2020-08-04] MEDS: CARVedilol 12.5 MG TAB PO SCH ×2 (08:52→21:49)
[2020-08-04] MEDS: DIVALPROEX SPRINKLE 125 MG CAP PO SCH ×2 (08:52→21:48)
[2020-08-04] MEDS: POTASSIUM CHL PWD 20 MEQ PACKET PO SCH ×2 (08:59→21:49)
--- NOTE | 2020-08-04 11:53 | IPNPDOC ---
Text Note Date of Service The patient was seen on 08/04/20. NOTE Subjective: -No acute changes -Has episodic confusion and restlessness and yesterday had reports of what appeared to be L sided mild weakness --> repeat CT head was negative for acute pathology. Exam was back at baseline by the time I examined him. Objective: VITAL SIGNS: Please see below. GENERAL: No acute distress. HEENT: NCAT. PERRLA. EOMI. Clear conjunctiva. MMM CARDIOVASCULAR: RRR, no m/r/g LUNGS: Clear to auscultation bilaterally. No wheezes. No rhonchi ABDOMEN: Soft, nontender, nondistended. Positive bowel sounds. Normal active bowel sounds NEUROLOGICAL: Alert and oriented only to self and answers appropriately, Cranial nerves II through XII grossly intact. Sensation grossly intact. On my examination has 5\5 strength bilateral upper extremities. 5\5 strength right lower extremity. 5/5 strength in left lower extremity. PSYCH: Alert and oriented to self. LABORATORY DATA: Reviewed, stable IMAGING: Admission CT head: Preliminary digital director of partnerships radiograph is unremarkable. Bone window settings demonstrate intact bony calvarium. Visualized paranasal sinuses are clear. Vascular calcification is noted in the distal internal carotid arteries bilaterally. No intraorbital abnormality is seen. On soft tissue window settings, there is moderate generalized volume loss again noted with concordant ventricular enlargement. There are fairly extensive small- vessel atherosclerotic changes in the periventricular white matter bilaterally. There is old encephalomalacia in the left frontal lobe as a sequela of the prior frontal lobe hemorrhage versus hemorrhagic infarction. In any event, this is unchanged from the most recent prior study. No new area of infarction is seen. There is no evidence of acute intracranial hemorrhage. No extra-axial fluid collection is seen. No mass or midline shift is observed. IMPRESSION: Old area of encephalomalacia in the left frontal lobe related to previous hemorrhagic episode. Small-vessel atherosclerotic changes and moderate generalized volume loss seen. Vascular calcification. No acute intracranial abnormality. MRI brain: Brain: 2.9 x 1.8 x 1.9 cm ovoid focus of signal abnormality in the left frontal lobe, T2 bright centrally surrounded by dense thick hemosiderin ring, findings consistent with prior parenchymal hematoma. Restricted diffusion demonstrated in the central portion of the hematoma bed, decreased in size in comparison to the prior study. Surrounding white matter changes secondary to sequelae of prior hemorrhagic infarct again redemonstrated. Findings substantially unchanged in comparison to the prior study of 06/28/2020. Multiple foci of T2 lengthening are demonstrated in the subcortical, periventricular and centrum semiovale white matter consistent with age-related small vessel gliosis. Moderate global parenchymal volume loss consistent with patient age. Cerebral ventricles: The degree of ventricular dilatation is normal for age and/or degree of atrophy present. Bones/joints: Unremarkable. Paranasal sinuses: Normal as visualized. No acute sinusitis. Mastoid air cells: Normal as visualized. No mastoid effusion. Orbital cavity: Unremarkable. Soft tissues: Unremarkable. IMPRESSION: 1. 2.9 x 1.8 x 1.9 cm ovoid focus of signal abnormality in the left frontal lobe, T2 bright centrally surrounded by dense thick hemosiderin ring, findings consistent with prior parenchymal hematoma. Restricted diffusion demonstrated in the central portion of the hematoma bed, decreased in size in comparison to the prior study. Surrounding white matter changes secondary to sequelae of prior hemorrhagic infarct again redemonstrated. Findings substantially unchanged in comparison to the prior study of 06/28/2020. 2. Multiple foci of T2 lengthening are demonstrated in the subcortical, periventricular and centrum semiovale white matter consistent with age-related small vessel gliosis. 3. Moderate global parenchymal volume loss consistent with patient age. 4. The degree of ventricular dilatation is normal for age and/or degree of atrophy present. 5. No acute findings. MRA brain: Right internal carotid artery: [id number] atherosclerotic changes in the right carotid siphon and cavernous segment. Right middle cerebral artery: No occlusion or significant stenosis. No aneurysm. Right anterior cerebral artery: No occlusion or significant stenosis. No aneurysm. Left internal carotid artery: Mild atherosclerotic changes in the left carotid siphon and cavernous segments. Left middle cerebral artery: No occlusion or significant stenosis. No aneurysm. Left anterior cerebral artery: No occlusion or significant stenosis. No aneurysm. POSTERIOR CIRCULATION: Right vertebral artery: No occlusion or significant stenosis. No aneurysm. Left vertebral artery: No occlusion or significant stenosis. No aneurysm. Basilar artery: No occlusion or significant stenosis. No aneurysm. Right posterior cerebral artery: Short segment narrowing at the origin of the P1 segment of the right posterior cerebral artery. Left posterior cerebral artery: No occlusion or significant stenosis. No aneurysm. IMPRESSION: 1. Short segment stenosis at the origin of the P1 segment of the right posterior cerebral artery. 2. Mild atherosclerotic changes demonstrated in the intracranial carotid arteries. 08/03 CT head: Stable known area of encephalomalacia in the left frontal lobe related to previous hemorrhagic episode. Small-vessel atherosclerotic changes and moderate generalized volume loss seen. Vascular calcification. No acute intracranial abnormality. ASSESSMENT: 69 M with a history of chronic paroxysmal afib recently on eliquis that was stopped i/s/o recent intracerebral hemorrhage, several CVAs in the past, dementia, chronic diastolic CHF, COPD, ulcerative colitis, right eye blindness, agent orange exposure, LUISITO not on CPAP, HLD, CKD3, DM who was brought in from home by his for acute confusion on baseline dementia out of his recent baseline. Plan: Acute encephalopathy on baseline dementia and known recent cerebral amyloid angiopathy i/s/o recent hemorrhagic left frontal lobe CVA. I suspect that this might be his new baseline. 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 - fall precautions - CT head was negative for acute pathology, UA was bland, no leukocytosis, CXR wnl - given recent history of maybe transient L sided mild weakness per at [facility], did MRI brain and MRA and showed no acute CVA - Repeat CT head on 08/03 remained stable. -Had a discussion with the ARU and with his about his ability to participate and improve with intensive rehab since that proved challenging the last admission to ARU and the ended up learning how to use a Stephanie lift to get him home. At this time was deemed unlikely that he would benefit from more intensive therapy and would be best served with discharge home with family to continue 24h care with services. He continues to work with PT/OT while inpatient, while family plans for his return home with setting up 24/7 care. Recent multiple CVA with ongoing PT/OT -. He continues to work with PT/OT while inpatient, while family plans for his return home with setting up 24/7 care. Paroxysmal Afib -continue home coreg -no AC given recent hemorrhage Chronic diastolic CHF: appears euvolemic - daily weights, strict I/Os HTN: - Continue home amlodipine and coreg History of COPD: no evidence of exacerbation -PRN albuterol mdi LUISITO not compliant with CPAP: -may require nocturnal O2 if hypoxemic DM : -continue home 20 units long active QHS -SSI AC/HS -FSBG AC/HS -hypoglycemia protocol CKD: stable -monitor daily BMP DVT ppx- teds and SCDs Dispo: med/surg. Will make ALC today as we await safe discharge preparation of the home for 01/10 care. VS,Fishbone, I+O VS, Fishbone, I+O Laboratory Tests 08/04/20 06:30 Vital Signs Date Time Temp Pulse Resp B/P (MAP) Pulse Ox O2 Delivery O2 Flow Rate FiO2 08/04/20 06:00 97.7 60 16 166/76 (106) 98 Room Air I&O- Last 24 Hours up to 6 AM 08/04/20 06:00 Intake Total 688 ml Balance 688 ml YURY ROSS MD August 04, 2020 08:29
[2020-08-04 14:49] VITALS: BP 137/64
[2020-08-04 21:19] VITALS: BP 162/83
[2020-08-04] MEDS: ATORVASTATIN 20 MG TAB PO SCH (21:48)
[2020-08-04] MEDS: QUEtiapine FUMARATE 12.5 MG HALF-TAB PO SCH (21:48)
[2020-08-04] MEDS: LEVEMIR (INSULIN DETEMIR) 1 UNITS/0.01ML SC SCH (21:49)
[2020-08-05] MEDS: LORazepam 1 MG TAB PO PRN ×2 (00:49→21:48)
[2020-08-05 00:50] VITALS: BP 160/82
[2020-08-05 05:55] VITALS: BP 160/82
[2020-08-05 06:54] LABS: HEMATOCRIT 39.1 % (42.0-52.0); HEMOGLOBIN 13.3 g/dl (13.5-17.5); MEAN CORPUSCULAR HEMOGLOBIN 31.8 pg (27.0-33.0); MEAN CORPUSCULAR VOLUME 93.5 fl (80.0-96.0); PLATELET COUNT, AUTOMATED 137 10^3/uL (150-450); RED BLOOD COUNT 4.18 10^6/uL (4.30-6.10); WHITE BLOOD COUNT 6.3 10^3/uL (4.0-10.0)
[2020-08-05 07:13] LABS: BLOOD UREA NITROGEN 22 MG/DL (7-18); CALCIUM LEVEL 8.8 MG/DL (8.8-10.2); CARBON DIOXIDE LEVEL 32 MEQ/L (21-32); CHLORIDE LEVEL 106 MEQ/L (98-107); CREATININE FOR GFR 1.03 MG/DL (0.70-1.30); GLOMERULAR FILTRATION RATE > 60.0 (>42); GLUCOSE, FASTING 143 MG/DL (70-100); POTASSIUM SERUM 3.5 MEQ/L (3.5-5.1); SODIUM LEVEL 140 MEQ/L (136-145)
[2020-08-05] MEDS: HumaLOG INSULIN (NovoLOG) PER UNIT SC SCH ×4 (07:47→21:00)
[2020-08-05] MEDS: POTASSIUM CHL PWD 20 MEQ PACKET PO SCH ×2 (07:48→21:45)
[2020-08-05] MEDS: DIVALPROEX SPRINKLE 125 MG CAP PO SCH ×2 (07:49→21:48)
[2020-08-05] MEDS: MAGNESIUM OXIDE 400MG TAB (MAG-OX) PO SCH ×2 (07:50→21:49)
[2020-08-05] MEDS: CARVedilol 12.5 MG TAB PO SCH ×2 (07:51→21:48)
[2020-08-05] MEDS: FLUoxetine 20 MG CAP PO SCH (07:51)
[2020-08-05] MEDS: allopurinoL 100 MG TAB PO SCH (07:52)
[2020-08-05] MEDS: PANTOPRAZOLE 40MG TAB (PROTONIX) PO SCH (07:52)
[2020-08-05] MEDS: QUEtiapine FUMARATE 12.5 MG HALF-TAB PO SCH (21:48)
[2020-08-05] MEDS: ATORVASTATIN 20 MG TAB PO SCH (21:49)
[2020-08-05] MEDS: LEVEMIR (INSULIN DETEMIR) 1 UNITS/0.01ML SC SCH (21:49)
[2020-08-06 06:00] VITALS: BP 135/63
[2020-08-06 06:15] LABS: HEMATOCRIT 36.4 % (42.0-52.0); HEMOGLOBIN 12.6 g/dl (13.5-17.5); MEAN CORPUSCULAR HEMOGLOBIN 32.5 pg (27.0-33.0); MEAN CORPUSCULAR HGB CONC 34.6 g/dl (32.0-36.5); MEAN CORPUSCULAR VOLUME 93.8 fl (80.0-96.0); PLATELET COUNT, AUTOMATED 126 10^3/uL (150-450); RED BLOOD COUNT 3.88 10^6/uL (4.30-6.10); WHITE BLOOD COUNT 5.8 10^3/uL (4.0-10.0)
[2020-08-06 06:38] LABS: BLOOD UREA NITROGEN 24 MG/DL (7-18); CALCIUM LEVEL 9.2 MG/DL (8.8-10.2); CARBON DIOXIDE LEVEL 31 MEQ/L (21-32); CHLORIDE LEVEL 106 MEQ/L (98-107); CREATININE FOR GFR 1.09 MG/DL (0.70-1.30); GLOMERULAR FILTRATION RATE > 60.0 (>42); GLUCOSE, FASTING 64 MG/DL (70-100); POTASSIUM SERUM 3.6 MEQ/L (3.5-5.1); SODIUM LEVEL 144 MEQ/L (136-145)
[2020-08-06] MEDS: HumaLOG INSULIN (NovoLOG) PER UNIT SC SCH (07:30)
--- NOTE | 2020-08-06 08:19 | DS.PDOC ---
Discharge Summary General Date of Admission August 01, 2020 at 16:01 Date of Discharge 08/06/2020 Attending Physician: YURY ROSS MD Discharge Summary PROCEDURES PERFORMED DURING STAY: None ADMITTING DIAGNOSES: Altered mental status DISCHARGE DIAGNOSES: Hypertensive urgency Progressive dementia Cerebral amyloid angiopathy 2/2 prior hemorrhagic left frontal lobe History of CVA Chronic paroxysmal afib recently on eliquis that was stopped i/s/o recent intracerebral hemorrhage Chronic diastolic CHF COPD Ulcerative colitis Right eye blindness Agent orange exposure LUISITO not on CPAP HLD CKD3 DM COMPLICATIONS/CHIEF COMPLAINT: Altered Mental Status, Hypertension. HISTORY OF PRESENT ILLNESS: 69 M with a history of chronic paroxysmal afib recently on eliquis that was st opped i/s/o recent intracerebral hemorrhage, chronic diastolic CHF, COPD, ulcerative colitis, right eye blindness, agent orange exposure, LUISITO not on CPAP, HLD, CKD3, DM who was brought in from home by his for acute confusion on baseline dementia out of his recent baseline. She also reported that she thought he might have been weak on the L side but Dr. Mcneill did not appreciate that observation but definitely noted the confusion. His recent neurological history is as follows. In early 06/2020 he fell at home with worsening confusion and presented to [facility] where CTH did not show acute intracranial pathology and MRI did not show acute infarct, masses or bleeding. He was continued on his home Eliquis dosing and on 06/14 he developed worsening confusion and decline in function and a repeat MRI with contrast showed a new left frontal hematoma with hydrocephalus for which he was urgently transferred to [facility] neuro-ICU where his Eliquis was discontinued, EEG did not show seizure activity, and follow-up MRI on 06-15-20 showed a resolving left frontal subacute hemorrhage with surrounding edema and encephalomalacia and mass effect on the anterior body of the left lateral ventricle and he was diagnosed with cerebral amyloid angiopathy, had no further decline in his function and at that time was admitted back to the [facility] ARU on 06/17 where he remained and did well until his discharge home with home PT/OT on 07/11. According to his , he had done well at home but the day before presentation he became more confused than usual and was not answering questions appropriately and she thought he may have been slightly weaker on the L side and so brought him into the ED for evaluation. HOSPITAL COURSE: In the ED, he was hypertensive to SBP 180s, otherwise saturating well on room air and denied any physical complaints. His denied recent history of fever, chills, complaints of chest pain, SOB, palpitations, falls, LOC, change in urinary or bowel habits. ED workup was notable for CT head without acute pathology that noted old area of encephalomalacia in the L frontal lobe related to the previous hemorrhage, small vessel arthrosclerotic disease, moderate general volume loss and vascular calcifications. WBC was 5.5, hgb 12.5, platelets 115, Na 141, K 4.5, Cr 1.16, UA was bland and covid-19 was negative on respiratory panel. He is was admitted for encephalopathy to r/o new CVA and PT /OT evaluation. His follow up MRI/MRA was negative for acute CVA. He continued to have waxing and waning moments of confusion where he would answer yes to everything and moments when he returned to his baseline which is AOx1 but conversational with appropriate conversation. He had a repeat CT on 08/04 when the reported asymmetrical weakness during a visit that remained stable and after trial of PT/OT, we had an extensive conversation with PM&R, PFS and family and finally came to the consensus that this is likely he new baseline and that he would be best served and cared for by being discharged home with 24/7 care and home services. The worked with PFS to arrange appropriate home support and he is now being discharged home with PCP and neurology follow up. DISCHARGE MEDICATIONS: Please see below. ALLERGIES: Please see below. PHYSICAL EXAMINATION ON DISCHARGE: VITAL SIGNS: Please see below. GENERAL: No acute distress. HEENT: NCAT. PERRLA. EOMI. Clear conjunctiva. MMM CARDIOVASCULAR: RRR, no m/r/g LUNGS: Clear to auscultation bilaterally. No wheezes. No rhonchi ABDOMEN: Soft, nontender, nondistended. Positive bowel sounds. Normal active bowel sounds NEUROLOGICAL: Alert and oriented only to self and answers appropriately, Cranial nerves II through XII grossly intact. Sensation grossly intact. On my examination has 5\5 strength bilateral upper extremities. 5\5 strength right lower extremity. 5/5 strength in left lower extremity. PSYCH: Alert and oriented to self. LABORATORY DATA: Please see below IMAGING: Admission CT head: Preliminary digital trucker radiograph is unremarkable. Bone window settings demonstrate intact bony calvarium. Visualized paranasal sinuses are clear. Vascular calcification is noted in the distal internal carotid arteries bilaterally. No intraorbital abnormality is seen. On soft tissue window settings, there is moderate generalized volume loss again noted with concordant ventricular enlargement. There are fairly extensive small- vessel atherosclerotic changes in the periventricular white matter bilaterally. There is old encephalomalacia in the left frontal lobe as a sequela of the prior frontal lobe hemorrhage versus hemorrhagic infarction. In any event, this is unchanged from the most recent prior study. No new area of infarction is seen. There is no evidence of acute intracranial hemorrhage. No extra-axial fluid collection is seen. No mass or midline shift is observed. IMPRESSION: Old area of encephalomalacia in the left frontal lobe related to previous hemorrhagic episode. Small-vessel atherosclerotic changes and moderate generalized volume loss seen. Vascular calcification. No acute intracranial abnormality. MRI brain: Brain: 2.9 x 1.8 x 1.9 cm ovoid focus of signal abnormality in the left frontal lobe, T2 bright centrally surrounded by dense thick hemosiderin ring, findings consistent with prior parenchymal hematoma. Restricted diffusion demonstrated in the central portion of the hematoma bed, decreased in size in comparison to the prior study. Surrounding white matter changes secondary to sequelae of prior hemorrhagic infarct again redemonstrated. Findings substantially unchanged in comparison to the prior study of 06/28/2020. Multiple foci of T2 lengthening are demonstrated in the subcortical, periventricular and centrum semiovale white matter consistent with age-related small vessel gliosis. Moderate global parenchymal volume loss consistent with patient age. Cerebral ventricles: The degree of ventricular dilatation is normal for age and/or degree of atrophy present. Bones/joints: Unremarkable. Paranasal sinuses: Normal as visualized. No acute sinusitis. Mastoid air cells: Normal as visualized. No mastoid effusion. Orbital cavity: Unremarkable. Soft tissues: Unremarkable. IMPRESSION: 1. 2.9 x 1.8 x 1.9 cm ovoid focus of signal abnormality in the left frontal lobe, T2 bright centrally surrounded by dense thick hemosiderin ring, findings consistent with prior parenchymal hematoma. Restricted diffusion demonstrated in the central portion of the hematoma bed, decreased in size in comparison to the prior study. Surrounding white matter changes secondary to sequelae of prior hemorrhagic infarct again redemonstrated. Findings substantially unchanged in comparison to the prior study of 06/28/2020. 2. Multiple foci of T2 lengthening are demonstrated in the subcortical, periventricular and centrum semiovale white matter consistent with age-related small vessel gliosis. 3. Moderate global parenchymal volume loss consistent with patient age. 4. The degree of ventricular dilatation is normal for age and/or degree of atrophy present. 5. No acute findings. MRA brain: Right internal carotid artery: [id number] atherosclerotic changes in the right carotid siphon and cavernous segment. Right middle cerebral artery: No occlusion or significant stenosis. No aneurysm. Right anterior cerebral artery: No occlusion or significant stenosis. No aneurysm. Left internal carotid artery: Mild atherosclerotic changes in the left carotid siphon and cavernous segments. Left middle cerebral artery: No occlusion or significant stenosis. No aneurysm. Left anterior cerebral artery: No occlusion or significant stenosis. No aneurysm. POSTERIOR CIRCULATION: Right vertebral artery: No occlusion or significant stenosis. No aneurysm. Left vertebral artery: No occlusion or significant stenosis. No aneurysm. Basilar artery: No occlusion or significant stenosis. No aneurysm. Right posterior cerebral artery: Short segment narrowing at the origin of the P1 segment of the right posterior cerebral artery. Left posterior cerebral artery: No occlusion or significant stenosis. No aneurysm. IMPRESSION: 1. Short segment stenosis at the origin of the P1 segment of the right posterior cerebral artery. 2. Mild atherosclerotic changes demonstrated in the intracranial carotid arteries. 08/03 CT head: Stable known area of encephalomalacia in the left frontal lobe related to previous hemorrhagic episode. Small-vessel atherosclerotic changes and moderate generalized volume loss seen. Vascular calcification. No acute intracranial abnormality. PROGNOSIS: Good ACTIVITY: As tolerated DIET: consistent carb, 2g sodium DISCHARGE PLAN: Home with 24/7 and home services DISPOSITION: Home with 24/7 and home services DISCHARGE INSTRUCTIONS: Home with 24/7 and home services with PCP appt within 7d of hospital discharge and neurology appt within 2w ITEMS TO FOLLOWUP ON ON OUTPATIENT: Progressive dementia DISCHARGE CONDITION: Stable TIME SPENT ON DISCHARGE: 44 minutes. Vital Signs/I&Os Vital Signs Date Time Temp Pulse Resp B/P (MAP) Pulse Ox O2 Delivery O2 Flow Rate FiO2 08/05/20 21:48 73 127/73 08/05/20 05:55 97.5 20 96 Room Air I&O- Last 24 Hours up to 6 AM 08/06/20 06:00 Intake Total 360 ml Balance 360 ml Laboratory Data Labs 24H Laboratory Tests 2 08/05/20 11:27: Bedside Glucose (Misc Panel) 144H 08/05/20 16:32: Bedside Glucose (Misc Panel) 120H 08/05/20 21:35: Bedside Glucose (Misc Panel) 172H 08/06/20 05:57: Nucleated Red Blood Cells % (auto) 0.0, Anion Gap 7L, Glomerular Filtration Rate > 60.0, Calcium Level 9.2 08/06/20 06:44: Bedside Glucose (Misc Panel) 53L 08/06/20 06:58: Bedside Glucose (Misc Panel) 76L CBC/BMP Laboratory Tests 08/06/20 05:57 FSBS Laboratory Tests Test 08/05/20 11:27 08/05/20 16:32 08/05/20 21:35 08/06/20 06:44 Range/Units Bedside Glucose (Misc Panel) 144 120 172 53 83-110 MG/DL Test 08/06/20 06:58 Range/Units Bedside Glucose (Misc Panel) 76 83-110 MG/DL Discharge Medications Scheduled Allopurinol (Allopurinol) 100 Mg Tablet, 100 MG PO DAILY, (Reported) Amlodipine Besylate (Amlodipine Besylate) 5 Mg Tablet, 5 MG PO DAILY, (Reported) Atorvastatin Calcium (Atorvastatin Calcium) 80 Mg Tablet, 80 MG PO QHS, (Reported) Carvedilol (Carvedilol) 12.5 Mg Tablet, 12.5 MG PO BID, (Reported) Divalproex Sodium (Depakote Sprinkle) 125 Mg Cap.spr, 500 MG PO BID, (Reported) Fluoxetine Hcl (Fluoxetine HCl) 20 Mg Capsule, 20 MG PO DAILY, (Reported) Insulin Aspart (Novolog Flexpen) 100 Unit/1 Ml Insuln.pen, 1 DOSE SC AC, (Rep orted) PER SLIDING SCALE Insulin Glargine,Hum.rec.anlog (Toujeo Solostar) 300 Unit/1 Ml Insuln.pen, 20 UNIT SC QHS, (Reported) Magnesium Oxide (Magnesium Oxide) 400 Mg Tablet, 400 MG PO BID, (Reported) Pantoprazole Sodium (Pantoprazole Sodium) 40 Mg Tablet.dr, 40 MG PO DAILY, (Reported) Potassium Chloride (Potassium Chloride) 20 Meq Packet, 20 MEQ PO BID, (Reported) MIX WITH WATER Quetiapine Fumarate (Quetiapine Fumarate) 25 Mg Tablet, 12.5 MG PO QHS, (Reported) Semaglutide (Ozempic) 1 Mg/0.75 Ml Pen.injctr, 0.5 MG SC 1XWK, (Reported) SATURDAY Allergies Coded Allergies: No Known Allergies (Unverified , 03/31/19) YURY ROSS MD August 06, 2020 08:19
[2020-08-06] MEDS: POTASSIUM CHL PWD 20 MEQ PACKET PO SCH (08:33)
[2020-08-06 08:34] VITALS: BP 135/63
[2020-08-06] MEDS: MAGNESIUM OXIDE 400MG TAB (MAG-OX) PO SCH (08:34)
[2020-08-06] MEDS: allopurinoL 100 MG TAB PO SCH (08:34)
[2020-08-06] MEDS: PANTOPRAZOLE 40MG TAB (PROTONIX) PO SCH (08:34)
[2020-08-06] MEDS: DIVALPROEX SPRINKLE 125 MG CAP PO SCH (08:34)
[2020-08-06] MEDS: CARVedilol 12.5 MG TAB PO SCH (08:34)
[2020-08-06] MEDS: FLUoxetine 20 MG CAP PO SCH (08:34)
== END 2020-08-06 08:50 | disposition home or self-care (01) | DRG 305 ==
LOC: M ED 10:41 → M ED INP 16:01 → ENRESERV 19:31 → M PCU 20:43 → M MS5PR 08-04 01:50
PROVIDERS: ADMIT Internal Medicine; ATTEND Internal Medicine
DX: I16.0 Hypertensive urgency (principal); I50.32 Chronic diastolic (congestive) heart failure; K51.90 Ulcerative colitis, unspecified, without complications; E85.4 Organ-limited amyloidosis; I48.0 Paroxysmal atrial fibrillation; I13.0 Hypertensive heart and chronic kidney disease with heart failure and stage 1 through stage 4 chronic kidney disease, or unspecified chronic kidney disease; J44.9 Chronic obstructive pulmonary disease, unspecified; H54.7 Unspecified visual loss; Z77.098 Contact with and (suspected) exposure to other hazardous, chiefly nonmedicinal, chemicals; G47.33 Obstructive sleep apnea (adult) (pediatric); E78.5 Hyperlipidemia, unspecified; N18.30 Chronic kidney disease, stage 3 unspecified; E11.22 Type 2 diabetes mellitus with diabetic chronic kidney disease; Z87.891 Personal history of nicotine dependence; Z86.73 Personal history of transient ischemic attack (TIA), and cerebral infarction without residual deficits; Z79.899 Other long term (current) drug therapy; Z79.4 Long term (current) use of insulin; Z20.822 Contact with and (suspected) exposure to COVID-19; F03.90 Unspecified dementia, unspecified severity, without behavioral disturbance, psychotic disturbance, mood disturbance, and anxiety; I68.0 Cerebral amyloid angiopathy

== ENCOUNTER → 2020-08-22 | Outpatient (REF) | payer OTHER, BC, MEDICARE ==
[~2020-08-22] MED LIST changes: +ALLO100T PO; +DEPA1CAP PO; +METF500T13; +PANT-23 PO
[2020-08-22 16:52] LABS: HEMATOCRIT 40.5 % (42.0-52.0); HEMOGLOBIN 13.5 g/dl (13.5-17.5); MEAN CORPUSCULAR HEMOGLOBIN 31.9 pg (27.0-33.0); MEAN CORPUSCULAR HGB CONC 33.3 g/dl (32.0-36.5); MEAN CORPUSCULAR VOLUME 95.7 fl (80.0-96.0); PLATELET COUNT, AUTOMATED 103 10^3/uL (150-450); RED BLOOD COUNT 4.23 10^6/uL (4.30-6.10); WHITE BLOOD COUNT 7.8 10^3/uL (4.0-10.0)
[2020-08-22 17:18] LABS: PERCENT SATURATION 26.7 % (19.7-50.0)
== END ==
LOC: M SHH 16:15
PROVIDERS: ATTEND Student in an Organized Health Care Education/Training Program
DX: D50.9 Iron deficiency anemia, unspecified (principal)

== ENCOUNTER 2020-09-30 12:16 | Emergency (ER) | payer BC, MEDICARE, OTHER ==
[~2020-09-30] VITALS: Ht 170.2 cm; Wt 82.0 kg
[~2020-09-30 12:16] MED LIST changes: +OMEP40CA4 PO; -OMEP40CA97 PO
[2020-09-30] MEDS ORDERED: MIDAZOLAM INJ 2MG/2ML VIAL (J2250 PER 1MG) As Ordered ONE (12:42)
[2020-09-30] MEDS ORDERED: MIDAZOLAM INJ 2MG/2ML VIAL (J2250 PER 1MG) IV ONE (13:00)
[2020-09-30 13:13] LABS: BASO % 0.1 % (0.0-1.0); EOS # 0.1 10^3/uL (0.0-0.5); EOS % 0.9 % (0.0-3.0); HEMATOCRIT 31.9 % (42.0-52.0); HEMOGLOBIN 10.9 g/dl (13.5-17.5); LYMPH # 2.6 10^3/uL (1.5-5.0); LYMPH % 32.1 % (24.0-44.0); MEAN CORPUSCULAR HGB CONC 34.2 g/dl (32.0-36.5); MEAN CORPUSCULAR VOLUME 93.5 fl (80.0-96.0); MONO # 0.7 10^3/uL (0.0-0.8); MONO % 9.3 % (2.0-8.0); NEUTROPHILS # 4.5 10^3/uL (1.5-8.5); PLATELET COUNT, AUTOMATED 134 10^3/uL (150-450); RED BLOOD COUNT 3.41 10^6/uL (4.30-6.10); WHITE BLOOD COUNT 7.9 10^3/uL (4.0-10.0)
[2020-09-30 13:42] LABS: ALBUMIN 2.5 GM/DL (3.2-5.2); ALT/SGPT 14 U/L (12-78); BILIRUBIN,TOTAL 0.3 MG/DL (0.2-1.0); BLOOD UREA NITROGEN 18 MG/DL (7-18); CALCIUM LEVEL 8.5 MG/DL (8.8-10.2); CARBON DIOXIDE LEVEL 31 MEQ/L (21-32); CHLORIDE LEVEL 106 MEQ/L (98-107); CREATININE FOR GFR 1.08 MG/DL (0.70-1.30); GLOMERULAR FILTRATION RATE > 60.0 (>42); GLUCOSE, FASTING 152 MG/DL (70-100); POTASSIUM SERUM 4.5 MEQ/L (3.5-5.1); SODIUM LEVEL 141 MEQ/L (136-145); TOTAL PROTEIN 5.9 GM/DL (6.4-8.2); VALPROIC ACID (DEPAKOTE) 78.8 UG/ML (50.0-100.0)
--- NOTE | 2020-09-30 14:11 | REP ---
INDICATION: seziure. COMPARISON: None. TECHNIQUE: CT BRAIN PERFORMED IN THE AXIAL PLANE. CORONAL RECONSTRUCTION IMAGES ARE PERFORMED. FINDINGS: Lateral ventricles are midline, symmetric and dilated. Third and 4th ventricles are also dilated and their appearance unchanged and proportionate to the diffuse moderately severe cerebral atrophy. That atrophy is greatest in the temporal and frontal lobes. There is some left frontal encephalomalacia again seen. I do not see evidence of new or acute infarct, intracranial hemorrhage, mass, mass effect or edema. No new vascular territory infarct. No extra-axial fluid collections. Wadsworth-white junction differentiation is maintained. There are some heterogeneous white matter attenuation changes suggesting small vessel ischemic disease. Brainstem was unremarkable cerebellum symmetric the without posterior fossa hemorrhage. Basal cisterns are intact there are some calcifications in the carotid siphons bilaterally. Mastoid aeration and visualized sinuses are clear. Skull base and calvarium show no fracture or focal lesion.. IMPRESSION: 1. Old left frontal encephalomalacia prior infarct without evidence of acute infarct, hemorrhage, mass or mass effect. 2. Small-vessel white matter ischemic changes. 3. Ventriculomegaly and moderate the cerebral atrophy, unchanged. 4. Vascular calcifications of carotid siphons without acute bony finding in the skull base or calvarium. Stable CT. <Electronically signed by Miki Jim > 09/30/20 [id number]
[2020-09-30] MEDS ORDERED: OXcarbazepine 300 MG TAB PO STA (15:19)
[2020-09-30] MEDS ORDERED: TRIL600T PO (16:48)
[2020-09-30 18:46] VITALS: BP 127/62
== END 2020-09-30 19:16 | disposition home or self-care (01) ==
LOC: M ED 12:16 → EDBD 12:16 → M ED 19:16
DX: G40.909 Epilepsy, unspecified, not intractable, without status epilepticus (principal); I50.9 Heart failure, unspecified; E11.9 Type 2 diabetes mellitus without complications; J44.9 Chronic obstructive pulmonary disease, unspecified; E78.9 Disorder of lipoprotein metabolism, unspecified; K51.90 Ulcerative colitis, unspecified, without complications; Z79.899 Other long term (current) drug therapy; Z79.4 Long term (current) use of insulin; Z87.891 Personal history of nicotine dependence
CPT/HCPCS: 70450; 80053; 80164; 80180; 81001; 85025; 93041; 96374; 99285; J2250

== ENCOUNTER 2020-11-17 11:25 | Inpatient (IN) | payer OTHER ==
[~2020-11-17] VITALS: Ht 172.7 cm; Wt 77.9 kg
[~2020-11-17 11:25] MED LIST changes: -KLOR10TA76 PO; -MAXZTA PO; +POTA-136 PO; +QUET1TAB17 PO; -QUET25TA3 PO; +TRIA75TA2 PO; +TRIL600T PO
--- NOTE | 2020-11-17 11:54 | REP ---
INDICATION: Altered Mental Status. COMPARISON: 07/05/2020 latest prior TECHNIQUE: Portable FINDINGS: The technique utilized in obtaining the radiograph has magnified the cardiac silhouette and accentuated the interstitial markings. There is mild cardiomegaly accentuated by technique status quo. Lung jaime are unchanged. No acute patchy parenchymal opacities or pleural effusions have developed. There is no change in the osseous structures. IMPRESSION: There is no acute cardiopulmonary disease. <Electronically signed by Miles Castrejon > 11/17/20 [id number]
--- NOTE | 2020-11-17 12:10 | REP ---
INDICATION: Altered Mental Status. COMPARISON: 09/30/2020. TECHNIQUE: CT brain performed in the axial plane. Coronal reconstruction images are performed. FINDINGS: Stable moderate atrophic changes are again noted. There is stable left frontal encephalomalacia and diffuse periventricular small vessel ischemic change. There is no acute intracranial hemorrhage, midline shift or mass effect. No extra-axial fluid collection is seen. There are mild vascular calcifications in the carotid siphons. Mastoid air cells and visualized paranasal sinuses are clear except for some trace mucosal thickening in the visualized inferior right maxillary sinus. IMPRESSION: Stable chronic changes as discussed above. No acute intracranial hemorrhage, midline shift or mass effect. <Electronically signed by Amauri Wadsworth > 11/17/20 [id number]
[2020-11-17 12:46] LABS: VENOUS PH 7.285 UNITS (7.330-7.430)
[2020-11-17 12:47] LABS: VENOUS BASE EXCESS 1.1 (-2.0-2.0); VENOUS HCO3 29.1 MEQ/L (23.0-27.0); VENOUS O2 SATURATION 52.6 % (60.0-80.0); VENOUS PARTIAL PRESSURE CO2 62.7 mmHg (38.0-50.0); VENOUS PARTIAL PRESSURE O2 32.2 mmHg (30.0-50.0); VENOUS STANDARD HCO3 24.5 MEQ/L; VENOUS TOTAL CO2 31.1 MEQ/L (24.0-28.0)
[2020-11-17 12:50] LABS: BASO % 0.2 % (0.0-1.0); EOS # 0.1 10^3/uL (0.0-0.5); EOS % 0.9 % (0.0-3.0); HEMATOCRIT 34.6 % (42.0-52.0); HEMOGLOBIN 11.6 g/dl (13.5-17.5); LYMPH # 1.8 10^3/uL (1.5-5.0); LYMPH % 31.4 % (24.0-44.0); MEAN CORPUSCULAR HEMOGLOBIN 33.2 pg (27.0-33.0); MEAN CORPUSCULAR HGB CONC 33.5 g/dl (32.0-36.5); MEAN CORPUSCULAR VOLUME 99.1 fl (80.0-96.0); MONO # 0.5 10^3/uL (0.0-0.8); MONO % 8.2 % (2.0-8.0); NEUTROPHILS # 3.5 10^3/uL (1.5-8.5); PLATELET COUNT, AUTOMATED 105 10^3/uL (150-450); RED BLOOD COUNT 3.49 10^6/uL (4.30-6.10); WHITE BLOOD COUNT 5.9 10^3/uL (4.0-10.0)
[2020-11-17 13:59] LABS: ACETAMINOPHEN LEVEL < 2.0 UG/ML (10.0-30.0); ALBUMIN 2.6 GM/DL (3.2-5.2); ALT/SGPT 16 U/L (12-78); BILIRUBIN,DIRECT 0.1 MG/DL (0.0-0.2); BILIRUBIN,TOTAL 0.3 MG/DL (0.2-1.0); BLOOD UREA NITROGEN 23 MG/DL (7-18); CALCIUM LEVEL 8.1 MG/DL (8.8-10.2); CARBON DIOXIDE LEVEL 30 MEQ/L (21-32); CHLORIDE LEVEL 110 MEQ/L (98-107); CK-MB VALUE MASS 1.7 NG/ML (<3.6); CPK CREATINE PHOSPHOKINASE 41 U/L (39-308); CREATININE FOR GFR 1.05 MG/DL (0.70-1.30); ETHYL ALCOHOL (ETHANOL) < 0.003 % (0.000-0.010); GLOMERULAR FILTRATION RATE > 60.0 (>42); GLUCOSE, FASTING 134 MG/DL (70-100); MB/CK RELATIVE INDEX 4.15 (< OR =4); POTASSIUM SERUM 4.1 MEQ/L (3.5-5.1); SALICYLATE LEVEL < 1.7 MG/DL (5.0-30.0); SODIUM LEVEL 143 MEQ/L (136-145); TOTAL PROTEIN 5.7 GM/DL (6.4-8.2); TROPONIN I 0.02 NG/ML (< 0.10)
[2020-11-17 14:12] LABS: OSMOLALITY SERUM 299 MOSM/KG (280-301)
[2020-11-17] MEDS ORDERED: ATOR40TA75 PO (14:36)
[2020-11-17] MEDS ORDERED: MOM 30ML SUSPENSION UDC PO PRN (15:40)
[2020-11-17] MEDS ORDERED: MAALOX 30 ML SUSP *UDC PO PRN (15:40)
--- NOTE | 2020-11-17 15:43 | HPEPDOC ---
[facility] Medical History & Physical Date of Admission Nov 17, 2020 Date of Service: Nov 17, 2020 Attending Physician: Julia Copeland MD History and Physical CHIEF COMPLAINT: [70 y/o male presents to our ED after an episode of unresponsiveness] HISTORY OF PRESENT ILLNESS: [This is a 70 y/o male with a pmh of dementia, multiple cva, hfpef, cad, hld, a-fib, copd s/p right lower lobectomy, florencio, ckd3, iddm2 who reports to our ED after an episode of unresponsiveness at the home today. Patient himself is mostly nonverbal and , Zenaida, at bedside states that this is his baseline and she provides history. states that today patient had an episode of unresponsiveness where he would not react to verbal s timuli or respond to questions. Home health nurse took a set of vitals and patient apparently had a systolic blood pressure of around 60 with a pulse in the 40s. states that this is the first episode of hypotension that they have observed. states that initially during the episode, patient began shaking and thought it was a seizure, however patient stopped convulsing and simply slumped to one side and began moaning and wound not respond to stimuli. EMS was called and patient was brought to our emergency department. As of my exam, patient is alert but not oriented. Workup performed so far in the emergency department has been grossly negative.] PAST MEDICAL HISTORY: 1. [See HPI PAST SURGICAL HISTORY: 1. [Cardiac catheterization]. 2. [Right lower lobe lobectomy]. 3. [Appendectomy 4. Cholecystectomy 5. Partial liver resection 6. Incisional hernia repair 7. Unspec. left ankle repair]. SOCIAL HISTORY: Resides in: [Home with , has home health care] Tobacco use:[Former] ETOH: [Denies] Illicit drug use: [Denies] FAMILY HISTORY: Father - dm Mother - cad ALLERGIES: Please see below. REVIEW OF SYSTEMS: Unable to obtain d/t mentation HOME MEDICATIONS: Please see below. PHYSICAL EXAMINATION: VITAL SIGNS: Please see below. GENERAL APPEARANCE: [This is a 70 y/o male who is alert but not oriented. He does not appear to be in any acute distress.]. HEENT: [No mass or lesion. EOMI. No scleral icterus. Nares patent. Oral mucosa moist]. CARDIOVASCULAR: [[place] rate, irregular rhythm. No murmurs, rubs, gallops]. LUNGS: [Decreased breath sounds. No wheezing, rales, rhonchi]. ABDOMEN: [Soft, patient grunts when i press on his RLQ]. MUSCULOSKELETAL: [No joint deformity]. EXTREMITIES: [Trace pedal edema. No overlying skin changes. Pulses intact]. NEUROLOGICAL: [No speech. Patient not oriented.]. PSYCHIATRIC: [Patient is confused.]. LABORATORY DATA: See below. IMAGING: [CXR: FINDINGS: The technique utilized in obtaining the radiograph has magnified the cardiac silhouette and accentuated the interstitial markings. There is mild cardiomegaly accentuated by technique status quo. Lung jaime are unchanged. No acute patchy parenchymal opacities or pleural effusions have developed. There is no change in the osseous structures. IMPRESSION: There is no acute cardiopulmonary disease. CT Head: FINDINGS: Stable moderate atrophic changes are again noted. There is stable left frontal encephalomalacia and diffuse periventricular small vessel ischemic change. There is no acute intracranial hemorrhage, midline shift or mass effect. No extra-axial fluid collection is seen. There are mild vascular calcifications in the carotid siphons. Mastoid air cells and visualized paranasal sinuses are clear except for some trace mucosal thickening in the visualized inferior right maxillary sinus. IMPRESSION: Stable chronic changes as discussed above. No acute intracranial hemorrhage, midline shift or mass effect. MICROBIOLOGY: Please see below. ASSESSMENT: [This is a 70 y/o male with a pmh of dementia, multiple cva, hfpef, cad, hld, a-fib, copd s/p right lower lobectomy, florencio, ckd3, iddm2 who reports to our ED after an episode of unresponsiveness at the home today in which he supposedly was found to have a systolic bp in the 60s and pulse in the 40s]. . PLAN: 1. [Syncope - Potentially med induced hypotension vs. seizures vs. cva - Will hold carvedilol for now and switch to lisinopril d/t bradycardia - CT head in ed negative - Will r/o stroke with mri/mra brain as patient has hx of afib not on anticoagulation - Telemetry monitoring - will check depakote level - seizure precautions - neurochecks 2. HTN - patients htn has been very labile thus far - switched patients antihypertensives to lisinopril, as stated - will most likely need titration of some sort 3. DM - continue at home basal insulin dose - sliding scale coverage - hypoglycemic protocol 4. A-fib - patient not anticoagulated d/t hx of hemorrhagic stroke - patient's pulse is irregular on exam, but very slow - carvedilol being held 5. HLD - continue atorvastatin 6. Gout - continue allopurinol 7. Depression - continue prozac 8. Dementia - will monitor patient behavior, may need sitter if he becomes agitated DVT prophylaxis - mechanical for now]. Vital Signs Vital Signs Date Time Temp Pulse Resp B/P (MAP) Pulse Ox O2 Delivery O2 Flow Rate FiO2 11/17/20 11:45 Room Air 11/17/20 11:37 96.0 59 18 181/84 (116) 99 Laboratory Data Labs 24H Laboratory Tests 2 11/17/20 12:24: Immature Granulocyte % (Auto) 0.3, Neutrophils (%) (Auto) 59.0, Lymphocytes (%) (Auto) 31.4, Monocytes (%) (Auto) 8.2H, Eosinophils (%) (Auto) 0.9, Basophils (%) (Auto) 0.2, Neutrophils # (Auto) 3.5, Lymphocytes # (Auto) 1.8, Monocytes # (Auto) 0.5, Eosinophils # (Auto) 0.1, Basophils # (Auto) 0.0, Nucleated Red Blood Cells % (auto) 0.0, Blood Gas Bicarbonate Standard 24.5, Venous Blood pH 7.285L, Venous Blood Partial Pressure CO2 62.7H, Venous Blood Partial Pressure O2 32.2, Venous Blood Total Carbon Dioxide 31.1H, Venous Blood HCO3 29.1H, Venous Blood Oxygen Saturation 52.6L, Venous Blood Base Excess 1.1, Anion Gap 3L, Glomerular Filtration Rate > 60.0, Osmolality 299, Lactic Acid Level 1.3, Calcium Level 8.1L, Magnesium Level 2.0, Total Bilirubin 0.3, Direct Bilirubin 0.1, Aspartate Amino Transf (AST/SGOT) 6L, Alanine Aminotransferase (ALT/SGPT) 16, Alkaline Phosphatase 54, Ammonia 27, Total Creatine Kinase 41, Creatine Kinase MB 1.7, Creatine Kinase MB Relative Index 4.15H, Troponin I 0.02, Total Protein 5.7L, Albumin 2.6L, Albumin/Globulin Ratio 0.8, Thyroid Stimulating Hormone (TSH) 1.990, Salicylates Level < 1.7L, Acetaminophen Level < 2.0L, Ethyl Alcohol Level < 0.003 11/17/20 12:34: Bedside Glucose (Misc Panel) 130H CBC/BMP Laboratory Tests 11/17/20 12:24 Microbiology Microbiology 11/17/20 Blood Culture, Received Pending Home Medications Scheduled Allopurinol (Allopurinol) 100 Mg Tablet, 100 MG PO DAILY Atorvastatin Calcium (Atorvastatin Calcium) 40 Mg Tablet, 40 MG PO QPM Carvedilol (Carvedilol) 12.5 Mg Tablet, 12.5 MG PO BID Divalproex Sodium (Divalproex Sodium) 500 Mg Tablet.dr, 500 MG PO TID Fluoxetine Hcl (Fluoxetine HCl) 20 Mg Capsule, 20 MG PO DAILY Insulin Aspart (Novolog Flexpen) 100 Unit/1 Ml Insuln.pen, 1 DOSE SC AC PER SLIDING SCALE Insulin Glargine,Hum.rec.anlog (Basaglar Kwikpen U-100) 100 Unit/1 Ml Insuln.pen, 12 UNIT SC QHS Magnesium Oxide (Magnesium Oxide) 400 Mg Tablet, 400 MG PO BID Pantoprazole Sodium (Pantoprazole Sodium) 40 Mg Tablet.dr, 40 MG PO DAILY Potassium Chloride (Potassium Chloride) 20 Meq Packet, 20 MEQ PO DAILY MIX WITH WATER Semaglutide (Ozempic) 1 Mg/0.75 Ml Pen.injctr, 0.5 MG SC 1XWK SATURDAY Allergies Coded Allergies: No Known Allergies (Unverified , 03/31/19) A-FIB/CHADSVASC A-FIB History Current/History of A-Fib/PAF?: Yes Current PO Anticoag Therapy: No (hx hemorrhagic stroke) AUGUSTO MCGINNIS Nov 17, 2020 15:43
[2020-11-17] MEDS ORDERED: BASA100I SC (15:59)
[2020-11-17] MEDS ORDERED: DIVA500T94 PO (15:59)
[2020-11-17] MEDS ORDERED: HOME MED LIST COMPLETE! XX SCH (16:00)
[2020-11-17] MEDS ORDERED: GLUCAGON INJ 1MG VIAL SC PRN (16:25)
[2020-11-17] MEDS ORDERED: DEXTROSE 50% 50 ML SYRINGE IV PRN (16:25)
[2020-11-17] MEDS ORDERED: GLUCOSE 4GM CHEW TABLET PO PRN (16:25)
[2020-11-17] MEDS ORDERED: diazePAM 10MG/2ML SYRINGE (J3360 PER 5MG) IV ONE (16:35)
[2020-11-17 17:07] LABS: VALPROIC ACID (DEPAKOTE) 80.5 UG/ML (50.0-100.0)
[2020-11-17 17:21] LABS: RSV AMPLIFICATION NEGATIVE (NEGATIVE)
[2020-11-17 18:28] LABS: AMPHETAMINES LEVEL URINE NEGATIVE (NEGATIVE); BARBITURATES URINE NEGATIVE (NEGATIVE); BENZODIAZEPINES URINE NEGATIVE (NEGATIVE); CANNABINOIDS URINE NEGATIVE (NEGATIVE); COCAINE METABOLITE URINE NEGATIVE (NEGATIVE); METHADONE URINE NEGATIVE (NEGATIVE); OPIATES URINE NEGATIVE (NEGATIVE); PHENCYCLIDINE URINE NEGATIVE (NEGATIVE)
--- NOTE | 2020-11-17 19:02 | ECGEPIP ---
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
[2020-11-17 22:27] VITALS: BP 177/75
[2020-11-17 22:30] VITALS: BP 156/78
[2020-11-17] MEDS: HumaLOG INSULIN (NovoLOG) PER UNIT SC SCH ×2 (22:30→22:50)
--- NOTE | 2020-11-17 22:38 | REPVR ---
PROCEDURE INFORMATION: Exam: MRA Head Without Contrast; Arteriography Exam date and time: 11/17/2020 8:01 PM Age: 70 years old Clinical indication: Syncope and collapse TECHNIQUE: Imaging protocol: Magnetic resonance angiography head without contrast. Exam focused on the arteries. COMPARISON: 1. MRA BRAIN W/O CONTRAST 2020-08-01 19:25 2. MRA BRAIN W/O CONTRAST 2017-07-12 12:27 FINDINGS: ANTERIOR CIRCULATION: Right internal carotid artery: Intracranial segment is patent with no significant stenosis. No aneurysm. Right middle cerebral artery: No occlusion or significant stenosis. No aneurysm. Right anterior cerebral artery: No occlusion or significant stenosis. No aneurysm. Left internal carotid artery: Intracranial segment is patent with no significant stenosis. No aneurysm. Left middle cerebral artery: No occlusion or significant stenosis. No aneurysm. Left anterior cerebral artery: No occlusion or significant stenosis. No aneurysm. POSTERIOR CIRCULATION: Right vertebral artery: No occlusion or significant stenosis. No aneurysm. Left vertebral artery: No occlusion or significant stenosis. No aneurysm. Basilar artery: No occlusion or significant stenosis. No aneurysm. Right posterior cerebral artery: No occlusion or significant stenosis. No aneurysm. Left posterior cerebral artery: No occlusion or significant stenosis. No aneurysm. IMPRESSION: No stenosis or occlusion. Electronically signed by: Ray Leon On 11/17/2020 22:37:45 PM
[2020-11-17] MEDS: DIVALPROEX 500 MG TAB PO SCH (22:52)
[2020-11-17] MEDS: ATORVASTATIN 20 MG TAB PO SCH (23:00)
[2020-11-17] MEDS: MAGNESIUM OXIDE 400MG TAB (MAG-OX) PO SCH (23:00)
[2020-11-17] MEDS: LEVEMIR (INSULIN DETEMIR) 1 UNITS/0.01ML SC SCH (23:00)
[2020-11-17 23:04] LABS: CK-MB VALUE MASS 1.8 NG/ML (<3.6); CPK CREATINE PHOSPHOKINASE 46 U/L (39-308); MB/CK RELATIVE INDEX 3.91 (< OR =4); TROPONIN I < 0.02 NG/ML (< 0.10)
[2020-11-18] VITALS (8 sets, daily range): BP systolic 148–173; BP diastolic 62–87; O2SAT 95–96
[2020-11-18 06:09] LABS: HEMATOCRIT 34.6 % (42.0-52.0); HEMOGLOBIN 11.8 g/dl (13.5-17.5); MEAN CORPUSCULAR HEMOGLOBIN 33.1 pg (27.0-33.0); MEAN CORPUSCULAR HGB CONC 34.1 g/dl (32.0-36.5); MEAN CORPUSCULAR VOLUME 97.2 fl (80.0-96.0); PLATELET COUNT, AUTOMATED 106 10^3/uL (150-450); RED BLOOD COUNT 3.56 10^6/uL (4.30-6.10); WHITE BLOOD COUNT 5.2 10^3/uL (4.0-10.0)
[2020-11-18 06:18] LABS: BLOOD UREA NITROGEN 18 MG/DL (7-18); CALCIUM LEVEL 8.5 MG/DL (8.8-10.2); CARBON DIOXIDE LEVEL 31 MEQ/L (21-32); CHLORIDE LEVEL 108 MEQ/L (98-107); CK-MB VALUE MASS 1.7 NG/ML (<3.6); CPK CREATINE PHOSPHOKINASE 42 U/L (39-308); CREATININE FOR GFR 1.01 MG/DL (0.70-1.30); GLOMERULAR FILTRATION RATE > 60.0 (>42); GLUCOSE, FASTING 96 MG/DL (70-100); MB/CK RELATIVE INDEX 4.05 (< OR =4); POTASSIUM SERUM 3.4 MEQ/L (3.5-5.1); SODIUM LEVEL 142 MEQ/L (136-145); TROPONIN I 0.02 NG/ML (< 0.10)
[2020-11-18] MEDS: HumaLOG INSULIN (NovoLOG) PER UNIT SC SCH ×4 (07:30→20:16)
[2020-11-18] MEDS: PANTOPRAZOLE 40MG TAB (PROTONIX) PO SCH (10:34)
[2020-11-18] MEDS: POTASSIUM CHL PWD 20 MEQ PACKET PO SCH (10:34)
[2020-11-18] MEDS: FLUoxetine 20 MG CAP PO SCH (10:35)
[2020-11-18] MEDS: allopurinoL 100 MG TAB PO SCH (10:35)
[2020-11-18] MEDS: DIVALPROEX 500 MG TAB PO SCH ×3 (10:35→20:24)
[2020-11-18] MEDS: MAGNESIUM OXIDE 400MG TAB (MAG-OX) PO SCH ×2 (10:35→20:24)
--- NOTE | 2020-11-18 10:38 | IPN ---
PROGRESS NOTE DATE: 11/18/2020 SUBJECTIVE: Nacho [facility]. He was admitted with syncope probably from bradycardia. Had a systolic pressure in the 60s and pulse in the 40s. It sounds like he might have had a nonepileptic seizure secondary to being kept upright while hypotensive. He has had no recurrence of this. OBJECTIVE: He is alert and conversant. His blood pressure is 156/68. His heart rate is still around 60. He is at 97% O2 saturation. Alert and conversant. Lungs are clear. Heart: Irregular rate and rhythm. Rate around 60. Abdomen is soft, nontender. No masses. No peripheral edema. LABORATORY DATA: CBC: White count is 5.2, hemoglobin is 11.8, platelets are 106,000, sodium is 132, potassium is 3.4, BUN 18, creatinine 1.0, glucose is 96. TSH normal. MRA of the brain showed no significant abnormality. IMPRESSION: 1. Syncope, probably from hypotension and bradycardia. Carvedilol has been held. Continue to watch telemetry. 2. Hypertension, he is on Lisinopril, Carvedilol is on hold. Watch blood pressure while in the hospital. 3. History of atrial fibrillation, his rate is controlled. Will see what it does with discontinuation of the Carvedilol. He is not anticoagulated due to history of hemorrhagic stroke. 4. Diabetes, on sliding scale insulin with coverage and hypoglycemia protocol. 5. Hyperlipidemia, continue on atorvastatin. 6. Depression, continue current Prozac prescription. 7. Dementia, he is not having any behavioral disturbance during this admission so far that I have been made aware of. If his heart rate is reasonable, blood pressure restored and he feels well, he might be able to go home tomorrow.
--- NOTE | 2020-11-18 17:29 | IPN ---
PROGRESS NOTE DATE: 11/18/2020 SUBJECTIVE: I spoke to Nacho's Kiah. She witnessed the event. She says he has been having frequent seizures. He had a neurologic workup in [place] and sees Dr. Jessika Lynch at [facility]. He has an EEG scheduled planned through Dr. Lynch. She says he has been having several episodes of tonic-clonic seizure activity. She has a video but because of COVID restrictions, now they will come to the hospital and share that video. I reviewed the results of the MRA with her and got the further history concerning the epileptic nature of his event. ASSESSMENT AND PLAN: I plan to watch him for at least another day in the hospital. I will monitor for breakthrough seizure activity.
[2020-11-18] MEDS: ATORVASTATIN 20 MG TAB PO SCH (17:53)
[2020-11-18] MEDS: LEVEMIR (INSULIN DETEMIR) 1 UNITS/0.01ML SC SCH (20:15)
[2020-11-18] MEDS ORDERED: **hydrALAZINE** 10 MG TAB PO ONE (20:20)
[2020-11-19 00:56] VITALS: O2SAT 94
[2020-11-19 05:44] VITALS: BP 170/80
[2020-11-19 06:49] LABS: HEMATOCRIT 34.4 % (42.0-52.0); HEMOGLOBIN 11.8 g/dl (13.5-17.5); MEAN CORPUSCULAR HEMOGLOBIN 33.5 pg (27.0-33.0); MEAN CORPUSCULAR HGB CONC 34.3 g/dl (32.0-36.5); MEAN CORPUSCULAR VOLUME 97.7 fl (80.0-96.0); PLATELET COUNT, AUTOMATED 108 10^3/uL (150-450); RED BLOOD COUNT 3.52 10^6/uL (4.30-6.10); WHITE BLOOD COUNT 5.5 10^3/uL (4.0-10.0)
[2020-11-19 07:18] LABS: BLOOD UREA NITROGEN 15 MG/DL (7-18); CALCIUM LEVEL 8.4 MG/DL (8.8-10.2); CARBON DIOXIDE LEVEL 33 MEQ/L (21-32); CHLORIDE LEVEL 110 MEQ/L (98-107); CREATININE FOR GFR 1.01 MG/DL (0.70-1.30); GLOMERULAR FILTRATION RATE > 60.0 (>42); GLUCOSE, FASTING 122 MG/DL (70-100); POTASSIUM SERUM 3.5 MEQ/L (3.5-5.1); SODIUM LEVEL 146 MEQ/L (136-145)
[2020-11-19] MEDS ORDERED: amLODIPine 5 MG TAB PO SCH (09:00)
[2020-11-19] MEDS: HumaLOG INSULIN (NovoLOG) PER UNIT SC SCH ×4 (09:50→19:58)
[2020-11-19] MEDS: POTASSIUM CHL PWD 20 MEQ PACKET PO SCH (09:53)
[2020-11-19] MEDS: allopurinoL 100 MG TAB PO SCH (09:54)
[2020-11-19] MEDS: DIVALPROEX 500 MG TAB PO SCH ×3 (09:54→20:34)
[2020-11-19] MEDS: PANTOPRAZOLE 40MG TAB (PROTONIX) PO SCH (09:54)
[2020-11-19] MEDS: FLUoxetine 20 MG CAP PO SCH (09:54)
[2020-11-19] MEDS: MAGNESIUM OXIDE 400MG TAB (MAG-OX) PO SCH ×2 (09:55→20:34)
[2020-11-19 10:19] VITALS: O2SAT 96
--- NOTE | 2020-11-19 10:20 | IPN ---
PROGRESS NOTE DATE: 11/19/2020 SUBJECTIVE: Nacho is seen [facility]. No seizures overnight. No syncope. Blood pressure is mildly elevated, it is labile and he is prone to hyper and hypotensive episodes. OBJECTIVE: Vital signs: 170/80, pulse 56. Lungs clear. Heart regular rhythm. Abdomen soft, nontender. He has a baseline tremor. He is alert and answers questions. ASSESSMENT: 1. Syncope probably from hypotension and bradycardia, Carvedilol is held, his blood pressure is mildly elevated. Will adjust the dose. 2. Hypertension, blood pressure mildly elevated. Will add some Amlodipine to his Lisinopril. Carvedilol still on hold. 3. Atrial fibrillation, rate still well controlled. On anticoagulant due to history of hemorrhagic stroke. 4. History of seizures. I spoke with his and this episode certainly sounds epileptic. I made a note of this yesterday. He already has a neurologist with outpatient EEG planned.
[2020-11-19 14:00] VITALS: BP 162/80
[2020-11-19] MEDS: ATORVASTATIN 20 MG TAB PO SCH (17:02)
[2020-11-19] MEDS: ACETAMINOPHEN TAB 650MG DOSE (2X325MG) PO PRN (19:07)
[2020-11-19] MEDS ORDERED: **hydrALAZINE** 10 MG TAB PO ONE (19:15)
[2020-11-19 19:38] VITALS: BP 156/68
--- NOTE | 2020-11-19 19:41 | IPNPDOC ---
Text Note Date of Service The patient was seen on 11/19/20. NOTE time of service 710pm I was informed by LUCINA Banerjee that the patient was c/o chest pain and his SBP was in the 180s At the time of my assessment the patient was c/o 1/10 in severity left sided chest pain. # chest pain likely due to accelerated HTN Plan: acetaminophen / f/u EKG & Troponin # HTN crisis Plan: hydralazine / increase dose of amlodipine VS,Fishbone, I+O VS, Fishbone, I+O Laboratory Tests 11/19/20 06:33 Vital Signs Date Time Temp Pulse Resp B/P (MAP) Pulse Ox O2 Delivery O2 Flow Rate FiO2 11/19/20 14:00 98.2 60 20 162/80 (107) 94 Room Air 11/19/20 01:12 1.0 I&O- Last 24 Hours up to 6 AM 11/19/20 06:00 Intake Total 700 ml Balance 700 ml LEX JAVIER MD Nov 19, 2020 19:41
[2020-11-19] MEDS: LEVEMIR (INSULIN DETEMIR) 1 UNITS/0.01ML SC SCH (19:59)
[2020-11-19] MEDS ORDERED: KETOROLAC TROMETHAMINE 10 MG TAB PO ONE (20:10)
--- NOTE | 2020-11-19 20:23 | IPNPDOC ---
Text Note Date of Service The patient was seen on 11/19/20. NOTE Significant event Notified pt with CP. BP 189/98. EKG completed without ischemic findings. Trop pend. Pt seen at bedside and appears comfortable, at bedside. He is a poor historian with his dementia, slow to respond, but reports he said he had left sided cp while laying in bed and watching tv. He is tolerating RA. T98.5F, 96% RA, RR 17, hr 66, BP 156/68. BG 192. RRR. CTA. Pt points to left side of chest when asked regarding pain, he is unable to qualify or rate on scale of 10. Reports tylenol did not help. Pt has no significant hx of CAD, stents per . Plan for monitoring, will trial Toradol for pain, possible MSK component given pt laying awkwardly in bed; also BP control. If troponin shows elevation will opt for cardiac feedback. VS,Fishbone, I+O VS, Fishbone, I+O Laboratory Tests 11/19/20 06:33 Vital Signs Date Time Temp Pulse Resp B/P (MAP) Pulse Ox O2 Delivery O2 Flow Rate FiO2 11/19/20 14:00 98.2 60 20 162/80 (107) 94 Room Air 11/19/20 01:12 1.0 I&O- Last 24 Hours up to 6 AM 11/19/20 06:00 Intake Total 700 ml Balance 700 ml TYLER DAVIS NP Nov 19, 2020 20:22
[2020-11-19] MEDS ORDERED: CALCIUM CARBONATE 500 MG CHEW U/D PO PRN (20:45)
[2020-11-19] MEDS ORDERED: CALCIUM CARBONATE 500 MG CHEW U/D PO ONE (20:45)
[2020-11-20 00:05] VITALS: BP 154/74
[2020-11-20 05:35] VITALS: O2SAT 94
[2020-11-20 05:44] LABS: HEMATOCRIT 34.5 % (42.0-52.0); HEMOGLOBIN 11.6 g/dl (13.5-17.5); MEAN CORPUSCULAR HEMOGLOBIN 32.6 pg (27.0-33.0); MEAN CORPUSCULAR HGB CONC 33.6 g/dl (32.0-36.5); MEAN CORPUSCULAR VOLUME 96.9 fl (80.0-96.0); PLATELET COUNT, AUTOMATED 110 10^3/uL (150-450); RED BLOOD COUNT 3.56 10^6/uL (4.30-6.10); WHITE BLOOD COUNT 5.8 10^3/uL (4.0-10.0)
[2020-11-20 06:18] LABS: BLOOD UREA NITROGEN 21 MG/DL (7-18); CALCIUM LEVEL 8.2 MG/DL (8.8-10.2); CARBON DIOXIDE LEVEL 28 MEQ/L (21-32); CHLORIDE LEVEL 108 MEQ/L (98-107); CHOLESTEROL LEVEL 97 MG/DL (<200); CHOLESTEROL RISK RATIO 2.108 (<5); GLOMERULAR FILTRATION RATE > 60.0 (>42); GLUCOSE, FASTING 129 MG/DL (70-100); HDL CHOLESTEROL 46 MG/DL (>40); LDL CHOLESTEROL 30 MG/DL (<100); NON-HDL-C 51 MG/DL; POTASSIUM SERUM 3.4 MEQ/L (3.5-5.1); SODIUM LEVEL 144 MEQ/L (136-145); TRIGLYCERIDES LEVEL 104 MG/DL (<150)
[2020-11-20 08:16] VITALS: O2SAT 95
[2020-11-20] MEDS: POTASSIUM CHL PWD 20 MEQ PACKET PO SCH (09:09)
[2020-11-20] MEDS: MAGNESIUM OXIDE 400MG TAB (MAG-OX) PO SCH ×2 (09:10→22:22)
[2020-11-20] MEDS: HumaLOG INSULIN (NovoLOG) PER UNIT SC SCH ×4 (09:10→21:00)
[2020-11-20] MEDS: FLUoxetine 20 MG CAP PO SCH (09:10)
[2020-11-20] MEDS: DIVALPROEX 500 MG TAB PO SCH ×3 (09:11→22:22)
[2020-11-20] MEDS: allopurinoL 100 MG TAB PO SCH (09:11)
[2020-11-20] MEDS: PANTOPRAZOLE 40MG TAB (PROTONIX) PO SCH (09:11)
[2020-11-20 14:00] VITALS: BP 180/76
--- NOTE | 2020-11-20 14:37 | ECGEPIP ---
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
--- NOTE | 2020-11-20 16:01 | IPN ---
PROGRESS NOTE DATE: 11/20/2020 SUBJECTIVE: Nacho had an episode of chest pain last night, seemed noncardiac in origin. The pain did not recur and his workup has been negative. PHYSICAL EXAMINATION: Afebrile, vital signs stable. Lungs clear. Heart regular rhythm. Abdomen soft, nontender. Chest wall is tender to palpate. LABORATORY DATA: CBC unremarkable. Electrolytes unremarkable. Troponin negative x3. IMPRESSION: 1. Noncardiac chest pain: Cardiac workup has been negative. 2. Syncope: No recurrence. 3. Hypertension: Blood pressure is mildly elevated. I started Amlodipine yesterday, we can increase the dose tomorrow if blood pressure is still up. 4. Atrial fibrillation: Rate is controlled. No anticoagulation due to history of hemorrhagic stroke. 5. Seizures: Outpatient workup is already planned. Need to work on disposition tomorrow, PSF is back. VANDANAD
[2020-11-20] MEDS: ATORVASTATIN 20 MG TAB PO SCH (16:49)
[2020-11-20] MEDS: LEVEMIR (INSULIN DETEMIR) 1 UNITS/0.01ML SC SCH (21:00)
[2020-11-20] MEDS ORDERED: **hydrALAZINE** 10 MG TAB PO PRN (21:55)
[2020-11-20 22:00] VITALS: BP 175/86; O2SAT 96
[2020-11-20 22:05] VITALS: BP 164/82
[2020-11-21 05:57] LABS: HEMATOCRIT 35.1 % (42.0-52.0); HEMOGLOBIN 11.8 g/dl (13.5-17.5); MEAN CORPUSCULAR HEMOGLOBIN 32.4 pg (27.0-33.0); MEAN CORPUSCULAR HGB CONC 33.6 g/dl (32.0-36.5); MEAN CORPUSCULAR VOLUME 96.4 fl (80.0-96.0); PLATELET COUNT, AUTOMATED 124 10^3/uL (150-450); RED BLOOD COUNT 3.64 10^6/uL (4.30-6.10); WHITE BLOOD COUNT 7.4 10^3/uL (4.0-10.0)
[2020-11-21 06:00] VITALS: BP 142/64
[2020-11-21 06:16] LABS: BLOOD UREA NITROGEN 18 MG/DL (7-18); CALCIUM LEVEL 8.4 MG/DL (8.8-10.2); CARBON DIOXIDE LEVEL 32 MEQ/L (21-32); CHLORIDE LEVEL 108 MEQ/L (98-107); GLOMERULAR FILTRATION RATE > 60.0 (>42); GLUCOSE, FASTING 126 MG/DL (70-100); POTASSIUM SERUM 3.4 MEQ/L (3.5-5.1); SODIUM LEVEL 143 MEQ/L (136-145)
[2020-11-21] MEDS: HumaLOG INSULIN (NovoLOG) PER UNIT SC SCH ×4 (09:04→21:00)
[2020-11-21] MEDS: PANTOPRAZOLE 40MG TAB (PROTONIX) PO SCH (09:05)
[2020-11-21] MEDS: allopurinoL 100 MG TAB PO SCH (09:05)
[2020-11-21] MEDS: FLUoxetine 20 MG CAP PO SCH (09:05)
[2020-11-21] MEDS: MAGNESIUM OXIDE 400MG TAB (MAG-OX) PO SCH ×2 (09:05→21:34)
[2020-11-21] MEDS: POTASSIUM CHL PWD 20 MEQ PACKET PO SCH ×2 (09:08→21:34)
[2020-11-21] MEDS: DIVALPROEX 500 MG TAB PO SCH ×4 (09:08→21:33)
[2020-11-21 14:00] VITALS: BP 167/79
[2020-11-21] MEDS: **hydrALAZINE** 10 MG TAB PO SCH ×3 (14:00→21:34)
[2020-11-21] MEDS: QUEtiapine FUMARATE 12.5 MG HALF-TAB PO SCH ×4 (14:02→21:39)
[2020-11-21] MEDS ORDERED: HALOPERIDOL 5MG/ML VIAL (J1630 PER 1) IM PRN (14:15)
--- NOTE | 2020-11-21 14:33 | IPN ---
PROGRESS NOTE DATE: 11/21/2020 SUBJECTIVE: Nacho is agitated today. The nursing staff contacted me that he was adamant about getting out of here, slapping his own hands, kicking his feet out of bed. They want something to help control his behavior. He has had no recurrence of syncope. His telemetry was discontinued. His blood pressure is intermittently elevated, worse when he is agitated. We are augmenting his antihypertensives today. OBJECTIVE: VITAL SIGNS: Blood pressure 146/80, previous blood pressure was 184/80, pulse 66, respiratory rate 16, O2 sat 95%. GENERAL APPEARANCE: When I saw him he was lying in bed but not terribly cooperative with exam and looked confused. Moves arms and legs with equal strength. LUNGS: Clear. HEART: Regular rhythm. There is a 1/6 systolic ejection murmur. ABDOMEN: Soft and nontender. IMPRESSION: 1. Dementia with agitation. We ordered a low dose of Seroquel for behavioral disturbance. 2. Syncope, no recurrence since his Carvedilol has been held. 3. Hypertension, I will add some hydralazine to his amlodipine and Lisinopril. Carvedilol is still on hold. 4. Atrial fibrillation. His rate is still well-controlled off the Carvedilol. He is not anticoagulated with a history of hemorrhagic stroke. 5. History of seizures, followed by Neurology and outpatient EEG is already scheduled.
[2020-11-21] MEDS: ATORVASTATIN 20 MG TAB PO SCH (17:12)
[2020-11-21] MEDS: LEVEMIR (INSULIN DETEMIR) 1 UNITS/0.01ML SC SCH (21:00)
[2020-11-21 22:00] VITALS: BP 147/75
[2020-11-22] MEDS: **hydrALAZINE** 10 MG TAB PO SCH ×3 (05:58→21:16)
[2020-11-22 06:00] VITALS: BP 158/72; O2SAT 97
[2020-11-22 06:20] LABS: HEMATOCRIT 35.5 % (42.0-52.0); MEAN CORPUSCULAR HEMOGLOBIN 32.8 pg (27.0-33.0); MEAN CORPUSCULAR HGB CONC 33.8 g/dl (32.0-36.5); PLATELET COUNT, AUTOMATED 127 10^3/uL (150-450); RED BLOOD COUNT 3.66 10^6/uL (4.30-6.10); WHITE BLOOD COUNT 6.9 10^3/uL (4.0-10.0)
[2020-11-22 06:51] LABS: BLOOD UREA NITROGEN 24 MG/DL (7-18); CALCIUM LEVEL 8.4 MG/DL (8.8-10.2); CARBON DIOXIDE LEVEL 30 MEQ/L (21-32); CHLORIDE LEVEL 108 MEQ/L (98-107); CREATININE FOR GFR 1.03 MG/DL (0.70-1.30); GLOMERULAR FILTRATION RATE > 60.0 (>42); GLUCOSE, FASTING 129 MG/DL (70-100); MAGNESIUM LEVEL 2.1 MG/DL (1.8-2.4); POTASSIUM SERUM 3.7 MEQ/L (3.5-5.1); SODIUM LEVEL 144 MEQ/L (136-145)
[2020-11-22] MEDS: HumaLOG INSULIN (NovoLOG) PER UNIT SC SCH ×4 (07:30→20:48)
[2020-11-22] MEDS: FLUoxetine 20 MG CAP PO SCH (10:08)
[2020-11-22] MEDS: PANTOPRAZOLE 40MG TAB (PROTONIX) PO SCH (10:08)
[2020-11-22] MEDS: MAGNESIUM OXIDE 400MG TAB (MAG-OX) PO SCH ×2 (10:08→21:19)
[2020-11-22] MEDS: allopurinoL 100 MG TAB PO SCH (10:08)
[2020-11-22] MEDS: POTASSIUM CHL PWD 20 MEQ PACKET PO SCH ×2 (10:08→21:19)
[2020-11-22] MEDS: DIVALPROEX 500 MG TAB PO SCH ×3 (10:08→21:20)
[2020-11-22] MEDS: ACETAMINOPHEN TAB 650MG DOSE (2X325MG) PO PRN (10:28)
[2020-11-22] MEDS: QUEtiapine FUMARATE 12.5 MG HALF-TAB PO SCH ×2 (10:39→18:09)
[2020-11-22 14:00] VITALS: BP 157/72
[2020-11-22] MEDS: ATORVASTATIN 20 MG TAB PO SCH (17:15)
--- NOTE | 2020-11-22 17:44 | IPNPDOC ---
Date Seen The patient was seen on 11/22/20. Progress Note SUBJECTIVE: Patient seen examined bedside. He appears sedated after receiving Seroquel last night. He opens his eyes and answers questions but verbal stimulation but appears to be sleepy. No acute events overnight per RN. OBJECTIVE PHYSICAL EXAMINATION: VITAL SIGNS: please see below General: NAD, comfortable HEENT: PERRLA, EOMI, sclerae clear Neck: supple, normal ROM, no JVD Respiratory: lungs CTAB, no wheeze, no rales, no crackles CVS: RRR, normal S1, S2, no murmurs Abdo: soft, no masses, no hepatosplenomegaly, BS+, no rebound tenderness Extremities: no edema, pulses 2+ MSK: no joint deformities, normal ROM Neuro: no focal neuro deficits, moving all 4 extremities, CN2-12 intact. Streng th 5/5 in all 4 extremities. No nystagmus. Psych: calm, cooperative, AAO x two LABORATORY DATA, IMAGING STUDIES, MICROBIOLOGY: Please see below. Echocardiogram: Ordered on 11/23/2011. DVT prophylaxis ordered?: Prophylactic Heparin 5000 units every 8. ASSESSMENT AND PLAN:70 y/o male with a pmh of dementia, multiple cva, hfpef, cad, hld, a-fib, copd s/p right lower lobectomy, florencio, ckd3, iddm2 who reports to our ED after an episode of unresponsiveness PROBLEMS: AMS/Syncope/Seizure?: ordered 2D echo. Ordered carotid US. Patient is followed by Neurology, EEG is scheduled for December. We will attempt to obtain EEG while inpatient. Was given dose of seroquel for agitation. Will reduce to 12.5 mg qpm. Syncope: no events on tele. Coreg was stopped. No further events. HTN: c/w amlodipine. C/w hydralazine. C/w hydralazine. Atrial fibrillation: rate has been well controlled off of carvedilol. No AC due to hx of hemorrhagic stroke. Dispo: PT recommending rehab. I spoke to patient Ashlyn Ceja (tel: [phone]) and she agrees with plan for rehab. VS, I&O, 24H, Fishbone Vital Signs/I&O Vital Signs Date Time Temp Pulse Resp B/P (MAP) Pulse Ox O2 Delivery O2 Flow Rate FiO2 11/22/20 14:19 157/72 11/22/20 14:00 97.0 63 16 97 Room Air 11/19/20 01:12 1.0 I&O- Last 24 Hours up to 6 AM0 11/22/20 06:00 Intake Total 720 ml Output Total 0 ml Balance 720 ml Laboratory Data 24H LABS Laboratory Tests 2 11/21/20 21:06: Bedside Glucose (Misc Panel) 199H 11/22/20 00:35: Bedside Glucose (Misc Panel) 149H 11/22/20 05:34: Nucleated Red Blood Cells % (auto) 0.0, Anion Gap 6L, Glomerular Filtration Rate > 60.0, Calcium Level 8.4L, Magnesium Level 2.1 11/22/20 11:24: Bedside Glucose (Misc Panel) 143H 11/22/20 16:53: Bedside Glucose (Misc Panel) 186H CBC/BMP Laboratory Tests 11/22/20 05:34 Microbiology Microbiology 11/17/20 Blood Culture - Final, Complete NO GROWTH AFTER 5 DAYS 11/17/20 Blood Culture - Final, Complete NO GROWTH AFTER 5 DAYS REINA MARTELL MD Nov 22, 2020 17:44
[2020-11-22] MEDS: HEPARIN SOD (PORCINE) 5000UNITS/ML 1ML VIAL/SYRINGE SQ SCH (21:17)
[2020-11-22] MEDS: LEVEMIR (INSULIN DETEMIR) 1 UNITS/0.01ML SC SCH (21:18)
[2020-11-22 22:00] VITALS: BP 138/64
[2020-11-23 02:48] VITALS: O2SAT 96
[2020-11-23] MEDS: **hydrALAZINE** 10 MG TAB PO SCH ×3 (05:10→21:36)
[2020-11-23] MEDS: HEPARIN SOD (PORCINE) 5000UNITS/ML 1ML VIAL/SYRINGE SQ SCH ×3 (05:11→21:36)
[2020-11-23 05:49] LABS: HEMATOCRIT 35.3 % (42.0-52.0); HEMOGLOBIN 12.3 g/dl (13.5-17.5); MEAN CORPUSCULAR HEMOGLOBIN 33.7 pg (27.0-33.0); MEAN CORPUSCULAR HGB CONC 34.8 g/dl (32.0-36.5); MEAN CORPUSCULAR VOLUME 96.7 fl (80.0-96.0); PLATELET COUNT, AUTOMATED 124 10^3/uL (150-450); RED BLOOD COUNT 3.65 10^6/uL (4.30-6.10); WHITE BLOOD COUNT 5.5 10^3/uL (4.0-10.0)
[2020-11-23 06:00] VITALS: BP 153/71
[2020-11-23 06:17] LABS: BLOOD UREA NITROGEN 27 MG/DL (7-18); CALCIUM LEVEL 8.2 MG/DL (8.8-10.2); CARBON DIOXIDE LEVEL 29 MEQ/L (21-32); CHLORIDE LEVEL 109 MEQ/L (98-107); CREATININE FOR GFR 1.02 MG/DL (0.70-1.30); GLOMERULAR FILTRATION RATE > 60.0 (>42); GLUCOSE, FASTING 78 MG/DL (70-100); MAGNESIUM LEVEL 2.2 MG/DL (1.8-2.4); POTASSIUM SERUM 3.9 MEQ/L (3.5-5.1); SODIUM LEVEL 144 MEQ/L (136-145)
--- NOTE | 2020-11-23 06:17 | REP ---
INDICATION: syncope COMPARISON: None. TECHNIQUE: Wadsworth scale and color Doppler evaluation using linear high frequency transducer Findings: FINDINGS: Examination is limited due to the patient's inability to stay awake during examination. Two-dimensional wadsworth scale and color images demonstrate moderate amounts atheromatous plaquing without focal areas of narrowing/stenosis or occlusion. Color Doppler interrogation demonstrates normal arterial wave patterns and velocities with no significant spectral broadening. Normal flow direction is appreciated in the right vertebral artery while the left vertebral artery was incompletely evaluated. ICA peak systolic velocity: Right 54.4 cm/s; Left 38.0 cm/s ICA diastolic velocity: Right 10.2 cm/s; Left 11.9 cm/s ECA peak systolic velocity: Right 74.7 cm/s; Left 49.6 cm/s CCA peak systolic velocity: Right 56.1 cm/s; Left 89.7 cm/s ICA/CCA ratio: Right 1.0 cm/s; Left 0.42 cm/s IMPRESSION: No hemodynamically significant areas of narrowing or stenosis appreciated. Based on set standards narrowing falls within the less than 50% range. <Electronically signed by Abe Gurrola > 11/23/20 0613
[2020-11-23] MEDS: HumaLOG INSULIN (NovoLOG) PER UNIT SC SCH ×4 (08:42→21:38)
[2020-11-23] MEDS: POTASSIUM CHL PWD 20 MEQ PACKET PO SCH ×2 (10:13→21:37)
[2020-11-23] MEDS: allopurinoL 100 MG TAB PO SCH (10:13)
[2020-11-23] MEDS: DIVALPROEX 500 MG TAB PO SCH ×3 (10:13→21:37)
[2020-11-23] MEDS: FLUoxetine 20 MG CAP PO SCH (10:14)
[2020-11-23] MEDS: PANTOPRAZOLE 40MG TAB (PROTONIX) PO SCH (10:14)
[2020-11-23] MEDS: MAGNESIUM OXIDE 400MG TAB (MAG-OX) PO SCH ×2 (10:14→21:37)
[2020-11-23 14:00] VITALS: BP 137/72
[2020-11-23] MEDS: ATORVASTATIN 20 MG TAB PO SCH (18:05)
[2020-11-23] MEDS: QUEtiapine FUMARATE 12.5 MG HALF-TAB PO SCH (18:05)
[2020-11-23] MEDS: LEVEMIR (INSULIN DETEMIR) 1 UNITS/0.01ML SC SCH (21:39)
[2020-11-24] MEDS: **hydrALAZINE** 10 MG TAB PO SCH ×3 (05:08→21:26)
[2020-11-24] MEDS: HEPARIN SOD (PORCINE) 5000UNITS/ML 1ML VIAL/SYRINGE SQ SCH ×3 (05:08→21:27)
[2020-11-24 05:57] LABS: HEMATOCRIT 37.1 % (42.0-52.0); HEMOGLOBIN 12.7 g/dl (13.5-17.5); MEAN CORPUSCULAR HEMOGLOBIN 33.3 pg (27.0-33.0); MEAN CORPUSCULAR HGB CONC 34.2 g/dl (32.0-36.5); MEAN CORPUSCULAR VOLUME 97.4 fl (80.0-96.0); PLATELET COUNT, AUTOMATED 125 10^3/uL (150-450); RED BLOOD COUNT 3.81 10^6/uL (4.30-6.10); WHITE BLOOD COUNT 5.5 10^3/uL (4.0-10.0)
[2020-11-24 06:00] VITALS: BP 156/66
[2020-11-24 06:31] LABS: BLOOD UREA NITROGEN 23 MG/DL (7-18); CALCIUM LEVEL 8.6 MG/DL (8.8-10.2); CARBON DIOXIDE LEVEL 30 MEQ/L (21-32); CHLORIDE LEVEL 106 MEQ/L (98-107); CREATININE FOR GFR 1.07 MG/DL (0.70-1.30); GLOMERULAR FILTRATION RATE > 60.0 (>42); GLUCOSE, FASTING 68 MG/DL (70-100); MAGNESIUM LEVEL 2.3 MG/DL (1.8-2.4); POTASSIUM SERUM 4.3 MEQ/L (3.5-5.1); SODIUM LEVEL 144 MEQ/L (136-145)
[2020-11-24] MEDS: HumaLOG INSULIN (NovoLOG) PER UNIT SC SCH ×4 (07:30→21:40)
[2020-11-24 08:00] VITALS: BP 140/55
--- NOTE | 2020-11-24 08:31 | EEG ---
ELECTROENCEPHALOGRAM DATE: 11/23/2020 REFERRING PHYSICIAN: Dr. Julia Copeland DIAGNOSIS: Suspected seizure. EEG#: [id number] HISTORY: The patient is a 70-year-old man who was admitted at [facility] due to dementia, stroke, atrial fibrillation who had an episode of unresponsiveness. This EEG was done to rule out epileptic potential. He is currently taking Depakote, Allopurinol, lisinopril, amlodipine, fluoxetine, quetiapine, etc. TECHNICAL DESCRIPTION: This digital electroencephalogram (EEG) was recorded by 21 scalp, ear, and two electrocardiogram (EKG) electrodes and was reviewed in bipolar and referential montages following reformatting in 10-20 international electrode placement system. INTERPRETATION: The patient was noted to be in awake and drowsy states during this EEG. Resting and awake background rhythm consisted of 7.5 Hz alpha activity measuring 15-40 microvolts in amplitude which was symmetric and reactive to eye opening. Attenuation of posterior dominant rhythm was seen during transition to drowsiness. Stage I and II sleep were reviewed and were symmetric bilaterally. Hyperventilation could not be performed. Photic stimulation remained unremarkable. EKG revealed irregular heart rhythm. No focal, lateralizing, or epileptiform abnormalities were seen. No relevant clinical activity was noted. CONCLUSION: This EEG in awake, drowsy states, stage I and II sleep is mildly abnormal due to presence of mild generalized slowing and disorganization of background consistent with nonspecific diffuse cerebellar dysfunction such as seen in encephalopathy due to multiple potential causes. No epileptiform abnormalities were seen. Clinical correlation is recommended.
[2020-11-24] MEDS: FLUoxetine 20 MG CAP PO SCH (10:02)
[2020-11-24] MEDS: DIVALPROEX 500 MG TAB PO SCH ×3 (10:02→21:26)
[2020-11-24] MEDS: allopurinoL 100 MG TAB PO SCH (10:03)
[2020-11-24] MEDS: POTASSIUM CHL PWD 20 MEQ PACKET PO SCH ×2 (10:04→21:25)
[2020-11-24] MEDS: MAGNESIUM OXIDE 400MG TAB (MAG-OX) PO SCH ×2 (10:04→21:27)
[2020-11-24] MEDS: PANTOPRAZOLE 40MG TAB (PROTONIX) PO SCH (10:04)
[2020-11-24 14:00] VITALS: BP 142/62
[2020-11-24] MEDS: ATORVASTATIN 20 MG TAB PO SCH (17:33)
[2020-11-24] MEDS: QUEtiapine FUMARATE 12.5 MG HALF-TAB PO SCH (17:33)
[2020-11-24] MEDS: LEVEMIR (INSULIN DETEMIR) 1 UNITS/0.01ML SC SCH (21:27)
[2020-11-25] MEDS: HEPARIN SOD (PORCINE) 5000UNITS/ML 1ML VIAL/SYRINGE SQ SCH ×3 (05:24→22:25)
[2020-11-25 05:30] VITALS: BP 103/57
[2020-11-25 06:00] VITALS: BP 110/57
[2020-11-25] MEDS: **hydrALAZINE** 10 MG TAB PO SCH ×3 (06:00→22:27)
[2020-11-25] MEDS: HumaLOG INSULIN (NovoLOG) PER UNIT SC SCH ×4 (09:19→20:41)
[2020-11-25] MEDS: FLUoxetine 20 MG CAP PO SCH (09:30)
[2020-11-25] MEDS: allopurinoL 100 MG TAB PO SCH (09:30)
[2020-11-25] MEDS: POTASSIUM CHL PWD 20 MEQ PACKET PO SCH ×2 (09:30→22:25)
[2020-11-25] MEDS: DIVALPROEX 500 MG TAB PO SCH ×3 (09:30→22:26)
[2020-11-25] MEDS: PANTOPRAZOLE 40MG TAB (PROTONIX) PO SCH (09:30)
[2020-11-25] MEDS: MAGNESIUM OXIDE 400MG TAB (MAG-OX) PO SCH ×2 (09:31→22:26)
[2020-11-25 14:23] VITALS: BP 142/80
[2020-11-25] MEDS: ATORVASTATIN 20 MG TAB PO SCH (18:08)
[2020-11-25] MEDS: QUEtiapine FUMARATE 12.5 MG HALF-TAB PO SCH (18:08)
[2020-11-25] MEDS: LEVEMIR (INSULIN DETEMIR) 1 UNITS/0.01ML SC SCH (22:25)
[2020-11-26 06:00] VITALS: BP 174/89
[2020-11-26] MEDS: HEPARIN SOD (PORCINE) 5000UNITS/ML 1ML VIAL/SYRINGE SQ SCH (06:09)
[2020-11-26] MEDS: **hydrALAZINE** 10 MG TAB PO SCH (06:10)
[2020-11-26] MEDS: PANTOPRAZOLE 40MG TAB (PROTONIX) PO SCH (08:02)
[2020-11-26] MEDS: allopurinoL 100 MG TAB PO SCH (08:02)
[2020-11-26] MEDS: FLUoxetine 20 MG CAP PO SCH (08:02)
[2020-11-26 08:03] VITALS: BP 157/76
[2020-11-26] MEDS: DIVALPROEX 500 MG TAB PO SCH (08:04)
[2020-11-26] MEDS: MAGNESIUM OXIDE 400MG TAB (MAG-OX) PO SCH (08:05)
[2020-11-26] MEDS: POTASSIUM CHL PWD 20 MEQ PACKET PO SCH (08:05)
[2020-11-26] MEDS: HumaLOG INSULIN (NovoLOG) PER UNIT SC SCH (08:11)
[2020-11-26] MEDS ORDERED: LISI20TA33 PO (11:01)
[2020-11-26] MEDS ORDERED: QUET1TAB17 PO (11:01)
[2020-11-26] MEDS ORDERED: HYDR10TAB PO (11:01)
[2020-11-26] MEDS ORDERED: AMLO1TAB25 PO (11:01)
[2020-11-26] MEDS ORDERED: CARV12.5 PO (11:01)
[2020-11-26] MEDS ORDERED: ACET1TAB55 PO (11:01)
[2020-11-26] MEDS ORDERED: BASA100I SC (11:01)
--- NOTE | 2020-11-26 11:02 | DS.PDOC ---
Discharge Summary General Date of Admission Nov 18, 2020 at 13:59 Date of Discharge 11/26/20 Discharge Summary PROCEDURES PERFORMED DURING STAY: [None]. ADMITTING DIAGNOSES: Syncope History of hypertension Diabetes type 2 Atrial fibrillation Hyperlipidemia Gout DISCHARGE DIAGNOSES: Syncope History of hypertension Diabetes type 2 Atrial fibrillation Hyperlipidemia Gout COMPLICATIONS/CHIEF COMPLAINT: Syncope. HISTORY OF PRESENT ILLNESS: This is a 70 y/o male with a pmh of dementia, multiple cva, hfpef, cad, hld, a-fib, copd s/p right lower lobectomy, florencio, ckd3, iddm2 who reports to our ED after an episode of unresponsiveness at the home today. Patient himself is mostly nonverbal and , Zenaida, at bedside states that this is his baseline and she provides history. states that today diego bueno had an episode of unresponsiveness where he would not react to verbal stimuli or respond to questions. Home health nurse took a set of vitals and patient apparently had a systolic blood pressure of around 60 with a pulse in the 40s. states that this is the first episode of hypotension that they have observed. states that initially during the episode, patient began s haking and thought it was a seizure, however patient stopped convulsing and simply slumped to one side and began moaning and wound not respond to stimuli. EMS was called and patient was brought to our emergency department. As of my exam, patient is alert but not oriented. Workup performed so far in the emergency department has been grossly negative. HOSPITAL COURSE: AMS/Syncope/Seizure?: ordered 2D echo. Ordered carotid US. Patient is followed by Neurology, EEG is scheduled for December. We will attempt to obtain EEG while inpatient. Was given dose of seroquel for agitation. Will reduce to 12.5 mg qpm. Syncope: no events on tele. Coreg was stopped. No further events. HTN: c/w amlodipine. C/w hydralazine. C/w hydralazine. Atrial fibrillation: rate has been well controlled off of carvedilol. No AC due to hx of hemorrhagic stroke. DISCHARGE MEDICATIONS: Please see below. ALLERGIES: Please see below. PHYSICAL EXAMINATION ON DISCHARGE: VITAL SIGNS: please see below General: NAD, comfortable HEENT: PERRLA, EOMI, sclerae clear Neck: supple, normal ROM, no JVD Respiratory: lungs CTAB, no wheeze, no rales, no crackles CVS: RRR, normal S1, S2, no murmurs Abdo: soft, no masses, no hepatosplenomegaly, BS+, no rebound tenderness Extremities: no edema, pulses 2+ MSK: no joint deformities, normal ROM Neuro: no focal neuro deficits, moving all 4 extremities, CN2-12 intact. Strength 5/5 in all 4 extremities. No nystagmus. Psych: calm, cooperative, AAO x 1-2 LABORATORY DATA: Please see below. IMAGING: EEG 11/23/20: INTERPRETATION: The patient was noted to be in awake and drowsy states during this EEG. Resting and awake background rhythm consisted of 7.5 Hz alpha activity measuring 15-40 microvolts in amplitude which was symmetric and reactive to eye opening. Attenuation of posterior dominant rhythm was seen during transition to drowsiness. Stage I and II sleep were reviewed and were symmetric bilaterally. Hyperventilation could not be performed. Photic stimulation remained unremarkable. EKG revealed irregular heart rhythm. No focal, lateralizing, or epileptiform abnormalities were seen. No relevant clinical activity was noted. CONCLUSION: This EEG in awake, drowsy states, stage I and II sleep is mildly abnormal due to presence of mild generalized slowing and disorganization of background consistent with nonspecific diffuse cerebellar dysfunction such as seen in encephalopathy due to multiple potential causes. No epileptiform abnormalities were seen. Clinical correlation is recommended. CT head without contrast on 11/17/2020 IMPRESSION: Stable chronic changes as discussed above. No acute intracranial hemorrhage, midline shift or mass effect MRA brain without contrast on 11/17/2020 FINDINGS: ANTERIOR CIRCULATION: Right internal carotid artery: Intracranial segment is patent with no significant stenosis. No aneurysm. Right middle cerebral artery: No occlusion or significant stenosis. No aneurysm. Right anterior cerebral artery: No occlusion or significant stenosis. No aneurysm. Left internal carotid artery: Intracranial segment is patent with no significant stenosis. No aneurysm. Left middle cerebral artery: No occlusion or significant stenosis. No aneurysm. Left anterior cerebral artery: No occlusion or significant stenosis. No aneurysm. POSTERIOR CIRCULATION: Right vertebral artery: No occlusion or significant stenosis. No aneurysm. Left vertebral artery: No occlusion or significant stenosis. No aneurysm. Basilar artery: No occlusion or significant stenosis. No aneurysm. Right posterior cerebral artery: No occlusion or significant stenosis. No aneurysm. Left posterior cerebral artery: No occlusion or significant stenosis. No aneurysm. IMPRESSION: No stenosis or occlusion Bilateral carotid ultrasound on 11/22/2020 No hemodynamically significant areas of narrowing or stenosis appreciated. Based on set standards narrowing falls within the less than 50% range. PROGNOSIS: Fair ACTIVITY: [As tolerated]. DIET: Grams sodium DISCHARGE PLAN: Patient will be discharged home with 24/7 care. Referral for home health aide nurse PT and OT placed. Patient had a several medications added for better blood pressure control. We will resume Coreg at a reduced dose of 12.5 milligrams daily. Amlodipine 10 mg daily hydralazine 20 mg p.o. every 8 hours, lisinopril 20 mg daily. Patient behavior seems to be better improved with Seroquel 12.5 mg every day at 1800, this will be continued. Patient had an echocardiogram that was performed in the hospital this is to be followed up on outpatient basis. Patient has follow-up with neurology outpatient. DISPOSITION: Home with 24/ care. Referral for home care nurse aide PT and OT please DISCHARGE INSTRUCTIONS: . Please follow-up with your primary care doctor within 3-5 days . Please follow-up with cardiology and neurology within 1-2 weeks . Please taking medications as prescribed. . If you develop bleeding, chest pain, shortness of breath, seizures, nausea, fevers, or otherwise worsening of your symptoms, please call 911 or return to t he nearest emergency room ITEMS TO FOLLOWUP ON ON OUTPATIENT: Final echo report EEG DISCHARGE CONDITION: [Stable]. TIME SPENT ON DISCHARGE: 35 minutes Vital Signs/I&Os Vital Signs Date Time Temp Pulse Resp B/P (MAP) Pulse Ox O2 Delivery O2 Flow Rate FiO2 11/26/20 08:03 67 157/76 11/26/20 06:00 97.6 16 96 Room Air I&O- Last 24 Hours up to 6 AM 11/26/20 05:59 Intake Total 380 ml Output Total 0 ml Balance 380 ml Laboratory Data Labs 24H Laboratory Tests 2 11/25/20 11:57: Bedside Glucose (Misc Panel) 217H 11/25/20 16:51: Bedside Glucose (Misc Panel) 108 11/25/20 20:32: Bedside Glucose (Misc Panel) 234H 11/26/20 07:57: Bedside Glucose (Misc Panel) 115H FSBS Laboratory Tests Test 11/25/20 11:57 11/25/20 16:51 11/25/20 20:32 11/26/20 07:57 Range/Units Bedside Glucose (Misc Panel) 217 108 234 115 83-110 MG/DL Microbiology Microbiology 11/17/20 Blood Culture - Final, Complete NO GROWTH AFTER 5 DAYS 11/17/20 Blood Culture - Final, Complete NO GROWTH AFTER 5 DAYS Discharge Medications Scheduled Allopurinol (Allopurinol) 100 Mg Tablet, 100 MG PO DAILY, (Reported) Amlodipine Besylate (Amlodipine Besylate) 10 Mg Tablet, 10 MG PO DAILY Atorvastatin Calcium (Atorvastatin Calcium) 40 Mg Tablet, 40 MG PO QPM, (Reported) Carvedilol (Carvedilol) 12.5 Mg Tablet, 12.5 MG PO DAILY Divalproex Sodium (Divalproex Sodium) 500 Mg Tablet.dr, 500 MG PO TID, (Reported) Fluoxetine Hcl (Fluoxetine HCl) 20 Mg Capsule, 20 MG PO DAILY, (Reported) Hydralazine HCl (Hydralazine HCl) 10 Mg Tablet, 20 MG PO Q8H Insulin Aspart (Novolog Flexpen) 100 Unit/1 Ml Insuln.pen, 1 DOSE SC AC, (Reported) PER SLIDING SCALE Insulin Glargine,Hum.rec.anlog (Basaglar Kwikpen U-100) 100 Unit/1 Ml Insuln.pen, 10 UNIT SC QHS Lisinopril (Lisinopril) 20 Mg Tablet, 20 MG PO DAILY Magnesium Oxide (Magnesium Oxide) 400 Mg Tablet, 400 MG PO BID, (Reported) Pantoprazole Sodium (Pantoprazole Sodium) 40 Mg Tablet.dr, 40 MG PO DAILY, ( Reported) Potassium Chloride (Potassium Chloride) 20 Meq Packet, 20 MEQ PO DAILY, (Reported) MIX WITH WATER Quetiapine Fumarate (Quetiapine Fumarate) 25 Mg Tablet, 12.5 MG PO DAILY@1800 Semaglutide (Ozempic) 1 Mg/0.75 Ml Pen.injctr, 0.5 MG SC 1XWK, (Reported) SATURDAY Scheduled PRN Acetaminophen (Acetaminophen) 325 Mg Tablet, 650 MG PO Q4H PRN for MILD PAIN or TEMP > 101 Allergies Coded Allergies: No Known Allergies (Unverified , 03/31/19) REINA MARTELL MD Nov 26, 2020 11:02
[2020-11-26 11:58] VITALS: BP 112/50
--- NOTE | 2020-11-26 14:43 | ECHO ---
ECHOCARDIOGRAM DATE OF PROCEDURE: 11/22/2020 Age: Gender: Height: 173 cm Weight: 78 kg REFERRING PHYSICIAN: Daniel Frazier INDICATION: Syncope. 2D MEASUREMENTS: Aortic root 3.0 cm Ventricular septum 1.24 cm Posterior wall 1.22 cm Left ventricle diastole 4.2 cm Inferior vena cava 1.3 cm (more than 50% respiratory variation) DOPPLER MEASUREMENTS: No aortic stenosis. No aortic regurgitation. Aortic valve velocity 136 cm/s LVOT velocity 106 cm/s LVOT VTI 21.7 cm No mitral regurgitation. No mitral stenosis. Mitral E velocity 81.4 cm/s Mitral A velocity 117 cm/s Mitral deceleration time 293 msec Very mild tricuspid regurgitation. Estimated right ventricle systolic pressure 17-22 mmHg Estimated right atrial pressure 5-10 mmHg No pulmonic regurgitation. MITRAL ANNULAR TISSUE DOPPLER E prime septal 4.7 cm/s, E prime lateral 4.5 cm/s DESCRIPTION: Rhythm was sinus. This was a moderately technically difficult echocardiogram, which was performed with the patient supine. This was a 2D, M-mode, color flow Doppler, and pulse wave Doppler examination, including mitral annular tissue Doppler. CONCLUSIONS: 1. Very mild concentric left ventricular hypertrophy. Normal regional LV wall motion and wall thickening. Normal LV systolic function. LVEF 70% by visual estimate. Grade 1 LV diastolic dysfunction. 2. Mild right ventricular hypertrophy with normal right ventricle size and systolic function. Suggestive of normal estimated right ventricle systolic pressure. Suggestive of CVP 5-10 mmHg (normal). 3. Mild aortic valve sclerosis of a 3-cuspid aortic valve. No aortic regurgitation. 4. Moderate mitral annular calcification. No mitral stenosis or regurgitation. 5. Small circumferential pericardial effusion without diastolic chamber collapse.
== END 2020-11-26 12:45 | disposition home health service (06) | DRG 315 ==
LOC: M ED 11:25 → EDBD 11:25 → M ED INP 11:26 → M PCU 22:17 → M MSPAV 11-18 02:30 → OBSVTOIN 11-18 13:59
PROVIDERS: ADMIT Internal Medicine Nephrology; ATTEND Family Medicine
DX: I95.9 Hypotension, unspecified (principal); I50.32 Chronic diastolic (congestive) heart failure; I13.0 Hypertensive heart and chronic kidney disease with heart failure and stage 1 through stage 4 chronic kidney disease, or unspecified chronic kidney disease; F03.91 Unspecified dementia, unspecified severity, with behavioral disturbance; E11.22 Type 2 diabetes mellitus with diabetic chronic kidney disease; Z86.73 Personal history of transient ischemic attack (TIA), and cerebral infarction without residual deficits; E78.5 Hyperlipidemia, unspecified; I48.91 Unspecified atrial fibrillation; J44.9 Chronic obstructive pulmonary disease, unspecified; Z90.2 Acquired absence of lung [part of]; G47.33 Obstructive sleep apnea (adult) (pediatric); N18.30 Chronic kidney disease, stage 3 unspecified; Z90.49 Acquired absence of other specified parts of digestive tract; Z87.891 Personal history of nicotine dependence; M10.9 Gout, unspecified; F32.9 Major depressive disorder, single episode, unspecified; Z79.4 Long term (current) use of insulin; Z79.899 Other long term (current) drug therapy; Z20.822 Contact with and (suspected) exposure to COVID-19; G40.909 Epilepsy, unspecified, not intractable, without status epilepticus; R00.1 Bradycardia, unspecified; R55 Syncope and collapse; R07.89 Other chest pain; I16.0 Hypertensive urgency

== ENCOUNTER → 2021-01-12 | Outpatient (CLI) | payer OTHER ==
[~2021-01-12] MED LIST changes: +ACET1TAB55 PO; +ATOR40TA75 PO; +BASA100I SC; +DIVA500T94 PO; +HYDR10TAB PO; +LISI20TA33 PO
--- NOTE | 2021-01-12 09:20 | REP ---
INDICATION: VOMITING HAS XR FIRST THEN US. COMPARISON: None TECHNIQUE: Real-time sonographic evaluation of the right upper quadrant FINDINGS: Multiple ultrasonographic images of the liver show the hepatic parenchymal echo texture to appear unremarkable. There are no focal masses. There is no intrahepatic ductal dilatation. The common bile duct was not visualized. Images of the pancreatic region show no gross abnormality. The imaged portion of the right kidney is unremarkable. IMPRESSION: Unremarkable right upper quadrant ultrasound, status post cholecystectomy. The common bile duct was not visualized. There is evidence of partial hepatectomy. Accredited by the [employer] in General Ultrasound. <Electronically signed by Miles Castrejon > 01/12/21 0916
--- NOTE | 2021-01-12 09:37 | REP ---
INDICATION: VOMITING PT HAS XR FIRST THEN US. COMPARISON: None. FINDINGS: KUB shows the intestinal gas pattern to be nonspecific. There are a few scattered mildly dilated gas-filled small bowel loops in the abdomen. There is gas and stool in the rectosigmoid region. The organ silhouettes insofar as delineated are unremarkable. There is no evidence of free intraperitoneal air. IMPRESSION: Small bowel ileus is suspected. Follow-up is suggested. Consider CT. <Electronically signed by Miles Castrejon > 01/12/21 0933
== END ==
LOC: M RAD 08:28
PROVIDERS: ATTEND Nurse Practitioner Family
DX: R11.10 Vomiting, unspecified (principal); Z98.890 Other specified postprocedural states

== ENCOUNTER 2021-02-18 17:58 | Emergency (ER) | payer BC, MEDICARE, OTHER ==
[~2021-02-18] VITALS: Ht 170.2 cm; Wt 82.0 kg
[~2021-02-18 17:58] MED LIST changes: +DIVA125C6 PO; -DIVA1CAP PO; +LOSA100T45 PO; -LOSA100T50 PO; +LOSA50TA28 PO; -LOSA50TA88 PO; -OMEP-221 PO; +OMEP40CA5 PO; +POTA-149 PO; +POTA-151 PO; -POTA10TA16 PO; -POTA20TA6 PO
[2021-02-18 18:49] LABS: BASO % 0.2 % (0.0-1.0); EOS # 0.1 10^3/uL (0.0-0.5); EOS % 0.9 % (0.0-3.0); HEMATOCRIT 35.1 % (42.0-52.0); HEMOGLOBIN 12.3 g/dl (13.5-17.5); LYMPH # 2.2 10^3/uL (1.5-5.0); LYMPH % 40.5 % (24.0-44.0); MEAN CORPUSCULAR HEMOGLOBIN 32.9 pg (27.0-33.0); MEAN CORPUSCULAR VOLUME 93.9 fl (80.0-96.0); MONO # 0.7 10^3/uL (0.0-0.8); MONO % 11.8 % (2.0-8.0); NEUTROPHILS # 2.6 10^3/uL (1.5-8.5); NEUTROPHILS % 46.4 % (36.0-66.0); PLATELET COUNT, AUTOMATED 106 10^3/uL (150-450); RED BLOOD COUNT 3.74 10^6/uL (4.30-6.10); WHITE BLOOD COUNT 5.5 10^3/uL (4.0-10.0)
[2021-02-18] MEDS ORDERED: DIVALPROEX 500 MG TAB PO ONE (19:15)
[2021-02-18 19:16] LABS: ALBUMIN 2.7 GM/DL (3.2-5.2); ALT/SGPT 15 U/L (12-78); BILIRUBIN,DIRECT 0.2 MG/DL (0.0-0.2); BILIRUBIN,TOTAL 0.3 MG/DL (0.2-1.0); BLOOD UREA NITROGEN 29 MG/DL (7-18); CALCIUM LEVEL 8.3 MG/DL (8.8-10.2); CARBON DIOXIDE LEVEL 28 MEQ/L (21-32); CHLORIDE LEVEL 109 MEQ/L (98-107); CREATININE FOR GFR 1.15 MG/DL (0.70-1.30); GLOMERULAR FILTRATION RATE > 60.0 (>42); GLUCOSE, FASTING 115 MG/DL (70-100); MAGNESIUM LEVEL 1.7 MG/DL (1.8-2.4); PHOSPHORUS LEVEL 3.1 MG/DL (2.5-4.9); POTASSIUM SERUM 3.8 MEQ/L (3.5-5.1); SODIUM LEVEL 144 MEQ/L (136-145); TOTAL PROTEIN 6.1 GM/DL (6.4-8.2); VALPROIC ACID (DEPAKOTE) 61.1 UG/ML (50.0-100.0)
[2021-02-18] MEDS ORDERED: MAGNESIUM OXIDE 400MG TAB (MAG-OX) PO ONE (19:40)
[2021-02-18] MEDS ORDERED: **hydrALAZINE** 10 MG TAB PO ONE (20:55)
[2021-02-18] MEDS ORDERED: CARVedilol 12.5 MG TAB PO ONE (20:55)
[2021-02-18] MEDS ORDERED: LACOSAMIDE 50 MG TAB (VIMPAT) PO ONE (21:20)
[2021-02-18 21:59] VITALS: BP 158/89
[2021-02-18] MEDS ORDERED: VIMP100T PO (22:24)
[2021-02-19 02:00] VITALS: BP 147/70
== END 2021-02-19 02:42 | disposition home or self-care (01) ==
LOC: M ED 17:58
DX: R56.9 Unspecified convulsions (principal); E11.9 Type 2 diabetes mellitus without complications; N18.30 Chronic kidney disease, stage 3 unspecified; J44.9 Chronic obstructive pulmonary disease, unspecified; F03.90 Unspecified dementia, unspecified severity, without behavioral disturbance, psychotic disturbance, mood disturbance, and anxiety; E78.9 Disorder of lipoprotein metabolism, unspecified; I25.10 Atherosclerotic heart disease of native coronary artery without angina pectoris; Z86.73 Personal history of transient ischemic attack (TIA), and cerebral infarction without residual deficits; Z79.899 Other long term (current) drug therapy; Z79.4 Long term (current) use of insulin; Z87.891 Personal history of nicotine dependence

== ENCOUNTER 2022-07-17 14:49 | Observation (INO) | payer BC, MEDICARE, OTHER ==
[~2022-07-17] VITALS: Ht 170.2 cm; Wt 79.6 kg
[~2022-07-17 14:49] MED LIST changes: +FLUT50SP17 NARES; -FLUTISP NARES; -LOSA100T45 PO; +LOSA100T46 PO; +TRIA75TA10 PO; -TRIA75TA2 PO; +VIMP100T PO
[2022-07-17] MEDS ORDERED: ISOVUE-370 76% 100ML VIAL As Ordered ONE (15:36)
[2022-07-17 15:56] LABS: BASO % 0.3 % (0.0-1.0); EOS # 0.1 10^3/uL (0.0-0.5); HEMATOCRIT 39.8 % (42.0-52.0); HEMOGLOBIN 13.8 g/dl (13.5-17.5); LYMPH # 1.8 10^3/uL (1.5-5.0); LYMPH % 44.8 % (24.0-44.0); MEAN CORPUSCULAR HEMOGLOBIN 32.7 pg (27.0-33.0); MEAN CORPUSCULAR HGB CONC 34.7 g/dl (32.0-36.5); MEAN CORPUSCULAR VOLUME 94.3 fl (80.0-96.0); MONO # 0.4 10^3/uL (0.0-0.8); MONO % 9.9 % (2.0-8.0); NEUTROPHILS # 1.7 10^3/uL (1.5-8.5); NEUTROPHILS % 42.7 % (36.0-66.0); RED BLOOD COUNT 4.22 10^6/uL (4.30-6.10); WHITE BLOOD COUNT 3.9 10^3/uL (4.0-10.0)
[2022-07-17 16:08] LABS: INR 1.03; PROTHROMBIN TIME 13.7 SECONDS (12.5-14.5)
[2022-07-17 16:09] LABS: PARTIAL THROMBOPLASTIN TIME 24.3 SECONDS (24.8-34.2)
[2022-07-17 16:17] LABS: CK-MB VALUE MASS 1.1 NG/ML (<3.6); VALPROIC ACID (DEPAKOTE) 79.7 UG/ML (50.0-100.0)
[2022-07-17 16:20] LABS: MB/CK RELATIVE INDEX 2.34 (< OR =4)
[2022-07-17 16:21] LABS: PLATELET COUNT, AUTOMATED 88 10^3/uL (150-450)
[2022-07-17 16:28] LABS: RSV AMPLIFICATION NEGATIVE (NEGATIVE)
[2022-07-17] MEDS ORDERED: DEXTROSE 50% 50ML SYRINGE IV PRN (18:35)
[2022-07-17] MEDS ORDERED: GLUCAGON INJ 1MG VIAL SC PRN (18:35)
[2022-07-17] MEDS ORDERED: GLUCOSE 4GM CHEW TABLET PO PRN (18:35)
[2022-07-17] MEDS ORDERED: diphenhydrAMINE 50MG/ML VIAL IV STA (19:12)
[2022-07-17] MEDS ORDERED: DOCU5LIQ PO (19:13)
[2022-07-17] MEDS ORDERED: ALBU2.5V10 INH (19:13)
[2022-07-17] MEDS ORDERED: ASPI81CH33 PO (19:13)
[2022-07-17] MEDS ORDERED: MELA1TAB9 PO (19:13)
[2022-07-17] MEDS ORDERED: SENN-186 PO (19:13)
[2022-07-17] MEDS ORDERED: ENSU1LIQ PO (19:13)
[2022-07-17] MEDS ORDERED: MIRA3350 PO (19:13)
[2022-07-17] MEDS ORDERED: CARV12.5 PO (19:13)
[2022-07-17] MEDS ORDERED: VALP250S PO (19:13)
[2022-07-17] MEDS ORDERED: DOXY100T PO (19:13)
[2022-07-17] MEDS ORDERED: HYDR-3363 PO (19:13)
[2022-07-17] MEDS ORDERED: SIMV40TA20 PO (19:13)
[2022-07-17] MEDS ORDERED: SEMA0.257 SQ (19:13)
[2022-07-17] MEDS ORDERED: QUET1TAB17 PO (19:13)
[2022-07-17] MEDS ORDERED: LOSA25TA13 PO (19:13)
[2022-07-17] MEDS ORDERED: [UNRECOGNIZED DRUG - OTHER] MM (19:13)
[2022-07-17] MEDS ORDERED: DICL1GEL3 TOP (19:13)
[2022-07-17] MEDS ORDERED: VENTAER INH (19:13)
[2022-07-17] MEDS ORDERED: LACO10SO PO (19:13)
[2022-07-17] MEDS ORDERED: MUPI2OI TOP (19:13)
[2022-07-17] MEDS ORDERED: OMEP-173 PO (19:13)
[2022-07-17 19:14] LABS: CHOLESTEROL RISK RATIO 1.99 (<5); HDL CHOLESTEROL 48.6 MG/DL (>40); LDL CHOLESTEROL 30.8 MG/DL (<100); NON-HDL-C 48.4 MG/DL
[2022-07-17] MEDS ORDERED: SALIVA SUBSTITUTE(MOUTHKOTE) BTL MT PRN (19:15)
[2022-07-17] MEDS ORDERED: SENNA 8.6 MG TAB (SENOKOT) PO PRN (19:15)
[2022-07-17] MEDS ORDERED: MIRALAX *UNIT DOSE* 17GM PACKET PO PRN (19:15)
[2022-07-17] MEDS ORDERED: HOME MED LIST COMPLETE! XX SCH (19:15)
[2022-07-17] MEDS ORDERED: ALBUTEROL 90 MCG/ACT 8GM HFA INHALER INH PRN (19:15)
[2022-07-17] MEDS ORDERED: DOCUSATE SOD LIQ 100MG/10ML UDC PO PRN (19:15)
[2022-07-17 19:16] LABS: HEMOGLOBIN A1c 6.1 % (4.0-6.0)
[2022-07-17] MEDS ORDERED: hydrALAZINE 20MG/ML 1ML VIAL IV PRN (20:20)
[2022-07-17] MEDS: INSULIN LISPRO (NovoLOG) PER UNIT SC SCH (21:00)
[2022-07-17] MEDS: CARVedilol 12.5 MG TAB PO SCH (23:34)
[2022-07-17] MEDS: MAGNESIUM OXIDE 400MG TAB (MAG-OX) PO SCH (23:34)
[2022-07-17] MEDS: LACOSAMIDE 50 MG TAB (VIMPAT) PO SCH (23:34)
[2022-07-17] MEDS: RAMELTEON 8 MG TAB (ROZEREM) PO SCH (23:34)
[2022-07-17] MEDS: VALPROIC ACID 250MG/5ML SOL ORAL SYRINGE *DRAW UP EXACT DOSE PO SCH (23:35)
[2022-07-17] MEDS: QUEtiapine FUMARATE 12.5 MG HALF-TAB PO SCH (23:35)
[2022-07-18] VITALS (7 sets, daily range): BP systolic 121–168; BP diastolic 63–93
[2022-07-18 05:40] LABS: HEMATOCRIT 35.3 % (42.0-52.0); HEMOGLOBIN 12.1 g/dl (13.5-17.5); MEAN CORPUSCULAR HEMOGLOBIN 32.3 pg (27.0-33.0); MEAN CORPUSCULAR HGB CONC 34.3 g/dl (32.0-36.5); MEAN CORPUSCULAR VOLUME 94.1 fl (80.0-96.0); PLATELET COUNT, AUTOMATED 103 10^3/uL (150-450); RED BLOOD COUNT 3.75 10^6/uL (4.30-6.10); WHITE BLOOD COUNT 5.3 10^3/uL (4.0-10.0)
[2022-07-18] MEDS: HEPARIN SOD (PORCINE) 5000UNITS/ML 1ML VIAL/SYRINGE SC SCH ×3 (05:55→22:22)
[2022-07-18 06:20] LABS: ALKALINE PHOSPHATASE 59 U/L (46-116); ALT/SGPT < 9 U/L (7.0-40); AST/SGOT 12 U/L (<34); BILIRUBIN,TOTAL 0.4 MG/DL (0.3-1.2); BLOOD UREA NITROGEN 23 MG/DL (9-23); CALCIUM LEVEL 8.2 MG/DL (8.3-10.6); CARBON DIOXIDE LEVEL 30 MMOL/L (20-31); CHLORIDE LEVEL 107 MMOL/L (98-107); CREATININE FOR GFR 1.23 MG/DL (0.70-1.30); GLOMERULAR FILTRATION RATE > 60.0 (>42); GLUCOSE, FASTING 100 MG/DL (74-106); MAGNESIUM LEVEL 1.7 MG/DL (1.8-2.4); POTASSIUM SERUM 3.8 MMOL/L (3.5-5.1); SODIUM LEVEL 139 MMOL/L (136-145); TOTAL PROTEIN 5.8 G/DL (5.7-8.2)
[2022-07-18] MEDS: INSULIN LISPRO (NovoLOG) PER UNIT SC SCH ×4 (07:30→21:00)
[2022-07-18] MEDS: POTASSIUM CHL PWD 20MEQ PACKET PO SCH (08:50)
[2022-07-18] MEDS: LACOSAMIDE 50 MG TAB (VIMPAT) PO SCH ×2 (08:51→22:21)
[2022-07-18] MEDS: CARVedilol 12.5 MG TAB PO SCH ×2 (08:51→22:20)
[2022-07-18] MEDS: FLUoxetine 20MG CAP PO SCH (08:51)
[2022-07-18] MEDS: ASPIRIN 81MG CHEW TABLET PO SCH (08:51)
[2022-07-18] MEDS: VALPROIC ACID 250MG/5ML SOL ORAL SYRINGE *DRAW UP EXACT DOSE PO SCH ×2 (08:52→22:19)
[2022-07-18] MEDS: OMEPRAZOLE 20MG CAP PO SCH (08:52)
[2022-07-18] MEDS: MAGNESIUM OXIDE 400MG TAB (MAG-OX) PO SCH ×2 (08:52→22:21)
[2022-07-18] MEDS: MAG SULF 1GM/100ML (MAG RUN) 1 GM in IV 1 EA IV SCH ×2 (10:10→11:43)
[2022-07-18] MEDS: ATORVASTATIN 20 MG TAB PO SCH (13:26)
[2022-07-18] MEDS ORDERED: LOSARTAN 25 MG TAB PO SCH (21:00)
[2022-07-18] MEDS: QUEtiapine FUMARATE 12.5 MG HALF-TAB PO SCH (22:20)
[2022-07-18] MEDS: RAMELTEON 8 MG TAB (ROZEREM) PO SCH (22:21)
[2022-07-19 00:48] VITALS: BP 106/71
[2022-07-19 04:32] VITALS: BP 130/61
[2022-07-19 05:24] LABS: HEMATOCRIT 34.3 % (42.0-52.0); HEMOGLOBIN 11.6 g/dl (13.5-17.5); MEAN CORPUSCULAR HGB CONC 33.8 g/dl (32.0-36.5); MEAN CORPUSCULAR VOLUME 94.5 fl (80.0-96.0); RED BLOOD COUNT 3.63 10^6/uL (4.30-6.10); WHITE BLOOD COUNT 4.9 10^3/uL (4.0-10.0)
[2022-07-19 05:50] LABS: ALBUMIN 2.6 G/DL (3.2-5.2); ALKALINE PHOSPHATASE 55 U/L (46-116); ALT/SGPT < 9 U/L (7.0-40); AST/SGOT 12 U/L (<34); BILIRUBIN,TOTAL 0.4 MG/DL (0.3-1.2); BLOOD UREA NITROGEN 27 MG/DL (9-23); CARBON DIOXIDE LEVEL 30 MMOL/L (20-31); CHLORIDE LEVEL 106 MMOL/L (98-107); CREATININE FOR GFR 1.41 MG/DL (0.70-1.30); GLOMERULAR FILTRATION RATE 52.5 (>42); GLUCOSE, FASTING 93 MG/DL (74-106); MAGNESIUM LEVEL 2.1 MG/DL (1.8-2.4); PLATELET COUNT, AUTOMATED 87 10^3/uL (150-450); POTASSIUM SERUM 3.8 MMOL/L (3.5-5.1); SODIUM LEVEL 142 MMOL/L (136-145); TOTAL PROTEIN 5.3 G/DL (5.7-8.2)
[2022-07-19] MEDS: HEPARIN SOD (PORCINE) 5000UNITS/ML 1ML VIAL/SYRINGE SC SCH (06:40)
[2022-07-19] MEDS: INSULIN LISPRO (NovoLOG) PER UNIT SC SCH ×2 (07:30→12:00)
[2022-07-19 07:56] VITALS: BP 132/60
[2022-07-19] MEDS: VALPROIC ACID 250MG/5ML SOL ORAL SYRINGE *DRAW UP EXACT DOSE PO SCH (08:57)
[2022-07-19] MEDS: POTASSIUM CHL PWD 20MEQ PACKET PO SCH (08:59)
[2022-07-19] MEDS: ATORVASTATIN 20 MG TAB PO SCH (08:59)
[2022-07-19] MEDS: LACOSAMIDE 50 MG TAB (VIMPAT) PO SCH (08:59)
[2022-07-19] MEDS: MAGNESIUM OXIDE 400MG TAB (MAG-OX) PO SCH (09:00)
[2022-07-19] MEDS: FLUoxetine 20MG CAP PO SCH (09:00)
[2022-07-19] MEDS: ASPIRIN 81MG CHEW TABLET PO SCH (09:00)
[2022-07-19] MEDS: OMEPRAZOLE 20MG CAP PO SCH (09:00)
[2022-07-19 09:03] VITALS: BP 122/62
[2022-07-19] MEDS: CARVedilol 12.5 MG TAB PO SCH (09:03)
[2022-07-19] MEDS ORDERED: NS 500 ML IV ONE (10:10)
[2022-07-19] MEDS ORDERED: ATOR1TAB21 PO (10:59)
[2022-07-19 12:00] LABS: IRON (FE) 62 UG/DL (65-175); TOTAL IRON BINDING CAPACITY 230 UG/DL (250-425)
[2022-07-19 12:02] LABS: FOLATE 13.3 NG/ML (>5.4); VITAMIN B12 LEVEL 540 PG/ML (211-911)
[2022-07-19 12:39] LABS: CREATININE FOR GFR 1.46 MG/DL (0.70-1.30); GLOMERULAR FILTRATION RATE 50.4 (>42); POTASSIUM SERUM 4.3 MMOL/L (3.5-5.1)
== END 2022-07-19 16:18 | disposition home health service (06) ==
LOC: EDBD 14:49 → M ED 14:49 → M ED INP 14:59 → M PCU 21:34
PROVIDERS: ADMIT Student in an Organized Health Care Education/Training Program; ATTEND Student in an Organized Health Care Education/Training Program
DX: G45.9 Transient cerebral ischemic attack, unspecified (principal); I48.91 Unspecified atrial fibrillation; I11.0 Hypertensive heart disease with heart failure; R29.701 NIHSS score 1; N17.9 Acute kidney failure, unspecified; G40.909 Epilepsy, unspecified, not intractable, without status epilepticus; E11.9 Type 2 diabetes mellitus without complications; E78.5 Hyperlipidemia, unspecified; K21.9 Gastro-esophageal reflux disease without esophagitis; K59.00 Constipation, unspecified; F32.A Depression, unspecified; Z86.73 Personal history of transient ischemic attack (TIA), and cerebral infarction without residual deficits; I50.9 Heart failure, unspecified; F03.90 Unspecified dementia, unspecified severity, without behavioral disturbance, psychotic disturbance, mood disturbance, and anxiety; D64.9 Anemia, unspecified; G93.89 Other specified disorders of brain; E85.4 Organ-limited amyloidosis; I68.0 Cerebral amyloid angiopathy; Z87.891 Personal history of nicotine dependence; I67.82 Cerebral ischemia; Z88.8 Allergy status to other drugs, medicaments and biological substances; Z79.899 Other long term (current) drug therapy; Z79.82 Long term (current) use of aspirin; Z79.4 Long term (current) use of insulin; Z79.2 Long term (current) use of antibiotics; Z99.3 Dependence on wheelchair
CPT/HCPCS: 36415; 70450; 70496; 70498; 70551; 71045; 80047; 80048; 80053; 80061; 80164; 80235; 82550; 82553; 82607; 82728; 82746; 83036; 83550; 83735; 84484; 85025; 85027; 85049; 85055; 85610; 85730; 87631; 93005; 93041; 93306; 94760; 96365; 96366; 96372; 96375; 99285; G0378; J0360; J1200; J1815; J3475; Q9967

== ENCOUNTER 2022-07-22 21:46 | Observation (INO) | payer BC, MEDICARE, OTHER ==
[~2022-07-22] VITALS: Ht 170.2 cm; Wt 79.6 kg
[~2022-07-22 21:46] MED LIST changes: +ALBU2.5V10 INH; +ASPI81CH33 PO; +DICL1GEL3 TOP; +DOCU5LIQ PO; +DOXY100T PO; +ENSU1LIQ PO; +HYDR-3363 PO; +LACO10SO PO; +LOSA25TA13 PO; +MELA1TAB9 PO; +MUPI2OI TOP; +OMEP-173 PO; +SEMA0.257 SQ; +SENN-186 PO; +SIMV40TA20 PO; +[UNRECOGNIZED DRUG - OTHER] MM
[2022-07-22] MEDS ORDERED: ISOVUE-370 76% 100ML VIAL As Ordered ONE (22:02)
[2022-07-22 22:18] LABS: BASO % 0.1 % (0.0-1.0); EOS # 0.1 10^3/uL (0.0-0.5); EOS % 0.6 % (0.0-3.0); HEMATOCRIT 37.5 % (42.0-52.0); HEMOGLOBIN 13.1 g/dl (13.5-17.5); LYMPH % 12.3 % (24.0-44.0); MEAN CORPUSCULAR HEMOGLOBIN 32.3 pg (27.0-33.0); MEAN CORPUSCULAR HGB CONC 34.9 g/dl (32.0-36.5); MEAN CORPUSCULAR VOLUME 92.6 fl (80.0-96.0); MONO # 0.8 10^3/uL (0.0-0.8); NEUTROPHILS # 6.3 10^3/uL (1.5-8.5); NEUTROPHILS % 76.6 % (36.0-66.0); RED BLOOD COUNT 4.05 10^6/uL (4.30-6.10); WHITE BLOOD COUNT 8.2 10^3/uL (4.0-10.0)
[2022-07-22 22:23] LABS: PLATELET COUNT, AUTOMATED 80 10^3/uL (150-450)
[2022-07-22] MEDS ORDERED: ACETAMINOPHEN 325MG/10.15ML UDC PO ONE (22:25)
[2022-07-22 22:26] LABS: INR 1.06
[2022-07-22 22:27] LABS: PARTIAL THROMBOPLASTIN TIME 42.8 SECONDS (24.8-34.2)
[2022-07-22 22:32] LABS: CK-MB VALUE MASS < 1.0 NG/ML (<3.6)
[2022-07-22 22:34] LABS: ALBUMIN 2.9 G/DL (3.2-5.2); ALKALINE PHOSPHATASE 60 U/L (46-116); ALT/SGPT < 9 U/L (7.0-40); AST/SGOT 19 U/L (<34); BILIRUBIN,DIRECT 0.2 MG/DL (<0.4); BILIRUBIN,TOTAL 0.4 MG/DL (0.3-1.2); BLOOD UREA NITROGEN 31 MG/DL (9-23); CALCIUM LEVEL 8.2 MG/DL (8.3-10.6); CARBON DIOXIDE LEVEL 28 MMOL/L (20-31); CHLORIDE LEVEL 102 MMOL/L (98-107); CREATININE FOR GFR 1.09 MG/DL (0.70-1.30); GLOMERULAR FILTRATION RATE > 60.0 (>42); GLUCOSE, FASTING 141 MG/DL (74-106); POTASSIUM SERUM 5.1 MMOL/L (3.5-5.1); SODIUM LEVEL 135 MMOL/L (136-145)
[2022-07-22 22:36] LABS: THYROID STIMULATING HORMONE 2.528 uIU/ML (0.55-4.78)
[2022-07-22] MEDS ORDERED: PIPERACILLIN/TAZOBACTAM SOD 4.5 GM in D5W MINI-BAG PLUS 50 ML IV ONE (22:40)
[2022-07-22 22:41] LABS: CPK CREATINE PHOSPHOKINASE 100 U/L (46-171)
[2022-07-22 22:49] LABS: RSV AMPLIFICATION NEGATIVE (NEGATIVE)
[2022-07-23] MEDS ORDERED: ACETAMINOPHEN TAB 650MG DOSE (2X325MG) PO PRN (00:10)
[2022-07-23] MEDS ORDERED: MOM 30ML SUSPENSION UDC PO PRN (00:10)
[2022-07-23] MEDS ORDERED: ALBUTEROL 90 MCG/ACT 8GM HFA INHALER INH PRN ×2 (00:25→10:40)
[2022-07-23] MEDS ORDERED: DEXTROSE 50% 50ML SYRINGE IV PRN (01:45)
[2022-07-23] MEDS ORDERED: NS 1,000 ML IV SCH (01:45)
[2022-07-23] MEDS ORDERED: GLUCOSE 4GM CHEW TABLET PO PRN (01:45)
[2022-07-23] MEDS ORDERED: GLUCAGON INJ 1MG VIAL SC PRN (01:45)
[2022-07-23 05:44] LABS: HEMATOCRIT 36.6 % (42.0-52.0); HEMOGLOBIN 12.5 g/dl (13.5-17.5); MEAN CORPUSCULAR HGB CONC 34.2 g/dl (32.0-36.5); MEAN CORPUSCULAR VOLUME 93.6 fl (80.0-96.0); RED BLOOD COUNT 3.91 10^6/uL (4.30-6.10); WHITE BLOOD COUNT 7.1 10^3/uL (4.0-10.0)
[2022-07-23 05:45] LABS: PLATELET COUNT, AUTOMATED 82 10^3/uL (150-450)
[2022-07-23 06:05] LABS: ALBUMIN 2.9 G/DL (3.2-5.2); ALKALINE PHOSPHATASE 60 U/L (46-116); ALT/SGPT < 9 U/L (7.0-40); AST/SGOT 13 U/L (<34); BILIRUBIN,TOTAL 0.5 MG/DL (0.3-1.2); BLOOD UREA NITROGEN 28 MG/DL (9-23); CALCIUM LEVEL 8.5 MG/DL (8.3-10.6); CARBON DIOXIDE LEVEL 28 MMOL/L (20-31); CHLORIDE LEVEL 101 MMOL/L (98-107); CREATININE FOR GFR 1.25 MG/DL (0.70-1.30); GLOMERULAR FILTRATION RATE > 60.0 (>42); GLUCOSE, FASTING 116 MG/DL (74-106); POTASSIUM SERUM 4.4 MMOL/L (3.5-5.1); SODIUM LEVEL 135 MMOL/L (136-145); TOTAL PROTEIN 6.2 G/DL (5.7-8.2)
[2022-07-23] MEDS: AMPICILLIN SOD/SULBACTAM SOD 3 GM in D5W MINI-BAG PLUS 100 ML IV SCH ×3 (06:28→17:55)
[2022-07-23] MEDS: INSULIN LISPRO (NovoLOG) PER UNIT SC SCH ×4 (07:30→21:00)
[2022-07-23] MEDS: ASPIRIN 81MG CHEW TABLET PO SCH (07:55)
[2022-07-23] MEDS: CARVedilol 12.5 MG TAB PO SCH ×2 (07:55→21:06)
[2022-07-23] MEDS: FLUoxetine 20MG CAP PO SCH (07:56)
[2022-07-23] MEDS: ATORVASTATIN 20 MG TAB PO SCH (07:56)
[2022-07-23] MEDS: OMEPRAZOLE 20MG CAP PO SCH (07:56)
[2022-07-23] MEDS: ENOXAPARIN 40MG/0.4ML SYRINGE (J1650 PER 10MG) SC SCH (07:57)
[2022-07-23] MEDS ORDERED: ATOR1TAB21 PO (08:58)
[2022-07-23] MEDS ORDERED: HOME MED LIST COMPLETE! XX SCH (09:00)
[2022-07-23] MEDS ORDERED: ALBUTEROL SULFATE 2.5MG/0.5ML INH NEB SOLN INH PRN (10:40)
[2022-07-23] MEDS ORDERED: MIRALAX *UNIT DOSE* 17GM PACKET PO PRN (10:40)
[2022-07-23] MEDS ORDERED: SENNA 8.6 MG TAB (SENOKOT) PO PRN (10:40)
[2022-07-23] MEDS: VALPROIC ACID 250MG/5ML SOL ORAL SYRINGE *DRAW UP EXACT DOSE PO SCH ×2 (16:00→21:05)
[2022-07-23 16:20] VITALS: BP_SYST 110; BP_SYST 125; BP_DIAS 75
[2022-07-23] MEDS: LACOSAMIDE 10MG/ML 20ML VIAL (VIMPAT) IV SCH ×2 (16:34→21:04)
[2022-07-23] MEDS: MAGNESIUM OXIDE 400MG TAB (MAG-OX) PO SCH ×2 (16:34→21:05)
[2022-07-23] MEDS: POTASSIUM CHL PWD 20MEQ PACKET PO SCH (17:58)
[2022-07-23] MEDS: MUPIROCIN 2% OINT 22 GM TUBE TOP SCH (17:59)
[2022-07-23 20:50] VITALS: BP 144/65
[2022-07-23] MEDS ORDERED: ENTER DRUG NAME HERE (PATIENT'S OWN MED) PO SCH (21:00)
[2022-07-23] MEDS: QUEtiapine FUMARATE 12.5 MG HALF-TAB PO SCH (21:05)
[2022-07-23 22:00] VITALS: BP 141/65
[2022-07-24] VITALS (8 sets, daily range): BP systolic 111–160; BP diastolic 52–69
[2022-07-24] MEDS: AMPICILLIN SOD/SULBACTAM SOD 3 GM in D5W MINI-BAG PLUS 100 ML IV SCH ×5 (00:29→23:43)
[2022-07-24 06:27] LABS: HEMATOCRIT 34.9 % (42.0-52.0); HEMOGLOBIN 12.2 g/dl (13.5-17.5); MEAN CORPUSCULAR HEMOGLOBIN 32.5 pg (27.0-33.0); MEAN CORPUSCULAR VOLUME 93.1 fl (80.0-96.0); RED BLOOD COUNT 3.75 10^6/uL (4.30-6.10)
[2022-07-24 06:28] LABS: EOS % 0.2 % (0.0-3.0); LYMPH # 1.8 10^3/uL (1.5-5.0); LYMPH % 22.1 % (24.0-44.0); MONO # 1.1 10^3/uL (0.0-0.8); MONO % 14.1 % (2.0-8.0); NEUTROPHILS # 5.1 10^3/uL (1.5-8.5); NEUTROPHILS % 63.4 % (36.0-66.0); PLATELET COUNT, AUTOMATED 70 10^3/uL (150-450)
[2022-07-24 06:52] LABS: ALBUMIN 2.5 G/DL (3.2-5.2); ALKALINE PHOSPHATASE 52 U/L (46-116); ALT/SGPT < 9 U/L (7.0-40); AST/SGOT 12 U/L (<34); BILIRUBIN,TOTAL 0.4 MG/DL (0.3-1.2); BLOOD UREA NITROGEN 21 MG/DL (9-23); CALCIUM LEVEL 8.1 MG/DL (8.3-10.6); CARBON DIOXIDE LEVEL 28 MMOL/L (20-31); CHLORIDE LEVEL 102 MMOL/L (98-107); CREATININE FOR GFR 1.28 MG/DL (0.70-1.30); GLOMERULAR FILTRATION RATE 58.5 (>42); GLUCOSE, FASTING 124 MG/DL (74-106); MAGNESIUM LEVEL 1.7 MG/DL (1.8-2.4); SODIUM LEVEL 137 MMOL/L (136-145); TOTAL PROTEIN 5.6 G/DL (5.7-8.2)
[2022-07-24] MEDS: INSULIN LISPRO (NovoLOG) PER UNIT SC SCH ×4 (07:30→21:00)
[2022-07-24] MEDS: ATORVASTATIN 20 MG TAB PO SCH (09:47)
[2022-07-24] MEDS: POTASSIUM CHL PWD 20MEQ PACKET PO SCH (09:47)
[2022-07-24] MEDS: MAGNESIUM OXIDE 400MG TAB (MAG-OX) PO SCH ×2 (09:47→22:04)
[2022-07-24] MEDS: FLUoxetine 20MG CAP PO SCH (09:47)
[2022-07-24] MEDS: VALPROIC ACID 250MG/5ML SOL ORAL SYRINGE *DRAW UP EXACT DOSE PO SCH ×2 (09:48→22:03)
[2022-07-24] MEDS: ASPIRIN 81MG CHEW TABLET PO SCH (09:48)
[2022-07-24] MEDS: MAG SULF 1GM/100ML (MAG RUN) 1 GM in IV 1 EA IV SCH ×2 (09:48→11:13)
[2022-07-24] MEDS: LACOSAMIDE 10MG/ML 20ML VIAL (VIMPAT) IV SCH ×2 (09:48→22:03)
[2022-07-24] MEDS: MUPIROCIN 2% OINT 22 GM TUBE TOP SCH (09:49)
[2022-07-24] MEDS: OMEPRAZOLE 20MG CAP PO SCH (09:49)
[2022-07-24] MEDS: CARVedilol 12.5 MG TAB PO SCH ×2 (09:51→21:00)
[2022-07-24] MEDS: ENOXAPARIN 40MG/0.4ML SYRINGE (J1650 PER 10MG) SC SCH (09:58)
[2022-07-24 15:30] LABS: BASO % 0.1 % (0.0-1.0); EOS % 0.1 % (0.0-3.0); HEMATOCRIT 32.9 % (42.0-52.0); HEMOGLOBIN 11.2 g/dl (13.5-17.5); LYMPH # 1.9 10^3/uL (1.5-5.0); LYMPH % 24.1 % (24.0-44.0); MEAN CORPUSCULAR HEMOGLOBIN 31.7 pg (27.0-33.0); MEAN CORPUSCULAR VOLUME 93.2 fl (80.0-96.0); MONO # 0.9 10^3/uL (0.0-0.8); MONO % 11.4 % (2.0-8.0); NEUTROPHILS # 4.9 10^3/uL (1.5-8.5); RED BLOOD COUNT 3.53 10^6/uL (4.30-6.10); WHITE BLOOD COUNT 7.7 10^3/uL (4.0-10.0)
[2022-07-24] MEDS ORDERED: MEROPENEM INJ 1 GM in IV 1 EA IV SCH (15:30)
[2022-07-24 15:43] LABS: PLATELET COUNT, AUTOMATED 71 10^3/uL (150-450)
[2022-07-24 15:49] LABS: ABG BASE EXCESS 0.2 (-2.0-2.0); ABG O2 SATURATION 94.6 % (95.0-99.0); ABG PARTIAL PRESSURE O2 74.6 mmHg (75.0-100.0); ABG STANDARD HCO3 24.6 MMOL/L. (22.0-26.0); ABG TOTAL CO2 26.3 MMOL/L (23.0-31.0); ABG pH (ARTERIAL) 7.403 UNITS (7.350-7.450)
[2022-07-24 15:59] LABS: ALBUMIN 2.3 G/DL (3.2-5.2); BILIRUBIN,TOTAL 0.3 MG/DL (0.3-1.2); CREATININE FOR GFR 1.55 MG/DL (0.70-1.30); GLOMERULAR FILTRATION RATE 46.9 (>42); MAGNESIUM LEVEL 2.3 MG/DL (1.8-2.4); TOTAL PROTEIN 5.2 G/DL (5.7-8.2)
[2022-07-24] MEDS ORDERED: NS 1,000 ML IV ONE (16:50)
[2022-07-24] MEDS ORDERED: NS 500 ML IV ONE (18:20)
[2022-07-24] MEDS: QUEtiapine FUMARATE 12.5 MG HALF-TAB PO SCH (22:04)
[2022-07-25 01:52] VITALS: BP 156/80
[2022-07-25 05:05] VITALS: BP 155/77
[2022-07-25] MEDS: AMPICILLIN SOD/SULBACTAM SOD 3 GM in D5W MINI-BAG PLUS 100 ML IV SCH ×2 (05:15→12:45)
[2022-07-25 06:31] LABS: BASO % 0.2 % (0.0-1.0); EOS % 0.6 % (0.0-3.0); HEMATOCRIT 32.7 % (42.0-52.0); LYMPH # 1.8 10^3/uL (1.5-5.0); LYMPH % 26.7 % (24.0-44.0); MEAN CORPUSCULAR HEMOGLOBIN 31.9 pg (27.0-33.0); MEAN CORPUSCULAR HGB CONC 33.6 g/dl (32.0-36.5); MEAN CORPUSCULAR VOLUME 94.8 fl (80.0-96.0); MONO # 0.8 10^3/uL (0.0-0.8); NEUTROPHILS % 60.2 % (36.0-66.0); RED BLOOD COUNT 3.45 10^6/uL (4.30-6.10); WHITE BLOOD COUNT 6.7 10^3/uL (4.0-10.0)
[2022-07-25 06:48] LABS: ALBUMIN 2.3 G/DL (3.2-5.2); ALKALINE PHOSPHATASE 49 U/L (46-116); ALT/SGPT < 9 U/L (7.0-40); AST/SGOT 12 U/L (<34); BILIRUBIN,TOTAL 0.3 MG/DL (0.3-1.2); BLOOD UREA NITROGEN 19 MG/DL (9-23); CALCIUM LEVEL 7.8 MG/DL (8.3-10.6); CARBON DIOXIDE LEVEL 31 MMOL/L (20-31); CHLORIDE LEVEL 108 MMOL/L (98-107); CREATININE FOR GFR 1.16 MG/DL (0.70-1.30); GLOMERULAR FILTRATION RATE > 60.0 (>42); GLUCOSE, FASTING 133 MG/DL (74-106); MAGNESIUM LEVEL 2.1 MG/DL (1.8-2.4); POTASSIUM SERUM 3.9 MMOL/L (3.5-5.1); SODIUM LEVEL 143 MMOL/L (136-145); TOTAL PROTEIN 5.4 G/DL (5.7-8.2)
[2022-07-25 07:01] LABS: PLATELET COUNT, AUTOMATED 72 10^3/uL (150-450)
[2022-07-25] MEDS: INSULIN LISPRO (NovoLOG) PER UNIT SC SCH ×4 (07:30→20:17)
[2022-07-25] MEDS: ASPIRIN 325 MG TAB PO SCH (08:45)
[2022-07-25] MEDS: ATORVASTATIN 20 MG TAB PO SCH (08:45)
[2022-07-25] MEDS: OMEPRAZOLE 20MG CAP PO SCH (08:45)
[2022-07-25] MEDS: MAGNESIUM OXIDE 400MG TAB (MAG-OX) PO SCH ×2 (08:45→20:24)
[2022-07-25] MEDS: FLUoxetine 20MG CAP PO SCH (08:45)
[2022-07-25] MEDS: VALPROIC ACID 250MG/5ML SOL ORAL SYRINGE *DRAW UP EXACT DOSE PO SCH ×2 (08:46→20:23)
[2022-07-25] MEDS: POTASSIUM CHL PWD 20MEQ PACKET PO SCH (08:46)
[2022-07-25] MEDS: LACOSAMIDE 10MG/ML 20ML VIAL (VIMPAT) IV SCH (08:46)
[2022-07-25] MEDS: ENOXAPARIN 40MG/0.4ML SYRINGE (J1650 PER 10MG) SC SCH (08:47)
[2022-07-25] MEDS: CARVedilol 12.5 MG TAB PO SCH ×2 (08:53→20:25)
[2022-07-25 10:00] VITALS: BP 147/71
[2022-07-25] MEDS: MUPIROCIN 2% OINT 22 GM TUBE TOP SCH (11:13)
[2022-07-25 14:00] VITALS: BP 137/67
[2022-07-25 18:00] VITALS: BP 154/54
[2022-07-25] MEDS: AUGMENTIN ES SUSP POWDER 600MG/5ML 125ML BTL PO SCH (20:23)
[2022-07-25] MEDS: LACOSAMIDE 50 MG TAB (VIMPAT) PO SCH (20:24)
[2022-07-25] MEDS: QUEtiapine FUMARATE 12.5 MG HALF-TAB PO SCH (20:24)
[2022-07-25] MEDS ORDERED: LACOSAMIDE 10MG/ML 20ML VIAL (VIMPAT) IV SCH (21:00)
[2022-07-25 21:30] VITALS: BP 148/64
[2022-07-26] VITALS (8 sets, daily range): BP systolic 135–150; BP diastolic 76–84; O2SAT 93
[2022-07-26 06:25] LABS: BASO % 0.2 % (0.0-1.0); EOS # 0.1 10^3/uL (0.0-0.5); EOS % 1.4 % (0.0-3.0); HEMATOCRIT 32.2 % (42.0-52.0); LYMPH # 1.7 10^3/uL (1.5-5.0); LYMPH % 31.1 % (24.0-44.0); MEAN CORPUSCULAR HEMOGLOBIN 32.7 pg (27.0-33.0); MEAN CORPUSCULAR HGB CONC 34.2 g/dl (32.0-36.5); MEAN CORPUSCULAR VOLUME 95.8 fl (80.0-96.0); MONO # 0.6 10^3/uL (0.0-0.8); MONO % 10.6 % (2.0-8.0); NEUTROPHILS # 3.2 10^3/uL (1.5-8.5); NEUTROPHILS % 56.3 % (36.0-66.0); RED BLOOD COUNT 3.36 10^6/uL (4.30-6.10); WHITE BLOOD COUNT 5.6 10^3/uL (4.0-10.0)
[2022-07-26 06:28] LABS: PLATELET COUNT, AUTOMATED 85 10^3/uL (150-450)
[2022-07-26 07:03] LABS: ALBUMIN 2.2 G/DL (3.2-5.2); ALKALINE PHOSPHATASE 46 U/L (46-116); ALT/SGPT 15 U/L (7.0-40); AST/SGOT 22 U/L (<34); BILIRUBIN,TOTAL 0.2 MG/DL (0.3-1.2); BLOOD UREA NITROGEN 20 MG/DL (9-23); CALCIUM LEVEL 7.8 MG/DL (8.3-10.6); CARBON DIOXIDE LEVEL 31 MMOL/L (20-31); CHLORIDE LEVEL 107 MMOL/L (98-107); CREATININE FOR GFR 1.17 MG/DL (0.70-1.30); GLOMERULAR FILTRATION RATE > 60.0 (>42); GLUCOSE, FASTING 107 MG/DL (74-106); MAGNESIUM LEVEL 1.9 MG/DL (1.8-2.4); POTASSIUM SERUM 4.1 MMOL/L (3.5-5.1); SODIUM LEVEL 144 MMOL/L (136-145); TOTAL PROTEIN 5.1 G/DL (5.7-8.2)
[2022-07-26] MEDS: INSULIN LISPRO (NovoLOG) PER UNIT SC SCH ×3 (08:04→17:20)
[2022-07-26] MEDS: MAG SULF 1GM/100ML (MAG RUN) 1 GM in IV 1 EA IV SCH ×2 (08:04→09:40)
[2022-07-26] MEDS: ENOXAPARIN 40MG/0.4ML SYRINGE (J1650 PER 10MG) SC SCH (08:05)
[2022-07-26] MEDS: MUPIROCIN 2% OINT 22 GM TUBE TOP SCH (08:06)
[2022-07-26] MEDS: LACOSAMIDE 50 MG TAB (VIMPAT) PO SCH ×2 (08:43→09:41)
[2022-07-26] MEDS: AUGMENTIN ES SUSP POWDER 600MG/5ML 125ML BTL PO SCH ×2 (08:44→09:45)
[2022-07-26] MEDS: ASPIRIN 325 MG TAB PO SCH ×2 (08:44→09:44)
[2022-07-26] MEDS: POTASSIUM CHL PWD 20MEQ PACKET PO SCH ×2 (08:44→09:46)
[2022-07-26] MEDS: CARVedilol 12.5 MG TAB PO SCH ×2 (08:44→09:42)
[2022-07-26] MEDS: VALPROIC ACID 250MG/5ML SOL ORAL SYRINGE *DRAW UP EXACT DOSE PO SCH ×2 (08:44→09:45)
[2022-07-26] MEDS: ATORVASTATIN 20 MG TAB PO SCH ×2 (08:44→09:43)
[2022-07-26] MEDS: OMEPRAZOLE 20MG CAP PO SCH ×2 (08:45→09:44)
[2022-07-26] MEDS: MAGNESIUM OXIDE 400MG TAB (MAG-OX) PO SCH ×2 (08:45→09:47)
[2022-07-26] MEDS: FLUoxetine 20MG CAP PO SCH ×2 (08:45→09:44)
[2022-07-26] MEDS ORDERED: VIMP50TA3 PO (10:09)
[2022-07-26] MEDS ORDERED: AMOX1SUS19 PO (10:09)
[2022-07-26] MEDS ORDERED: ASPI-1 PO (11:11)
[2022-07-26] MEDS ORDERED: VIMP150T PO (11:36)
== END 2022-07-26 19:06 | disposition home or self-care (01) ==
LOC: M ED 21:46 → EDSEX 21:46 → EDBD 21:46 → M ED INP 21:47 → M MSPAV 07-23 15:44
PROVIDERS: ADMIT Internal Medicine; ATTEND Internal Medicine
DX: I63.9 Cerebral infarction, unspecified (principal); G93.40 Encephalopathy, unspecified; I69.298 Other sequelae of other nontraumatic intracranial hemorrhage; G40.909 Epilepsy, unspecified, not intractable, without status epilepticus; B97.10 Unspecified enterovirus as the cause of diseases classified elsewhere; B97.89 Other viral agents as the cause of diseases classified elsewhere; I11.0 Hypertensive heart disease with heart failure; J96.01 Acute respiratory failure with hypoxia; R13.12 Dysphagia, oropharyngeal phase; I25.10 Atherosclerotic heart disease of native coronary artery without angina pectoris; N17.9 Acute kidney failure, unspecified; E11.9 Type 2 diabetes mellitus without complications; E78.5 Hyperlipidemia, unspecified; Z86.79 Personal history of other diseases of the circulatory system; F32.A Depression, unspecified; K21.9 Gastro-esophageal reflux disease without esophagitis; K59.00 Constipation, unspecified; E87.8 Other disorders of electrolyte and fluid balance, not elsewhere classified; F03.90 Unspecified dementia, unspecified severity, without behavioral disturbance, psychotic disturbance, mood disturbance, and anxiety; E87.6 Hypokalemia; E83.42 Hypomagnesemia; I50.9 Heart failure, unspecified; J44.9 Chronic obstructive pulmonary disease, unspecified; R05.8 Other specified cough; R63.0 Anorexia; R50.9 Fever, unspecified; R53.83 Other fatigue; Z88.8 Allergy status to other drugs, medicaments and biological substances; Z79.899 Other long term (current) drug therapy; Z79.82 Long term (current) use of aspirin; Z79.84 Long term (current) use of oral hypoglycemic drugs; Z87.891 Personal history of nicotine dependence
CPT/HCPCS: 36415; 36600; 70450; 70496; 70498; 70544; 70551; 71045; 71250; 80047; 80048; 80053; 80076; 80164; 80235; 81001; 82550; 82553; 82803; 83605; 83735; 84145; 84443; 84484; 85025; 85027; 85049; 85055; 85610; 85730; 87040; 87486; 87581; 87631; 87633; 87798; 92526; 92610; 93005; 93041; 93308; 94667; 94668; 94760; 96365; 96366; 96367; 96372; 96375; 96376; 97162; 97530; 99285; C8924; C9254; G0378; J0295; J1650; J1815; J2543; J3475; Q9967

== ENCOUNTER 2022-08-03 12:36 | Emergency (ER) | payer OTHER ==
[~2022-08-03] VITALS: Ht 167.6 cm; Wt 79.5 kg
[~2022-08-03 12:36] MED LIST changes: +AMOX1SUS19 PO; +ASPI-1 PO; +VIMP150T PO; +VIMP50TA3 PO
[2022-08-03] MEDS ORDERED: LIDOCAINE 2% 5ML JELLY UROJET TOP ONE (13:20)
[2022-08-03 14:03] LABS: BASO % 0.2 % (0.0-1.0); EOS # 0.1 10^3/uL (0.0-0.5); EOS % 0.8 % (0.0-3.0); HEMATOCRIT 36.6 % (42.0-52.0); HEMOGLOBIN 12.2 g/dl (13.5-17.5); LYMPH # 1.5 10^3/uL (1.5-5.0); LYMPH % 13.8 % (24.0-44.0); MEAN CORPUSCULAR HGB CONC 33.3 g/dl (32.0-36.5); MEAN CORPUSCULAR VOLUME 96.1 fl (80.0-96.0); MONO # 0.9 10^3/uL (0.0-0.8); MONO % 8.3 % (2.0-8.0); NEUTROPHILS # 8.1 10^3/uL (1.5-8.5); NEUTROPHILS % 76.5 % (36.0-66.0); PLATELET COUNT, AUTOMATED 141 10^3/uL (150-450); RED BLOOD COUNT 3.81 10^6/uL (4.30-6.10); WHITE BLOOD COUNT 10.6 10^3/uL (4.0-10.0)
[2022-08-03 14:33] LABS: ALBUMIN 2.7 G/DL (3.2-5.2); ALKALINE PHOSPHATASE 64 U/L (46-116); ALT/SGPT 11 U/L (7.0-40); AST/SGOT 14 U/L (<34); BILIRUBIN,DIRECT 0.1 MG/DL (<0.4); BILIRUBIN,TOTAL 0.3 MG/DL (0.3-1.2); BLOOD UREA NITROGEN 23 MG/DL (9-23); CALCIUM LEVEL 8.5 MG/DL (8.3-10.6); CARBON DIOXIDE LEVEL 31 MMOL/L (20-31); CHLORIDE LEVEL 106 MMOL/L (98-107); CREATININE FOR GFR 1.25 MG/DL (0.70-1.30); GLOMERULAR FILTRATION RATE > 60.0 (>42); GLUCOSE, FASTING 129 MG/DL (74-106); POTASSIUM SERUM 4.5 MMOL/L (3.5-5.1); SODIUM LEVEL 142 MMOL/L (136-145); TOTAL PROTEIN 6.1 G/DL (5.7-8.2)
[2022-08-03 14:35] LABS: FREE T4 0.93 NG/DL (0.89-1.76)
[2022-08-03 14:36] LABS: THYROID STIMULATING HORMONE 3.823 uIU/ML (0.55-4.78)
[2022-08-03 16:25] VITALS: BP 155/74
== END 2022-08-03 17:56 | disposition home or self-care (01) ==
LOC: EDBD 12:36 → M ED 12:36
DX: I95.9 Hypotension, unspecified (principal); B34.8 Other viral infections of unspecified site; I48.91 Unspecified atrial fibrillation; I50.20 Unspecified systolic (congestive) heart failure; E11.9 Type 2 diabetes mellitus without complications; Z86.73 Personal history of transient ischemic attack (TIA), and cerebral infarction without residual deficits; F03.90 Unspecified dementia, unspecified severity, without behavioral disturbance, psychotic disturbance, mood disturbance, and anxiety; Z88.8 Allergy status to other drugs, medicaments and biological substances; Z79.82 Long term (current) use of aspirin; Z79.51 Long term (current) use of inhaled steroids; Z79.899 Other long term (current) drug therapy